=== PATIENT | male | born 1935 | race Caucasian/White ===

== ENCOUNTER 2019-03-13 19:13 | Inpatient (IN) | payer MEDICARE ==
--- NOTE | 2019-03-13 19:38 | ED ---
SOB HPI - General Chief Complaint: Shortness of Breath Stated Complaint: URI, rash Time Seen by Provider: 03/13/19 19:15 Source: patient Mode of arrival: wheelchair Limitations: no limitations - History of Present Illness Initial Comments: The patient is an 83 year old male past history of COPD who presents to the emergency department with reported shortness of breath and rash. He states that he sees Dr. Garcia in office. He is chronically on 4 L of oxygen at all times. He was having shortness of breath approximately one month ago. Dr. aGrcia put him on prednisone and Levaquin. States he took the medications as directed and did have improvement. Over the past week the patient has had worsening shortness of breath. Has a mild cough with yellow sputum production. He has been using his inhalers at home as directed however has no improvement in his symptoms. He also admits to chills. Denies any recorded fevers. The patient then developed a rash in his groin 4 days ago which is prompting his ER visit. States that he is unsure how long it has been there as he is unable to see the area. He describes it as a painful rash without pruritus. No history of similar in the past. Denies any new exposures. Admits to urinary retention. Denies dysuria or hematuria. Denies diarrhea, constipation, nontoxic stools or hematochezia. There are no alleviating, precipitating or modifying factors - Related Data Home Medications Medication Instructions Recorded Confirmed Albuterol Nebulized [Ventolin 2.5 mg INHALATION RT-QID PRN 03/27/15 03/13/19 Nebulized] Ascorbic Acid [Vitamin C] 500 mg PO DAILY 03/27/15 03/13/19 Cholecalciferol [Vitamin D3 (25 1,000 unit PO DAILY 03/27/15 03/13/19 Mcg = 1000 Iu)] Ibuprofen [Motrin] 800 mg PO TID PRN 03/27/15 03/13/19 Tiotropium 18 Mcg/Puff [Spiriva] 1 cap INHALATION RT-DAILY 03/27/15 03/13/19 Vitamin E 1,000 unit PO DAILY 03/27/15 03/13/19 metFORMIN HCL [Glucophage] 1,000 mg PO QAM 03/27/15 03/13/19 metFORMIN HCL [Glucophage] 500 mg PO HS 03/27/15 03/13/19 Fluticasone Propion/Salmeterol 1 puff INHALATION RT-BID 03/13/19 03/13/19 [Fluticasone-Salmeterol 500-50] HYDROcodone/APAP 5-325MG [Trade 1 tab PO Q6H PRN 03/13/19 03/13/19 5-325] Ipratropium Nebulized [Atrovent 0.5 mg INHALATION RT-QID 03/13/19 03/13/19 Nebulized 0.2 MG/ML] diphenhydrAMINE HCL [Benadryl] 25 mg PO HS PRN 03/13/19 03/13/19 Allergies Allergy/AdvReac Type Severity Reaction Status Date / Time No Known Allergies Allergy Verified 03/13/19 19:23 Review of Systems ROS Statement: Those systems with pertinent positive or pertinent negative responses have been documented in the HPI. ROS Other: All systems not noted in ROS Statement are negative. Past Medical History Past Medical History: Coronary Artery Disease (CAD), Cancer, COPD, Diabetes Mellitus, Myocardial Infarction ([place]), Pneumonia Additional Past Medical History / Comment(s): Prostate CA in 1999, treated with seed implants and radiation Last Myocardial Infarction Date:: 1968 History of Any Multi-Drug Resistant Organisms: None Reported Past Surgical History: Orthopedic Surgery Additional Past Surgical History / Comment(s): Knee Surg X3 including a left knee arthroplasty, left Shoulder surgery for rotator cuff, broken ribs on Left side, left ankle Past Anesthesia/Blood Transfusion Reactions: No Reported Reaction Past Psychological History: No Psychological Hx Reported Smoking Status: Former smoker Past Alcohol Use History: None Reported Past Drug Use History: None Reported - Past Family History Father Family Medical History: COPD Additional Family Medical History / Comment(s): from Emphysema Brother(s) Family Medical History: Cancer Additional Family Medical History / Comment(s): from upper resp and heart issues General Exam Limitations: no limitations General appearance: alert, in no apparent distress Head exam: Present: atraumatic, normocephalic, normal inspection Eye exam: Present: normal appearance, PERRL, EOMI. Absent: scleral icterus, conjunctival injection, periorbital swelling ENT exam: Present: normal exam, mucous membranes moist Neck exam: Present: normal inspection. Absent: tenderness, meningismus, lymphadenopathy Respiratory exam: Present: normal lung sounds bilaterally, wheezes, accessory muscle use, decreased breath sounds (vesicular rash right side of suprapubic region, penile shaft and scrotum. rash extends to coccyx and down right leg. Coccyx and right leg rash appears as purpura. ). Absent: respiratory distress, rales, rhonchi, stridor Cardiovascular Exam: Present: regular rate, normal rhythm, normal heart sounds. Absent: systolic murmur, diastolic murmur, rubs, gallop, clicks GI/Abdominal exam: Present: soft, normal bowel sounds. Absent: distended, tenderness, guarding, rebound, rigid Extremities exam: Present: normal inspection, full ROM, normal capillary refill. Absent: tenderness, pedal edema, joint swelling, calf tenderness Back exam: Present: normal inspection Neurological exam: Present: alert, oriented X3, CN II-XII intact Psychiatric exam: Present: normal affect, normal mood Skin exam: Present: warm, dry, intact, normal color. Absent: rash Course Vital Signs 03/13/19 03/13/19 03/13/19 19:16 21:43 22:57 Temperature 98.1 F Pulse Rate 100 89 93 Respiratory 22 18 18 Rate Blood Pressure 160/88 142/94 140/92 O2 Sat by Pulse 92 L 96 96 Oximetry 03/13/19 03/13/19 03/13/19 23:05 23:07 23:14 Temperature Pulse Rate 94 96 Respiratory 16 Rate Blood Pressure O2 Sat by Pulse 90 L Oximetry Medical Decision Making - Medical Decision Making Upon arrival the patient was placed into room 3. A thorough history and physical exam was performed. Peripheral IV is established. 12-lead EKG was performed. The patient is given a DuoNeb breathing treatment, 125 mg of Solu- Medrol and laboratory studies were performed. Lab studies demonstrate a normal CBC and coags. Sodium is low at 128. Troponin is 0.032. C reactive protein is 26.7. BNP 3020. Chest x-ray demonstrates pulmonary interstitial fibrosis without heart failure. Pelvic x-ray demonstrates no acute abnormality in the pelvis. CT of the abdomen and pelvis demonstrates atherosclerotic vascular disease. Mild infiltrate and atelectasis right lower lobe. Cutaneous thicken ing in the posterior scrotum and perineum. Sigmoid diverticulosis without diverticulitis. Because of the patient's low sodium I did start him on 50 mL per hour. I did obtain blood cultures and initiated the patient on Zosyn and Vanco because of the right lower lobe opacity. The patient will receive breathing treatments while hospitalized. Because of his rash I did recommend evaluation by infectious disease. I will admit the patient to [facility] and consult Dr. Garcia and Dr. Cordova. The patient agreed to the treatment plan and was transferred to the floor - Lab Data Result diagrams: 03/16/19 06:56 03/16/19 06:56 Lab Results 03/13/19 03/13/19 03/13/19 Range/Units 19:32 19:32 19:32 WBC 6.1 (3.8-10.6) k/uL RBC 4.47 (4.30-5.90) m/uL Hgb 13.0 (13.0-17.5) gm/dL Hct 38.9 L (39.0-53.0) % MCV 87.0 (80.0-100.0) fL MCH 29.1 (25.0-35.0) pg MCHC 33.4 (31.0-37.0) g/dL RDW 14.0 (11.5-15.5) % Plt Count 239 (150-450) k/uL Neutrophils % 73 % Lymphocytes % 12 % Monocytes % 8 % Eosinophils % 2 % Basophils % 0 % Neutrophils # 4.5 (1.3-7.7) k/uL Lymphocytes # 0.7 L (1.0-4.8) k/uL Monocytes # 0.5 (0-1.0) k/uL Eosinophils # 0.1 (0-0.7) k/uL Basophils # 0.0 (0-0.2) k/uL PT (9.0-12.0) sec INR (<1.2) APTT (22.0-30.0) sec Sodium 128 L (137-145) mmol/L Potassium 4.6 (3.5-5.1) mmol/L Chloride 94 L (98-107) mmol/L Carbon Dioxide 23 (22-30) mmol/L Anion Gap 11 mmol/L BUN 14 (9-20) mg/dL Creatinine 0.84 (0.66-1.25) mg/dL Est GFR (CKD-EPI)AfAm >90 (>60 ml/min/1.73 sqM) Est GFR (CKD-EPI)NonAf 81 (>60 ml/min/1.73 sqM) Glucose 138 H (74-99) mg/dL Plasma Lactic Acid Toney (0.7-2.0) mmol/L Calcium 9.1 (8.4-10.2) mg/dL Total Bilirubin 0.7 (0.2-1.3) mg/dL AST 20 (17-59) U/L ALT 18 (4-49) U/L Alkaline Phosphatase 55 (38-126) U/L Creatine Kinase 49 L (55-170) U/L Troponin I (0.000-0.034) ng/mL C-Reactive Protein 26.7 H (<10.0) mg/L NT-Pro-B Natriuret Pep 3020 pg/mL Total Protein 6.6 (6.3-8.2) g/dL Albumin 3.9 (3.5-5.0) g/dL Urine Color Urine Appearance (Clear) Urine pH (5.0-8.0) Ur Specific [place] (1.001-1.035) Urine Protein (Negative) Urine Glucose (UA) (Negative) Urine Ketones (Negative) Urine Blood (Negative) Urine Nitrite (Negative) Urine Bilirubin (Negative) Urine Urobilinogen (<2.0) mg/dL Ur Leukocyte Esterase (Negative) 03/13/19 03/13/19 03/13/19 Range/Units 19:32 19:32 20:51 WBC (3.8-10.6) k/uL RBC (4.30-5.90) m/uL Hgb (13.0-17.5) gm/dL Hct (39.0-53.0) % MCV (80.0-100.0) fL MCH (25.0-35.0) pg MCHC (31.0-37.0) g/dL RDW (11.5-15.5) % Plt Count (150-450) k/uL Neutrophils % % Lymphocytes % % Monocytes % % Eosinophils % % Basophils % % Neutrophils # (1.3-7.7) k/uL Lymphocytes # (1.0-4.8) k/uL Monocytes # (0-1.0) k/uL Eosinophils # (0-0.7) k/uL Basophils # (0-0.2) k/uL PT 10.3 (9.0-12.0) sec INR 1.0 (<1.2) APTT 24.5 (22.0-30.0) sec Sodium (137-145) mmol/L Potassium (3.5-5.1) mmol/L Chloride (98-107) mmol/L Carbon Dioxide (22-30) mmol/L Anion Gap mmol/L BUN (9-20) mg/dL Creatinine (0.66-1.25) mg/dL Est GFR (CKD-EPI)AfAm (>60 ml/min/1.73 sqM) Est GFR (CKD-EPI)NonAf (>60 ml/min/1.73 sqM) Glucose (74-99) mg/dL Plasma Lactic Acid Toney (0.7-2.0) mmol/L Calcium (8.4-10.2) mg/dL Total Bilirubin (0.2-1.3) mg/dL AST (17-59) U/L ALT (4-49) U/L Alkaline Phosphatase (38-126) U/L Creatine Kinase (55-170) U/L Troponin I 0.032 (0.000-0.034) ng/mL C-Reactive Protein (<10.0) mg/L NT-Pro-B Natriuret Pep pg/mL Total Protein (6.3-8.2) g/dL Albumin (3.5-5.0) g/dL Urine Color Yellow Urine Appearance Clear (Clear) Urine pH 5.5 (5.0-8.0) Ur Specific [place] 1.014 (1.001-1.035) Urine Protein Negative (Negative) Urine Glucose (UA) Negative (Negative) Urine Ketones Negative (Negative) Urine Blood Negative (Negative) Urine Nitrite Negative (Negative) Urine Bilirubin Negative (Negative) Urine Urobilinogen <2.0 (<2.0) mg/dL Ur Leukocyte Esterase Negative (Negative) 03/13/19 Range/Units 21:50 WBC (3.8-10.6) k/uL RBC (4.30-5.90) m/uL Hgb (13.0-17.5) gm/dL Hct (39.0-53.0) % MCV (80.0-100.0) fL MCH (25.0-35.0) pg MCHC (31.0-37.0) g/dL RDW (11.5-15.5) % Plt Count (150-450) k/uL Neutrophils % % Lymphocytes % % Monocytes % % Eosinophils % % Basophils % % Neutrophils # (1.3-7.7) k/uL Lymphocytes # (1.0-4.8) k/uL Monocytes # (0-1.0) k/uL Eosinophils # (0-0.7) k/uL Basophils # (0-0.2) k/uL PT (9.0-12.0) sec INR (<1.2) APTT (22.0-30.0) sec Sodium (137-145) mmol/L Potassium (3.5-5.1) mmol/L Chloride (98-107) mmol/L Carbon Dioxide (22-30) mmol/L Anion Gap mmol/L BUN (9-20) mg/dL Creatinine (0.66-1.25) mg/dL Est GFR (CKD-EPI)AfAm (>60 ml/min/1.73 sqM) Est GFR (CKD-EPI)NonAf (>60 ml/min/1.73 sqM) Glucose (74-99) mg/dL Plasma Lactic Acid Toney 1.2 (0.7-2.0) mmol/L Calcium (8.4-10.2) mg/dL Total Bilirubin (0.2-1.3) mg/dL AST (17-59) U/L ALT (4-49) U/L Alkaline Phosphatase (38-126) U/L Creatine Kinase (55-170) U/L Troponin I (0.000-0.034) ng/mL C-Reactive Protein (<10.0) mg/L NT-Pro-B Natriuret Pep pg/mL Total Protein (6.3-8.2) g/dL Albumin (3.5-5.0) g/dL Urine Color Urine Appearance (Clear) Urine pH (5.0-8.0) Ur Specific [place] (1.001-1.035) Urine Protein (Negative) Urine Glucose (UA) (Negative) Urine Ketones (Negative) Urine Blood (Negative) Urine Nitrite (Negative) Urine Bilirubin (Negative) Urine Urobilinogen (<2.0) mg/dL Ur Leukocyte Esterase (Negative) - EKG Data EKG Comments: EKG demonstrates a sinus tachycardia with a ventricular rate of 103. MS interval 1 QRS 12. QTC of 44. There are frequent PVCs. It is 22-1 had her in. No acute ST segment elevations. There is also a right bundle branch block Disposition Clinical Impression: Acute exacerbation of COPD with asthma, Pneumonia, Purpura, Hyponatremia Disposition: ADMITTED IP TO THIS HOSP Condition: Serious Is patient prescribed a controlled substance at d/c from ED?: No Decision to Admit Reason: Admit from EC Decision Date: 03/13/19 Decision Time: 22:25
[2019-03-13 20:36] LABS: ALT 18 U/L (4-49); AST 20 U/L (17-59); African American GFR (CKD) >90 (>60 ml/min/1.73 sqM); Albumin 3.9 g/dL (3.5-5.0); Alkaline Phosphatase 55 U/L (38-126); Anion Gap 11 mmol/L; Blood Urea Nitrogen 14 mg/dL (9-20); C Reactive Protein 26.7 mg/L (<10.0); Calcium 9.1 mg/dL (8.4-10.2); Carbon Dioxide 23 mmol/L (22-30); Chloride 94 mmol/L (98-107); Creatine Kinase 49 U/L (55-170); Glucose 138 mg/dL (74-99); Non-African American GFR(CKD) 81 (>60 ml/min/1.73 sqM); Potassium 4.6 mmol/L (3.5-5.1); Sodium 128 mmol/L (137-145); Total Bilirubin 0.7 mg/dL (0.2-1.3); Total Protein 6.6 g/dL (6.3-8.2)
[2019-03-13 20:37] LABS: Partial Thromboplastin Time 24.5 sec (22.0-30.0); Prothrombin Time 10.3 sec (9.0-12.0)
[2019-03-13 20:42] LABS: Basophils % (A) 0 %; Eosinophils # (A) 0.1 k/uL (0-0.7); Eosinophils % (A) 2 %; HCT 38.9 % (39.0-53.0); Lymphocytes # (A) 0.7 k/uL (1.0-4.8); Lymphocytes % (A) 12 %; MCH 29.1 pg (25.0-35.0); MCHC 33.4 g/dL (31.0-37.0); Mean Platelet Volume 8.3; Monocytes # (A) 0.5 k/uL (0-1.0); Monocytes % (A) 8 %; Neutrophils # (A) 4.5 k/uL (1.3-7.7); Neutrophils % (A) 73 %; Platelet Count 239 k/uL (150-450); RBC 4.47 m/uL (4.30-5.90); WBC 6.1 k/uL (3.8-10.6)
[2019-03-13 21:05] LABS: Appearance,Urine Clear (Clear); Bilirubin,Urine Negative (Negative); Blood,Urine Negative (Negative); Color,Urine Yellow; Glucose,Urine (UA) Negative (Negative); Ketones,Urine Negative (Negative); Leukocyte Esterase,Urine Negative (Negative); Nitrite,Urine Negative (Negative); PH, Urine 5.5 (5.0-8.0); Protein,Urine Negative (Negative); Specific Gravity,Urine 1.014 (1.001-1.035); Urobilinogen,Urine <2.0 mg/dL (<2.0)
--- NOTE | 2019-03-13 21:13 | XR ---
EXAMINATION TYPE: XR chest 2V DATE OF EXAM: 03/13/2019 COMPARISON: 02/08/2019 HISTORY: Short of breath TECHNIQUE: 2 views FINDINGS: There is no heart failure nor confluent pneumonic infiltrate. Costophrenic angles are clear . There is coarse interstitial density in the lungs. There is no pleural effusion. There are chest le ads. IMPRESSION: Pulmonary interstitial fibrosis. No change. No heart failure.
--- NOTE | 2019-03-13 21:14 | XR ---
EXAMINATION TYPE: XR pelvis AP view DATE OF EXAM: 03/13/2019 COMPARISON: NONE HISTORY: Rash. Infection. TECHNIQUE: Single view FINDINGS: Pelvic ring is intact. Proximal femurs and hip joints are intact. Sacroiliac joints appear intact. There are prostate implant. IMPRESSION: No acute abnormality of the pelvis. No fracture.
--- NOTE | 2019-03-13 21:53 | CT ---
EXAMINATION TYPE: CT abdomen pelvis w con DATE OF EXAM: 03/13/2019 COMPARISON: None HISTORY: Groin infection, urinary retention. Hx prostate ca CT DLP: 1759.9 mGycm Automated exposure control for dose reduction was used. CONTRAST: Performed with IV Contrast, patient injected with 100 mL of Isovue 300. There is some mild atelectasis at the right lung base. There is no pleural effusion. There is mild hi atal hernia. Stomach has normal size. There are numerous small rounded fluid densities in the liver t hat measure up to 1 cm. Gallbladder appears normal. Bile ducts are not dilated. There is no evidence of pancreatic mass. Spleen appears normal. There is no adrenal mass. Kidneys show satisfactory contrast opacification. There is no hydronephrosi s. There is no retroperitoneal adenopathy. There is small umbilical hernia that contains fat. There is Brown catheter in the urinary bladder. There are numerous prostate implants. There is some sigmoid diverticula. There is no sign of diverticulitis. There is no mesenteric edema. There is no ascites or free air. There is no sign of a bowel obstruction. Appendix is not definitely seen. There is no sign of thickened appendix. Abdominal aorta is atheromatous. There is hypertrophic spurring in the hip joints. Lumbar spine is intact. There is no evidence of focal bone destruction. There is no compression fract ure. IMPRESSION: Atherosclerotic vascular disease. Mild infiltrate and atelectasis right lower lobe. Multiple small he patic cysts. There is cutaneous thickening in the posterior scrotum and perineum that should be correlated with th e physical exam. No discrete fluid collection. Sigmoid diverticulosis without diverticulitis.
[2019-03-13] MEDS ORDERED: methylPREDNISolone SOD SUCCI 125 MG/2 ML VIAL IV STA (22:15)
[2019-03-13] MEDS ORDERED: IPRATROPIUM-ALBUTEROL 3 ML NEB INHALATION STA (22:15)
[2019-03-13] MEDS ORDERED: VANCOMYCIN IV PER PHARMACY 1 EACH MISC MISCELLANE PRN (22:21)
[2019-03-13] MEDS ORDERED: NALOXONE 0.4 MG/ML 1 ML VIAL IV PRN (22:25)
[2019-03-13] MEDS: SODIUM CHLORIDE 0.9% 1,000 ML IV SCH (22:52)
[2019-03-13] MEDS: PIPERACILLIN-TAZOBACTAM 3.375 GM in SODIUM CHLORIDE 0.9% 100 ML IVPB SCH (22:55)
[2019-03-14] MEDS ORDERED: VANCOMYCIN 1,750 MG in SODIUM CHLORIDE 0.9% 250 ML IVPB ONE ×2
[2019-03-14] MEDS: PIPERACILLIN-TAZOBACTAM 3.375 GM in SODIUM CHLORIDE 0.9% 100 ML IVPB SCH ×2 (05:50→17:31)
[2019-03-14 07:06] LABS: Basophils % (A) 0 %; Eosinophils % (A) 0 %; HCT 35.3 % (39.0-53.0); HGB 11.9 gm/dL (13.0-17.5); Lymphocytes # (A) 0.4 k/uL (1.0-4.8); Lymphocytes % (A) 6 %; MCH 29.3 pg (25.0-35.0); MCHC 33.7 g/dL (31.0-37.0); MCV 87.1 fL (80.0-100.0); Mean Platelet Volume 8.1; Monocytes # (A) 0.1 k/uL (0-1.0); Monocytes % (A) 2 %; Neutrophils # (A) 5.5 k/uL (1.3-7.7); Neutrophils % (A) 90 %; Platelet Count 242 k/uL (150-450); RBC 4.06 m/uL (4.30-5.90); RDW 13.8 % (11.5-15.5); WBC 6.1 k/uL (3.8-10.6)
[2019-03-14 07:22] LABS: African American GFR (CKD) >90 (>60 ml/min/1.73 sqM); Anion Gap 10 mmol/L; Blood Urea Nitrogen 12 mg/dL (9-20); Calcium 8.8 mg/dL (8.4-10.2); Carbon Dioxide 23 mmol/L (22-30); Chloride 93 mmol/L (98-107); Glucose 181 mg/dL (74-99); Non-African American GFR(CKD) 84 (>60 ml/min/1.73 sqM); Potassium 4.9 mmol/L (3.5-5.1); Sodium 126 mmol/L (137-145)
[2019-03-14] MEDS: IPRATROPIUM-ALBUTEROL 3 ML NEB INHALATION SCH ×6 (09:19→23:16)
--- NOTE | 2019-03-14 10:37 | CONS ---
CONSULTATION PULMONARY/CRITICAL CARE CONSULTATION: DATE OF SERVICE: 03/14/2019 HISTORY OF PRESENT ILLNESS: This is an 83-year-old gentleman who sees my partner Dr. 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 He apparently has severe COPD with an FEV1 that is 38% of predicted. He comes into the emergency room on March 13 complaining of shortness of breath. In addition, he has chest tightness, wheezing and cough. The patient was also apparently complaining of some yellow phlegm production. No fever or chills. No chest pain or chest discomfort. In addition to all this, he apparently developed some sort of rash in his groin area. For that reason, he was admitted to the hospital, but primarily for his COPD. The patient apparently was thought to possibly also have a urinary tract infection. Currently, he is resting comfortably in bed. He is on a couple L of O2. He is on oxygen at home. He does have chronic hypoxemic respiratory failure. He is feeling a bit better in regards to his breathing. He denies any nausea or vomiting or diarrhea. Denies any headache. As I mentioned above, he denies any chest pain or chest discomfort. MEDICATIONS: Reviewed. They include albuterol and updrafts, ascorbic acid, vitamin D3, Motrin, Spiriva, vitamin E, metformin Advair, [place], and diphenhydramine hydrochloride which is Benadryl. ALLERGIES: Denied. PAST MEDICAL HISTORY: Positive for severe COPD with an FEV1 that is 38% of predicted. He also has a history of CAD, diabetes, myocardial infarction, pneumonia, and prostate cancer. His prostate cancer apparently was treated with a seed implant. SURGICAL HISTORY: Includes a knee surgery x3, left knee arthroplasty, left shoulder surgery for rotator cuff, and left ankle surgery. He has also had some fractured ribs on the left side as well. SOCIAL HISTORY: Positive for previous heavy tobacco use. Does not smoke currently. He has smoked for over 50 years. Denies any alcohol use or illicit drug use. FAMILY HISTORY: Positive for father with COPD who from emphysema and a brother who had a history of heart issues, cancer and respiratory issues. REVIEW OF SYSTEMS: CONSTITUTIONAL negative. NEUROLOGIC negative. HEENT negative. CARDIOVASCULAR negative. PULMONARY: Shortness of breath, chest congestion, chest tightness, coughing, wheezing, phlegm production. The phlegm is yellow. GI negative. negative. RHEUMATOLOGIC negative. IMMUNOLOGIC negative ENDOCRINOLOGIC, Negative DERMATOLOGIC rash. PHYSICAL EXAMINATION: VITAL SIGNS: Current vital signs are reviewed. Temperature is 98.2. Heart rate 96, respiratory rate 18, blood pressure 162/81, mean 108. 4 L saturation 96%. Appears no acute distress. HEENT examination is unremarkable. Mucous membranes are moist. No oral lesions. NECK: Supple. Full range of motion. No adenopathy or thyromegaly. Neck veins are flat. CARDIOVASCULAR examination reveals regular rhythm and rate. Heart rate about 80 beats per minute. S1, S2 normal. No heart murmur. Heart sounds are distant. LUNGS: Reveal some expiratory rhonchi and wheezes. Breath sounds are diminished. There is prolongation on forced maneuver. Adventitious lung sounds are more prominent on forced maneuver. No crackles. ABDOMEN: Soft. Bowel sounds are heard. EXTREMITIES are intact. No cyanosis, clubbing, or edema. SKIN reveals no rash other than the rash in the groin. This area was not examined. NEUROLOGIC examination is unremarkable. LABS: Reviewed. White count 6.1, hemoglobin 11.9, hematocrit 35.3, platelet count 242,000, sodium 126, potassium 4.9, chloride 93, CO2 is 23, anion gap is 10, BUN and creatinine were 12 and 0.78. N-terminal proBNP was 3020. C-reactive protein 26.7. Troponin was 0.032. Urine was negative. PT/INR and PTT were all normal. X-RAY: Most recent chest x-ray was done. It showed some chronic changes particularly in the lower lobes with some interstitial fibrotic areas noted. In addition, there is some bibasilar atelectasis. Cardiac silhouette is borderline enlarged. There is no cephalization. No evidence of any heart failure. Medications are reviewed. Currently, he is on updrafts with albuterol and Atrovent, Narcan, Zosyn, vancomycin. ASSESSMENT: 1. Chronic obstructive pulmonary disease exacerbation complicated by purulent tracheobronchitis, without alexys pneumonia. 2. History of previous heavy tobacco use. 3. Chronic hypoxemic respiratory failure. 4. History of coronary artery disease with previous myocardial infarction, 1969. 5. History of prostate cancer, status post seed implant. 6. Diabetes mellitus. 7. Myocardial infarction. 8. Pneumonia. 9. Severe chronic obstructive pulmonary disease, with an FEV1 that is 38% of predicted. 10.Previous multiple surgical procedures. 11.No evidence of urinary tract infection. PLAN: Please see my orders. We will add some Symbicort to his regimen and small dose of corticosteroids. Additional recommendations and suggestions are forthcoming. Prognosis is guarded. We will continue to follow. Dr. Garcia will see the patient tomorrow. [id number] / TOMN: [id number] /
[2019-03-14 11:56] LABS: Glucose,Whole Blood 306 mg/dL (75-99)
[2019-03-14] MEDS ORDERED: VANCOMYCIN 1,500 MG in SODIUM CHLORIDE 0.9% 250 ML IVPB SCH (12:00)
[2019-03-14] MEDS ORDERED: VANCOMYCIN 1,750 MG in SODIUM CHLORIDE 0.9% 500 ML 500 ML IVPB SCH (12:00)
[2019-03-14] MEDS: INSULIN ASPART (NovoLOG) 100 UNIT/ML VIAL SQ SCH ×3 (12:28→21:40)
[2019-03-14] MEDS: methylPREDNISolone SOD SUCCI 40 MG/ML 1 ML VIAL IV SCH ×2 (12:29→17:25)
--- NOTE | 2019-03-14 14:25 | P.HPIM ---
History of Present Illness this is a pleasant 83 years old male with past medical history of coronary artery disease, COPD, diabetes mellitus, prostate cancer in 2000 status post radiotherapy.he follows up with Dr. Garcia as an outpatient. presents because of shortness of breath with cough and yellow phlegm , no chest pain.no change in urine or bowel habits. however patient complains from3 also patient was complaining of from perineal rash for about 2 weeks that's painless and not itchy, associated with some vesicle as the patient's told him patient vitals are stable.labs showing unremarkable CBC INR, BMP except for hyponatremia of 128. Liver enzymes not elevated, troponin is negative at 0.03. C-reactive protein is elevated at 26.7. Urinalysis is not suspicious of infection. EKG showing sinus tachycardia at 103 with PVC, bifascicular block, QTC is 484.CT of the abdomen and pelvis with contrastshowing atherosclerotic vascular disease with mild infiltrates/atelectasis in the right lower lobe with multiple small hepatic cysts. Pelvic x-ray no fracture.chest x-ray: No acute process, pulmonary interstitial fibrosis in the emergency room patient was started on Zosyn and vancomycin and Solu- Medrol and again patient is with no fever or leukocytosis.Sugar on the high side Review of Systems CONSTITUTIONAL: No fever, no malaise, no fatigue. HEENT: No recent visual problems or hearing problems. Denied any sore throat. CARDIOVASCULAR: No orthopnea, PND, no palpitations, no syncope. PULMONARY: no hemoptysis. GASTROINTESTINAL: No diarrhea, no nausea, no vomiting, no abdominal pain. Normoactive bowel sounds. NEUROLOGICAL: No headaches, no weakness, no numbness. HEMATOLOGICAL: Denies any bleeding or petechiae. GENITOURINARY: Denies any burning micturition, frequency, or urgency. MUSCULOSKELETAL/RHEUMATOLOGICAL: Denies any joint pain, swelling, or any muscle pain. ENDOCRINE: Denies any polyuria or polydipsia. Past Medical History Past Medical History: Coronary Artery Disease (CAD), Cancer, COPD, Diabetes Mellitus, Myocardial Infarction ([place]), Pneumonia Additional Past Medical History / Comment(s): Prostate CA in 1999, treated with seed implants and radiation Last Myocardial Infarction Date:: 1968 History of Any Multi-Drug Resistant Organisms: None Reported Past Surgical History: Orthopedic Surgery Additional Past Surgical History / Comment(s): Knee Surg X3 including a left knee arthroplasty, left Shoulder surgery for rotator cuff, broken ribs on Left side, left ankle Past Anesthesia/Blood Transfusion Reactions: No Reported Reaction Past Psychological History: No Psychological Hx Reported Smoking Status: Former smoker Past Alcohol Use History: None Reported Past Drug Use History: None Reported - Past Family History Father Family Medical History: COPD Additional Family Medical History / Comment(s): from Emphysema Brother(s) Family Medical History: Cancer Additional Family Medical History / Comment(s): from upper resp and heart issues Medications and Allergies Home Medications Medication Instructions Recorded Confirmed Type Albuterol Nebulized [Ventolin 2.5 mg INHALATION RT-QID PRN 03/27/15 03/13/19 History Nebulized] Ascorbic Acid [Vitamin C] 500 mg PO DAILY 03/27/15 03/13/19 History Cholecalciferol [Vitamin D3 (25 1,000 unit PO DAILY 03/27/15 03/13/19 History Mcg = 1000 Iu)] Ibuprofen [Motrin] 800 mg PO TID PRN 03/27/15 03/13/19 History Tiotropium 18 Mcg/Puff [Spiriva] 1 cap INHALATION RT-DAILY 03/27/15 03/13/19 History Vitamin E 1,000 unit PO DAILY 03/27/15 03/13/19 History metFORMIN HCL [Glucophage] 1,000 mg PO QAM 03/27/15 03/13/19 History metFORMIN HCL [Glucophage] 500 mg PO HS 03/27/15 03/13/19 History Fluticasone Propion/Salmeterol 1 puff INHALATION RT-BID 03/13/19 03/13/19 History [Fluticasone-Salmeterol 500-50] HYDROcodone/APAP 5-325MG [[place] 1 tab PO Q6H PRN 03/13/19 03/13/19 History 5-325] Ipratropium Nebulized [Atrovent 0.5 mg INHALATION RT-QID 03/13/19 03/13/19 History Nebulized 0.2 MG/ML] diphenhydrAMINE HCL [Benadryl] 25 mg PO HS PRN 03/13/19 03/13/19 History Allergies Allergy/AdvReac Type Severity Reaction Status Date / Time No Known Allergies Allergy Verified 03/13/19 19:23 Physical Exam Vitals: Vital Signs Temp Pulse Pulse Resp BP BP Pulse Ox 03/14/19 01:09 98.6 F 80 12 146/80 90 L 03/14/19 00:00 16 03/13/19 23:38 98.6 F 98 12 156/81 90 L 03/13/19 23:14 96 03/13/19 23:07 94 03/13/19 23:05 16 90 L 03/13/19 22:57 93 18 140/92 96 03/13/19 21:43 89 18 142/94 96 03/13/19 19:16 98.1 F 100 22 160/88 92 L Intake and Output 03/13/19 03/13/19 03/14/19 14:59 22:59 06:59 Output Total 1250 1000 Balance -1250 -1000 Output: Urine 550 1000 Uretheral (Brown) 550 Post Void Residual 700 Other: Voiding Method Indwelling Catheter Weight 107.501 kg 107.501 kg GENERAL: The patient is alert and oriented x3, not in any acute distress. Well developed, well nourished. -HEENT: Pupils are round and equally reacting to light. EOMI. No scleral icterus. No conjunctival pallor. Normocephalic, atraumatic. No pharyngeal erythema. No thyromegaly. dry mucous membranes CARDIOVASCULAR: S1 and S2 present. No murmurs, rubs, or gallops. -PULMONARY: Chest is clear to auscultation, patient is with expiratory scattered wheezing. ABDOMEN: Soft, nontender, nondistended, normoactive bowel sounds. No palpable organomegaly. MUSCULOSKELETAL: No joint swelling or deformity. EXTREMITIES: No cyanosis, clubbing, or pedal edema. NEUROLOGICAL: Gross neurological examination did not reveal any focal deficits. -SKIN: No petechiae. Satellite-like rash in the perineum, around the anus and the gluteal cleft and few on the penis, it looks like ruptured vesicles Results CBC & Chem 7: 03/14/19 06:37 03/14/19 06:37 Labs: Abnormal Lab Results - Last 24 Hours (Table) 03/13/19 03/13/19 Range/Units 19:32 19:32 Hct 38.9 L (39.0-53.0) % Lymphocytes # 0.7 L (1.0-4.8) k/uL Sodium 128 L (137-145) mmol/L Chloride 94 L (98-107) mmol/L Glucose 138 H (74-99) mg/dL Creatine Kinase 49 L (55-170) U/L C-Reactive Protein 26.7 H (<10.0) mg/L Thrombosis Risk Factor Assmnt - Choose All That Apply Any of the Below Risk Factors Present?: No Each Risk Factor Represents 3 Points: Age 75 years or older Other congenital or acquired thrombophilia - If yes, enter type in comment: No Thrombosis Risk Factor Assessment Total Risk Factor Score: 3 Thrombosis Risk Factor Assessment Level: Moderate Risk Assessment and Plan Assessment: acute COPD exacerbation Acute tracheobronchitis perineal rash, and on the gluteal cleft suspicious for herpes infection Hyponatremia, mostly hypovolemic hyponatremia chronic hypoxic failure diabetes mellitus with hyperglycemia history of coronary artery disease Chronic obstructive pulmonary disease history of prostate cancer in 1999 status post radiotherapy. Plan: this is a pleasant 83 years old male who presents with COPD exacerbation. His course is complicated by tracheobronchitis. Patient was started on vancomycin and Zosyn emergency room, which I think it can be switched to ceftriaxone as they might have more risk than benefits given he has no alexys pneumonia, and patient with no one cell count of fever .continue with gentle hydration and follow-up sodium level.follow-up recommendation by human resources department supervisor. Continue with steroids and bronchodilators. Continue with IV fluids. Also we'll start the patient on Valcyte liver Labs and medication were reviewed.. Continue same treatment. Continue with symptomatic treatment. Resume home medication. Monitor lytes and vitals. DVT and GI prophylaxis. Further recommendations of the clinical course of the patient DVT prophylaxis: Subcutaneous heparin GI Prophylaxis: Pepcid PT/OT: Pending Prognosis is guarded
[2019-03-14 17:10] LABS: Glucose,Whole Blood 238 mg/dL (75-99)
[2019-03-14] MEDS: SODIUM CHLORIDE 0.9% 1,000 ML IV SCH (17:31)
[2019-03-14] MEDS: SYMBICORT 160-4.5 MCG INHALER INHALATION SCH (19:37)
[2019-03-14 20:34] LABS: Glucose,Whole Blood 291 mg/dL (75-99)
[2019-03-14] MEDS: metFORMIN 500 MG TAB PO SCH (21:39)
[2019-03-14] MEDS: MELATONIN 3 MG TABLET PO SCH (21:39)
[2019-03-14] MEDS: HEPARIN SODIUM,PORCINE 5,000 UNIT/ML 1 ML VIAL SQ SCH ×2 (21:39→21:48)
[2019-03-14] MEDS: FAMOTIDINE 20 MG/2 ML VIAL IV SCH ×2 (21:40→21:49)
[2019-03-14] MEDS: valACYclovir HCL 1,000 MG TABLET PO SCH (21:43)
[2019-03-15] MEDS: methylPREDNISolone SOD SUCCI 40 MG/ML 1 ML VIAL IV SCH ×5 (00:38→23:01)
[2019-03-15] MEDS: SODIUM CHLORIDE 0.9% 1,000 ML IV SCH (01:10)
[2019-03-15] MEDS: IPRATROPIUM-ALBUTEROL 3 ML NEB INHALATION SCH ×5 (02:59→19:32)
[2019-03-15 07:00] LABS: Glucose,Whole Blood 219 mg/dL (75-99)
[2019-03-15 07:32] LABS: African American GFR (CKD) >90 (>60 ml/min/1.73 sqM); Non-African American GFR(CKD) 84 (>60 ml/min/1.73 sqM)
[2019-03-15 07:55] LABS: Anion Gap 9 mmol/L; Blood Urea Nitrogen 16 mg/dL (9-20); Carbon Dioxide 22 mmol/L (22-30); Chloride 98 mmol/L (98-107); Glucose 195 mg/dL (74-99); Sodium 129 mmol/L (137-145)
[2019-03-15] MEDS: metFORMIN 500 MG TAB PO SCH ×2 (07:56→20:49)
[2019-03-15] MEDS: FAMOTIDINE 20 MG/2 ML VIAL IV SCH ×2 (07:56→07:58)
[2019-03-15] MEDS: CHOLECALCIFEROL 1,000 UNIT TAB PO SCH (07:56)
[2019-03-15] MEDS: HEPARIN SODIUM,PORCINE 5,000 UNIT/ML 1 ML VIAL SQ SCH ×3 (07:56→20:52)
[2019-03-15] MEDS: INSULIN ASPART (NovoLOG) 100 UNIT/ML VIAL SQ SCH ×4 (07:58→20:49)
[2019-03-15] MEDS: SYMBICORT 160-4.5 MCG INHALER INHALATION SCH ×2 (08:36→19:32)
[2019-03-15] MEDS: valACYclovir HCL 1,000 MG TABLET PO SCH ×2 (09:39→18:21)
--- NOTE | 2019-03-15 10:36 | P.NPCON ---
History of Present Illness - Reason for Consult hyponatremia - History of Present Illness Reason for consultation: Hyponatremia History of present illness: Patient is a 83-year-old male seen in renal consultation for hyponatremia. Patient presented to the hospital with dyspnea as well as a rash on his penis and groin area. Patient denies history of kidney disease. Patient's creatinine is 0.77 today. Patient's sodium level was 126 on admission. He is currently maintained on normal saline at 50 mL an hour. It is up to 129 today. Patient does drink quite a bit of water. Oral intake has been good. No vomiting or diarrhea. Patient currently has a Brown catheter for urinary retention. Patient is nonoliguric. Urine output over 3 L in the last 24 hours. No chest pain or shortness of breath at this time. He does admit to taking Motrin as needed for pain. He takes [place] regularly. Hemodynamically stable. Denies use of thiazide diuretics. Patient does have history of diabetes mellitus and is maintained on metformin. Vital signs are stable. General: The patient appeared well nourished and normally developed. HEENT: Head exam is unremarkable. Neck is without jugular venous distension. LUNGS: Lungs are clear to auscultation and percussion. Breath sounds decreased. HEART: Rate and Rhythm are regular. First and second heart sounds normal. No murmurs, rubs or gallops. ABDOMEN: Abdominal exam reveals normal bowel sounds. Non-tender and non- distended. No evidence of peritonitis. EXTREMITITES: No clubbing, cyanosis, or edema. Past Medical History Past Medical History: Coronary Artery Disease (CAD), Cancer, COPD, Diabetes Mellitus, Myocardial Infarction ([place]), Pneumonia Additional Past Medical History / Comment(s): Prostate CA in 1999, treated with seed implants and radiation Last Myocardial Infarction Date:: 1968 History of Any Multi-Drug Resistant Organisms: None Reported Past Surgical History: Orthopedic Surgery Additional Past Surgical History / Comment(s): Knee Surg X3 including a left knee arthroplasty, left Shoulder surgery for rotator cuff, broken ribs on Left side, left ankle Past Anesthesia/Blood Transfusion Reactions: No Reported Reaction Past Psychological History: No Psychological Hx Reported Smoking Status: Former smoker Past Alcohol Use History: None Reported Past Drug Use History: None Reported - Past Family History Father Family Medical History: COPD Additional Family Medical History / Comment(s): from Emphysema Brother(s) Family Medical History: Cancer Additional Family Medical History / Comment(s): from upper resp and heart issues Medications and Allergies Home Medications Medication Instructions Recorded Confirmed Type Albuterol Nebulized [Ventolin 2.5 mg INHALATION RT-QID PRN 03/27/15 03/13/19 History Nebulized] Ascorbic Acid [Vitamin C] 500 mg PO DAILY 03/27/15 03/13/19 History Cholecalciferol [Vitamin D3 (25 1,000 unit PO DAILY 03/27/15 03/13/19 History Mcg = 1000 Iu)] Ibuprofen [Motrin] 800 mg PO TID PRN 03/27/15 03/13/19 History Tiotropium 18 Mcg/Puff [Spiriva] 1 cap INHALATION RT-DAILY 03/27/15 03/13/19 History Vitamin E 1,000 unit PO DAILY 03/27/15 03/13/19 History metFORMIN HCL [Glucophage] 1,000 mg PO QAM 03/27/15 03/13/19 History metFORMIN HCL [Glucophage] 500 mg PO HS 03/27/15 03/13/19 History Fluticasone Propion/Salmeterol 1 puff INHALATION RT-BID 03/13/19 03/13/19 History [Fluticasone-Salmeterol 500-50] HYDROcodone/APAP 5-325MG [[place] 1 tab PO Q6H PRN 03/13/19 03/13/19 History 5-325] Ipratropium Nebulized [Atrovent 0.5 mg INHALATION RT-QID 03/13/19 03/13/19 History Nebulized 0.2 MG/ML] diphenhydrAMINE HCL [Benadryl] 25 mg PO HS PRN 03/13/19 03/13/19 History Allergies Allergy/AdvReac Type Severity Reaction Status Date / Time No Known Allergies Allergy Verified 03/13/19 19:23 Physical Exam Vitals: Vital Signs Temp Pulse Pulse Resp BP Pulse Ox 03/15/19 08:47 92 03/15/19 08:37 89 97 03/15/19 07:00 97.8 F 45 L 20 125/69 95 03/15/19 03:46 16 03/15/19 00:09 98.4 F 91 18 128/71 97 12/15/19 20:08 96 03/14/19 19:40 90 03/14/19 16:23 88 03/14/19 16:13 88 03/14/19 13:59 98.5 F 95 18 112/62 96 03/14/19 13:38 90 03/14/19 13:27 88 Intake and Output 03/14/19 03/15/19 03/15/19 22:59 06:59 14:59 Intake Total 1540 400 Output Total 1750 1500 Balance -210 -1100 Intake: Intake, IV Titration 1000 400 Amount Sodium Chloride 0.9% 1, 1000 400 000 ml @ 50 mls/hr IV . Q20H [place] Rx#:[id number] Oral 540 Output: Urine 1750 1500 Other: Voiding Method Indwelling Catheter Indwelling Catheter # Voids 1 # Bowel Movements 1 Results - Lab Results Most recent lab results Calcium 9.0 mg/dL (8.4-10.2) 03/15/19 06:20 03/14/19 06:37 03/15/19 06:20 Assessment and Plan Plan: Assessment: 1. Hyponatremia secondary to urinary retention. Improving. 2. Urinary retention status post Brown catheter placement. 3. Groin rash. Maintained on antibiotics. Infectious disease consulted. 4. Diabetes mellitus. Plan: Maintain normal saline at 50 mL an hour. 1500 mL fluid restriction. Maintain Brown catheter. Repeat electrolytes in the morning. Thank you for the consultation. I will continue to follow the patient with you during his hospital stay.
--- NOTE | 2019-03-15 11:39 | P.PN ---
Subjective Progress Note Date: 03/15/19 83-year-old patient COPD with an FEV1 of less than 40%. Patient was admitted for an acute COPD Exacerbation. He is an ex-smoker. He has been maintained on a combination of Advair and Spiriva on outpatient basis. On today's evaluation is being seen in follow-up. Feeling slightly better compared to yesterday. No fever. No chills. No chest pain. He is on bronchodilators [id number]. He is also on IV Solu-Medrol. Also known to have history of coronary artery disease, diabetes mellitus, prostate cancer. His sodium level was quite low at a time of admission and it wasn't was 126 and currently is up to 129. patient was seen by nephrology. Sodium level is improved after insertion of Brown catheter and this was believed to be related to obstructive uropathy. Chest x- ray shows COPD. No evidence of any pneumonia. CAT scan of the abdomen and pelvis was also done that showed evidence of some atelectatic changes in the right lung base. There was some small hepatic cysts. Diverticulosis without diverticulitis. Objective - Vital Signs Vital signs: Vital Signs Temp 97.8 F 03/15/19 07:00 Pulse 92 03/15/19 08:47 Resp 20 03/15/19 07:00 BP 125/69 03/15/19 07:00 Pulse Ox 97 03/15/19 08:37 Intake & Output 03/14/19 03/15/19 03/15/19 18:59 06:59 18:59 Intake Total 1490 1400 Output Total 1250 2000 Balance 240 -600 Intake: Intake, IV Titration 950 1400 Amount Piperacillin-Tazobactam 3 100 .375 gm In Sodium Chloride 0.9% 100 ml @ 25 mls/hr IVPB Q8H [place] Rx#: [id number] Sodium Chloride 0.9% 1, 350 1400 000 ml @ 50 mls/hr IV . Q20H [place] Rx#:[id number] Vancomycin 1,750 mg In 500 Sodium Chloride 0.9% 500 ml 500 ml @ 167 mls/hr IVPB Q12H [place] Rx#: [id number] Oral 540 Output: Urine 1250 2000 Other: Voiding Method Indwelling Catheter Indwelling Catheter Indwelling Catheter # Voids 1 # Bowel Movements 1 - Exam The patient appeared well nourished and normally developed. Vital signs as documented. Head exam is unremarkable. No scleral icterus or corneal arcus noted. Neck is without jugular venous distension, thyromegaly, or carotid bruits. Carotid upstrokes are brisk bilaterally. Lungs are diminished breath sounds bilaterally along with prolongation of expirationphase of breathing and scattered expiratory wheezes throughout the lung june.Cardiac exam reveals the PMI to be normally sized and situated. Rhythm is regular. First and second heart sounds normal. No murmurs, rubs or gallops. Abdominal exam reveals normal bowel sounds, no masses, no organomegaly and no aortic enlargement. Extremities are nonedematous and both femoral and pedal pulses are normal. - Labs CBC & Chem 7: 03/14/19 06:37 03/15/19 06:20 Labs: Abnormal Lab Results - Last 24 Hours (Table) 03/14/19 03/14/19 03/14/19 Range/Units 11:29 16:46 20:23 Sodium (137-145) mmol/L Glucose (74-99) mg/dL POC Glucose (mg/dL) 306 H 238 H 291 H (75-99) mg/dL 03/15/19 03/15/19 Range/Units 06:20 06:49 Sodium 129 L (137-145) mmol/L Glucose 195 H (74-99) mg/dL POC Glucose (mg/dL) 219 H (75-99) mg/dL Microbiology - Last 24 Hours (Table) 03/13/19 22:51 Blood Culture - Preliminary Blood No Growth after 24 hours Assessment and Plan Plan: 1 acute COPD exacerbation with secondary shortness of breath 2 severe COPD with an FEV1 of 38% of predicted 3 acute hyponatremia secondary to obstructive uropathy post Brown catheter insertion and alleviating urinary obstruction and his sodium level is up to 129 4 CAD with previous MS 5 history of prostate cancer post-seed implantation 6 diabetes mellitus 7 osteoarthritis and vitamin D deficiency Plan Monitor the sodium level. Sodium level is gradually improving. Continue bronchodilators. Continue IV Solu-Medrol.we'll continue to follow.
[2019-03-15 12:01] LABS: Glucose,Whole Blood 155 mg/dL (75-99)
[2019-03-15] MEDS: TAMSULOSIN 0.4 MG CAP.ER.24H PO SCH (15:08)
[2019-03-15] MEDS ORDERED: HYDROcodone/APAP 5-325MG 1 EACH TAB PO PRN (15:34)
[2019-03-15 17:03] LABS: Glucose,Whole Blood 200 mg/dL (75-99)
[2019-03-15] MEDS ORDERED: CALAMINE/ZINC OXIDE LOTION 177 ML BTL TOPICAL PRN (17:24)
--- NOTE | 2019-03-15 17:32 | PN ---
PROGRESS NOTE DATE OF SERVICE: 03/15/2019 This 83-year-old gentleman admitted with COPD acute exacerbation as well as acute purulent tracheobronchitis being closely monitored. The patient had multiple PVCs in the EKG. The EKG is found to be monomorphic. Otherwise, the patient also had multiple other medical issues including hyponatremia as well. The C-reactive protein is elevated 26.9. A chest x-ray done at the time of admission, which was personally reviewed by me, showed some increased bronchovascular markings, history of possible pulmonary interstitial fibrosis. Abdomen and pelvis CAT scan was also done which showed arthrosclerotic vascular disease and some skin thickening on the perineum and scrotum. PAST MEDICAL HISTORY: Reviewed. REVIEW OF SYSTEMS: Cardiovascular system is as mentioned earlier. Respiratory: As mentioned earlier. GI no nausea or vomiting. : No dysuria or retention. Central nervous system: No numbness or weakness. CURRENT MEDICATIONS: Reviewed and include: 1. DuoNeb q.i.d. and p.r.n. 2. Symbicort 160/4.5 b.i.d. 3. Rocephin 1 g daily. 4. Vitamin D. 5. Pepcid 20 mg b.i.d. 6. Heparin 5000 b.i.d. 7. NovoLog. 8. Melatonin 3 mg q.h.s. 9. Glucophage. 10.Solu-Medrol 40 IV q.8h. 11.Narcan p.r.n. 12.Flomax. 13.Valtrex. PHYSICAL EXAM: Patient is alert and oriented times three. Pulse 91, blood pressure 124/69, respiration 20, temperature 97.8, pulse ox 94% on 4 L. HEENT is conjunctivae normal. NECK: No JVD. CARDIOVASCULAR: S1, S2 muffled. RESPIRATIONS: Breath sounds diminished in the bases. A few bilateral scattered rhonchi and crackles. ABDOMEN: Soft, nontender. No mass palpable. LEGS: No edema. No swelling. NERVOUS SYSTEM: Higher functions as mentioned earlier. Moves all four limbs. No focal deficits. LYMPHATICS: No lymph nodes palpable in the neck, axillae or groin. SKIN: No ulcer, rashes or bleeding. JOINTS: No active deforming arthropathy. LABS: WBC 6.2, hemoglobin 11.2, sodium 129. ASSESSMENT: 1. Chronic obstructive pulmonary disease acute exacerbation with acute purulent tracheobronchitis. 2. Multiple PVCs of undetermined etiology. 3. Perineal rash, possibly herpetic infection. 4. Hyponatremia possibly hypovolemic hyponatremia. 5. Chronic hypoxic respiratory failure. 6. Diabetes mellitus type 2. 7. History of coronary artery disease. 8. Chronic obstructive pulmonary disease. 9. History of prostate cancer status post radiation therapy. 10.Chronic obstructive pulmonary disease. 11.Coronary artery disease. 12.History of myocardial infarction. 13.History of degenerative joint disease. 14.Remote history of nicotine dependence. 15.Obesity with body mass of 35.6. 16.FULL CODE. RECOMMENDATIONS AND DISCUSSION: In this 83-year-old gentleman who presented with multiple complex medical issues, we will monitor the patient closely, continue the current medications, management and symptomatic treatment. Otherwise, I recommend continue with broad-spectrum IV antibiotics, IV steroids, continue with antivirals. DVT prophylaxis. Proton pump inhibitors. Resume the home medications. Closely follow with Dr. Garcia. Guarded prognosis. Cardiology evaluation. Two-D echo with Doppler. Check magnesium. Discussed with the patient who understands and agrees. Further recommendations to follow. MMODL / IJN: [id number] /
[2019-03-15] MEDS: valACYclovir 500 MG TAB PO SCH ×2 (18:22→20:50)
--- NOTE | 2019-03-15 19:10 | ECHOF ---
Referral Reason:PVCS MEASUREMENTS -------- HEIGHT: 177.8 cm WEIGHT: 107.5 kg BP: 125/69 RVIDd: 3.7 cm (< 3.3) IVSd: 1.3 cm (0.6 - 1.1) LVIDd: 6.5 cm (3.9 - 5.3) LVPWd: 1.5 cm (0.6 - 1.1) IVSs: 1.6 cm LVIDs: 5.4 cm LVPWs: 1.9 cm LA Diam: 3.7 cm (2.7 - 3.8) Ao Diam: 4.0 cm (2.0 - 3.7) AV Cusp: 1.7 cm (1.5 - 2.6) MV EXCURSION: 14.577 mm (> 18.000) MV EF SLOPE: 37 mm/s (70 - 150) EPSS: 2.5 cm MV E Rusty: 0.86 m/s MV DecT: 129 ms MV A Rusty: 0.94 m/s MV E/A Ratio: 0.91 RAP: 5.00 mmHg RVSP: 48.51 mmHg FINDINGS -------- Sinus rhythm. This was a technically difficult study with suboptimal views. The left ventricle is moderately dilated. There is moderate concentric left ventricular hypertrophy . Overall left ventricular systolic function is moderate-severely impaired with, an EF between 30 - 35 %. The right ventricle is mild to moderately enlarged. The left atrial size is normal. The right atrium is normal in size. 5 ml of Lumason was utilized for enhancement of images. Interatrial and interventricular septum intact. There is mild aortic valve sclerosis. Mild mitral regurgitation is present. Mild tricuspid regurgitation present. There is moderate pulmonary hypertension. The right ventric ular systolic pressure, as measured by Doppler, is 48.51mmHg. The pulmonic valve was not well visualized. The aortic root is dilated measuring 4.0cm. IVC Not well visulized. CONCLUSIONS -------- 1. Sinus rhythm. 2. This was a technically difficult study with suboptimal views. 3. The left ventricle is moderately dilated. 4. There is moderate concentric left ventricular hypertrophy. 5. Overall left ventricular systolic function is moderate-severely impaired with, an EF between 30 - 35 %. 6. The right ventricle is mild to moderately enlarged. 7. The left atrial size is normal. 8. The right atrium is normal in size. 9. 5 ml of Lumason was utilized for enhancement of images. 10. Interatrial and interventricular septum intact. 11. There is mild aortic valve sclerosis. 12. Mild mitral regurgitation is present. 13. Mild tricuspid regurgitation present. 14. There is moderate pulmonary hypertension. 15. The right ventricular systolic pressure, as measured by Doppler, is 48.51mmHg. 16. The pulmonic valve was not well visualized. 17. The aortic root is dilated measuring 4.0cm. 18. IVC Not well visulized. [employer] SUPERVISOR: Shelbie Yoder RDCS
[2019-03-15] MEDS ORDERED: [UNRECOGNIZED DRUG - OTHER] INHALATION SCH (20:00)
[2019-03-15] MEDS ORDERED: SALMETEROL INHALATION SCH (20:00)
[2019-03-15] MEDS ORDERED: FLUTICASONE PROPION INHALATION SCH (20:00)
[2019-03-15] MEDS: MELATONIN 3 MG TABLET PO SCH (20:50)
[2019-03-15] MEDS: METOPROLOL TARTRATE 25 MG TAB PO SCH (20:50)
[2019-03-15] MEDS: FAMOTIDINE 20 MG TAB PO SCH (20:52)
[2019-03-15 20:55] LABS: Glucose,Whole Blood 246 mg/dL (75-99)
--- NOTE | 2019-03-15 22:55 | P.CONS ---
History of Present Illness - Reason for Consult Consult date: 03/15/19 - Chief Complaint shortness of breath - History of Present Illness 83 year old male with severe COPD with a FEV1 of38%, presents for shortness of breath, increasing cough and feeling much worse than usual and was admitted for exacerbation of COPD. Pateitn relates to a new rash that has started on the rigth side of the penis and to the riight side of the scrotum, does not cross the medline, and is painful. Patient does have a history of prostate cancer and is status post localized radiation therapy. System well without significant recurrence. He is not angry difficulties and urinary tract infections. However he did have difficulties with urinary retention and did have a short-term Brown catheter has been removed. Relates since removal he is urinating quite well. Shortness of breath is starting to improve and he is not having fevers, chills or rigors.. Review of Systems HEENT:Denies headache or acute visual change. Denies sinus or mouth discomforts. Denies neck stiffness or pain. Denies significant oral cavity pain. Denies difficulty on swallowing. Lungs: severe shortness of breath has improved bhemoptysis Cardiovascular: shortness of breath and dyspnea with exertion but is without chest pain He does not have syncope Gastrointestinal:Denies nausea, vomiting, diarrhea, constipation, hematemesis, melena, hematochezia. No no significant change of bowel habit noticed. Musculoskeletal: denies significant myalgias or arthralgias. No new joint swelling. Denies new back pain. Skin: has noted new lesions to the genitalia Neuro: Denies headache or visual change. Denies any new onset weakness or difficulty with ambulation. Denies falls or seizures. Psychiatric:Denies anxiety or depression. Endocrine: Denies significant fatigue, denies significant weight loss or weight gain. Past Medical History Past Medical History: Coronary Artery Disease (CAD), Cancer, COPD, Diabetes Mellitus, Myocardial Infarction ([place]), Pneumonia Additional Past Medical History / Comment(s): Prostate CA in 1999, treated with seed implants and radiation Last Myocardial Infarction Date:: 1968 History of Any Multi-Drug Resistant Organisms: None Reported Past Surgical History: Orthopedic Surgery Additional Past Surgical History / Comment(s): Knee Surg X3 including a left knee arthroplasty, left Shoulder surgery for rotator cuff, broken ribs on Left side, left ankle Past Anesthesia/Blood Transfusion Reactions: No Reported Reaction Past Psychological History: No Psychological Hx Reported Additional Psychological History / Comment(s): , lives with his . 5 adult children. 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 [employer]. was in [employer] . No international travel since . No animals in the home Smoking Status: Former smoker Past Alcohol Use History: None Reported Past Drug Use History: None Reported - Past Family History Father Family Medical History: COPD Additional Family Medical History / Comment(s): from Emphysema Brother(s) Family Medical History: Cancer Additional Family Medical History / Comment(s): from upper resp and heart issues Medications and Allergies Home Medications and Allergies Comment(s): Current Medications Hydrocodone Bitart/Acetaminophen ([place] 5-325) 1 each PO Q6H PRN PRN Reason: Pain Albuterol/Ipratropium (Duoneb 0.5 Mg-3 Mg/3 Ml Soln) 3 ml INHALATION RT-Q4H [facility] Last Admin: 03/15/19 19:32 Dose: 3 ml Documented by: Ascorbic Acid (Vitamin C) 500 mg PO DAILY [facility] Budesonide/Formoterol Fumarate (Symbicort 160-4.5 Mcg Inhaler) 2 puff INHALATION RT-BID [facility] Last Admin: 03/15/19 19:32 Dose: 2 puff Documented by: Calamine (Calamine Lotion) 1 applic TOPICAL QID PRN PRN Reason: Skin Irritation Cholecalciferol (Vitamin D3 (25 Mcg = 1000 Iu)) 1,000 unit PO DAILY [facility] Last Admin: 03/15/19 07:56 Dose: 1,000 unit Documented by: Famotidine (Pepcid) 20 mg PO Q12HR [facility] Last Admin: 03/15/19 20:52 Dose: Not Given Documented by: Heparin Sodium (Porcine) (Heparin) 5,000 unit SQ Q12HR [facility] Last Admin: 03/15/19 20:52 Dose: Not Given Documented by: Sodium Chloride (Saline 0.9%) 1,000 mls @ 50 mls/hr IV .Q20H [facility] Last Admin: 03/15/19 01:10 Dose: 50 mls/hr Documented by: Ceftriaxone Sodium 1 gm/ (Sodium Chloride) 50 mls @ 100 mls/hr IVPB Q24HR [facility] Last Admin: 03/15/19 07:56 Dose: 100 mls/hr Documented by: Insulin Aspart (Novolog) 0 unit SQ ACHS [facility]; Protocol Last Admin: 03/15/19 20:49 Dose: 5 unit Documented by: Melatonin (Melatonin) 3 mg PO [facility] Last Admin: 03/15/19 20:50 Dose: 3 mg Documented by: Metformin HCl (Glucophage) 500 mg PO HS [facility] Last Admin: 03/15/19 20:49 Dose: 500 mg Documented by: Metformin HCl (Glucophage) 1,000 mg PO QAM [facility] Last Admin: 03/15/19 07:56 Dose: 1,000 mg Documented by: Methylprednisolone Sodium Succinate (Solu-Medrol) 40 mg IV Q6HR [facility] Last Admin: 03/15/19 17:13 Dose: 40 mg Documented by: Metoprolol Tartrate (Lopressor) 25 mg PO BID [facility] Last Admin: 03/15/19 20:50 Dose: 25 mg Documented by: Naloxone HCl (Narcan) 0.2 mg IV Q2M PRN PRN Reason: Opioid Reversal Pantoprazole Sodium (Protonix) 40 mg PO AC-BRKFST [facility] Tamsulosin HCl (Flomax) 0.4 mg PO PC-BRKT [facility] Last Admin: 03/15/19 15:08 Dose: 0.4 mg Documented by: Valacyclovir HCl (Valtrex) 1,000 mg PO TID [facility] Last Admin: 03/15/19 20:50 Dose: 1,000 mg Documented by: Vitamin E (Vitamin E) 800 unit PO DAILY [facility] Home Medications Medication Instructions Recorded Confirmed Type Albuterol Nebulized [Ventolin 2.5 mg INHALATION RT-QID PRN 03/27/15 03/13/19 History Nebulized] Ascorbic Acid [Vitamin C] 500 mg PO DAILY 03/27/15 03/13/19 History Cholecalciferol [Vitamin D3 (25 1,000 unit PO DAILY 03/27/15 03/13/19 History Mcg = 1000 Iu)] Ibuprofen [Motrin] 800 mg PO TID PRN 03/27/15 03/13/19 History Tiotropium 18 Mcg/Puff [Spiriva] 1 cap INHALATION RT-DAILY 03/27/15 03/13/19 History Vitamin E 1,000 unit PO DAILY 03/27/15 03/13/19 History metFORMIN HCL [Glucophage] 1,000 mg PO QAM 03/27/15 03/13/19 History metFORMIN HCL [Glucophage] 500 mg PO HS 03/27/15 03/13/19 History Fluticasone Propion/Salmeterol 1 puff INHALATION RT-BID 03/13/19 03/13/19 History [Fluticasone-Salmeterol 500-50] HYDROcodone/APAP 5-325MG [[place] 1 tab PO Q6H PRN 03/13/19 03/13/19 History 5-325] Ipratropium Nebulized [Atrovent 0.5 mg INHALATION RT-QID 03/13/19 03/13/19 History Nebulized 0.2 MG/ML] diphenhydrAMINE HCL [Benadryl] 25 mg PO HS PRN 03/13/19 03/13/19 History Allergies Allergy/AdvReac Type Severity Reaction Status Date / Time No Known Allergies Allergy Verified 03/13/19 19:23 Physical Exam Vitals: Vital Signs Temp Pulse Pulse Resp BP Pulse Ox 03/15/19 19:42 95 18 03/15/19 19:32 100 18 03/15/19 19:26 98.3 F 99 18 151/83 93 L 03/15/19 15:32 90 18 03/15/19 15:22 91 16 97 03/15/19 15:00 97.8 F 101 H 16 137/73 95 03/15/19 12:18 79 03/15/19 12:09 76 03/15/19 08:47 92 03/15/19 08:37 89 97 03/15/19 07:00 97.8 F 45 L 20 125/69 95 03/15/19 03:46 16 03/15/19 00:09 98.4 F 91 18 128/71 97 Intake and Output 03/15/19 03/15/19 03/15/19 06:59 14:59 22:59 Intake Total 400 200 330 Output Total 1500 725 600 Balance -1100 -525 -270 Intake: Intake, IV Titration 400 150 Amount Sodium Chloride 0.9% 1, 400 000 ml @ 50 mls/hr IV . Q20H [facility] Rx#:[id number] cefTRIAXone 1 gm In 150 Sodium Chloride 0.9% 50 ml @ 100 mls/hr IVPB Q24HR [facility] Rx#:[id number] Oral 200 180 Output: Urine 1500 725 600 Uretheral (Brown) 125 Other: Voiding Method Indwelling Catheter # Bowel Movements 1 HEENT: Anicteric conjunctiva are pink and moist nasal mucosa grossly intact without significant lesions, there is no thrush. Neck: The neck is supple without significant lymphadenopathy or thyromegaly. Lungs: symmetrical bilateral air entry, expiratory wheezes without significant bronchial sound, no dullness or egophony Heart: Regular rate and rhythm with an audible S1-S2, no S3 no S4. There is no significant murmur click or rub, PMI was nondisplaced. Abdomen: Positive bowel sounds soft and nontender without palpable masses or organomegaly. There was no guarding or rebound. Extremities: The upper extremities have excellent pulses they are symmetric, no significant petechiae or telangiectasia. No splinter hemorrhages were noted. The lower extremities are free from significant edema. The peripheral pulses were 2+ and symmetric. Neuro: Awake alert oriented to person place and time. There are no acute new gross focal sensory motor deficits skin reveals evidence of asymmetric that is on the right side of the glans and right side of the penile shaft on line. It is pain and appears to be somewhat vesicular in its nature. It does not spread into the abdom There is some mild erythema related to thevesicles but there is no significant cellulitis there is no inguinallymphadenopathy and no other abnormal lymph nodes are noted Results CBC & Chem 7: 03/14/19 06:37 03/15/19 06:20 Labs: Abnormal Lab Results - Last 24 Hours (Table) 03/15/19 03/15/19 03/15/19 Range/Units 06:20 06:49 11:50 Sodium 129 L (137-145) mmol/L Glucose 195 H (74-99) mg/dL POC Glucose (mg/dL) 219 H 155 H (75-99) mg/dL 03/15/19 03/15/19 Range/Units 16:52 20:43 Sodium (137-145) mmol/L Glucose (74-99) mg/dL POC Glucose (mg/dL) 200 H 246 H (75-99) mg/dL Microbiology - Last 24 Hours (Table) 03/13/19 22:51 Blood Culture - Preliminary Blood No Growth after 24 hours Laboratory Results WBC 6.1 k/uL (3.8-10.6) 03/14/19 06:37 RBC 4.06 m/uL (4.30-5.90) L 03/14/19 06:37 Hgb 11.9 gm/dL (13.0-17.5) L 03/14/19 06:37 Hct 35.3 % (39.0-53.0) L 03/14/19 06:37 MCV 87.1 fL (80.0-100.0) 03/14/19 06:37 MCH 29.3 pg (25.0-35.0) 03/14/19 06:37 MCHC 33.7 g/dL (31.0-37.0) 03/14/19 06:37 RDW 13.8 % (11.5-15.5) 03/14/19 06:37 Plt Count 242 k/uL (150-450) 03/14/19 06:37 Neutrophils % 90 % 03/14/19 06:37 Lymphocytes % 6 % 03/14/19 06:37 Monocytes % 2 % 03/14/19 06:37 Eosinophils % 0 % 03/14/19 06:37 Basophils % 0 % 03/14/19 06:37 Neutrophils # 5.5 k/uL (1.3-7.7) 03/14/19 06:37 Lymphocytes # 0.4 k/uL (1.0-4.8) L 03/14/19 06:37 Monocytes # 0.1 k/uL (0-1.0) 03/14/19 06:37 Eosinophils # 0.0 k/uL (0-0.7) 03/14/19 06:37 Basophils # 0.0 k/uL (0-0.2) 03/14/19 06:37 PT 10.3 sec (9.0-12.0) 03/13/19 19:32 INR 1.0 (<1.2) 03/13/19 19:32 APTT 24.5 sec (22.0-30.0) 03/13/19 19:32 Sodium 129 mmol/L (137-145) L 03/15/19 06:20 Potassium 5.0 mmol/L (3.5-5.1) 03/15/19 06:20 Chloride 98 mmol/L (98-107) 03/15/19 06:20 Carbon Dioxide 22 mmol/L (22-30) 03/15/19 06:20 Anion Gap 9 mmol/L 03/15/19 06:20 BUN 16 mg/dL (9-20) 03/15/19 06:20 Creatinine 0.77 mg/dL (0.66-1.25) 03/15/19 06:20 Est GFR (CKD-EPI)AfAm >90 (>60 ml/min/1.73 sqM) 03/15/19 06:20 Est GFR (CKD-EPI)NonAf 84 (>60 ml/min/1.73 sqM) 03/15/19 06:20 Glucose 195 mg/dL (74-99) H 03/15/19 06:20 POC Glucose (mg/dL) 246 mg/dL (75-99) H 03/15/19 20:43 POC Glu Route Service Representative MAE Jacqueline Vu 03/15/19 20:43 Plasma Lactic Acid [place] 1.2 mmol/L (0.7-2.0) 03/13/19 21:50 Calcium 9.0 mg/dL (8.4-10.2) 03/15/19 06:20 Magnesium 1.9 mg/dL (1.6-2.3) 03/15/19 06:52 Total Bilirubin 0.7 mg/dL (0.2-1.3) 03/13/19 19:32 AST 20 U/L (17-59) 03/13/19 19:32 ALT 18 U/L (4-49) 03/13/19 19:32 Alkaline Phosphatase 55 U/L (38-126) 03/13/19 19:32 Creatine Kinase 49 U/L (55-170) L 03/13/19 19:32 Troponin I 0.032 ng/mL (0.000-0.034) 03/13/19 19:32 C-Reactive Protein 26.7 mg/L (<10.0) H 03/13/19 19:32 NT-Pro-B Natriuret Pep 3020 pg/mL 03/13/19 19:32 Total Protein 6.6 g/dL (6.3-8.2) 03/13/19 19:32 Albumin 3.9 g/dL (3.5-5.0) 03/13/19 19:32 TSH 0.509 mIU/L (0.465-4.680) 03/14/19 06:37 Urine Color Yellow 03/13/19 20:51 Urine Appearance Clear (Clear) 03/13/19 20:51 Urine pH 5.5 (5.0-8.0) 03/13/19 20:51 Ur Specific [place] 1.014 (1.001-1.035) 03/13/19 20:51 Urine Protein Negative (Negative) 03/13/19 20:51 Urine Glucose (UA) Negative (Negative) 03/13/19 20:51 Urine Ketones Negative (Negative) 03/13/19 20:51 Urine Blood Negative (Negative) 03/13/19 20:51 Urine Nitrite Negative (Negative) 03/13/19 20:51 Urine Bilirubin Negative (Negative) 03/13/19 20:51 Urine Urobilinogen <2.0 mg/dL (<2.0) 03/13/19 20:51 Ur Leukocyte Esterase Negative (Negative) 03/13/19 20:51 Microbiology 03/13/19 22:51 Blood Blood Culture - Preliminary No Growth after 24 hours Assessment and Plan (1) Varicella zoster Narrative/Plan: 83-year-old male who has a history of COPD with an FEV1 of 38%. Presents to hospital with increasing shortness of breath with exacerbation of COPD. With current care his respiratory status is improving however he has noted a significant rash on his genitalia that is painful. Examination reveals evidence of a somewhat vesicular rash that is to the right side of the penis given the rash is somewhat vesicular, is painful in that it has asymmetry is most likely varicella-zoster and constantly Valtrex 1 g every 8 hours as requested. Topical therapy to improve discomfort is also requested. The patient COPD apparently has improved quite a bit to current interventions and there is no evidence of pneumonia. Current Visit: Yes Status: Acute Code(s): B02.9 - ZOSTER WITHOUT COMPLICATIONS; B01.9 - VARICELLA WITHOUT COMPLICATION SNOMED Code(s): 823882882 (2) Acute exacerbation of COPD with asthma Current Visit: Yes Status: Acute Code(s): J44.1 - CHRONIC OBSTRUCTIVE PULMONARY DISEASE W (ACUTE) EXACERBATION SNOMED Code(s): 0716785900015 (3) Hyponatremia Current Visit: Yes Status: Acute Code(s): E87.1 - HYPO-OSMOLALITY AND HYPONATREMIA SNOMED Code(s): 53443648
[2019-03-16] MEDS: IPRATROPIUM-ALBUTEROL 3 ML NEB INHALATION SCH ×7 (00:31→23:43)
[2019-03-16] MEDS: methylPREDNISolone SOD SUCCI 40 MG/ML 1 ML VIAL IV SCH (05:11)
[2019-03-16 07:12] LABS: Glucose,Whole Blood 210 mg/dL (75-99)
[2019-03-16 07:32] LABS: African American GFR (CKD) >90 (>60 ml/min/1.73 sqM); Anion Gap 8 mmol/L; Blood Urea Nitrogen 17 mg/dL (9-20); Calcium 9.5 mg/dL (8.4-10.2); Carbon Dioxide 25 mmol/L (22-30); Chloride 98 mmol/L (98-107); Glucose 190 mg/dL (74-99); Magnesium 1.9 mg/dL (1.6-2.3); Non-African American GFR(CKD) 86 (>60 ml/min/1.73 sqM); Potassium 5.2 mmol/L (3.5-5.1); Sodium 131 mmol/L (137-145)
[2019-03-16 07:39] LABS: Basophils % (A) 0 %; Eosinophils % (A) 0 %; HCT 34.3 % (39.0-53.0); HGB 11.5 gm/dL (13.0-17.5); Lymphocytes # (A) 0.4 k/uL (1.0-4.8); Lymphocytes % (A) 2 %; MCH 29.7 pg (25.0-35.0); MCHC 33.5 g/dL (31.0-37.0); MCV 88.8 fL (80.0-100.0); Monocytes # (A) 0.5 k/uL (0-1.0); Monocytes % (A) 2 %; Neutrophils # (A) 18.2 k/uL (1.3-7.7); Neutrophils % (A) 95 %; Platelet Count 247 k/uL (150-450); RBC 3.86 m/uL (4.30-5.90); RDW 14.1 % (11.5-15.5); WBC 19.2 k/uL (3.8-10.6)
[2019-03-16] MEDS: PANTOPRAZOLE 40 MG TABLET PO SCH (08:17)
[2019-03-16] MEDS: CHOLECALCIFEROL 1,000 UNIT TAB PO SCH (08:17)
[2019-03-16] MEDS: TAMSULOSIN 0.4 MG CAP.ER.24H PO SCH (08:17)
[2019-03-16] MEDS: METOPROLOL TARTRATE 25 MG TAB PO SCH ×2 (08:17→20:29)
[2019-03-16] MEDS: ASCORBIC ACID 500 MG TAB PO SCH (08:17)
[2019-03-16] MEDS: FAMOTIDINE 20 MG TAB PO SCH ×2 (08:18→20:28)
[2019-03-16] MEDS: metFORMIN 500 MG TAB PO SCH ×2 (08:18→20:27)
[2019-03-16] MEDS: VITAMIN E (DL,TOCOPHERYL ACET) 400 UNIT CAP PO SCH (08:19)
[2019-03-16] MEDS: HEPARIN SODIUM,PORCINE 5,000 UNIT/ML 1 ML VIAL SQ SCH ×2 (08:20→20:27)
[2019-03-16] MEDS: valACYclovir 500 MG TAB PO SCH ×3 (08:20→20:29)
[2019-03-16] MEDS: INSULIN ASPART (NovoLOG) 100 UNIT/ML VIAL SQ SCH ×4 (08:21→20:27)
[2019-03-16] MEDS: SODIUM CHLORIDE 0.9% 1,000 ML IV SCH (08:23)
[2019-03-16 09:14] LABS: Cholesterol 119 mg/dL (<200); HDL Cholesterol 41 mg/dL (40-60); LDL Cholesterol,Calculated 67 mg/dL (0-99); Triglycerides 56 mg/dL (<150)
[2019-03-16] MEDS: SYMBICORT 160-4.5 MCG INHALER INHALATION SCH ×2 (09:58→19:48)
[2019-03-16] MEDS: ASPIRIN 81 MG PO SCH (10:04)
[2019-03-16] MEDS: LISINOPRIL 5 MG TAB PO SCH (10:04)
--- NOTE | 2019-03-16 10:23 | P.CRDCN ---
History of Present Illness History of present illness: HISTORY OF PRESENTING ILLNESS This is a pleasant 83-year-old male past medical history significant for myocardial infarction 50 yrs ago per the patient, ischemic cardiomyopathy, diabetes mellitus, COPD, prostate cancer s/p seed implantation and radiation therapy. He follows in the office with Dr. Lara in [place] but states he hasn't been there in over 2 years. We have been asked to see in consultation for ventricular tachycardia. He initially presented to the hospital with symptoms of shortness of breath, cough with yellow sputum production, a rash in the groin area and urinary retention. Telemetry tracings reviewed. He has been having several PVC's episodes of bigeminy and two episodes of non-sustained monomophic ventricular tachycardia. Yesterday AM was a 17 beat run and again this morning was a 7 beat run. He denies feeling palpitations, dizziness, increased shortness of breath or chest pain. He states on both occasion his nurse came into the room and he was having a significant coughing spell at the time. Echocardiogram obtained revealed impaired LV systolic function with EF 30-35%, mild aortic sclerosis, mild MR, mild TR and moderate pulmonary hypertension with RVSP of 48 mmHg. Also has a dilated aortic root of 4 cm which was also noted on an echo fro m the office in 2014. He is currently being treated for acute exacerbation of COPD, tracheobronchitis and varicella zoster. DIAGNOSTICS EKG reveals sinus mechanism with frequent PVC's, right bundle branch block, left anterior fasicular block and poor R-wave progression. Chest xray pulmonary interstitial fibrosis. Laboratory reviewed, WBC 19.2, hemoglobin 11.5, platelets 247, sodium 131, potassium 5.2, creatinine 0.73, magnesium 1.9, LDL 67,TSH 0.509, and she proBNP on admission 3020, cardiac enzymes negative 1. He takes no daily cardiac medications. REVIEW OF SYSTEMS At the time of my exam: CONSTITUTIONAL: Denies fever or chills. CARDIOVASCULAR: Denies chest pain, shortness of breath, orthopnea, PND or palpitations. RESPIRATORY: Complains of cough. GASTROINTESTINAL: Denies abdominal pain, diarrhea, constipation, nausea or vomiting. MUSCULOSKELETAL: Denies myalgias. NEUROLOGIC: Denies numbness, tingling or weakness. ENDOCRINE: Denies fatigue, weight change, polydipsia or polyurina. GENITOURINARY: Denies burning, hematuria or urgency with micturation. HEMATOLOGIC: Denies history of anemia or bleeding. PHYSICAL EXAMINATION Blood pressure 149/81 heart rate 90 afebrile and maintaining oxygen saturation on nasal cannula. CONSTITUTIONAL: No apparent distress. HEENT: Head is normocephalic. Pupils are equal, round. Sclerae anicteric. Mucous membranes of the mouth are moist. No JVD. No carotid bruit. CHEST EXAMINATION: Faint expiratory wheeze, no rales or rhonchi. Diminished bilaterally. No chest wall tenderness is noted on palpation or with deep breathing. HEART EXAMINATION: Regular rate and rhythm. S1, S2 heard. Systolic ejection murmur at the base, no gallops or rub. ABDOMEN: Soft, nontender. Positive bowel sounds. EXTREMITIES: 2+ peripheral pulses, no lower extremity edema and no calf tenderness. NEUROLOGIC EXAMINATION: Patient is awake, alert and oriented x3. ASSESSMENT Monomorphic non-sustained ventricular tachycardia Ischemic cardiomyopathy Chronic systolic heart failure, currently euvolemic History of coronary artery disease secondary to myocardial infarction Leukocytosis Hyponatremia Hyperkalemia Acute exacerbation of COPD Varicella zoster Diabetes mellitus PLAN Echocardiogram reviewed. Recommend optimizing his medical therapy by adding aspirin 81 mg daily, atorvastatin 40 mg daily, lopressor 25 mg BID, lasix 40 mg daily and lisinopril 5 mg daily. May increase lopressor if blood pressure tolerates. He will require heart catheterization to assess for progression of underlying coronary artery disease. Request most recent heart cath from Dr. Lara for review. Once heart cath has been complete with possible revascularization AICD will be considered if ongoing cardiomyopathy. In absence of symptoms of chest pain we will pursue this as an outpatient once his infection has improved. 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 Appointment will be made with Dr. Campos in the office. Ongoing telemetry monitoring. Plan has been discussed in detail with the patient. Thank you kindly for this consultation. Nurse Practitioner note has been reviewed, I agree with a documented findings and plan of care. Patient was seen and examined. Past Medical History Past Medical History: Coronary Artery Disease (CAD), Cancer, COPD, Diabetes Mellitus, Myocardial Infarction (ND), Pneumonia Additional Past Medical History / Comment(s): Prostate CA in 1999, treated with seed implants and radiation Last Myocardial Infarction Date:: 1968 History of Any Multi-Drug Resistant Organisms: None Reported Past Surgical History: Orthopedic Surgery Additional Past Surgical History / Comment(s): Knee Surg X3 including a left knee arthroplasty, left Shoulder surgery for rotator cuff, broken ribs on Left side, left ankle Past Anesthesia/Blood Transfusion Reactions: No Reported Reaction Past Psychological History: No Psychological Hx Reported Additional Psychological History / Comment(s): , lives with his . 5 adult children. 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 Jehovah's witness. [facility] . No international travel since . No animals in the home Smoking Status: Former smoker Past Alcohol Use History: None Reported Past Drug Use History: None Reported - Past Family History Father Family Medical History: COPD Additional Family Medical History / Comment(s): from Emphysema Brother(s) Family Medical History: Cancer Additional Family Medical History / Comment(s): from upper resp and heart issues Medications and Allergies Home Medications Medication Instructions Recorded Confirmed Type Albuterol Nebulized [Ventolin 2.5 mg INHALATION RT-QID PRN 03/27/15 03/13/19 History Nebulized] Ascorbic Acid [Vitamin C] 500 mg PO DAILY 03/27/15 03/13/19 History Cholecalciferol [Vitamin D3 (25 1,000 unit PO DAILY 03/27/15 03/13/19 History Mcg = 1000 Iu)] Ibuprofen [Motrin] 800 mg PO TID PRN 03/27/15 03/13/19 History Tiotropium 18 Mcg/Puff [Spiriva] 1 cap INHALATION RT-DAILY 03/27/15 03/13/19 History Vitamin E 1,000 unit PO DAILY 03/27/15 03/13/19 History metFORMIN HCL [Glucophage] 1,000 mg PO QAM 03/27/15 03/13/19 History metFORMIN HCL [Glucophage] 500 mg PO HS 03/27/15 03/13/19 History Fluticasone Propion/Salmeterol 1 puff INHALATION RT-BID 03/13/19 03/13/19 History [Fluticasone-Salmeterol 500-50] HYDROcodone/APAP 5-325MG [Arnett 1 tab PO Q6H PRN 03/13/19 03/13/19 History 5-325] Ipratropium Nebulized [Atrovent 0.5 mg INHALATION RT-QID 03/13/19 03/13/19 History Nebulized 0.2 MG/ML] diphenhydrAMINE HCL [Benadryl] 25 mg PO HS PRN 03/13/19 03/13/19 History Allergies Allergy/AdvReac Type Severity Reaction Status Date / Time No Known Allergies Allergy Verified 03/13/19 19:23 Physical Exam Vitals: Vital Signs Temp Pulse Pulse Resp BP Pulse Ox 03/16/19 07:00 97.8 F 97 12 149/81 96 03/16/19 00:44 95 03/16/19 00:31 93 95 03/16/19 00:29 98.2 F 95 18 144/71 95 03/15/19 19:42 95 18 03/15/19 19:32 100 18 03/15/19 19:26 98.3 F 99 18 151/83 93 L 03/15/19 15:32 90 18 03/15/19 15:22 91 16 97 03/15/19 15:00 97.8 F 101 H 16 137/73 95 03/15/19 12:18 79 03/15/19 12:09 76 Intake and Output 03/15/19 03/16/19 03/16/19 22:59 06:59 14:59 Intake Total 330 400 Output Total 600 300 Balance -270 100 Intake: Intake, IV Titration 150 400 Amount Sodium Chloride 0.9% 1, 400 000 ml @ 50 mls/hr IV . Q20H [facility] Rx#:[id number] cefTRIAXone 1 gm In 150 Sodium Chloride 0.9% 50 ml @ 100 mls/hr IVPB Q24HR [facility] Rx#:[id number] Oral 180 Output: Urine 600 300 Uretheral (Brown) 125 Results 03/16/19 06:56 03/16/19 06:56 CBC 03/16/19 Range/Units 06:56 WBC 19.2 H (3.8-10.6) k/uL RBC 3.86 L (4.30-5.90) m/uL Hgb 11.5 L (13.0-17.5) gm/dL Hct 34.3 L (39.0-53.0) % Plt Count 247 (150-450) k/uL Comprehensive Metabolic Panel 03/16/19 Range/Units 06:56 Sodium 131 L (137-145) mmol/L Potassium 5.2 H (3.5-5.1) mmol/L Chloride 98 (98-107) mmol/L Carbon Dioxide 25 (22-30) mmol/L BUN 17 (9-20) mg/dL Creatinine 0.73 (0.66-1.25) mg/dL Glucose 190 H (74-99) mg/dL Calcium 9.5 (8.4-10.2) mg/dL Current Medications Generic Name Dose Route Start Last Admin Trade Name Freq PRN Reason Stop Dose Admin Hydrocodone Bitart/Acetaminophen 1 each 03/15/19 15:34 Arnett 5-325 PO Q6H PRN Pain Albuterol/Ipratropium 3 ml 03/14/19 04:00 03/16/19 03:42 Duoneb 0.5 Mg-3 Mg/3 Ml Soln INHALATION Not Given RT-Q4H [facility] Ascorbic Acid 500 mg 03/16/19 09:00 03/16/19 08:17 Vitamin C PO 500 mg DAILY [facility] Administration Budesonide/Formoterol Fumarate 2 puff 03/14/19 20:00 03/15/19 19:32 Symbicort 160-4.5 Mcg Inhaler INHALATION 2 puff RT-BID [facility] Administration Calamine 1 applic 03/15/19 17:24 Calamine Lotion TOPICAL QID PRN Skin Irritation Cholecalciferol 1,000 unit 03/15/19 09:00 03/16/19 08:17 Vitamin D3 (25 Mcg = 1000 Iu) PO 1,000 unit DAILY [facility] Administration Famotidine 20 mg 03/15/19 21:00 03/16/19 08:18 Pepcid PO 20 mg Q12HR [facility] Administration Heparin Sodium (Porcine) 5,000 unit 03/14/19 21:00 03/16/19 08:20 Heparin SQ Not Given Q12HR [facility] Sodium Chloride 1,000 mls @ 50 mls/hr 03/13/19 21:30 03/16/19 08:23 Saline 0.9% IV 50 mls/hr .Q20H [facility] Administration Ceftriaxone Sodium 1 gm/ 50 mls @ 100 mls/hr 03/15/19 09:00 03/16/19 08:18 Sodium Chloride IVPB 100 mls/hr Q24HR [facility] Administration Insulin Aspart 0 unit 03/14/19 12:30 12/17/19 08:21 Novolog SQ 4 unit ACHS [facility] Administration Protocol Melatonin 3 mg 03/14/19 21:00 03/15/19 20:50 Melatonin PO 3 mg HS [facility] Administration Metformin HCl 500 mg 03/14/19 21:00 03/15/19 20:49 Glucophage PO 500 mg HS [facility] Administration Metformin HCl 1,000 mg 03/15/19 09:00 03/16/19 08:18 Glucophage PO 1,000 mg QAM [facility] Administration Methylprednisolone Sodium Succinate 40 mg 03/14/19 12:00 03/16/19 05:11 Solu-Medrol IV 40 mg Q6HR [facility] Administration Metoprolol Tartrate 25 mg 03/15/19 21:00 03/16/19 08:17 Lopressor PO 25 mg BID [facility] Administration Naloxone HCl 0.2 mg 03/13/19 22:25 Narcan IV Q2M PRN Opioid Reversal Pantoprazole Sodium 40 mg 03/16/19 07:30 03/16/19 08:17 Protonix PO 40 mg AC-BRKFST [facility] Administration Tamsulosin HCl 0.4 mg 03/15/19 13:15 03/16/19 08:17 Flomax PO 0.4 mg PC-BRKFST [facility] Administration Valacyclovir HCl 1,000 mg 03/15/19 17:30 03/16/19 08:20 Valtrex PO 1,000 mg TID [facility] Administration Vitamin E 800 unit 03/16/19 09:00 03/16/19 08:19 Vitamin E PO 800 unit DAILY [facility] Administration Intake and Output 03/15/19 03/16/19 03/16/19 22:59 06:59 14:59 Intake Total 330 400 Output Total 600 300 Balance -270 100 Intake: Intake, IV Titration 150 400 Amount Sodium Chloride 0.9% 1, 400 000 ml @ 50 mls/hr IV . Q20H [facility] Rx#:[id number] cefTRIAXone 1 gm In 150 Sodium Chloride 0.9% 50 ml @ 100 mls/hr IVPB Q24HR [facility] Rx#:[id number] Oral 180 Output: Urine 600 300 Uretheral (Brown) 125 03/16/19 06:56 03/16/19 06:56
[2019-03-16] MEDS: FUROSEMIDE 40 MG TAB PO SCH (10:40)
--- NOTE | 2019-03-16 11:39 | P.PN ---
Subjective Progress Note Date: 03/16/19 Principal diagnosis: Acute exacerbation of chronic obstructive pulmonary disease. The patient is seen today 03/16/2019 in follow-up on the regular medical floor. He is currently sitting up in a chair at the bedside. Awake and alert in no acute distress. His breathing has improved and he is less bronchospastic and wheezy. Nearly back to his baseline. he is currently maintaining good O2 saturations in the mid 90s on 4 L/m per nasal cannula. Loose nonproductive cough. He is continued on IV Solu-Medrol, DuoNeb inhalations, Symbicort. Antibiotics in the form of ceftriaxone. He had been seen by infectious disease for suspected shingles on the right side of his penis. He is now on valacyclovir. Objective - Vital Signs Vital signs: Vital Signs Temp 97.8 F 03/16/19 07:00 Pulse 90 03/16/19 10:11 Resp 12 03/16/19 07:40 BP 149/81 03/16/19 07:00 Pulse Ox 96 03/16/19 07:00 Intake & Output 03/15/19 03/16/19 03/16/19 18:59 06:59 18:59 Intake Total 380 550 Output Total 975 650 Balance -595 -100 Intake: Intake, IV Titration 550 Amount Sodium Chloride 0.9% 1, 400 000 ml @ 50 mls/hr IV . Q20H [facility] Rx#:[id number] cefTRIAXone 1 gm In 150 Sodium Chloride 0.9% 50 ml @ 100 mls/hr IVPB Q24HR [facility] Rx#:[id number] Oral 380 Output: Urine 975 650 Uretheral (Brown) 125 Other: Voiding Method Indwelling Catheter # Bowel Movements 1 - Exam The patient appeared well nourished and normally developed. Vital signs as documented. Head exam is unremarkable. No scleral icterus or corneal arcus noted. Neck is without jugular venous distension, thyromegaly, or carotid bruits. Carotid upstrokes are brisk bilaterally. Lungs are diminished breath sounds bilaterally along with prolongation of expirationphase of breathing and scattered expiratory wheezes throughout the lung june.Cardiac exam reveals the PMI to be normally sized and situated. Rhythm is regular. First and second heart sounds normal. No murmurs, rubs or gallops. Abdominal exam reveals normal bowel sounds, no masses, no organomegaly and no aortic enlargement. Extremities are nonedematous and both femoral and pedal pulses are normal. - Labs CBC & Chem 7: 03/16/19 06:56 03/16/19 06:56 Labs: Abnormal Lab Results - Last 24 Hours (Table) 03/15/19 03/15/19 03/15/19 Range/Units 11:50 16:52 20:43 WBC (3.8-10.6) k/uL RBC (4.30-5.90) m/uL Hgb (13.0-17.5) gm/dL Hct (39.0-53.0) % Neutrophils # (1.3-7.7) k/uL Lymphocytes # (1.0-4.8) k/uL Sodium (137-145) mmol/L Potassium (3.5-5.1) mmol/L Glucose (74-99) mg/dL POC Glucose (mg/dL) 155 H 200 H 246 H (75-99) mg/dL 03/16/19 03/16/19 03/16/19 Range/Units 06:56 06:56 07:00 WBC 19.2 H (3.8-10.6) k/uL RBC 3.86 L (4.30-5.90) m/uL Hgb 11.5 L (13.0-17.5) gm/dL Hct 34.3 L (39.0-53.0) % Neutrophils # 18.2 H (1.3-7.7) k/uL Lymphocytes # 0.4 L (1.0-4.8) k/uL Sodium 131 L (137-145) mmol/L Potassium 5.2 H (3.5-5.1) mmol/L Glucose 190 H (74-99) mg/dL POC Glucose (mg/dL) 210 H (75-99) mg/dL Microbiology - Last 24 Hours (Table) 03/13/19 22:51 Blood Culture - Preliminary Blood No Growth after 48 hours Assessment and Plan Assessment: 1 acute COPD exacerbation with secondary shortness of breath 2 severe COPD with an FEV1 of 38% of predicted 3 acute hyponatremia secondary to obstructive uropathy post Brown catheter ins ertion and alleviating urinary obstruction and his sodium level is up to 129 4 CAD with previous ME 5 history of prostate cancer post-seed implantation 6 diabetes mellitus 7 osteoarthritis and vitamin D deficiency plan: The patient was seen and evaluated by Dr. Garcia. we will continue with his current treatment plan. Increase his activity as tolerated. He is planning on being discharged in next 24 hours. We will continue to follow and make further recommendations based on his clinical status. I, the cosigning physician, performed a history & physical examination of the patient. Lungs sounds faint end expiratory wheeze, few scattered rhonchi, diminishedr. Maintaining good O2 saturations in the 90s on 4 L/m per nasal cannula I discussed the assessment and plan of care with my nurse practitioner, Mouna Martini. I attest to the above note as dictated by her.
--- NOTE | 2019-03-16 11:43 | P.PN ---
Subjective Patient is seen in follow-up for hyponatremia. Sodium level of 131 today. Currently maintained on normal saline at 50 mL an hour. Oral intake is good. No vomiting or diarrhea. Vital signs are stable. General: The patient appeared well nourished and normally developed. HEENT: Head exam is unremarkable. Neck is without jugular venous distension. LUNGS: Lungs are clear to auscultation and percussion. Breath sounds decreased. HEART: Rate and Rhythm are regular. First and second heart sounds normal. No murmurs, rubs or gallops. ABDOMEN: Abdominal exam reveals normal bowel sounds. Non-tender and non- distended. No evidence of peritonitis. EXTREMITITES: No clubbing, cyanosis, or edema. Objective - Vital Signs Vital signs: Vital Signs Temp 97.8 F 03/16/19 07:00 Pulse 90 03/16/19 10:11 Resp 12 03/16/19 07:40 BP 149/81 03/16/19 07:00 Pulse Ox 96 03/16/19 07:00 Intake & Output 03/15/19 03/16/19 03/16/19 18:59 06:59 18:59 Intake Total 380 550 Output Total 975 650 Balance -595 -100 Intake: Intake, IV Titration 550 Amount Sodium Chloride 0.9% 1, 400 000 ml @ 50 mls/hr IV . Q20H [facility] Rx#:[id number] cefTRIAXone 1 gm In 150 Sodium Chloride 0.9% 50 ml @ 100 mls/hr IVPB Q24HR [facility] Rx#:[id number] Oral 380 Output: Urine 975 650 Uretheral (Brown) 125 Other: Voiding Method Indwelling Catheter # Bowel Movements 1 - Labs CBC & Chem 7: 03/16/19 06:56 03/16/19 06:56 Labs: Abnormal Lab Results - Last 24 Hours (Table) 03/15/19 03/15/19 03/15/19 Range/Units 11:50 16:52 20:43 WBC (3.8-10.6) k/uL RBC (4.30-5.90) m/uL Hgb (13.0-17.5) gm/dL Hct (39.0-53.0) % Neutrophils # (1.3-7.7) k/uL Lymphocytes # (1.0-4.8) k/uL Sodium (137-145) mmol/L Potassium (3.5-5.1) mmol/L Glucose (74-99) mg/dL POC Glucose (mg/dL) 155 H 200 H 246 H (75-99) mg/dL 03/16/19 03/16/19 03/16/19 Range/Units 06:56 06:56 07:00 WBC 19.2 H (3.8-10.6) k/uL RBC 3.86 L (4.30-5.90) m/uL Hgb 11.5 L (13.0-17.5) gm/dL Hct 34.3 L (39.0-53.0) % Neutrophils # 18.2 H (1.3-7.7) k/uL Lymphocytes # 0.4 L (1.0-4.8) k/uL Sodium 131 L (137-145) mmol/L Potassium 5.2 H (3.5-5.1) mmol/L Glucose 190 H (74-99) mg/dL POC Glucose (mg/dL) 210 H (75-99) mg/dL Microbiology - Last 24 Hours (Table) 03/13/19 22:51 Blood Culture - Preliminary Blood No Growth after 48 hours Assessment and Plan Plan: Assessment: 1. Hyponatremia secondary to urinary retention. Improving. 2. Urinary retention status post Brown catheter placement. 3. Groin rash. Maintained on antibiotics. Infectious disease following. 4. Diabetes mellitus. 5. Mild hyperkalemia. Patient is on lisinopril. Monitor closely. 6. Benign hypertension. Controlled. 7. Chronic systolic CHF with ejection fraction of 30-35% with moderate pulmonary hypertension. Plan: Hep-Lock IV fluids. Maintain Lasix 40 mg once daily. 1500 mL fluid restriction. Maintain Brown catheter. Repeat electrolytes in the morning.
[2019-03-16 11:57] LABS: Glucose,Whole Blood 153 mg/dL (75-99)
[2019-03-16 16:42] LABS: Glucose,Whole Blood 160 mg/dL (75-99)
--- NOTE | 2019-03-16 17:22 | PN ---
PROGRESS NOTE DATE OF SERVICE: 03/16/2019 This 83-year-old gentleman who was admitted with COPD, acute exacerbation, and acute purulent tracheobronchitis is still extremely short of breath. The patient also had multiple PVCs. The patient also had a perineal rash involving probably the right S3-4 segment with herpes zoster. The patient will be started on Valtrex. Infectious Disease as well as Pulmonary and Cardiology are following the patient closely also. A 2D echo with Doppler was done which showed ejection fraction about 30% to 35%, indicating chronic systolic dysfunction. Past medical history reviewed. REVIEW OF SYSTEMS: CARDIOVASCULAR SYSTEM: No angina, palpitations. RESPIRATORY SYSTEM: As mentioned earlier. GI: No nausea, vomiting. : As mentioned earlier. NERVOUS SYSTEM: No numbness, weakness. CURRENT MEDICATIONS: Reviewed. They include: 1. [place] 5 mg q.6 p.r.n. 2. Vitamin C 500 mg p.o. daily. 3. Aspirin 81 mg. 4. Lipitor 40 mg. 5. Symbicort 160/4.5 two puffs b.i.d. 6. Calamine lotion. 7. Rocephin 1 gram daily. 8. Pepcid 20 mg b.i.d. 9. Lasix 40 mg daily. 10.Heparin 5000 units subcutaneously b.i.d. 11.NovoLog scale. 12.Zestril 5 mg p.o. daily. 13.Melatonin 3 mg at bedtime. 14.Glucophage 500 mg at bedtime. 15.Lopressor 25 mg p.o. b.i.d. 16.Narcan 0.2 q.2 p.r.n. 17.Protonix. 18.Prednisone. 19.Flomax. 20.Valtrex. 21.Vitamin E. PHYSICAL EXAMINATION: Patient is alert, oriented x3. Pulse is 52, blood pressure 130/71, respiration 12, temperature 98 degrees, pulse ox 93% on room air. HEENT: Conjunctivae normal. NECK: No jugular venous distention. CARDIOVASCULAR SYSTEM: S1, S2 muffled. RESPIRATORY SYSTEM: Breath sounds diminished at the bases. Bilateral scattered rhonchi and crackles. Expiratory wheezing also present. Breathing efforts are markedly increased. ABDOMEN: Soft, obese, non-tender. LEGS: No edema. No swelling. EXAMINATION OF THE PERINEAL REGION: Significant herpetic lesions of the right sacral 2- 4 segments present. NERVOUS SYSTEM: No focal deficits. Mild diffuse weakness. LABS: WBC 19.2, hemoglobin 11.5, sodium 131, potassium 5.2. ASSESSMENT: 1. Chronic obstructive pulmonary disease, acute exacerbation, with acute purulent tracheobronchitis. 2. Multiple premature ventricular contractions. 3. Perineal rash, herpes zoster, of the right S2 to 4 segments. 4. Hyponatremia, possibly hypovolemic hyponatremia. 5. Chronic hypoxic respiratory failure, on home oxygen nasal cannula at home. 6. Diabetes mellitus, type 2. 7. Congestive heart failure with chronic systolic dysfunction, ejection fraction 30% to 35%. 8. History of coronary artery disease. 9. History of chronic obstructive pulmonary disease. 10.History of prostate cancer and radiation therapy. 11.Urinary obstruction and difficulties. 12.Chronic obstructive pulmonary disease. 13.Coronary artery disease. 14.History of myocardial infarction. 15.History of degenerative joint disease. 16.Remote history of nicotine dependence. 17.Obesity with a body mass index of 34.6. 18.FULL CODE. RECOMMENDATIONS AND DISCUSSION: In this 83-year-old gentleman who presented with multiple complex medical issues, we will recommend he continue with intravenous steroids. Patient is significantly short of breath at this time. Would also recommend empiric antibiotics. The patient also has some urinary difficulties. I would recommend a bladder scan after each voiding, q.8 hours at least, for 24 hours to exclude the possibility of postvoid residual. The patient has significant perineal region lesions and also possibly penile lesions and mucosal lesions of Varicella zoster, also. We will continue to monitor. Monitor blood sugars closely. Guarded prognosis because of the multiple complex medical issues. Further recommendations to follow. Will closely follow Dr. Garcia. Prognosis guarded. MMODL / IJN: [id number] /
[2019-03-16 20:23] LABS: Glucose,Whole Blood 198 mg/dL (75-99)
[2019-03-16] MEDS: MELATONIN 3 MG TABLET PO SCH (20:27)
[2019-03-16] MEDS: ATORVASTATIN 40 MG TAB PO SCH (20:37)
--- NOTE | 2019-03-16 22:54 | P.PN ---
Subjective Progress Note Date: 03/16/19 83 year old male with severe COPD with a FEV1 of38%, presents for shortness of breath, increasing cough and feeling much worse than usual and was admitted for exacerbation of COPD. Cteitn relates to a new rash that has started on the rigth side of the penis and to the riight side of the scrotum, does not cross the medline, and is painful. Patient does have a history of prostate cancer and is status post localized radiation therapy. System well without significant recurrence. He is not angry difficulties and urinary tract infections. However he did have difficulties with urinary retention and did have a short-term Brown catheter has been removed. Relates since removal he is urinating quite well. Shortness of breath is starting to improve and he is not having fevers, chills or rigors. 03/16/2019 the patient is feeling somewhat better. His significant shortness of breath is improved. He overspent having some difficulties with urinary retention today. Required a straight catheterization and 750 mL of urine was obtained. He then had spontaneous urination about 1200 mL.. He is feeling somewhat better at this time. He is not having fevers or chills. The plan at this time will be to continue his course of antibiotic therapy The rash on the penis and scrotum and started to improve but is still somewhat pruritic. They ordered calamine has yet to be applied, the nurse is ordered [facility] and hopefully this will give him some increased relief. When he is ready for is discharged home to complete a 7 day course of cefuroxime 500 mg every 12 hours. If the patient continues to have difficulty may require replacement of Brown catheter but does seem to be doing better this afternoon. Objective - Vital Signs Vital signs: Vital Signs Temp 98.1 F 03/16/19 19:18 Pulse 90 03/16/19 20:03 Resp 18 03/16/19 19:18 BP 135/75 03/16/19 19:18 Pulse Ox 94 L 03/16/19 19:18 Intake & Output 03/16/19 03/16/19 03/17/19 06:59 18:59 06:59 Intake Total 550 150 Output Total 650 2212 Balance -100 -2212 150 Intake: Intake, IV Titration 550 150 Amount Sodium Chloride 0.9% 1, 400 150 000 ml @ 50 mls/hr IV . Q20H [facility] Rx#:[id number] cefTRIAXone 1 gm In 150 Sodium Chloride 0.9% 50 ml @ 100 mls/hr IVPB Q24HR [facility] Rx#:[id number] Output: Urine 650 2212 Uretheral (Brown) 700 Other: Voiding Method Urinal - Labs CBC & Chem 7: 03/16/19 06:56 03/16/19 06:56 Labs: Abnormal Lab Results - Last 24 Hours (Table) 03/16/19 03/16/19 03/16/19 Range/Units 06:56 06:56 07:00 WBC 19.2 H (3.8-10.6) k/uL RBC 3.86 L (4.30-5.90) m/uL Hgb 11.5 L (13.0-17.5) gm/dL Hct 34.3 L (39.0-53.0) % Neutrophils # 18.2 H (1.3-7.7) k/uL Lymphocytes # 0.4 L (1.0-4.8) k/uL Sodium 131 L (137-145) mmol/L Potassium 5.2 H (3.5-5.1) mmol/L Glucose 190 H (74-99) mg/dL POC Glucose (mg/dL) 210 H (75-99) mg/dL 03/16/19 03/16/19 03/16/19 Range/Units 11:46 16:31 20:12 WBC (3.8-10.6) k/uL RBC (4.30-5.90) m/uL Hgb (13.0-17.5) gm/dL Hct (39.0-53.0) % Neutrophils # (1.3-7.7) k/uL Lymphocytes # (1.0-4.8) k/uL Sodium (137-145) mmol/L Potassium (3.5-5.1) mmol/L Glucose (74-99) mg/dL POC Glucose (mg/dL) 153 H 160 H 198 H (75-99) mg/dL Microbiology - Last 24 Hours (Table) 03/13/19 22:51 Blood Culture - Preliminary Blood No Growth after 48 hours Assessment and Plan (1) Varicella zoster Current Visit: Yes Status: Acute Code(s): B02.9 - ZOSTER WITHOUT COMPLICATIONS; B01.9 - VARICELLA WITHOUT COMPLICATION SNOMED Code(s): 30 8222330 (2) Acute exacerbation of COPD with asthma Current Visit: Yes Status: Acute Code(s): J44.1 - CHRONIC OBSTRUCTIVE PULMONARY DISEASE W (ACUTE) EXACERBATION SNOMED Code(s): 1100622651246 (3) Hyponatremia Current Visit: Yes Status: Acute Code(s): E87.1 - HYPO-OSMOLALITY AND HYPONATREMIA SNOMED Code(s): 79133841
[2019-03-17] MEDS: IPRATROPIUM-ALBUTEROL 3 ML NEB INHALATION SCH ×5 (02:51→19:39)
[2019-03-17 07:03] LABS: Glucose,Whole Blood 131 mg/dL (75-99)
[2019-03-17] MEDS: INSULIN ASPART (NovoLOG) 100 UNIT/ML VIAL SQ SCH ×4 (07:59→21:48)
[2019-03-17 08:00] LABS: Basophils % (A) 0 %; Eosinophils % (A) 0 %; HCT 34.2 % (39.0-53.0); HGB 11.5 gm/dL (13.0-17.5); Lymphocytes # (A) 0.8 k/uL (1.0-4.8); Lymphocytes % (A) 6 %; MCHC 33.6 g/dL (31.0-37.0); MCV 89.2 fL (80.0-100.0); Mean Platelet Volume 7.9; Monocytes # (A) 0.6 k/uL (0-1.0); Monocytes % (A) 4 %; Neutrophils # (A) 12.7 k/uL (1.3-7.7); Neutrophils % (A) 88 %; Platelet Count 245 k/uL (150-450); RBC 3.83 m/uL (4.30-5.90); RDW 14.3 % (11.5-15.5); WBC 14.4 k/uL (3.8-10.6)
[2019-03-17] MEDS: TAMSULOSIN 0.4 MG CAP.ER.24H PO SCH (08:04)
[2019-03-17] MEDS: CHOLECALCIFEROL 1,000 UNIT TAB PO SCH (08:05)
[2019-03-17] MEDS: metFORMIN 500 MG TAB PO SCH ×2 (08:05→21:48)
[2019-03-17] MEDS: FUROSEMIDE 40 MG TAB PO SCH (08:05)
[2019-03-17] MEDS: LISINOPRIL 5 MG TAB PO SCH (08:05)
[2019-03-17] MEDS: PANTOPRAZOLE 40 MG TABLET PO SCH (08:05)
[2019-03-17 08:06] LABS: Calcium 9.2 mg/dL (8.4-10.2); Potassium 4.5 mmol/L (3.5-5.1)
[2019-03-17] MEDS: predniSONE 20 MG TAB PO SCH (08:06)
[2019-03-17] MEDS: ASPIRIN 81 MG PO SCH (08:06)
[2019-03-17] MEDS: METOPROLOL TARTRATE 25 MG TAB PO SCH (08:06)
[2019-03-17] MEDS: ASCORBIC ACID 500 MG TAB PO SCH (08:06)
[2019-03-17] MEDS: valACYclovir 500 MG TAB PO SCH ×3 (08:07→21:49)
[2019-03-17] MEDS: VITAMIN E (DL,TOCOPHERYL ACET) 400 UNIT CAP PO SCH (08:07)
[2019-03-17] MEDS: HEPARIN SODIUM,PORCINE 5,000 UNIT/ML 1 ML VIAL SQ SCH ×2 (08:08→21:34)
[2019-03-17] MEDS: FAMOTIDINE 20 MG TAB PO SCH (08:08)
[2019-03-17] MEDS: SYMBICORT 160-4.5 MCG INHALER INHALATION SCH ×2 (08:27→19:40)
--- NOTE | 2019-03-17 11:07 | P.PN ---
Subjective Progress Note Date: 03/17/19 On 03/17/2019 Parker is doing well. No significant respiratory distress on today's evaluation.. The patient has this Brown catheter still in place. This was taken out yesterday morning and we're still awaiting for his ability to urinate and the patient is having on and off straight cath procedure and if the residual remains high the patient's is going to have a Brown catheter reinserted and discharged home with a Brown catheter in place. Distal being treated for varicella-zoster and he is on oral Valtrex. He is on oral prednisone burst taper. His COPD is stable. Is improved. He is less short of breath. He takes Advair and Spiriva at home and he is currently on a prednisone burst taper. His sodium level is improved and it's up to 132. His creatinine is down to 0.92.Chest x-ray shows COPD. No evidence of any pneumonia. CAT scan of the abdomen and pelvis was also done that showed evidence of some atelectatic changes in the right lung base. There was some small hepatic cysts. Di verticulosis without diverticulitis. Objective - Vital Signs Vital signs: Vital Signs Temp 97.8 F 03/17/19 07:00 Pulse 92 03/17/19 08:40 Resp 14 03/17/19 07:00 BP 142/66 03/17/19 07:00 Pulse Ox 94 L 03/17/19 07:00 Intake & Output 03/16/19 03/17/19 03/17/19 18:59 06:59 18:59 Intake Total 550 Output Total 2212 1400 Balance -2212 -850 Intake: Intake, IV Titration 550 Amount Sodium Chloride 0.9% 1, 550 000 ml @ 50 mls/hr IV . Q20H [facility] Rx#:[id number] Output: Urine 2212 1400 Uretheral (Brown) 700 Other: Voiding Method Urinal Urinal - Exam The patient appeared well nourished and normally developed. Vital signs as documented. Head exam is unremarkable. No scleral icterus or corneal arcus n oted. Neck is without jugular venous distension, thyromegaly, or carotid bruits. Carotid upstrokes are brisk bilaterally. Lungs are diminished breath sounds bilaterally along with prolongation of expirationphase of breathing and scattered expiratory wheezes throughout the lung june.Cardiac exam reveals the PMI to be normally sized and situated. Rhythm is regular. First and second heart sounds normal. No murmurs, rubs or gallops. Abdominal exam reveals normal bowel sounds, no masses, no organomegaly and no aortic enlargement. Extremities are nonedematous and both femoral and pedal pulses are normal. - Labs CBC & Chem 7: 03/17/19 07:35 03/17/19 07:35 Labs: Abnormal Lab Results - Last 24 Hours (Table) 03/16/19 03/16/19 03/16/19 Range/Units 11:46 16:31 20:12 WBC (3.8-10.6) k/uL RBC (4.30-5.90) m/uL Hgb (13.0-17.5) gm/dL Hct (39.0-53.0) % Neutrophils # (1.3-7.7) k/uL Lymphocytes # (1.0-4.8) k/uL Sodium (137-145) mmol/L Chloride (98-107) mmol/L BUN (9-20) mg/dL Glucose (74-99) mg/dL POC Glucose (mg/dL) 153 H 160 H 198 H (75-99) mg/dL 03/17/19 03/17/19 03/17/19 Range/Units 06:50 07:35 07:35 WBC 14.4 H (3.8-10.6) k/uL RBC 3.83 L (4.30-5.90) m/uL Hgb 11.5 L (13.0-17.5) gm/dL Hct 34.2 L (39.0-53.0) % Neutrophils # 12.7 H (1.3-7.7) k/uL Lymphocytes # 0.8 L (1.0-4.8) k/uL Sodium 132 L (137-145) mmol/L Chloride 97 L (98-107) mmol/L BUN 21 H (9-20) mg/dL Glucose 126 H (74-99) mg/dL POC Glucose (mg/dL) 131 H (75-99) mg/dL Microbiology - Last 24 Hours (Table) 03/13/19 22:51 Blood Culture - Preliminary Blood No Growth after 72 hours Assessment and Plan Plan: 1 acute COPD exacerbation with secondary shortness of breath, improving 2 severe COPD with an FEV1 of 38% of predicted 3 acute hyponatremia secondary to obstructive uropathy post Brown catheter insertion and alleviating urinary obstruction and his sodium level is up to 132 4 CAD with previous NH 5 history of prostate cancer post-seed implantation 6 diabetes mellitus 7 osteoarthritis and vitamin D deficiency 8 Obstructive uropathy post Brown catheter insertion and removal and currently is being monitored with straight cathed and residual volumes. He was able to urinate adequately overnight. 9 varicella-zoster involving the perineal area and the groin currently on Valtrex Plan Continue monitoring the Urine output. Renal function is normalized. Sodium is normalized. Continue Valtrex. Prednisone burst taper. We'll continue to follow.
--- NOTE | 2019-03-17 11:27 | P.PN ---
Subjective Patient is seen in follow-up for hyponatremia. Sodium level 132 today. Oral intake is good. No vomiting or diarrhea. Brown catheter discontinued. He did require straight catheterization yesterday. Vital signs are stable. General: The patient appeared well nourished and normally developed. HEENT: Head exam is unremarkable. Neck is without jugular venous distension. LUNGS: Lungs are clear to auscultation and percussion. Breath sounds decreased. HEART: Rate and Rhythm are regular. First and second heart sounds normal. No murmurs, rubs or gallops. ABDOMEN: Abdominal exam reveals normal bowel sounds. Non-tender and non- distended. No evidence of peritonitis. EXTREMITITES: No clubbing, cyanosis, or edema. Objective - Vital Signs Vital signs: Vital Signs Temp 97.8 F 03/17/19 07:00 Pulse 92 03/17/19 08:40 Resp 14 03/17/19 07:00 BP 142/66 03/17/19 07:00 Pulse Ox 94 L 03/17/19 07:00 Intake & Output 03/16/19 03/17/19 03/17/19 18:59 06:59 18:59 Intake Total 550 Output Total 2212 1400 Balance -2212 -850 Intake: Intake, IV Titration 550 Amount Sodium Chloride 0.9% 1, 550 000 ml @ 50 mls/hr IV . Q20H [facility] Rx#:[id number] Output: Urine 2212 1400 Uretheral (Brown) 700 Other: Voiding Method Urinal Urinal - Labs CBC & Chem 7: 03/17/19 07:35 03/17/19 07:35 Labs: Abnormal Lab Results - Last 24 Hours (Table) 03/16/19 03/16/19 03/16/19 Range/Units 11:46 16:31 20:12 WBC (3.8-10.6) k/uL RBC (4.30-5.90) m/uL Hgb (13.0-17.5) gm/dL Hct (39.0-53.0) % Neutrophils # (1.3-7.7) k/uL Lymphocytes # (1.0-4.8) k/uL Sodium (137-145) mmol/L Chloride (98-107) mmol/L BUN (9-20) mg/dL Glucose (74-99) mg/dL POC Glucose (mg/dL) 153 H 160 H 198 H (75-99) mg/dL 03/17/19 03/17/19 03/17/19 Range/Units 06:50 07:35 07:35 WBC 14.4 H (3.8-10.6) k/uL RBC 3.83 L (4.30-5.90) m/uL Hgb 11.5 L (13.0-17.5) gm/dL Hct 34.2 L (39.0-53.0) % Neutrophils # 12.7 H (1.3-7.7) k/uL Lymphocytes # 0.8 L (1.0-4.8) k/uL Sodium 132 L (137-145) mmol/L Chloride 97 L (98-107) mmol/L BUN 21 H (9-20) mg/dL Glucose 126 H (74-99) mg/dL POC Glucose (mg/dL) 131 H (75-99) mg/dL Microbiology - Last 24 Hours (Table) 03/13/19 22:51 Blood Culture - Preliminary Blood No Growth after 72 hours Assessment and Plan Plan: Assessment: 1. Hyponatremia secondary to urinary retention. Improving. 2. Urinary retention status post Brown catheter placement and removal. He did require straight catheterization yesterday. Maintained on Flomax. 3. Groin rash. Maintained on antibiotics. Infectious disease following. 4. Diabetes mellitus. 5. Mild hyperkalemia. Patient is on lisinopril. Better. 6. Benign hypertension. Controlled. 7. Chronic systolic CHF with ejection fraction of 30-35% with moderate pulmonary hypertension. Plan: Hep-Lock IV fluids. Maintain Lasix 40 mg once daily. 1500 mL fluid restriction. Monitor bladder scans closely to make sure no underlying urinary retention. Repeat electrolytes in the morning.
[2019-03-17 11:56] LABS: Glucose,Whole Blood 169 mg/dL (75-99)
[2019-03-17] MEDS ORDERED: METOPROLOL TARTRATE 25 MG TAB PO STA (12:35)
--- NOTE | 2019-03-17 13:23 | P.PN ---
Subjective HISTORY OF PRESENTING ILLNESS This is a pleasant 83-year-old male past medical history significant for myocardial infarction 50 yrs ago per the patient, ischemic cardiomyopathy, diabetes mellitus, COPD, prostate cancer s/p seed implantation and radiation therapy. He follows in the office with Dr. Lara in [place] but states he hasn't been there in over 2 years. He is seen and examined sitting up in bed undergoing an updraft treatment. Telemetry tracings reviewed, there was a short run of monomorphic VT this morning of 5 beats. Laboratory data reviewed, WBC 14.4, hgb 11.5, plt 245, sodium 132, potassium 4.5, creatinine 0.92. Blood pressure 142/66 heart rate 76 afebrile and maintaining oxygen saturation on nasal cannula. He denies chest pain, palpitations, dizziness or increasing shortness of breath. He states he has urinated however there is some concern with possibly having to go home with indwelling mihcele catheter. currently maintained on aspirin 81 mg daily, atorvastatin 40 mg daily, Lasix 40 mg by mouth daily, lisinopril 5 mg daily and metoprolol 25 mg twice a day. PHYSICAL EXAMINATION CONSTITUTIONAL: No apparent distress. HEENT: Head is normocephalic. Pupils are equal, round. Sclerae anicteric. Mucous membranes of the mouth are moist. No JVD. No carotid bruit. CHEST EXAMINATION: Faint expiratory wheeze, no rales or rhonchi. Diminished bilaterally. No chest wall tenderness is noted on palpation or with deep breathing. HEART EXAMINATION: Regular rate and rhythm. S1, S2 heard. Systolic ejection murmur at the base, no gallops or rub. EXTREMITIES: 2+ peripheral pulses, no lower extremity edema and no calf tenderness. ASSESSMENT Monomorphic non-sustained ventricular tachycardia Ischemic cardiomyopathy Chronic systolic heart failure, currently euvolemic History of coronary artery disease secondary to myocardial infarction Leukocytosis Hyponatremia, improving Hyperkalemia, resolved Acute exacerbation of COPD Varicella zoster Diabetes mellitus PLAN No symptoms of angina and clinically euvolemic. Increase lopressor to 50 mg BID to optimize his regimen. Outpatient heart catheterization recommended. Nurse Practitioner note has been reviewed, I agree with a documented findings and plan of care. Patient was seen and examined. Objective - Vital Signs Vital signs: Vital Signs Temp 97.8 F 03/17/19 07:00 Pulse 76 03/17/19 12:09 Resp 14 03/17/19 07:00 BP 142/66 03/17/19 07:00 Pulse Ox 94 L 03/17/19 07:00 Intake & Output 03/16/19 03/17/19 03/17/19 18:59 06:59 18:59 Intake Total 550 Output Total 2212 1400 600 Balance -3229 -739 -266 Intake: Intake, IV Titration 550 Amount Sodium Chloride 0.9% 1, 550 000 ml @ 50 mls/hr IV . Q20H [facility] Rx#:[id number] Output: Urine 2214 1400 600 Uretheral (Michele) 700 Other: Voiding Method Urinal Urinal - Labs CBC & Chem 7: 03/17/19 07:35 03/17/19 07:35 Labs: Abnormal Lab Results - Last 24 Hours (Table) 03/16/19 03/16/19 03/17/19 Range/Units 16:31 20:12 06:50 WBC (3.8-10.6) k/uL RBC (4.30-5.90) m/uL Hgb (13.0-17.5) gm/dL Hct (39.0-53.0) % Neutrophils # (1.3-7.7) k/uL Lymphocytes # (1.0-4.8) k/uL Sodium (137-145) mmol/L Chloride (98-107) mmol/L BUN (9-20) mg/dL Glucose (74-99) mg/dL POC Glucose (mg/dL) 160 H 198 H 131 H (75-99) mg/dL 03/17/19 03/17/19 03/17/19 Range/Units 07:35 07:35 11:44 WBC 14.4 H (3.8-10.6) k/uL RBC 3.83 L (4.30-5.90) m/uL Hgb 11.5 L (13.0-17.5) gm/dL Hct 34.2 L (39.0-53.0) % Neutrophils # 12.7 H (1.3-7.7) k/uL Lymphocytes # 0.8 L (1.0-4.8) k/uL Sodium 132 L (137-145) mmol/L Chloride 97 L (98-107) mmol/L BUN 21 H (9-20) mg/dL Glucose 126 H (74-99) mg/dL POC Glucose (mg/dL) 169 H (75-99) mg/dL Microbiology - Last 24 Hours (Table) 03/13/19 22:51 Blood Culture - Preliminary Blood No Growth after 72 hours
--- NOTE | 2019-03-17 16:29 | PN ---
PROGRESS NOTE DATE OF SERVICE: 03/17/2019 This 83-year-old gentleman who was admitted with COPD, acute exacerbation, with acute purulent tracheobronchitis, also had significant shortness of breath. The patient also had multiple previous cardiology studies and dose of beta blockers. The patient also had a perianal rash, including the penis as well as the back of the leg on the right side, indicating probably right sacral 3 to 4 segmental herpes zoster, varicella zoster. Patient was started on Valtrex. Infectious Disease and multiple consultants are following the patient closely. Two-D echo with Doppler showed ejection fraction 30% to 35%, indicating chronic systolic dysfunction. Past medical history reviewed. REVIEW OF SYSTEMS: CARDIOVASCULAR SYSTEM: As mentioned earlier. RESPIRATORY SYSTEM: As mentioned earlier. GI: No nausea, vomiting. : No dysuria or retention. NERVOUS SYSTEM: No numbness, weakness. CURRENT MEDICATIONS: Reviewed. They include: 1. Evarts 5 mg q.6 p.r.n. 2. DuoNeb q.i.d. and p.r.n. 3. Vitamin C 500 mg p.o. daily. 4. Aspirin 81 mg p.o. daily. 5. Lipitor 40 mg at bedtime. 6. Symbicort 160/4.5 two puffs b.i.d. 7. Calamine lotion. 8. Rocephin 1 gram daily. 9. Vitamin D3 1000 daily. 10.Lasix 40 mg p.o. daily. 11.Heparin 5000 units subcutaneously b.i.d. 12.NovoLog. 13.Zestril 5 mg p.o. daily. 14.Melatonin 3 mg at bedtime. 15.Glucophage 500 mg at bedtime. 16.Lopressor 50 mg p.o. b.i.d. 17.Narcan 0.2 p.r.n. 18.Protonix 40 mg p.o. b.i.d. 19.Prednisone taper 40 mg. 20.Flomax 0.4. 21.Valtrex 1000 mg p.o. b.i.d. 22.Vitamin E 800 units daily. PHYSICAL EXAMINATION: Patient is alert, oriented x3. Patient is extremely short of breath. Pulse is 50, blood pressure 129/67, respiration 12, temperature 97.9, pulse ox 94% on 4 L. HEENT: Conjunctivae normal. NECK: No jugular venous distention. CARDIOVASCULAR SYSTEM: S1, S2 muffled. RESPIRATORY SYSTEM: Breath sounds diminished at the bases. Scattered rhonchi and crackles. Expiratory wheezing also present. ABDOMEN: Soft, obese, non-tender. No mass palpable. LEGS: No edema. No swelling. NERVOUS SYSTEM: No focal deficit. LABS: WBC 14.4, hemoglobin 11.5. Sodium 132, potassium 4.5. ASSESSMENT: 1. Chronic obstructive pulmonary disease, acute exacerbation, with acute purulent tracheobronchitis. 2. Multiple premature ventricular contractions. 3. Sinus bradycardia possibly. 4. Perineal rash, right-sided acute herpes zoster, right S2 to S4 segments. 5. Hyponatremia, possibly hypovolemic hyponatremia. 6. Chronic hypoxic respiratory failure, on home oxygen and nasal cannula at home. 7. Diabetes mellitus, type 2. 8. History of coronary artery disease. 9. Chronic obstructive pulmonary disease. 10.History of prostate cancer, status post radiation therapy. 11.Urinary difficulties and obstructive uropathy, possibly. 12.Coronary artery disease. 13.History of myocardial infarction. 14.History of degenerative joint disease. 15.Remote history of nicotine dependence. 16.Obesity with body mass index of 34.6. 17.FULL CODE. RECOMMENDATIONS AND DISCUSSION: In this 83-year-old gentleman who presented with multiple complex medical issues, we will monitor the patient closely, continue the current medications, continue with symptomatic treatment. Cardiology studies, adjusting beta blockers. Continue to monitor. Will recommend EKG because of the bradycardia. Otherwise, we will continue with antivirals for the herpes zoster. Nephrology is following the patient closely. Will check for postvoid and if it is more than 250, will insert the Brown catheter and discharge home with outpatient urology consultation. Otherwise, continue the rest of the medications. Guarded prognosis because of multiple complex medical issues. Further recommendations to follow. MMODL / IJN: [id number] /
[2019-03-17 17:16] LABS: Glucose,Whole Blood 171 mg/dL (75-99)
[2019-03-17] MEDS: ATORVASTATIN 40 MG TAB PO SCH (21:34)
[2019-03-17] MEDS: METOPROLOL TARTRATE 50 MG TAB PO SCH (21:34)
[2019-03-17 21:43] LABS: Glucose,Whole Blood 214 mg/dL (75-99)
[2019-03-17] MEDS: MELATONIN 3 MG TABLET PO SCH (21:48)
[2019-03-18] MEDS: IPRATROPIUM-ALBUTEROL 3 ML NEB INHALATION SCH ×4 (02:06→12:48)
[2019-03-18 07:33] LABS: Glucose,Whole Blood 96 mg/dL (75-99)
[2019-03-18 07:38] LABS: African American GFR (CKD) >90 (>60 ml/min/1.73 sqM); Anion Gap 7 mmol/L; Blood Urea Nitrogen 22 mg/dL (9-20); Calcium 9.3 mg/dL (8.4-10.2); Carbon Dioxide 32 mmol/L (22-30); Chloride 94 mmol/L (98-107); Glucose 90 mg/dL (74-99); Magnesium 1.8 mg/dL (1.6-2.3); Non-African American GFR(CKD) 80 (>60 ml/min/1.73 sqM); Potassium 4.2 mmol/L (3.5-5.1); Sodium 133 mmol/L (137-145)
[2019-03-18 07:58] LABS: Basophils # (A) 0.1 k/uL (0-0.2); Basophils % (A) 0 %; Eosinophils % (A) 0 %; HCT 36.1 % (39.0-53.0); HGB 11.9 gm/dL (13.0-17.5); Lymphocytes % (A) 7 %; MCH 29.2 pg (25.0-35.0); MCHC 32.9 g/dL (31.0-37.0); Mean Platelet Volume 7.8; Monocytes # (A) 0.7 k/uL (0-1.0); Monocytes % (A) 5 %; Neutrophils # (A) 10.8 k/uL (1.3-7.7); Neutrophils % (A) 84 %; Platelet Count 264 k/uL (150-450); RBC 4.06 m/uL (4.30-5.90); RDW 14.2 % (11.5-15.5); WBC 12.9 k/uL (3.8-10.6)
[2019-03-18 07:59] VITALS: BP 148/74; RESP 17; TEMP 97.8
[2019-03-18] MEDS: SYMBICORT 160-4.5 MCG INHALER INHALATION SCH (09:20)
--- NOTE | 2019-03-18 09:27 | P.PN ---
Subjective HISTORY OF PRESENTING ILLNESS This is a pleasant 83-year-old male past medical history significant for myocardial infarction 50 yrs ago per the patient, ischemic cardiomyopathy, diabetes mellitus, COPD, prostate cancer s/p seed implantation and radiation therapy. He follows in the office with Dr. Lara in [place] but states he hasn't been there in over 2 years. He is seen and examined sitting up in bed. Breathing is stable. Telemetry tracings reviewed, no further VT noted. Blood pressure 148/74 heart rate documented at 41 however this was obtained by a pulse ox machine and is believed to be inaccurate due to his frequent PVC's. Telemetry tracings consistently show heart rate in 70-80 range. Laboratory data reviewed, WBC 12.9, hgb 11.9, plt 264, sodium 133, potassium 4.2, creatinine 0.87, magnesium 1.8. Currently maintained on aspirin 81 mg daily, atorvastatin 40 mg daily, lasix 40 mg daily, lisinopril 5 mg daily and lopressor 50 mg BID. He denies chest pain, shortness of breath, dizziness or palpitations. PHYSICAL EXAMINATION CONSTITUTIONAL: No apparent distress. HEENT: Head is normocephalic. Pupils are equal, round. Sclerae anicteric. Mucous membranes of the mouth are moist. No JVD. No carotid bruit. CHEST EXAMINATION: Clear to auscultation, no rales, wheezes or rhonchi. Diminished bilaterally. No chest wall tenderness is noted on palpation or with deep breathing. HEART EXAMINATION: Regular rate and rhythm. S1, S2 heard. Systolic ejection murmur at the base, no gallops or rub. EXTREMITIES: 2+ peripheral pulses, no lower extremity edema and no calf tenderness. ASSESSMENT Monomorphic non-sustained ventricular tachycardia Ischemic cardiomyopathy Chronic systolic heart failure, currently euvolemic History of coronary artery disease secondary to myocardial infarction Leukocytosis Hyponatremia, improving Hyperkalemia, resolved Acute exacerbation of COPD Varicella zoster Diabetes mellitus PLAN No symptoms of angina and clinically euvolemic. Suggest obtaining manual heart rate for vital sign evaluation, this has been communicated to the nurse as well. Outpatient heart catheterization recommended. Follow up with Dr. Campos upon discharge, we will follow as needed. Nurse Practitioner note has been reviewed, I agree with a documented findings and plan of care. Patient was seen and examined. Objective - Vital Signs Vital signs: Vital Signs Temp 97.8 F 03/18/19 07:20 Pulse 41 L 03/18/19 07:20 Resp 17 03/18/19 07:20 BP 148/74 03/18/19 07:20 Pulse Ox 95 03/18/19 07:20 Intake & Output 03/17/19 03/18/19 03/18/19 18:59 06:59 18:59 Output Total 2600 1550 Balance -2600 -1550 Weight 110 kg Output: Urine 2600 1550 Other: Voiding Method Urinal Urinal # Bowel Movements 1 - Labs CBC & Chem 7: 03/18/19 06:48 03/18/19 06:48 Labs: Abnormal Lab Results - Last 24 Hours (Table) 03/17/19 03/17/19 03/17/19 Range/Units 11:44 17:01 21:32 WBC (3.8-10.6) k/uL RBC (4.30-5.90) m/uL Hgb (13.0-17.5) gm/dL Hct (39.0-53.0) % Neutrophils # (1.3-7.7) k/uL Sodium (137-145) mmol/L Chloride (98-107) mmol/L Carbon Dioxide (22-30) mmol/L BUN (9-20) mg/dL POC Glucose (mg/dL) 169 H 171 H 214 H (75-99) mg/dL 03/18/19 03/18/19 Range/Units 06:48 06:48 WBC 12.9 H (3.8-10.6) k/uL RBC 4.06 L (4.30-5.90) m/uL Hgb 11.9 L (13.0-17.5) gm/dL Hct 36.1 L (39.0-53.0) % Neutrophils # 10.8 H (1.3-7.7) k/uL Sodium 133 L (137-145) mmol/L Chloride 94 L (98-107) mmol/L Carbon Dioxide 32 H (22-30) mmol/L BUN 22 H (9-20) mg/dL POC Glucose (mg/dL) (75-99) mg/dL Microbiology - Last 24 Hours (Table) 03/13/19 22:51 Blood Culture - Preliminary Blood No Growth after 96 hours
[2019-03-18] MEDS: TAMSULOSIN 0.4 MG CAP.ER.24H PO SCH (09:41)
[2019-03-18] MEDS: VITAMIN E (DL,TOCOPHERYL ACET) 400 UNIT CAP PO SCH (09:42)
[2019-03-18] MEDS: valACYclovir 500 MG TAB PO SCH (09:42)
[2019-03-18] MEDS: ASPIRIN 81 MG PO SCH (09:43)
[2019-03-18] MEDS: metFORMIN 500 MG TAB PO SCH (09:43)
[2019-03-18] MEDS: FUROSEMIDE 40 MG TAB PO SCH (09:43)
[2019-03-18] MEDS: ASCORBIC ACID 500 MG TAB PO SCH (09:44)
[2019-03-18] MEDS: CHOLECALCIFEROL 1,000 UNIT TAB PO SCH (09:44)
[2019-03-18] MEDS: predniSONE 20 MG TAB PO SCH (09:44)
[2019-03-18] MEDS: LISINOPRIL 5 MG TAB PO SCH (09:44)
[2019-03-18] MEDS: PANTOPRAZOLE 40 MG TABLET PO SCH (09:44)
[2019-03-18] MEDS: HEPARIN SODIUM,PORCINE 5,000 UNIT/ML 1 ML VIAL SQ SCH (09:45)
[2019-03-18] MEDS: METOPROLOL TARTRATE 50 MG TAB PO SCH (09:55)
[2019-03-18 09:58] VITALS: PULSE 86
--- NOTE | 2019-03-18 11:08 | P.PN ---
Subjective Patient is seen in follow-up for hyponatremia. Sodium level 133 today. Oral intake is good. No vomiting or diarrhea. Brown catheter discontinued. No straight catheterization required overnight. Vital signs are stable. General: The patient appeared well nourished and normally developed. HEENT: Head exam is unremarkable. Neck is without jugular venous distension. LUNGS: Lungs are clear to auscultation and percussion. Breath sounds decreased. HEART: Rate and Rhythm are regular. First and second heart sounds normal. No murmurs, rubs or gallops. ABDOMEN: Abdominal exam reveals normal bowel sounds. Non-tender and non- distended. No evidence of peritonitis. EXTREMITITES: No clubbing, cyanosis, or edema. Objective - Vital Signs Vital signs: Vital Signs Temp 97.8 F 03/18/19 07:20 Pulse 86 03/18/19 09:57 Resp 17 03/18/19 07:20 BP 148/74 03/18/19 07:20 Pulse Ox 95 03/18/19 07:20 Intake & Output 03/17/19 03/18/19 03/18/19 18:59 06:59 18:59 Intake Total 500 Output Total 2600 1550 Balance -2600 -1550 500 Weight 110 kg Intake: Oral 500 Output: Urine 2600 1550 Other: Voiding Method Urinal Urinal # Bowel Movements 1 - Labs CBC & Chem 7: 03/18/19 06:48 03/18/19 06:48 Labs: Abnormal Lab Results - Last 24 Hours (Table) 03/17/19 03/17/19 03/17/19 Range/Units 11:44 17:01 21:32 WBC (3.8-10.6) k/uL RBC (4.30-5.90) m/uL Hgb (13.0-17.5) gm/dL Hct (39.0-53.0) % Neutrophils # (1.3-7.7) k/uL Sodium (137-145) mmol/L Chloride (98-107) mmol/L Carbon Dioxide (22-30) mmol/L BUN (9-20) mg/dL POC Glucose (mg/dL) 169 H 171 H 214 H (75-99) mg/dL 03/18/19 03/18/19 Range/Units 06:48 06:48 WBC 12.9 H (3.8-10.6) k/uL RBC 4.06 L (4.30-5.90) m/uL Hgb 11.9 L (13.0-17.5) gm/dL Hct 36.1 L (39.0-53.0) % Neutrophils # 10.8 H (1.3-7.7) k/uL Sodium 133 L (137-145) mmol/L Chloride 94 L (98-107) mmol/L Carbon Dioxide 32 H (22-30) mmol/L BUN 22 H (9-20) mg/dL POC Glucose (mg/dL) (75-99) mg/dL Microbiology - Last 24 Hours (Table) 03/13/19 22:51 Blood Culture - Preliminary Blood No Growth after 96 hours Assessment and Plan Plan: Assessment: 1. Hyponatremia secondary to urinary retention. Improving. 2. Urinary retention status post Brown catheter placement and removal. Maintained on Flomax. 3. Groin rash. Maintained on antibiotics. Infectious disease following. 4. Diabetes mellitus. 5. Mild hyperkalemia. Patient is on lisinopril. Better. 6. Benign hypertension. Controlled. 7. Chronic systolic CHF with ejection fraction of 30-35% with moderate pulmonary hypertension. Plan: Maintain Lasix 40 mg once daily. 1500 mL fluid restriction.
[2019-03-18] MEDS: INSULIN ASPART (NovoLOG) 100 UNIT/ML VIAL SQ SCH (12:10)
[2019-03-18 12:26] LABS: Glucose,Whole Blood 133 mg/dL (75-99)
--- NOTE | 2019-03-18 14:35 | P.DS ---
Providers Date of admission: 03/13/19 22:33 Attending physician: Kristyn Cote Consults: 03/13/19 22:26 Consult Physician Urgent Consulting Provider: Fabien Garcia Consult Reason/Comments: AECOPD, CAP Do you want consulting provider notified?: Yes Consult Physician Urgent Consulting Provider: Ron Cordova Consult Reason/Comments: new onset groin/back rash Do you want consulting provider notified?: Yes 03/14/19 10:21 Consult Physician Urgent Consulting Provider: Lety Riggs Consult Reason/Comments: hyponatremia Do you want consulting provider notified?: Yes 03/15/19 13:11 Consult Physician Urgent Consulting Provider: Bernarda Cifuentes Consult Reason/Comments: runs of v-tach Do you want consulting provider notified?: Yes Primary care physician: Fabien Garcia [facility] Hospital Course: 83-year-old pleasant gentleman was admitted for COPD exacerbation was also being treated for multiple issues including tracheobronchitis infectious disease evaluated the patient in the recommending Ceftin to complete 7 day of therapy and patient was also diagnosed with the varicella-zoster involving more than one dermatome for which patient was started on Valtrex. Patient is found to have lower ejection fraction of 30-30% patient is presently euvolemic patient is being treated for heart failure with acute exacerbation. Systolic dysfunction. Patient is euvolemic doing clinically well and is being discharged today. Patient has chronic hypercapnic respiratory failure wears oxygen at home which is being continued and patient respiratory status is at his baseline and patient believes he is at his baseline PHYSICAL EXAMINATION: GENERAL: The patient is alert and oriented x3, not in any acute distress. Well developed, well nourished. HEENT: Pupils are round and equally reacting to light. EOMI. No scleral icterus. No conjunctival pallor. Normocephalic, atraumatic. No pharyngeal erythema. No thyromegaly. CARDIOVASCULAR: S1 and S2 present. No murmurs, rubs, or gallops. PULMONARY: Chest is clear to auscultation, no wheezing or crackles. ABDOMEN: Soft, nontender, nondistended, normoactive bowel sounds. No palpable organomegaly. MUSCULOSKELETAL: No joint swelling or deformity. EXTREMITIES: No cyanosis, clubbing, or pedal edema. Patient has herpetic lesion involving posterior aspect of the thigh scrotal area. NEUROLOGICAL: Gross neurological examination did not reveal any focal deficits. SKIN: No rashes. For other chronic medical problems hospitalization course please refer to progress note from Dr. Cote from yesterday. Patient Condition at Discharge: Serious Plan - Discharge Summary Discharge Rx Participant: No New Discharge Prescriptions: New Aspirin 81 mg PO DAILY #30 chew Cefuroxime Axetil [Ceftin] 500 mg PO BID 6 Days #12 tab Tamsulosin [Flomax] 0.4 mg PO PC-BRKFST #30 cap.er.24h Furosemide [Lasix] 40 mg PO DAILY #30 tab Atorvastatin [Lipitor] 40 mg PO HS #30 tab Metoprolol Tartrate [Lopressor] 50 mg PO BID #60 tab Budesonide-Formot 160-4.5 Mcg [Symbicort 160-4.5 Mcg Inhaler] 2 puff INHALATION RT-BID #1 inhaler valACYclovir [Valtrex] 1,000 mg PO TID #42 tab Lisinopril [Zestril] 5 mg PO DAILY #30 tab Famotidine [Pepcid] 20 mg PO BID #30 tablet Calamine/Zinc Oxide Lotion [Calamine Lotion] 1 applic TOPICAL TID #60 ml Continue metFORMIN HCL [Glucophage] 1,000 mg PO QAM Tiotropium 18 Mcg/Puff [Spiriva] 1 cap INHALATION RT-DAILY Ascorbic Acid [Vitamin C] 500 mg PO DAILY Cholecalciferol [Vitamin D3 (25 Mcg = 1000 Iu)] 1,000 unit PO DAILY Vitamin E 1,000 unit PO DAILY Albuterol Nebulized [Ventolin Nebulized] 2.5 mg INHALATION RT-QID PRN PRN Reason: Shortness Of Breath metFORMIN HCL [Glucophage] 500 mg PO HS Fluticasone Propion/Salmeterol [Fluticasone-Salmeterol 500-50] 1 puff INHALATION RT-BID diphenhydrAMINE HCL [Benadryl] 25 mg PO HS PRN PRN Reason: SLEEP HYDROcodone/APAP 5-325MG [[place] 5-325] 1 tab PO Q6H PRN PRN Reason: Pain Discontinued Ibuprofen [Motrin] 800 mg PO TID PRN PRN Reason: Pain Ipratropium Nebulized [Atrovent Nebulized 0.2 MG/ML] 0.5 mg INHALATION RT-QID Discharge Medication List Albuterol Nebulized [Ventolin Nebulized] 2.5 mg INHALATION RT-QID PRN 03/27/15 [History] Ascorbic Acid [Vitamin C] 500 mg PO DAILY 03/27/15 [History] Cholecalciferol [Vitamin D3 (25 Mcg = 1000 Iu)] 1,000 unit PO DAILY 03/27/15 [History] Tiotropium 18 Mcg/Puff [Spiriva] 1 cap INHALATION RT-DAILY 03/27/15 [History] Vitamin E 1,000 unit PO DAILY 03/27/15 [History] metFORMIN HCL [Glucophage] 1,000 mg PO QAM 03/27/15 [History] metFORMIN HCL [Glucophage] 500 mg PO HS 03/27/15 [History] Fluticasone Propion/Salmeterol [Fluticasone-Salmeterol 500-50] 1 puff INHALATION RT-BID 03/13/19 [History] HYDROcodone/APAP 5-325MG [[place] 5-325] 1 tab PO Q6H PRN 03/13/19 [History] diphenhydrAMINE HCL [Benadryl] 25 mg PO HS PRN 03/13/19 [History] Aspirin 81 mg PO DAILY #30 chew 03/18/19 [Rx] Atorvastatin [Lipitor] 40 mg PO HS #30 tab 03/18/19 [Rx] Budesonide-Formot 160-4.5 Mcg [Symbicort 160-4.5 Mcg Inhaler] 2 puff INHALATION RT-BID #1 inhaler 03/18/19 [Rx] Calamine/Zinc Oxide Lotion [Calamine Lotion] 1 applic TOPICAL TID #60 ml 03/18/19 [Rx] Cefuroxime Axetil [Ceftin] 500 mg PO BID 6 Days #12 tab 03/18/19 [Rx] Famotidine [Pepcid] 20 mg PO BID #30 tablet 03/18/19 [Rx] Furosemide [Lasix] 40 mg PO DAILY #30 tab 03/18/19 [Rx] Lisinopril [Zestril] 5 mg PO DAILY #30 tab 03/18/19 [Rx] Metoprolol Tartrate [Lopressor] 50 mg PO BID #60 tab 03/18/19 [Rx] Tamsulosin [Flomax] 0.4 mg PO PC-BRKFST #30 cap.er.24h 03/18/19 [Rx] valACYclovir [Valtrex] 1,000 mg PO TID #42 tab 03/18/19 [Rx] Follow up Appointment(s)/Referral(s): Lincoln Campos MD [STAFF PHYSICIAN] - 03/30/19 11:00 am Ron Cordova MD [STAFF PHYSICIAN] - 1 Week Fabien Garcia MD [Primary Care Provider] - 03/22/19 1:15 pm Patient Instructions/Handouts: Shingles (DC), COPD (Chronic Obstructive Pulmonary Disease) (DC) Discharge Disposition: HOME SELF-CARE
== END 2019-03-18 14:16 | disposition home or self-care (01) | DRG 191 ==
LOC: EC 19:13 → 4SSUR 22:33
PROVIDERS: ADMIT Hospitalist; ATTEND Hospitalist
DX: J44.1 Chronic obstructive pulmonary disease with (acute) exacerbation (principal); B01.9 Varicella without complication; E87.1 Hypo-osmolality and hyponatremia; I45.2 Bifascicular block; I47.2 Ventricular tachycardia; I50.22 Chronic systolic (congestive) heart failure; J45.901 Unspecified asthma with (acute) exacerbation; J96.11 Chronic respiratory failure with hypoxia; J96.12 Chronic respiratory failure with hypercapnia; J98.11 Atelectasis; J44.0 Chronic obstructive pulmonary disease with (acute) lower respiratory infection; I27.20 Pulmonary hypertension, unspecified; I11.0 Hypertensive heart disease with heart failure; J84.10 Pulmonary fibrosis, unspecified; K76.89 Other specified diseases of liver; E11.65 Type 2 diabetes mellitus with hyperglycemia; E55.9 Vitamin D deficiency, unspecified; E66.9 Obesity, unspecified; E87.5 Hyperkalemia; I25.10 Atherosclerotic heart disease of native coronary artery without angina pectoris; I25.2 Old myocardial infarction; I25.5 Ischemic cardiomyopathy; I08.3 Combined rheumatic disorders of mitral, aortic and tricuspid valves; I77.810 Thoracic aortic ectasia; J20.9 Acute bronchitis, unspecified; K57.30 Diverticulosis of large intestine without perforation or abscess without bleeding; M19.90 Unspecified osteoarthritis, unspecified site; N13.9 Obstructive and reflux uropathy, unspecified; D72.829 Elevated white blood cell count, unspecified; R00.1 Bradycardia, unspecified; Z68.34 Body mass index [BMI] 34.0-34.9, adult; Z99.81 Dependence on supplemental oxygen; Z96.652 Presence of left artificial knee joint; Z92.3 Personal history of irradiation; Z87.891 Personal history of nicotine dependence; Z85.46 Personal history of malignant neoplasm of prostate; Z79.84 Long term (current) use of oral hypoglycemic drugs; Z79.899 Other long term (current) drug therapy; Z87.01 Personal history of pneumonia (recurrent); Z82.5 Family history of asthma and other chronic lower respiratory diseases; Z82.49 Family history of ischemic heart disease and other diseases of the circulatory system; Z80.9 Family history of malignant neoplasm, unspecified
CPT/HCPCS: 36415; 51702; 71046; 72170; 74177; 80048; 80053; 80061; 81003; 82550; 83605; 83735; 83880; 84443; 84484; 85025; 85610; 85730; 86140; 87040; 93005; 93306; 94640; 94760; 96365; 96375; 99285

== ENCOUNTER 2019-04-12 12:05 | Inpatient (IN) | payer MEDICARE ==
[2019-04-12] MEDS ORDERED: ALBUTEROL NEBULIZED 2.5 MG/3 ML INHALATION STA (12:23)
[2019-04-12] MEDS ORDERED: methylPREDNISolone SOD SUCCI 125 MG/2 ML VIAL IV STA (12:23)
[2019-04-12] MEDS ORDERED: IPRATROPIUM 0.5 MG/2.5 ML NEBU INHALATION STA (12:23)
--- NOTE | 2019-04-12 12:30 | ED ---
General Adult HPI - General Chief complaint: Shortness of Breath Stated complaint: GUILHERME Time Seen by Provider: 04/12/19 12:10 Source: patient, EMS, RN notes reviewed, old records reviewed Mode of arrival: EMS Limitations: no limitations - History of Present Illness Initial comments: This is an 83-year-old male with past medical history significant for COPD. Patient comes into the emergency department stating he has been getting worse for about a week now. Patient states she has an occasional cough over that period time but no significant sputum production. Patient didn't realize he had a fever but he does have a fever I took his temperature was 101.5. Patient denies any chest pain or palpitations. Patient states he was has swelling to the legs and is not been any more recently. Patient denies any calf tenderness. Patient denies abdominal pain. Patient states she's always on oxygen at home. Patient states if he walks 10 feet his oxygenation dropped states very short of breath. Patient states he has been taking breathing treatments but they have not seemed to help him lately. - Related Data Home Medications Medication Instructions Recorded Confirmed Albuterol Nebulized [Ventolin 2.5 mg INHALATION RT-QID PRN 03/27/15 03/13/19 Nebulized] Ascorbic Acid [Vitamin C] 500 mg PO DAILY 03/27/15 03/13/19 Cholecalciferol [Vitamin D3 (25 1,000 unit PO DAILY 03/27/15 03/13/19 Mcg = 1000 Iu)] Tiotropium 18 Mcg/Puff [Spiriva] 1 cap INHALATION RT-DAILY 03/27/15 03/13/19 Vitamin E 1,000 unit PO DAILY 03/27/15 03/13/19 metFORMIN HCL [Glucophage] 1,000 mg PO QAM 03/27/15 03/13/19 metFORMIN HCL [Glucophage] 500 mg PO HS 03/27/15 03/13/19 Fluticasone Propion/Salmeterol 1 puff INHALATION RT-BID 03/13/19 03/13/19 [Fluticasone-Salmeterol 500-50] HYDROcodone/APAP 5-325MG [[place] 1 tab PO Q6H PRN 03/13/19 03/13/19 5-325] diphenhydrAMINE HCL [Benadryl] 25 mg PO HS PRN 03/13/19 03/13/19 Previous Rx's Medication Instructions Recorded Aspirin 81 mg PO DAILY #30 chew 03/18/19 Atorvastatin [Lipitor] 40 mg PO HS #30 tab 03/18/19 Budesonide-Formot 160-4.5 Mcg 2 puff INHALATION RT-BID #1 inhaler 03/18/19 [Symbicort 160-4.5 Mcg Inhaler] Calamine/Zinc Oxide Lotion 1 applic TOPICAL TID #60 ml 03/18/19 [Calamine Lotion] Cefuroxime Axetil [Ceftin] 500 mg PO BID 6 Days #12 tab 03/18/19 Famotidine [Pepcid] 20 mg PO BID #30 tablet 03/18/19 Furosemide [Lasix] 40 mg PO DAILY #30 tab 03/18/19 Lisinopril [Zestril] 5 mg PO DAILY #30 tab 03/18/19 Metoprolol Tartrate [Lopressor] 50 mg PO BID #60 tab 03/18/19 Tamsulosin [Flomax] 0.4 mg PO PC-BRKFST #30 cap.er.24h 03/18/19 valACYclovir [Valtrex] 1,000 mg PO TID #42 tab 03/18/19 Allergies Allergy/AdvReac Type Severity Reaction Status Date / Time No Known Allergies Allergy Verified 03/13/19 19:23 Review of Systems ROS Statement: Those systems with pertinent positive or pertinent negative responses have been documented in the HPI. ROS Other: All systems not noted in ROS Statement are negative. Past Medical History Past Medical History: Coronary Artery Disease (CAD), Cancer, COPD, Diabetes Mellitus, Myocardial Infarction (NH), Pneumonia Additional Past Medical History / Comment(s): Prostate CA in 1999, treated with seed implants and radiation Last Myocardial Infarction Date:: 1968 History of Any Multi-Drug Resistant Organisms: None Reported Past Surgical History: Orthopedic Surgery Additional Past Surgical History / Comment(s): Knee Surg X3 including a left knee arthroplasty, left Shoulder surgery for rotator cuff, broken ribs on Left side, left ankle Past Anesthesia/Blood Transfusion Reactions: No Reported Reaction Past Psychological History: No Psychological Hx Reported Smoking Status: Former smoker Past Alcohol Use History: None Reported Past Drug Use History: None Reported - Past Family History Father Family Medical History: COPD Additional Family Medical History / Comment(s): from Emphysema Brother(s) Family Medical History: Cancer Additional Family Medical History / Comment(s): from upper resp and heart issues General Exam - General Exam Comments Initial Comments: GENERAL: Patient is well-developed and well-nourished. Patient is nontoxic and well- hydrated and is in mild distress. ENT: Neck is soft and supple. No significant lymphadenopathy is noted. Oropharynx is clear. Moist mucous membranes. Neck has full range of motion without eliciting any pain. EYES: The sclera were anicteric and conjunctiva were pink and moist. Extraocular movements were intact and pupils were equal round and reactive to light. Ey elids were unremarkable. PULMONARY: Patient has diminished breath sounds CARDIOVASCULAR: There is a regular rate and rhythm without any murmurs gallops or rubs. ABDOMEN: Soft and nontender with normal bowel sounds. SKIN: Skin is clear with no lesions or rashes and otherwise unremarkable. NEUROLOGIC: Patient is alert and oriented x3. Cranial nerves II through XII are grossly intact. Motor and sensory are also intact. Normal speech, volume and content. Symmetrical smile. MUSCULOSKELETAL: Normal extremities with adequate strength and full range of motion. LYMPHATICS: No significant lymphadenopathy is noted PSYCHIATRIC: Normal psychiatric evaluation. Limitations: no limitations Course Vital Signs 04/12/19 04/12/19 04/12/19 12:07 12:23 13:05 Temperature 100.6 F H 101.5 F H Pulse Rate 88 84 Respiratory 20 20 Rate Blood Pressure 153/83 131/72 O2 Sat by Pulse 92 L 89 L Oximetry 04/12/19 04/12/19 13:08 13:24 Temperature Pulse Rate 82 85 Respiratory Rate Blood Pressure O2 Sat by Pulse Oximetry Medical Decision Making - Medical Decision Making EKG shows sinus rhythm with occasional PVC at [address] interval is 134 QRSs 126 QT interval 412 QTC is 495 per patient's EKG shows no ST segment elevation or depression. Chest x-ray shows pulmonary edema. I gave the patient Manoj. I spoke with because he agreed to admit the patient admitted the patient I wrote admitting orders. - Lab Data Result diagrams: 04/12/19 12:46 04/12/19 12:46 Lab Results 04/12/19 04/12/19 04/12/19 Range/Units 12:46 12:46 12:46 WBC 8.6 (3.8-10.6) k/uL RBC 3.92 L (4.30-5.90) m/uL Hgb 11.3 L (13.0-17.5) gm/dL Hct 33.8 L (39.0-53.0) % MCV 86.0 (80.0-100.0) fL MCH 28.7 (25.0-35.0) pg MCHC 33.3 (31.0-37.0) g/dL RDW 14.6 (11.5-15.5) % Plt Count 329 (150-450) k/uL Neutrophils % 82 % Lymphocytes % 4 % Monocytes % 6 % Eosinophils % 1 % Basophils % 3 % Neutrophils # 7.1 (1.3-7.7) k/uL Lymphocytes # 0.4 L (1.0-4.8) k/uL Monocytes # 0.5 (0-1.0) k/uL Eosinophils # 0.1 (0-0.7) k/uL Basophils # 0.3 H (0-0.2) k/uL PT (9.0-12.0) sec INR (<1.2) APTT (22.0-30.0) sec Sodium 130 L (137-145) mmol/L Potassium 3.9 (3.5-5.1) mmol/L Chloride 87 L (98-107) mmol/L Carbon Dioxide 33 H (22-30) mmol/L Anion Gap 10 mmol/L BUN 15 (9-20) mg/dL Creatinine 0.70 (0.66-1.25) mg/dL Est GFR (CKD-EPI)AfAm >90 (>60 ml/min/1.73 sqM) Est GFR (CKD-EPI)NonAf 88 (>60 ml/min/1.73 sqM) Glucose 160 H (74-99) mg/dL Plasma Lactic Acid Toney (0.7-2.0) mmol/L Calcium 9.2 (8.4-10.2) mg/dL Magnesium 1.3 L (1.6-2.3) mg/dL Total Bilirubin 0.8 (0.2-1.3) mg/dL AST 23 (17-59) U/L ALT 16 (4-49) U/L Alkaline Phosphatase 64 (38-126) U/L Troponin I (0.000-0.034) ng/mL NT-Pro-B Natriuret Pep pg/mL Total Protein 6.6 (6.3-8.2) g/dL Albumin 3.7 (3.5-5.0) g/dL Influenza Type A RNA Not Detected (Not Detectd) Influenza Type B (PCR) Not Detected (Not Detectd) 04/12/19 04/12/19 04/12/19 Range/Units 12:46 12:46 12:46 WBC (3.8-10.6) k/uL RBC (4.30-5.90) m/uL Hgb (13.0-17.5) gm/dL Hct (39.0-53.0) % MCV (80.0-100.0) fL MCH (25.0-35.0) pg MCHC (31.0-37.0) g/dL RDW (11.5-15.5) % Plt Count (150-450) k/uL Neutrophils % % Lymphocytes % % Monocytes % % Eosinophils % % Basophils % % Neutrophils # (1.3-7.7) k/uL Lymphocytes # (1.0-4.8) k/uL Monocytes # (0-1.0) k/uL Eosinophils # (0-0.7) k/uL Basophils # (0-0.2) k/uL PT 10.8 (9.0-12.0) sec INR 1.0 (<1.2) APTT 27.0 (22.0-30.0) sec Sodium (137-145) mmol/L Potassium (3.5-5.1) mmol/L Chloride (98-107) mmol/L Carbon Dioxide (22-30) mmol/L Anion Gap mmol/L BUN (9-20) mg/dL Creatinine (0.66-1.25) mg/dL Est GFR (CKD-EPI)AfAm (>60 ml/min/1.73 sqM) Est GFR (CKD-EPI)NonAf (>60 ml/min/1.73 sqM) Glucose (74-99) mg/dL Plasma Lactic Acid Toney 1.7 (0.7-2.0) mmol/L Calcium (8.4-10.2) mg/dL Magnesium (1.6-2.3) mg/dL Total Bilirubin (0.2-1.3) mg/dL AST (17-59) U/L ALT (4-49) U/L Alkaline Phosphatase (38-126) U/L Troponin I 0.036 H* (0.000-0.034) ng/mL NT-Pro-B Natriuret Pep pg/mL Total Protein (6.3-8.2) g/dL Albumin (3.5-5.0) g/dL Influenza Type A RNA (Not Detectd) Influenza Type B (PCR) (Not Detectd) 04/12/19 Range/Units 12:46 WBC (3.8-10.6) k/uL RBC (4.30-5.90) m/uL Hgb (13.0-17.5) gm/dL Hct (39.0-53.0) % MCV (80.0-100.0) fL MCH (25.0-35.0) pg MCHC (31.0-37.0) g/dL RDW (11.5-15.5) % Plt Count (150-450) k/uL Neutrophils % % Lymphocytes % % Monocytes % % Eosinophils % % Basophils % % Neutrophils # (1.3-7.7) k/uL Lymphocytes # (1.0-4.8) k/uL Monocytes # (0-1.0) k/uL Eosinophils # (0-0.7) k/uL Basophils # (0-0.2) k/uL PT (9.0-12.0) sec INR (<1.2) APTT (22.0-30.0) sec Sodium (137-145) mmol/L Potassium (3.5-5.1) mmol/L Chloride (98-107) mmol/L Carbon Dioxide (22-30) mmol/L Anion Gap mmol/L BUN (9-20) mg/dL Creatinine (0.66-1.25) mg/dL Est GFR (CKD-EPI)AfAm (>60 ml/min/1.73 sqM) Est GFR (CKD-EPI)NonAf (>60 ml/min/1.73 sqM) Glucose (74-99) mg/dL Plasma Lactic Acid Toney (0.7-2.0) mmol/L Calcium (8.4-10.2) mg/dL Magnesium (1.6-2.3) mg/dL Total Bilirubin (0.2-1.3) mg/dL AST (17-59) U/L ALT (4-49) U/L Alkaline Phosphatase (38-126) U/L Troponin I (0.000-0.034) ng/mL NT-Pro-B Natriuret Pep 5280 pg/mL Total Protein (6.3-8.2) g/dL Albumin (3.5-5.0) g/dL Influenza Type A RNA (Not Detectd) Influenza Type B (PCR) (Not Detectd) Disposition Clinical Impression: Acute pulmonary edema, Acute bronchitis Disposition: ADMITTED IP TO THIS HOSP Referrals: Fabien Garcia MD [Primary Care Provider] - 1-2 days Time of Disposition: 14:10
[2019-04-12 13:06] LABS: Basophils # (A) 0.3 k/uL (0-0.2); Basophils % (A) 3 %; Eosinophils # (A) 0.1 k/uL (0-0.7); Eosinophils % (A) 1 %; HCT 33.8 % (39.0-53.0); HGB 11.3 gm/dL (13.0-17.5); Lymphocytes # (A) 0.4 k/uL (1.0-4.8); Lymphocytes % (A) 4 %; MCH 28.7 pg (25.0-35.0); MCHC 33.3 g/dL (31.0-37.0); Mean Platelet Volume 7.3; Monocytes # (A) 0.5 k/uL (0-1.0); Monocytes % (A) 6 %; Neutrophils # (A) 7.1 k/uL (1.3-7.7); Neutrophils % (A) 82 %; Platelet Count 329 k/uL (150-450); RBC 3.92 m/uL (4.30-5.90); RDW 14.6 % (11.5-15.5); WBC 8.6 k/uL (3.8-10.6)
[2019-04-12 13:15] LABS: Prothrombin Time 10.8 sec (9.0-12.0)
--- NOTE | 2019-04-12 13:16 | XR ---
EXAMINATION TYPE: XR chest 2V DATE OF EXAM: 04/12/2019 COMPARISON: 03/13/2019 HISTORY: Difficulty breathing TECHNIQUE: Frontal and lateral views of the chest are obtained. FINDINGS: Diffuse interstitial prominence is again seen although this does appear chronic. Minimal p ulmonary vascular congestion is suspected. Enlargement of main pulmonary arteries is seen. Cardia med iastinal silhouette is within normal limits. Generalized osseous demineralization. IMPRESSION: Although interstitial prominence is chronic there is suspected mild pulmonary vascular congestion add itionally.
[2019-04-12 13:17] LABS: ALT 16 U/L (4-49); AST 23 U/L (17-59); African American GFR (CKD) >90 (>60 ml/min/1.73 sqM); Albumin 3.7 g/dL (3.5-5.0); Alkaline Phosphatase 64 U/L (38-126); Anion Gap 10 mmol/L; Blood Urea Nitrogen 15 mg/dL (9-20); Calcium 9.2 mg/dL (8.4-10.2); Carbon Dioxide 33 mmol/L (22-30); Chloride 87 mmol/L (98-107); Glucose 160 mg/dL (74-99); Magnesium 1.3 mg/dL (1.6-2.3); Non-African American GFR(CKD) 88 (>60 ml/min/1.73 sqM); Potassium 3.9 mmol/L (3.5-5.1); Sodium 130 mmol/L (137-145); Total Bilirubin 0.8 mg/dL (0.2-1.3); Total Protein 6.6 g/dL (6.3-8.2)
--- NOTE | 2019-04-12 14:00 | P.HPIM ---
History of Present Illness This is a pleasant 83 years old male with past medical history of coronary artery disease, diabetes mellitus, COPD, that he follows with Dr. Garcia. He presents because of worsening dyspnea and cough for 1 week duration, associated with green yellow phlegm but no chest pain. At home he uses for F oxygen via nasal cannula ho wever this time his oxygen was troponin to a tease each time he moves On admission patient was febrile of 101.5, risks Vitas looks stable, he was saturating 89-92 % on 4 L oxygen. Magnesium was low of 1.3, sodium was 1:30, carbon dioxide was elevated at 33. Chest of CBC, INR, BMP and liver enzymes were unremarkable. Influenza test is negative. Chest x-ray: No acute process, with only suspicion of mild vascular congestion. EKG showing normal sinus rhythm at [address]-T changes, with PVC Patient returned the emergency room he was given Solu-Medrol and breathing treatment Review of Systems CONSTITUTIONAL: No fever, no malaise, no fatigue. HEENT: No recent visual problems or hearing problems. Denied any sore throat. CARDIOVASCULAR: No orthopnea, PND, no palpitations, no syncope. PULMONARY: no hemoptysis. GASTROINTESTINAL: No diarrhea, no nausea, no vomiting, no abdominal pain. Normoactive bowel sounds. NEUROLOGICAL: No headaches, no weakness, no numbness. HEMATOLOGICAL: Denies any bleeding or petechiae. GENITOURINARY: Denies any burning micturition, frequency, or urgency. MUSCULOSKELETAL/RHEUMATOLOGICAL: Denies any joint pain, swelling, or any muscle pain. ENDOCRINE: Denies any polyuria or polydipsia. Past Medical History Past Medical History: Coronary Artery Disease (CAD), Cancer, COPD, Diabetes Mellitus, Myocardial Infarction ([place]), Pneumonia Additional Past Medical History / Comment(s): Prostate CA in 1999, treated with seed implants and radiation Last Myocardial Infarction Date:: 1968 History of Any Multi-Drug Resistant Organisms: None Reported Past Surgical History: Orthopedic Surgery Additional Past Surgical History / Comment(s): Knee Surg X3 including a left knee arthroplasty, left Shoulder surgery for rotator cuff, broken ribs on Left side, left ankle Past Anesthesia/Blood Transfusion Reactions: No Reported Reaction Past Psychological History: No Psychological Hx Reported Smoking Status: Former smoker Past Alcohol Use History: None Reported Past Drug Use History: None Reported - Past Family History Father Family Medical History: COPD Additional Family Medical History / Comment(s): from Emphysema Brother(s) Family Medical History: Cancer Additional Family Medical History / Comment(s): from upper resp and heart issues Medications and Allergies Home Medications Medication Instructions Recorded Confirmed Type Albuterol Nebulized [Ventolin 2.5 mg INHALATION RT-QID PRN 03/27/15 03/13/19 History Nebulized] Ascorbic Acid [Vitamin C] 500 mg PO DAILY 03/27/15 03/13/19 History Cholecalciferol [Vitamin D3 (25 1,000 unit PO DAILY 03/27/15 03/13/19 History Mcg = 1000 Iu)] Tiotropium 18 Mcg/Puff [Spiriva] 1 cap INHALATION RT-DAILY 03/27/15 03/13/19 History Vitamin E 1,000 unit PO DAILY 03/27/15 03/13/19 History metFORMIN HCL [Glucophage] 1,000 mg PO QAM 03/27/15 03/13/19 History metFORMIN HCL [Glucophage] 500 mg PO HS 03/27/15 03/13/19 History Fluticasone Propion/Salmeterol 1 puff INHALATION RT-BID 03/13/19 03/13/19 History [Fluticasone-Salmeterol 500-50] HYDROcodone/APAP 5-325MG [[place] 1 tab PO Q6H PRN 03/13/19 03/13/19 History 5-325] diphenhydrAMINE HCL [Benadryl] 25 mg PO HS PRN 03/13/19 03/13/19 History Aspirin 81 mg PO DAILY #30 chew 03/18/19 Rx Atorvastatin [Lipitor] 40 mg PO HS #30 tab 03/18/19 Rx Budesonide-Formot 160-4.5 Mcg 2 puff INHALATION RT-BID #1 inhaler 03/18/19 Rx [Symbicort 160-4.5 Mcg Inhaler] Calamine/Zinc Oxide Lotion 1 applic TOPICAL TID #60 ml 03/18/19 Rx [Calamine Lotion] Cefuroxime Axetil [Ceftin] 500 mg PO BID 6 Days #12 tab 03/18/19 Rx Famotidine [Pepcid] 20 mg PO BID #30 tablet 03/18/19 Rx Furosemide [Lasix] 40 mg PO DAILY #30 tab 03/18/19 Rx Lisinopril [Zestril] 5 mg PO DAILY #30 tab 03/18/19 Rx Metoprolol Tartrate [Lopressor] 50 mg PO BID #60 tab 03/18/19 Rx Tamsulosin [Flomax] 0.4 mg PO PC-BRKFST #30 cap.er.24h 03/18/19 Rx valACYclovir [Valtrex] 1,000 mg PO TID #42 tab 03/18/19 Rx Allergies Allergy/AdvReac Type Severity Reaction Status Date / Time No Known Allergies Allergy Verified 03/13/19 19:23 Physical Exam Vitals: Vital Signs Temp Pulse Resp BP Pulse Ox 04/12/19 13:24 85 04/12/19 13:08 82 04/12/19 13:05 84 20 131/72 89 L 04/12/19 12:23 101.5 F H 04/12/19 12:07 100.6 F H 88 20 153/83 92 L Intake and Output 04/11/19 04/12/19 04/12/19 22:59 06:59 14:59 Other: Weight 104.326 kg GENERAL: The patient is alert and oriented x3, not in any acute distress. Well developed, well nourished. HEENT: Pupils are round and equally reacting to light. EOMI. No scleral icterus. No conjunctival pallor. Normocephalic, atraumatic. No pharyngeal erythema. No thyromegaly. CARDIOVASCULAR: S1 and S2 present. No murmurs, rubs, or gallops. PULMONARY: Chest is clear to auscultation, no wheezing or crackles. ABDOMEN: Soft, nontender, nondistended, normoactive bowel sounds. No palpable organomegaly. MUSCULOSKELETAL: No joint swelling or deformity. EXTREMITIES: No cyanosis, clubbing, or pedal edema. NEUROLOGICAL: Gross neurological examination did not reveal any focal deficits. SKIN: No rashes. No petechiae Results CBC & Chem 7: 04/12/19 12:46 04/12/19 12:46 Labs: Abnormal Lab Results - Last 24 Hours (Table) 04/12/19 04/12/19 Range/Units 12:46 12:46 RBC 3.92 L (4.30-5.90) m/uL Hgb 11.3 L (13.0-17.5) gm/dL Hct 33.8 L (39.0-53.0) % Lymphocytes # 0.4 L (1.0-4.8) k/uL Basophils # 0.3 H (0-0.2) k/uL Sodium 130 L (137-145) mmol/L Chloride 87 L (98-107) mmol/L Carbon Dioxide 33 H (22-30) mmol/L Glucose 160 H (74-99) mg/dL Magnesium 1.3 L (1.6-2.3) mg/dL Assessment and Plan Assessment: Acute hypoxemic respiratory failure Acute COPD exacerbation Acute tracheobronchitis Diabetes mellitus History of coronary artery disease prostate cancer in 1999 treated with seed implants and radiotherapy Plan: This is a pleasant 83 years old male who presents with acute COPD exacerbation and possible acute tracheobronchitis. Continue with steroids, bronchodilators, oxygen as needed. Start him on antibiotics and follow-up culture results. Pulmonary consult Labs and medication were reviewed.. Continue same treatment. Continue with symptomatic treatment. Resume home medication. Monitor lytes and vitals. DVT and GI prophylaxis. Further recommendations of the clinical course of the patient DVT prophylaxis: Subcutaneous heparin GI Prophylaxis: Pepcid PT/OT: Pending Prognosis is guarded
[2019-04-12] MEDS ORDERED: FUROSEMIDE 10 MG/ML 4 ML VIAL IV STA (14:04)
[2019-04-12] MEDS: DOXYCYCLINE 100 MG CAP PO SCH (14:44)
[2019-04-12 18:08] LABS: Glucose,Whole Blood 174 mg/dL (75-99)
[2019-04-12] MEDS: INSULIN ASPART (NovoLOG) 100 UNIT/ML VIAL SQ SCH (18:17)
[2019-04-12] MEDS: methylPREDNISolone SOD SUCCI 125 MG/2 ML VIAL IV SCH (18:17)
[2019-04-13 00:25] LABS: Glucose,Whole Blood 282 mg/dL (75-99)
[2019-04-13] MEDS: HEPARIN SODIUM,PORCINE 5,000 UNIT/ML 1 ML VIAL SQ SCH ×5 (00:34→21:48)
[2019-04-13] MEDS: DOXYCYCLINE 100 MG CAP PO SCH ×3 (00:36→21:46)
[2019-04-13] MEDS: HYDROcodone/APAP 5-325MG 1 EACH TAB PO SCH ×4 (00:36→21:45)
[2019-04-13] MEDS: INSULIN ASPART (NovoLOG) 100 UNIT/ML VIAL SQ SCH ×5 (00:37→21:32)
[2019-04-13] MEDS: ASPIRIN 81 MG PO SCH ×2 (00:37→07:59)
[2019-04-13] MEDS: methylPREDNISolone SOD SUCCI 125 MG/2 ML VIAL IV SCH ×5 (00:37→21:48)
[2019-04-13] MEDS: FAMOTIDINE 20 MG/2 ML VIAL IV SCH ×2 (00:37→07:59)
[2019-04-13] MEDS: metFORMIN 500 MG TAB PO SCH ×3 (00:52→21:45)
[2019-04-13] MEDS: METOPROLOL TARTRATE 50 MG TAB PO SCH ×3 (00:52→21:45)
[2019-04-13] MEDS: FUROSEMIDE 40 MG TAB PO SCH ×2 (00:52→07:59)
[2019-04-13 06:14] LABS: Glucose,Whole Blood 133 mg/dL (75-99)
[2019-04-13 06:47] LABS: Basophils % (A) 0 %; Eosinophils % (A) 0 %; HCT 31.1 % (39.0-53.0); HGB 10.7 gm/dL (13.0-17.5); Lymphocytes # (A) 0.5 k/uL (1.0-4.8); Lymphocytes % (A) 7 %; MCH 29.8 pg (25.0-35.0); MCHC 34.4 g/dL (31.0-37.0); MCV 86.8 fL (80.0-100.0); Mean Platelet Volume 7.2; Monocytes # (A) 0.4 k/uL (0-1.0); Monocytes % (A) 6 %; Neutrophils # (A) 6.7 k/uL (1.3-7.7); Neutrophils % (A) 86 %; Platelet Count 334 k/uL (150-450); RBC 3.58 m/uL (4.30-5.90); RDW 14.6 % (11.5-15.5); WBC 7.8 k/uL (3.8-10.6)
[2019-04-13 07:05] LABS: African American GFR (CKD) >90 (>60 ml/min/1.73 sqM); Anion Gap 7 mmol/L; Blood Urea Nitrogen 18 mg/dL (9-20); Calcium 9.2 mg/dL (8.4-10.2); Carbon Dioxide 34 mmol/L (22-30); Chloride 89 mmol/L (98-107); Glucose 121 mg/dL (74-99); Non-African American GFR(CKD) 86 (>60 ml/min/1.73 sqM); Potassium 4.5 mmol/L (3.5-5.1); Sodium 130 mmol/L (137-145)
[2019-04-13] MEDS: SYMBICORT 160-4.5 MCG INHALER INHALATION SCH ×2 (07:28→20:44)
[2019-04-13] MEDS: TAMSULOSIN 0.4 MG CAP.ER.24H PO SCH (07:57)
[2019-04-13] MEDS: LISINOPRIL 5 MG TAB PO SCH (07:57)
[2019-04-13 07:58] LABS: Glucose,Whole Blood 206 mg/dL (75-99)
[2019-04-13] MEDS ORDERED: IPRATROPIUM 0.5 MG/2.5 ML NEBU INHALATION SCH (08:00)
--- NOTE | 2019-04-13 09:53 | P.PN ---
Subjective This is a pleasant 83 years old male with past medical history of coronary artery disease, diabetes mellitus, COPD, that he follows with Dr. Garcia. He presents because of worsening dyspnea and cough for 1 week duration, associated with green yellow phlegm but no chest pain. At home he uses for F oxygen via nasal cannula however this time his oxygen was troponin to a tease each time he moves On admission patient was febrile of 101.5, risks Vitas looks stable, he was saturating 89-92 % on 4 L oxygen. Magnesium was low of 1.3, sodium was 1:30, carbon dioxide was elevated at 33. Chest of CBC, INR, BMP and liver enzymes were unremarkable. Influenza test is negative. Chest x-ray: No acute process, with only suspicion of mild vascular congestion. EKG showing normal sinus rhythm at [address]-T changes, with PVC Patient returned the emergency room he was given Solu-Medrol and breathing treatment 04/13/2019 Patient still dyspneic like yesterday, he is mildly tachypneic. His total coughing and making some phlegm. However he denies chest pain. He is hemodynamically stable. No more fever so far since yesterday. No leukocytosis and hemoglobin is stable. Sodium stable at 130. Sugar is controlled and troponin is stable at 0.036. Cardiology and pulmonary team were consulted. Patient remains on Rocephin and salmeterol 60 mg and bronchodilator Hyponatremia Review of systems CONSTITUTIONAL: No fever, no malaise, no fatigue. HEENT: No recent visual problems or hearing problems. Denied any sore throat. CARDIOVASCULAR: No orthopnea, PND, no palpitations, no syncope. PULMONARY: no hemoptysis. GASTROINTESTINAL: No diarrhea, no nausea, no vomiting, no abdominal pain. Normo active bowel sounds. NEUROLOGICAL: No headaches, no weakness, no numbness. HEMATOLOGICAL: Denies any bleeding or petechiae. GENITOURINARY: Denies any burning micturition, frequency, or urgency. MUSCULOSKELETAL/RHEUMATOLOGICAL: Denies any joint pain, swelling, or any muscle pain. ENDOCRINE: Denies any polyuria or polydipsia. Active Medications Generic Name Dose Route Start Last Admin Trade Name Freq PRN Reason Stop Dose Admin Hydrocodone Bitart/Acetaminophen 1 each 04/12/19 21:00 04/13/19 08:03 [place] 5-325 PO Not Given BID [place] Aspirin 81 mg 04/12/19 21:00 04/13/19 07:59 Aspirin PO 81 mg DAILY [place] Administration Budesonide/Formoterol Fumarate 2 puff 04/13/19 08:00 04/13/19 07:28 Symbicort 160-4.5 Mcg Inhaler INHALATION 2 puff RT-BID [place] Administration Doxycycline Monohydrate 100 mg 04/12/19 14:00 04/13/19 08:20 Vibramycin PO 100 mg BID [place] Administration Famotidine 20 mg 04/12/19 21:00 04/13/19 07:59 Pepcid IV 20 mg Q12HR [place] Administration Furosemide 40 mg 04/12/19 21:00 04/13/19 07:59 Lasix PO 40 mg DAILY [facility] Administration Heparin Sodium (Porcine) 5,000 unit 04/12/19 20:59 04/13/19 07:56 Heparin SQ Not Given Q8HR [facility] Ceftriaxone Sodium 1 gm/ 50 mls @ 100 mls/hr 04/12/19 16:00 04/12/19 16:20 Sodium Chloride IVPB 100 mls/hr Q24H [place] Administration Insulin Aspart 0 unit 04/12/19 17:30 04/13/19 06:23 Novolog SQ 1 unit ACHS [facility] Administration Protocol Ipratropium [place] 0.5 mg 04/13/19 08:00 04/13/19 07:28 Atrovent Nebulized INHALATION 0.5 mg RT-QID [place] Administration Lisinopril 5 mg 04/13/19 09:00 04/13/19 07:57 Zestril PO 5 mg DAILY [place] Administration Metformin HCl 500 mg 04/12/19 21:00 04/13/19 07:59 Glucophage PO 500 mg BID [facility] Administration Methylprednisolone Sodium Succinate 60 mg 04/12/19 18:00 04/13/19 06:24 Solu-Medrol IV 60 mg Q6HR [facility] Administration Metoprolol Tartrate 50 mg 04/12/19 21:00 04/13/19 07:56 Lopressor PO 50 mg BID [facility] Administration Tamsulosin HCl 0.4 mg 04/13/19 09:00 04/13/19 07:57 Flomax PO 0.4 mg DAILY [place] Administration Objective - Vital Signs Vital signs: Vital Signs Temp 97.6 F 04/13/19 04:00 Pulse 88 04/13/19 07:44 Resp 18 04/13/19 04:00 BP 112/67 04/13/19 04:00 Pulse Ox 94 L 04/13/19 04:00 Intake & Output 04/12/19 04/13/19 04/13/19 18:59 06:59 18:59 Output Total 625 625 Balance -625 -625 Weight 104.326 kg 104.326 kg Output: Urine 625 625 Other: Voiding Method Bedside Commode # Bowel Movements 2 - Exam GENERAL: The patient is alert and oriented x3, not in any acute distress. Well developed, well nourished. HEENT: Pupils are round and equally reacting to light. EOMI. No scleral icterus. No conjunctival pallor. Normocephalic, atraumatic. No pharyngeal erythema. No thyromegaly. CARDIOVASCULAR: S1 and S2 present. No murmurs, rubs, or gallops. -PULMONARY: Chest is clear to auscultation, prolonged expiration and scattered wheezing ABDOMEN: Soft, nontender, nondistended, normoactive bowel sounds. No palpable organomegaly. MUSCULOSKELETAL: No joint swelling or deformity. -EXTREMITIES: No cyanosis, clubbing, or pedal edema. Possible fungal rash in the perineal area NEUROLOGICAL: Gross neurological examination did not reveal any focal deficits. SKIN: No rashes. No petechiae - Labs CBC & Chem 7: 04/13/19 06:06 04/13/19 06:06 Labs: Abnormal Lab Results - Last 24 Hours (Table) 04/12/19 04/12/19 04/12/19 Range/Units 12:46 12:46 12:46 RBC 3.92 L (4.30-5.90) m/uL Hgb 11.3 L (13.0-17.5) gm/dL Hct 33.8 L (39.0-53.0) % Lymphocytes # 0.4 L (1.0-4.8) k/uL Basophils # 0.3 H (0-0.2) k/uL Sodium 130 L (137-145) mmol/L Chloride 87 L (98-107) mmol/L Carbon Dioxide 33 H (22-30) mmol/L Glucose 160 H (74-99) mg/dL POC Glucose (mg/dL) (75-99) mg/dL Magnesium 1.3 L (1.6-2.3) mg/dL Troponin I 0.036 H* (0.000-0.034) ng/mL 04/12/19 04/12/19 04/13/19 Range/Units 18:05 21:10 00:24 RBC (4.30-5.90) m/uL Hgb (13.0-17.5) gm/dL Hct (39.0-53.0) % Lymphocytes # (1.0-4.8) k/uL Basophils # (0-0.2) k/uL Sodium (137-145) mmol/L Chloride (98-107) mmol/L Carbon Dioxide (22-30) mmol/L Glucose (74-99) mg/dL POC Glucose (mg/dL) 174 H 282 H (75-99) mg/dL Magnesium (1.6-2.3) mg/dL Troponin I 0.036 H* (0.000-0.034) ng/mL 04/13/19 04/13/19 04/13/19 Range/Units 00:28 06:06 06:06 RBC 3.58 L (4.30-5.90) m/uL Hgb 10.7 L (13.0-17.5) gm/dL Hct 31.1 L (39.0-53.0) % Lymphocytes # 0.5 L (1.0-4.8) k/uL Basophils # (0-0.2) k/uL Sodium 130 L (137-145) mmol/L Chloride 89 L (98-107) mmol/L Carbon Dioxide 34 H (22-30) mmol/L Glucose 121 H (74-99) mg/dL POC Glucose (mg/dL) (75-99) mg/dL Magnesium (1.6-2.3) mg/dL Troponin I 0.036 H* (0.000-0.034) ng/mL 04/13/19 04/13/19 04/13/19 Range/Units 06:06 06:12 07:54 RBC (4.30-5.90) m/uL Hgb (13.0-17.5) gm/dL Hct (39.0-53.0) % Lymphocytes # (1.0-4.8) k/uL Basophils # (0-0.2) k/uL Sodium (137-145) mmol/L Chloride (98-107) mmol/L Carbon Dioxide (22-30) mmol/L Glucose (74-99) mg/dL POC Glucose (mg/dL) 133 H 206 H (75-99) mg/dL Magnesium (1.6-2.3) mg/dL Troponin I 0.035 H* (0.000-0.034) ng/mL Assessment and Plan Assessment: Acute hypoxemic respiratory failure Acute COPD exacerbation Acute tracheobronchitis Elevated troponin hyponatremia Diabetes mellitus History of coronary artery disease prostate cancer in 1999 treated with seed implants and radiotherapy Plan: This is a pleasant 83 years old male who presents with acute COPD exacerbation and possible acute tracheobronchitis. Continue with steroids, bronchodilators, oxygen as needed. Start him on antibiotics and follow-up culture results. Pulmonary consult. Cardiology consult Labs and medication were reviewed.. Continue same treatment. Continue with symptomatic treatment. Resume home medication. Monitor lytes and vitals. DVT and GI prophylaxis. Further recommendations of the clinical course of the patient DVT prophylaxis: Subcutaneous heparin GI Prophylaxis: Pepcid PT/OT: Pending Prognosis is guarded
[2019-04-13] MEDS: IPRATROPIUM-ALBUTEROL 3 ML NEB INHALATION PRN ×2 (11:10→20:44)
[2019-04-13] MEDS: NYSTATIN 100,000 UNIT/GM OINT 30 GM TUBE TOPICAL SCH ×3 (11:57→21:49)
[2019-04-13 13:00] LABS: Glucose,Whole Blood 236 mg/dL (75-99)
[2019-04-13] MEDS: FUROSEMIDE 10 MG/ML 4 ML VIAL IV SCH ×2 (13:03→21:49)
--- NOTE | 2019-04-13 13:25 | P.CNPUL ---
History of Present Illness Consult date: 04/13/19 Requesting physician: Tennille Ndiaye Reason for consult: dyspnea, cough Chief complaint: Dyspnea, fever, cough History of present illness: 83-year-old male patient of Dr. 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 Patient was also diagnosed with varicella-zoster involving sacral area for which the patient was started on Valtrex. Patient was discharged home on 03/18/2019 on a combination of oral Ceftin for 6 more days, Valtrex, calamine lotion for his perineal and groin dermatitis. Patient states that he never completely improved after discharge, he did see Dr. Bentley in follow-up, but most recently last Friday he is breathing was getting worse and worse, patient could hardly walk a few feet without desaturating into the 70s on his usual 4 L of oxygen. He states he had been having fevers, is coughing with production of greenish phlegm. He states he is compliant with his medications, and he completed his course of oral antibiotics, he was febrile on presentation with a temp of 101.5F. Pulse ox was 89% on 4 L of oxygen, patient does desaturate with exertion. Labs showed white blood cell count of 8.6, hemoglobin of 11.3, granulation profile was within normal limits, sodium was 1:30, potassium is 3.9, chloride is 87, CO2 is 33, BUN is 15 creatinine 0.70 magnesium is 1.3, troponin is 0.0364, proBNP was 5280, influenza screen was negative. Patient has been started on Rocephin and doxycycline for antibiotic coverage, IV diuretics, IV steroids. Review of Systems All systems: negative Constitutional: Denies chills, Denies fever Eyes: denies blurred vision, denies pain Ears, nose, mouth and throat: Denies headache, Denies sore throat Cardiovascular: Reports decreased exercise tolerance, Reports dyspnea on exertion, Denies chest pain, Denies shortness of breath Respiratory: Reports congestion, Reports cough with sputum, Reports dyspnea, Reports home oxygen, Reports respiratory infections, Denies cough Gastrointestinal: Denies abdominal pain, Denies diarrhea, Denies nausea, Denies vomiting Musculoskeletal: Denies myalgias Integumentary: Denies pruritus, Denies rash Neurological: Denies numbness, Denies weakness Psychiatric: Denies anxiety, Denies depression Endocrine: Denies fatigue, Denies weight change Past Medical History Past Medical History: Coronary Artery Disease (CAD), Cancer, COPD, Diabetes Mellitus, Myocardial Infarction ([place]), Pneumonia Additional Past Medical History / Comment(s): Prostate CA in 1999, treated with seed implants and radiation Last Myocardial Infarction Date:: 1968 History of Any Multi-Drug Resistant Organisms: None Reported Past Surgical History: Orthopedic Surgery Additional Past Surgical History / Comment(s): Knee Surg X3 including a left knee arthroplasty, left Shoulder surgery for rotator cuff, broken ribs on Left side, left ankle Past Anesthesia/Blood Transfusion Reactions: No Reported Reaction Past Psychological History: No Psychological Hx Reported Additional Psychological History / Comment(s): , lives with his . 5 adult children. 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 was in [employer]. No international travel since . No animals in the home Smoking Status: Former smoker Past Alcohol Use History: None Reported Past Drug Use History: None Reported Additional Drug Use History / Comment(s): Quit smoking 30 years ago. Over 40 years for drinking - Past Family History Father Family Medical History: COPD Additional Family Medical History / Comment(s): from Emphysema Brother(s) Family Medical History: Cancer Additional Family Medical History / Comment(s): from upper resp and heart issues Medications and Allergies Home Medications Medication Instructions Recorded Confirmed Type metFORMIN HCL [Glucophage] 500 mg PO BID 03/27/15 04/12/19 History HYDROcodone/APAP 5-325MG [[place] 1 tab PO BID 03/13/19 04/12/19 History 5-325] Budesonide-Formot 160-4.5 Mcg 2 puff INHALATION RT-BID #1 inhaler 03/18/19 04/12/19 Rx [Symbicort 160-4.5 Mcg Inhaler] Furosemide [Lasix] 40 mg PO DAILY #30 tab 03/18/19 04/12/19 Rx Lisinopril [Zestril] 5 mg PO DAILY #30 tab 03/18/19 04/12/19 Rx Metoprolol Tartrate [Lopressor] 50 mg PO BID #60 tab 03/18/19 04/12/19 Rx Aspirin EC [Ecotrin Low Dose] 81 mg PO DAILY 04/12/19 04/12/19 History Ipratropium Nebulized [Atrovent 0.5 mg INHALATION RT-QID 04/12/19 04/12/19 History Nebulized 0.2 MG/ML] Tamsulosin [Flomax] 0.4 mg PO DAILY 04/12/19 04/12/19 History Allergies Allergy/AdvReac Type Severity Reaction Status Date / Time No Known Allergies Allergy Verified 04/12/19 14:18 Physical Exam Vitals: Vital Signs Temp Pulse Pulse Resp BP BP Pulse Ox 04/13/19 12:42 97.9 F 87 20 112/67 91 L 04/13/19 11:23 83 04/13/19 11:13 86 04/13/19 07:44 88 04/13/19 07:35 97.6 F 79 20 124/66 91 L 04/13/19 07:31 80 04/13/19 04:00 97.6 F 78 18 112/67 94 L 04/13/19 03:47 68 20 04/13/19 00:00 81 20 125/75 92 L 04/12/19 20:00 88 20 116/77 92 L 04/12/19 17:08 98.7 F 04/12/19 16:29 24 04/12/19 16:22 99 20 122/81 93 L 04/12/19 15:00 89 20 135/72 91 L 04/12/19 14:30 99.2 F 04/12/19 14:00 96 20 141/94 92 L 04/12/19 13:24 85 Intake and Output 04/12/19 04/13/19 04/13/19 22:59 06:59 14:59 Intake Total 260 Output Total 1250 300 Balance -1250 -40 Intake: Oral 260 Output: Urine 1250 300 Other: Voiding Method Bedside Commode Bedside Commode Toilet Urinal Diaper # Voids 1 # Bowel Movements 2 1 Weight 104.326 kg GENERAL EXAM: Alert, pleasant, 83-year-old white male, on 4 L of oxygen with a pulse ox of 89-91% on the dyspneic with conversation comfortable in no apparent distress. HEAD: Normocephalic/atraumatic. EYES: Normal reaction of pupils, equal size. Conjunctiva pink, sclera white. NOSE: Clear with pink turbinates. THROAT: No erythema or exudates. NECK: No masses, no JVD, no thyroid enlargement, no adenopathy. CHEST: No chest wall deformity. Symmetrical expansion. LUNGS: Equal air entry with diffuse wheezes throughout CVS: Regular rate and rhythm, normal S1 and S2, no gallops, no murmurs, no rubs ABDOMEN: Soft, nontender. No hepatosplenomegaly, normal bowel sounds, no guarding or rigidity. EXTREMITIES: No clubbing, no edema, no cyanosis, 2+ pulses and upper and lower extremities. MUSCULOSKELETAL: Muscle strength and tone normal. SPINE: No scoliosis or deformity SKIN: No rashes CENTRAL NERVOUS SYSTEM: Alert and oriented -3. No focal deficits, tone is normal in all 4 extremities. PSYCHIATRIC: Alert and oriented -3. Appropriate affect. Intact judgment and insight. Results - Laboratory Findings CBC and BMP: 04/13/19 06:06 04/13/19 06:06 PT/INR, D-dimer PT 10.8 sec (9.0-12.0) 04/12/19 12:46 INR 1.0 (<1.2) 04/12/19 12:46 Abnormal lab findings: Abnormal Labs 04/12/19 04/12/19 04/12/19 12:46 12:46 12:46 RBC 3.92 L Hgb 11.3 L Hct 33.8 L Lymphocytes # 0.4 L Basophils # 0.3 H Sodium 130 L Chloride 87 L Carbon Dioxide 33 H Glucose 160 H POC Glucose (mg/dL) Magnesium 1.3 L Troponin I 0.036 H* 04/12/19 04/12/19 04/13/19 18:05 21:10 00:24 RBC Hgb Hct Lymphocytes # Basophils # Sodium Chloride Carbon Dioxide Glucose POC Glucose (mg/dL) 174 H 282 H Magnesium Troponin I 0.036 H* 04/13/19 04/13/19 04/13/19 00:28 06:06 06:06 RBC 3.58 L Hgb 10.7 L Hct 31.1 L Lymphocytes # 0.5 L Basophils # Sodium 130 L Chloride 89 L Carbon Dioxide 34 H Glucose 121 H POC Glucose (mg/dL) Magnesium Troponin I 0.036 H* 04/13/19 04/13/19 04/13/19 06:06 06:12 07:54 RBC Hgb Hct Lymphocytes # Basophils # Sodium Chloride Carbon Dioxide Glucose POC Glucose (mg/dL) 133 H 206 H Magnesium Troponin I 0.035 H* 04/13/19 12:58 RBC Hgb Hct Lymphocytes # Basophils # Sodium Chloride Carbon Dioxide Glucose POC Glucose (mg/dL) 236 H Magnesium Troponin I - Diagnostic Findings Chest x-ray: report reviewed, image reviewed Assessment and Plan Plan: Assessment: #1. Acute on chronic hypoxemic respiratory failure related to acute COPD exacerbation with acute tracheobronchitis and chronic CHF exacerbation systolic dysfunction, an EF of 30-35% #2. Recent hospitalization for acute tracheobronchitis, COPD a gas, acute varicella zoster infection involving sacral dermatome and perineal dermatome #3. Mild troponin leak, cardiology is following #4. Groin excoriation, possibly related to fungal dermatitis #5. Severe COPD with baseline FEV1 of 38% of predicted #6. Chronic hypoxemic respiratory failure related to the above #7. History of CAD with previous myocardial infarction #8. History of previous heavy tobacco use #9. Previous episode of pneumonia #10. Diabetes mellitus #11. Hypertension #12. Hyperlipidemia Plan: Continue diuretics steroids, antibiotics and IV Lasix, daily labs, renal profile and electrolytes, daily weights, and the sputum for culture, influenza screen was negative. Patient is quite bronchospastic, congested, easily desaturates with any exertion. We will continue to follow. Patient is awaiting a bed on selective care unit. I performed a history & physical examination of the patient and discussed their management with my nurse practitioner, Mona Hong. I reviewed the nurse practitioner's note and agree with the documented findings and plan of care. Lung sounds are positive for diffuse wheezes and rhonchi. The findings and the impression was discussed with the patient. I attest to the documentation by the nurse practitioner. Time with Patient: Greater than 30
--- NOTE | 2019-04-13 14:43 | CONS ---
CONSULTATION Parker Nunez is an 83-year-old gentleman with a known history of ischemic cardiomyopathy with ejection fraction that is in the range of 30%-35%, He was last seen here by Cardiology in February of 2019 when he was evaluated by Dr. Campos. Echo at that time revealed ejection fraction of 30%-35% with moderate pulmonary hypertension. There was no significant valvular disease other than aortic sclerosis. There was moderate pulmonary hypertension. At that time patient presented with a COPD exacerbation and bronchitis-type picture. This time, patient came into the emergency room mainly with what seems to be worsening shortness of breath, cough and wheezing. He seems to have acute tracheal bronchitis-type picture and has been started on antibiotics. I was asked to see him mainly because of his underlying history of CAD and there were some isolated PVCs on the monitor. He is resting comfortably without symptoms. Denies any chest pain. He does have shortness of breath but at rest, he is comfortable. He is on steroids and antibiotics. PAST MEDICAL HISTORY: 1. CAD under the care of a owner e commerce company in the [facility], ejection fraction in the 35% range. 2. History of prior ME. 3. Pneumonia and recent episode of tracheobronchitis. History of prostate cancer status post knee surgery with left total knee arthroplasty, shoulder surgery. ALLERGIES: None. MEDICATIONS: Include inhalers for his COPD, atorvastatin 40 mg daily, lisinopril 5 mg daily, Flomax 0.4 mg daily, Lasix 40 mg daily. He also takes metformin 1000 mg b.i.d. and vitamin supplements. PAST MEDICAL HISTORY: Remarkable for CAD with ejection fraction in the 35% range, hypertension, type 2 diabetes, hyperlipidemia. History of past smoker with history of COPD, recurrent hospitalization with COPD with exacerbation. Patient is also status post prostate CA with implants in the past. PHYSICAL EXAMINATION: Blood pressure is 112/70, pulse rate is 80 per minute. HEENT: Unremarkable, fundus was not examined by me. NECK: Supple, there is JVD of 1 cm. No carotid bruit. HEART: Exam reveals S1, S2 heard normally. There is a short systolic murmur at left sternal border. LUNGS: Reveal scattered rhonchi. ABDOMEN: Soft, nontender. Lower extremity reveal normal diminished pulses. Central nervous system grossly no focal deficits. EKG revealed sinus mechanism with leftward axis, IVCD. No acute changes. LABORATORY DATA: Reveal that the troponins are 0.03 and 3 of the values are in the same range. Chest x-ray reveals interstitial prominence, but no clear-cut evidence of any pneumonia. IMPRESSION: 1. Exacerbation of chronic obstructive pulmonary disease with bronchitis. 2. History of coronary artery disease, but no evidence of overt ongoing myocardial ischemia. 3. Hypertension. 4. Type 2 diabetes mellitus. RECOMMENDATIONS: I am recommending that from a cardiac standpoint no aggressive intervention is necessary. I would recommend that we continue the current combination of in bronchodilators, antibiotics and resume all his medications. The troponin profile does not suggest myocardial injury. We will see the patient as needed from a cardiac standpoint. Thank you very much for the consult. MMODL / IJN: [id number] /
[2019-04-13 16:45] LABS: Glucose,Whole Blood 190 mg/dL (75-99)
[2019-04-13 20:22] LABS: Glucose,Whole Blood 182 mg/dL (75-99)
[2019-04-13] MEDS: FAMOTIDINE 20 MG TAB PO SCH (21:45)
[2019-04-14] MEDS: methylPREDNISolone SOD SUCCI 125 MG/2 ML VIAL IV SCH ×4 (05:28→21:30)
[2019-04-14 05:54] LABS: Glucose,Whole Blood 161 mg/dL (75-99)
[2019-04-14 06:16] LABS: Basophils # (A) 0.1 k/uL (0-0.2); Basophils % (A) 0 %; Eosinophils % (A) 0 %; HCT 31.1 % (39.0-53.0); HGB 10.6 gm/dL (13.0-17.5); Lymphocytes # (A) 0.5 k/uL (1.0-4.8); Lymphocytes % (A) 2 %; MCH 29.8 pg (25.0-35.0); MCHC 34.2 g/dL (31.0-37.0); MCV 87.2 fL (80.0-100.0); Mean Platelet Volume 7.5; Monocytes # (A) 0.7 k/uL (0-1.0); Monocytes % (A) 3 %; Neutrophils # (A) 21.8 k/uL (1.3-7.7); Neutrophils % (A) 94 %; Platelet Count 363 k/uL (150-450); RBC 3.57 m/uL (4.30-5.90); RDW 14.9 % (11.5-15.5); WBC 23.4 k/uL (3.8-10.6)
[2019-04-14 06:31] LABS: African American GFR (CKD) >90 (>60 ml/min/1.73 sqM); Anion Gap 9 mmol/L; Blood Urea Nitrogen 27 mg/dL (9-20); Calcium 9.5 mg/dL (8.4-10.2); Carbon Dioxide 32 mmol/L (22-30); Chloride 92 mmol/L (98-107); Glucose 149 mg/dL (74-99); Non-African American GFR(CKD) 79 (>60 ml/min/1.73 sqM); Potassium 4.2 mmol/L (3.5-5.1); Sodium 133 mmol/L (137-145)
[2019-04-14] MEDS: INSULIN ASPART (NovoLOG) 100 UNIT/ML VIAL SQ SCH ×4 (06:40→21:29)
[2019-04-14] MEDS: SYMBICORT 160-4.5 MCG INHALER INHALATION SCH ×2 (07:12→19:19)
[2019-04-14] MEDS: IPRATROPIUM-ALBUTEROL 3 ML NEB INHALATION PRN ×2 (07:12→11:03)
[2019-04-14] MEDS: HEPARIN SODIUM,PORCINE 5,000 UNIT/ML 1 ML VIAL SQ SCH ×3 (08:56→16:56)
[2019-04-14] MEDS: FUROSEMIDE 10 MG/ML 4 ML VIAL IV SCH ×2 (08:56→21:30)
[2019-04-14] MEDS: DOXYCYCLINE 100 MG CAP PO SCH ×2 (08:56→21:30)
[2019-04-14] MEDS: FAMOTIDINE 20 MG TAB PO SCH ×2 (08:57→21:29)
[2019-04-14] MEDS: ASPIRIN 81 MG PO SCH (08:57)
[2019-04-14] MEDS: LISINOPRIL 5 MG TAB PO SCH (08:57)
[2019-04-14] MEDS: METOPROLOL TARTRATE 50 MG TAB PO SCH ×2 (08:57→21:29)
[2019-04-14] MEDS: TAMSULOSIN 0.4 MG CAP.ER.24H PO SCH (08:57)
[2019-04-14] MEDS: metFORMIN 500 MG TAB PO SCH ×2 (08:57→21:31)
[2019-04-14] MEDS: HYDROcodone/APAP 5-325MG 1 EACH TAB PO SCH ×2 (08:58→21:30)
[2019-04-14] MEDS: NYSTATIN 100,000 UNIT/GM OINT 30 GM TUBE TOPICAL SCH ×3 (09:03→21:36)
--- NOTE | 2019-04-14 10:36 | P.PN ---
Subjective This is a pleasant 83 years old male with past medical history of coronary artery disease, diabetes mellitus, COPD, that he follows with Dr. Garcia. He presents because of worsening dyspnea and cough for 1 week duration, associated with green yellow phlegm but no chest pain. At home he uses for F oxygen via nasal cannula however this time his oxygen was troponin to a tease each time he moves On admission patient was febrile of 101.5, risks Vitas looks stable, he was saturating 89-92 % on 4 L oxygen. Magnesium was low of 1.3, sodium was 1:30, carbon dioxide was elevated at 33. Chest of CBC, INR, BMP and liver enzymes were unremarkable. Influenza test is negative. Chest x-ray: No acute process, with only suspicion of mild vascular congestion. EKG showing normal sinus rhythm at [address]-T changes, with PVC Patient returned the emergency room he was given Solu-Medrol and breathing treatment 04/13/2019 Patient still dyspneic like yesterday, he is mildly tachypneic. His total coughing and making some phlegm. However he denies chest pain. He is hemodynamically stable. No more fever so far since yesterday. No leukocytosis and hemoglobin is stable. Sodium stable at 130. Sugar is controlled and troponin is stable at 0.036. Cardiology and pulmonary team were consulted. Patient remains on Rocephin and salmeterol 60 mg and bronchodilator Hyponatremia 04/14/2019 Patient still has some chest tightness although he feels his improvement. He still have some cough. He denies chest pain. No dizziness. He still have a rash in the perineal but is improving, also patient has a small wound in his lower back with surrounding blanching erythema, suspicious for a pressure ulcer, hemodynamically stable. He has leukocytosis of 20 3.4K, however he is on steroids. BMP is unremarkable, sodium 133, which is improved from admission. Patient also on Lasix IV 40 g twice daily and Rocephin and nystatin. Review of systems CONSTITUTIONAL: No fever, no malaise, no fatigue. HEENT: No recent visual problems or hearing problems. Denied any sore throat. CARDIOVASCULAR: No orthopnea, PND, no palpitations, no syncope. PULMONARY: no hemoptysis. GASTROINTESTINAL: No diarrhea, no nausea, no vomiting, no abdominal pain. Normoactive bowel sounds. NEUROLOGICAL: No headaches, no weakness, no numbness. HEMATOLOGICAL: Denies any bleeding or petechiae. GENITOURINARY: Denies any burning micturition, frequency, or urgency. MUSCULOSKELETAL/RHEUMATOLOGICAL: Denies any joint pain, swelling, or any muscle pain. ENDOCRINE: Denies any polyuria or polydipsia. Active Medications Generic Name Dose Route Start Last Admin Trade Name Freq PRN Reason Stop Dose Admin Hydrocodone Bitart/Acetaminophen 1 each 04/12/19 21:00 04/13/19 08:03 [place] 5-325 PO Not Given BID [place] Aspirin 81 mg 04/12/19 21:00 04/13/19 07:59 Aspirin PO 81 mg DAILY [place] Administration Budesonide/Formoterol Fumarate 2 puff 04/13/19 08:00 04/13/19 07:28 Symbicort 160-4.5 Mcg Inhaler INHALATION 2 puff RT-BID [place] Administration Doxycycline Monohydrate 100 mg 04/12/19 14:00 04/13/19 08:20 Vibramycin PO 100 mg BID [place] Administration Famotidine 20 mg 04/12/19 21:00 04/13/19 07:59 Pepcid IV 20 mg Q12HR [place] Administration Furosemide 40 mg 04/12/19 21:00 04/13/19 07:59 Lasix PO 40 mg DAILY [place] Administration Heparin Sodium (Porcine) 5,000 unit 04/12/19 20:59 04/13/19 07:56 Heparin SQ Not Given Q8HR [facility] Ceftriaxone Sodium 1 gm/ 50 mls @ 100 mls/hr 04/12/19 16:00 04/12/19 16:20 Sodium Chloride IVPB 100 mls/hr Q24H [place] Administration Insulin Aspart 0 unit 04/12/19 17:30 04/13/19 06:23 Novolog SQ 1 unit ACHS [place] Administration Protocol Ipratropium [place] 0.5 mg 04/13/19 08:00 04/13/19 07:28 Atrovent Nebulized INHALATION 0.5 mg RT-QID [place] Administration Lisinopril 5 mg 04/13/19 09:00 04/13/19 07:57 Zestril PO 5 mg DAILY [place] Administration Metformin HCl 500 mg 04/12/19 21:00 04/13/19 07:59 Glucophage PO 500 mg BID [place] Administration Methylprednisolone Sodium Succinate 60 mg 04/12/19 18:00 04/13/19 06:24 Solu-Medrol IV 60 mg Q6HR [place] Administration Metoprolol Tartrate 50 mg 04/12/19 21:00 04/13/19 07:56 Lopressor PO 50 mg BID [place] Administration Tamsulosin HCl 0.4 mg 04/13/19 09:00 04/13/19 07:57 Flomax PO 0.4 mg DAILY [place] Administration Objective - Vital Signs Vital signs: Vital Signs Temp 98.1 F 04/14/19 08:00 Pulse 104 H 04/14/19 08:00 Resp 16 04/14/19 08:00 BP 122/74 04/14/19 08:00 Pulse Ox 92 L 04/14/19 08:00 Intake & Output 04/13/19 04/14/19 04/14/19 18:59 06:59 18:59 Intake Total 760 360 Output Total 300 250 Balance 460 -250 360 Weight 100.4 kg Intake: Oral 760 360 Output: Urine 300 250 Other: Voiding Method Toilet Toilet Urinal Urinal Diaper Diaper # Voids 0 # Bowel Movements 1 - Exam GENERAL: The patient is alert and oriented x3, not in any acute distress. Well developed, well nourished. HEENT: Pupils are round and equally reacting to light. EOMI. No scleral icterus. No conjunctival pallor. Normocephalic, atraumatic. No pharyngeal erythema. No thyromegaly. CARDIOVASCULAR: S1 and S2 present. No murmurs, rubs, or gallops. -PULMONARY: Chest is clear to auscultation, prolonged expiration and scattered wheezing ABDOMEN: Soft, nontender, nondistended, normoactive bowel sounds. No palpable organomegaly. -MUSCULOSKELETAL: No joint swelling or deformity. Low back ulcer with surrounding blanching erythema -EXTREMITIES: No cyanosis, clubbing, or pedal edema. Possible fungal rash in the perineal area NEUROLOGICAL: Gross neurological examination did not reveal any focal deficits. SKIN: No rashes. No petechiae - Labs CBC & Chem 7: 04/14/19 05:48 04/14/19 05:48 Labs: Abnormal Lab Results - Last 24 Hours (Table) 04/13/19 04/13/19 04/13/19 Range/Units 12:58 16:41 20:19 WBC (3.8-10.6) k/uL RBC (4.30-5.90) m/uL Hgb (13.0-17.5) gm/dL Hct (39.0-53.0) % Neutrophils # (1.3-7.7) k/uL Lymphocytes # (1.0-4.8) k/uL Sodium (137-145) mmol/L Chloride (98-107) mmol/L Carbon Dioxide (22-30) mmol/L BUN (9-20) mg/dL Glucose (74-99) mg/dL POC Glucose (mg/dL) 236 H 190 H 182 H (75-99) mg/dL 04/14/19 04/14/19 04/14/19 Range/Units 05:48 05:48 05:48 WBC 23.4 H (3.8-10.6) k/uL RBC 3.57 L (4.30-5.90) m/uL Hgb 10.6 L (13.0-17.5) gm/dL Hct 31.1 L (39.0-53.0) % Neutrophils # 21.8 H (1.3-7.7) k/uL Lymphocytes # 0.5 L (1.0-4.8) k/uL Sodium 133 L (137-145) mmol/L Chloride 92 L (98-107) mmol/L Carbon Dioxide 32 H (22-30) mmol/L BUN 27 H (9-20) mg/dL Glucose 149 H (74-99) mg/dL POC Glucose (mg/dL) 161 H (75-99) mg/dL Microbiology - Last 24 Hours (Table) 04/12/19 12:46 Blood Culture - Preliminary Blood No Growth after 24 hours 04/13/19 07:46 Gram Stain - Preliminary Sputum Sputum Culture - Preliminary Assessment and Plan Assessment: Acute hypoxemic respiratory failure Acute COPD exacerbation Acute tracheobronchitis possible pressure ulcer of the lower back Elevated troponin hyponatremia Diabetes mellitus History of coronary artery disease prostate cancer in 1999 treated with seed implants and radiotherapy Plan: This is a pleasant 83 years old male who presents with acute COPD exacerbation and possible acute tracheobronchitis. Continue with steroids, bronchodilators, oxygen as needed. Start him on antibiotics and follow-up culture results. Pulmonary consult. Cardiology consult Labs and medication were reviewed.. Continue same treatment. Continue with symptomatic treatment. Resume home medication. Monitor lytes and vitals. DVT and GI prophylaxis. Further recommendations of the clinical course of the patient DVT prophylaxis: Subcutaneous heparin GI Prophylaxis: Pepcid PT/OT: Pending Prognosis is guarded
[2019-04-14 11:46] LABS: Glucose,Whole Blood 212 mg/dL (75-99)
--- NOTE | 2019-04-14 12:04 | P.CONS ---
History of Present Illness - Reason for Consult Consult date: 04/14/19 wound care - History of Present Illness This is an 83-year-old pleasant gentleman who has been seen by the wound care center for a nonhealing ulceration to the sacrum. Patient is currently an inpatient on 3 S. patient states that the ulceration has been there since January. He does have history of shingles with open lesions related to that. The shingles started approximately 2 weeks ago. He is on antiviral medications for that. Patient states that the ulceration to his sacrum comes and goes lately it's been open and sore. He has not been utilizing any type of cream. Patient also has a fungal infection to bilateral groins being treated while in the hospital. Bilateral groins do not have any open ulcerations. Ulceration to sacrum measures approximately 1.3 x 0.4 x 0.1 cm with fat layer exposure, minimal slough and granulation noted throughout. No undermining or tunneling noted. Wound edges attached. Review of Systems Review Of Systems: Constitutional: No fever, no chills, no night sweats. No weight change. No weakness, fatigue or lethargy. No daytime sleepiness. Integumentary:reports wounds, reports lesions. Report rash no pruritus. No unusual bruising. No change in hair or nails. Past Medical History Past Medical History: Coronary Artery Disease (CAD), Cancer, COPD, Diabetes Mellitus, Myocardial Infarction (CT), Pneumonia Additional Past Medical History / Comment(s): Prostate CA in 1999, treated with seed implants and radiation Last Myocardial Infarction Date:: 1968 History of Any Multi-Drug Resistant Organisms: None Reported Past Surgical History: Orthopedic Surgery Additional Past Surgical History / Comment(s): Knee Surg X3 including a left knee arthroplasty, left Shoulder surgery for rotator cuff, broken ribs on Left side, left ankle Past Anesthesia/Blood Transfusion Reactions: No Reported Reaction Past Psychological History: No Psychological Hx Reported Additional Psychological History / Comment(s): , lives with his . 5 adult children. 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 was in [place] . No international travel since . No animals in the home Smoking Status: Former smoker Past Alcohol Use History: None Reported Past Drug Use History: None Reported Additional Drug Use History / Comment(s): Quit smoking 30 years ago. Over 40 ye ars for drinking - Past Family History Father Family Medical History: COPD Additional Family Medical History / Comment(s): from Emphysema Brother(s) Family Medical History: Cancer Additional Family Medical History / Comment(s): from upper resp and heart issues Medications and Allergies Home Medications Medication Instructions Recorded Confirmed Type metFORMIN HCL [Glucophage] 500 mg PO BID 03/27/15 04/12/19 History HYDROcodone/APAP 5-325MG [Vincent 1 tab PO BID 03/13/19 04/12/19 History 5-325] Budesonide-Formot 160-4.5 Mcg 2 puff INHALATION RT-BID #1 inhaler 03/18/19 04/12/19 Rx [Symbicort 160-4.5 Mcg Inhaler] Furosemide [Lasix] 40 mg PO DAILY #30 tab 03/18/19 04/12/19 Rx Lisinopril [Zestril] 5 mg PO DAILY #30 tab 03/18/19 04/12/19 Rx Metoprolol Tartrate [Lopressor] 50 mg PO BID #60 tab 03/18/19 04/12/19 Rx Aspirin EC [Ecotrin Low Dose] 81 mg PO DAILY 04/12/19 04/12/19 History Ipratropium Nebulized [Atrovent 0.5 mg INHALATION RT-QID 04/12/19 04/12/19 History Nebulized 0.2 MG/ML] Tamsulosin [Flomax] 0.4 mg PO DAILY 04/12/19 04/12/19 History Allergies Allergy/AdvReac Type Severity Reaction Status Date / Time No Known Allergies Allergy Verified 04/12/19 14:18 Physical Exam Vitals: Vital Signs Temp Pulse Pulse Resp BP Pulse Ox 04/14/19 11:36 16 04/14/19 11:16 90 04/14/19 11:03 90 04/14/19 08:00 98.1 F 104 H 16 122/74 92 L 04/14/19 07:24 86 04/14/19 07:12 86 04/14/19 03:07 98.5 F 85 20 127/70 93 L 04/14/19 03:05 94 20 04/14/19 00:00 98 F 94 20 133/79 92 L 04/13/19 21:02 84 04/13/19 20:44 88 18 97 04/13/19 20:00 98.2 F 95 20 138/72 91 L 04/13/19 16:00 16 04/13/19 15:14 89 16 101/69 91 L 04/13/19 12:42 97.9 F 87 20 112/67 91 L Intake and Output 04/13/19 04/14/19 04/14/19 22:59 06:59 14:59 Intake Total 240 360 Output Total 250 Balance 240 -250 360 Intake: Oral 240 360 Output: Urine 250 Other: Voiding Method Toilet Toilet Toilet Urinal Urinal Urinal Diaper Diaper Diaper # Voids 0 0 Weight 100.4 kg Physical exam: General Appearance: Alert, cooperative, no distress, appears stated age. Skin: See HPI all other Skin color, texture, tugor normal, no rashes or lesions. Neurologic: Alert oriented x3 Results CBC & Chem 7: 04/14/19 05:48 04/14/19 05:48 Labs: Abnormal Lab Results - Last 24 Hours (Table) 04/13/19 04/13/19 04/13/19 Range/Units 12:58 16:41 20:19 WBC (3.8-10.6) k/uL RBC (4.30-5.90) m/uL Hgb (13.0-17.5) gm/dL Hct (39.0-53.0) % Neutrophils # (1.3-7.7) k/uL Lymphocytes # (1.0-4.8) k/uL Sodium (137-145) mmol/L Chloride (98-107) mmol/L Carbon Dioxide (22-30) mmol/L BUN (9-20) mg/dL Glucose (74-99) mg/dL POC Glucose (mg/dL) 236 H 190 H 182 H (75-99) mg/dL 04/14/19 04/14/19 04/14/19 Range/Units 05:48 05:48 05:48 WBC 23.4 H (3.8-10.6) k/uL RBC 3.57 L (4.30-5.90) m/uL Hgb 10.6 L (13.0-17.5) gm/dL Hct 31.1 L (39.0-53.0) % Neutrophils # 21.8 H (1.3-7.7) k/uL Lymphocytes # 0.5 L (1.0-4.8) k/uL Sodium 133 L (137-145) mmol/L Chloride 92 L (98-107) mmol/L Carbon Dioxide 32 H (22-30) mmol/L BUN 27 H (9-20) mg/dL Glucose 149 H (74-99) mg/dL POC Glucose (mg/dL) 161 H (75-99) mg/dL 04/14/19 Range/Units 11:33 WBC (3.8-10.6) k/uL RBC (4.30-5.90) m/uL Hgb (13.0-17.5) gm/dL Hct (39.0-53.0) % Neutrophils # (1.3-7.7) k/uL Lymphocytes # (1.0-4.8) k/uL Sodium (137-145) mmol/L Chloride (98-107) mmol/L Carbon Dioxide (22-30) mmol/L BUN (9-20) mg/dL Glucose (74-99) mg/dL POC Glucose (mg/dL) 212 H (75-99) mg/dL Microbiology - Last 24 Hours (Table) 04/12/19 12:46 Blood Culture - Preliminary Blood No Growth after 24 hours 04/13/19 07:46 Gram Stain - Preliminary Sputum Sputum Culture - Preliminary Assessment and Plan (1) Pressure ulcer of sacral region, stage 2 Current Visit: Yes Status: Acute Code(s): L89.152 - PRESSURE ULCER OF SACRAL REGION, STAGE 2 SNOMED Code(s): 463956106 (2) Diabetes with skin ulcer Current Visit: Yes Status: Acute Code(s): E11.622 - TYPE 2 DIABETES MELLITUS WITH OTHER SKIN ULCER; L98.499 - NON-PRESSURE CHRONIC ULCER OF SKIN OF SITES W UNSP SEVERITY SNOMED Code(s): 21535707 (3) Varicella zoster Current Visit: No Status: Acute Code(s): B02.9 - ZOSTER WITHOUT COMPLICAT IONS; B01.9 - VARICELLA WITHOUT COMPLICATION SNOMED Code(s): 910620000 Plan: Discussed with patient the importance of offloading. Discussed with patient the reason that the ulceration has started. Patient verbalized understanding. Utilize a waffle cushion when sitting. Change positions every 2 hours as needed. Discussed with patient the importance of keeping the area clean and dry. Patient verbalized understanding. Apply triad cream to the site daily. May use a foam border dressing as needed to cover if required. If the ulcerati on continues to worsen discussed with patient to seek treatment in the wound care center. Patient was agreeable. Otherwise patient may continue with the care through home health care. Thank you for the consultation. Any questions please contact the wound care center. DNP note has been reviewed and discussed with Dr. Mehta and the impression and plan of care has been directed as dictated.
[2019-04-14] MEDS: SPIRONOLACTONE 25 MG TAB PO SCH (13:01)
--- NOTE | 2019-04-14 13:13 | XR ---
EXAMINATION TYPE: XR chest 2V DATE OF EXAM: 04/14/2019 COMPARISON: 04/12/2019 INDICATION: CHF TECHNIQUE: Frontal and lateral views of the chest are obtained. FINDINGS: The heart size is normal. The pulmonary vasculature is normal. Mild increased lung markings may be at the right base. Some subtle subsegmental atelectasis may be pr esent.. IMPRESSION: 1. Suggestion of a right middle lobe infiltrate at the right lung base. Correlate for subsegmental at electasis.
[2019-04-14 14:22] VITALS: BMI 31.3
--- NOTE | 2019-04-14 14:39 | P.PN ---
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 Patient was also diagnosed with varicella-zoster involving sacral area for which the patient was started on Valtrex. Patient was discharged home on 03/18/2019 on a combination of oral Ceftin for 6 more days, Valtrex, calamine lotion for his perineal and groin dermatitis. Patient states that he never completely improved after discharge, he did see Dr. Bentley in follow-up, but most recently last Friday he is breathing was getting worse and worse, patient could hardly walk a few feet without desaturating into the 70s on his usual 4 L of oxygen. He states he had been having fevers, is coughing with production of greenish phlegm. He states he is compliant with his medications, and he com pleted his course of oral antibiotics, he was febrile on presentation with a temp of 101.5F. Pulse ox was 89% on 4 L of oxygen, patient does desaturate with exertion. Labs showed white blood cell count of 8.6, hemoglobin of 11.3, granulation profile was within normal limits, sodium was 1:30, potassium is 3.9, chloride is 87, CO2 is 33, BUN is 15 creatinine 0.70 magnesium is 1.3, troponin is 0.0364, proBNP was 5280, influenza screen was negative. Patient has been started on Rocephin and doxycycline for antibiotic coverage, IV diuretics, IV steroids. On 04/14/2019 patient seen in follow-up with care unit, he is improving, less congested and dyspneic, less bronchospastic, remains on IV Lasix, he is in negative fluid balance, he is on empiric antibiotics, sputum culture is pending, blood culture has shown no growth, no fever or chills in the last 24 hours. FiO2 is at 4 L and his pulse ox is 92%, no acute events overnight, patient's improving, will continue same medical treatment. Objective - Vital Signs Vital signs: Vital Signs Temp 98.1 F 04/14/19 08:00 Pulse 90 04/14/19 11:16 Resp 16 04/14/19 11:36 BP 122/74 04/14/19 08:00 Pulse Ox 92 L 04/14/19 08:00 Intake & Output 04/13/19 04/14/19 04/14/19 18:59 06:59 18:59 Intake Total 760 360 Output Total 300 250 Balance 460 -250 360 Weight 100.4 kg 100.4 kg Intake: Oral 760 360 Output: Urine 300 250 Other: Voiding Method Toilet Toilet Toilet Urinal Urinal Urinal Diaper Diaper Diaper # Voids 0 0 # Bowel Movements 1 - Exam GENERAL EXAM: Alert, pleasant, 83-year-old white male, on 4 L of oxygen with a pulse ox of 92% on the dyspneic with conversation comfortable in no apparent distress. HEAD: Normocephalic/atraumatic. EYES: Normal reaction of pupils, equal size. Conjunctiva pink, sclera white. NOSE: Clear with pink turbinates. THROAT: No erythema or exudates. NECK: No masses, no JVD, no thyroid enlargement, no adenopathy. CHEST: No chest wall deformity. Symmetrical expansion. LUNGS: Equal air entry with scattered wheezes CVS: Regular rate and rhythm, normal S1 and S2, no gallops, no murmurs, no rubs ABDOMEN: Soft, nontender. No hepatosplenomegaly, normal bowel sounds, no guarding or rigidity. EXTREMITIES: No clubbing, no edema, no cyanosis, 2+ pulses and upper and lower extremities. MUSCULOSKELETAL: Muscle strength and tone normal. SPINE: No scoliosis or deformity SKIN: No rashes CENTRAL NERVOUS SYSTEM: Alert and oriented -3. No focal deficits, tone is normal in all 4 extremities. PSYCHIATRIC: Alert and oriented -3. Appropriate affect. Intact judgment and insight. - Labs CBC & Chem 7: 04/14/19 05:48 04/14/19 05:48 Labs: Abnormal Lab Results - Last 24 Hours (Table) 04/13/19 04/13/19 04/14/19 Range/Units 16:41 20:19 05:48 WBC 23.4 H (3.8-10.6) k/uL RBC 3.57 L (4.30-5.90) m/uL Hgb 10.6 L (13.0-17.5) gm/dL Hct 31.1 L (39.0-53.0) % Neutrophils # 21.8 H (1.3-7.7) k/uL Lymphocytes # 0.5 L (1.0-4.8) k/uL Sodium (137-145) mmol/L Chloride (98-107) mmol/L Carbon Dioxide (22-30) mmol/L BUN (9-20) mg/dL Glucose (74-99) mg/dL POC Glucose (mg/dL) 190 H 182 H (75-99) mg/dL 04/14/19 04/14/19 04/14/19 Range/Units 05:48 05:48 11:33 WBC (3.8-10.6) k/uL RBC (4.30-5.90) m/uL Hgb (13.0-17.5) gm/dL Hct (39.0-53.0) % Neutrophils # (1.3-7.7) k/uL Lymphocytes # (1.0-4.8) k/uL Sodium 133 L (137-145) mmol/L Chloride 92 L (98-107) mmol/L Carbon Dioxide 32 H (22-30) mmol/L BUN 27 H (9-20) mg/dL Glucose 149 H (74-99) mg/dL POC Glucose (mg/dL) 161 H 212 H (75-99) mg/dL Microbiology - Last 24 Hours (Table) 04/12/19 12:46 Blood Culture - Preliminary Blood No Growth after 24 hours 04/13/19 07:46 Gram Stain - Preliminary Sputum Sputum Culture - Preliminary Assessment and Plan Plan: Assessment: #1. Acute on chronic hypoxemic respiratory failure related to acute COPD exacerbation with acute tracheobronchitis and chronic CHF exacerbation systolic dysfunction, an EF of 30-35% #2. Recent hospitalization for acute tracheobronchitis, COPD a gas, acute varicella zoster infection involving sacral dermatome and perineal dermatome #3. Mild troponin leak, cardiology is following #4. Groin excoriation, possibly related to fungal dermatitis #5. Severe COPD with baseline FEV1 of 38% of predicted #6. Chronic hypoxemic respiratory failure related to the above #7. History of CAD with previous myocardial infarction #8. History of previous heavy tobacco use #9. Previous episode of pneumonia #10. Diabetes mellitus #11. Hypertension #12. Hyperlipidemia Plan: Continue current medical treatment, IV steroids, nebulized bronchodilators, empiric antibiotics, will await the results of the sputum culture, blood culture has shown no growth, patient has had no fever or chills, continues on IV diuretics, he is improving, breathing easier, less dyspneic and bronchospastic on today's exam. Today's chest x-ray has been reviewed showing possible right lower lobe infiltrate. Clinically improving. We will continue to follow. I performed a history & physical examination of the patient and discussed their management with my nurse practitioner, Mona Hong. I reviewed the nurse practitioner's note and agree with the documented findings and plan of care. Lung sounds are positive for diffuse wheezes and rhonchi. The findings and the impression was discussed with the patient. I attest to the documentation by the nurse practitioner. Time with Patient: Less than 30
--- NOTE | 2019-04-14 15:16 | PN ---
PROGRESS NOTE Mr. Nunez is here with pneumonia and exacerbation of systolic heart failure and ischemic cardiomyopathy. However, he is doing much better today. Breathing is easier, denies chest pain, stable functional capacity. Vitals are stable. JVD 1 cm, no carotid bruit. S1, S2 with a short systolic murmur, is audible. Lungs reveal improved air entry. Abdomen and lower extremity exam is unchanged. Plan is to continue current medications and switch him from IV to oral Lasix tomorrow. Patient is on antibiotics which are being continued. Cardiac-zapata he is stable. I will see him as needed. Advised to follow with his primary care physician. I will be happy to see him in the office upon discharge. MMODL / IJN: [id number] /
[2019-04-14] MEDS: IPRATROPIUM-ALBUTEROL 3 ML NEB INHALATION SCH ×2 (15:23→19:19)
[2019-04-14] MEDS: HYDROPHILIC CREAM 180 GM TUBE TOPICAL SCH (16:56)
[2019-04-14 17:01] LABS: Glucose,Whole Blood 175 mg/dL (75-99)
[2019-04-14 21:01] LABS: Glucose,Whole Blood 258 mg/dL (75-99)
[2019-04-15] MEDS: methylPREDNISolone SOD SUCCI 125 MG/2 ML VIAL IV SCH ×4 (05:25→23:51)
[2019-04-15 07:29] LABS: Basophils # (A) 0.1 k/uL (0-0.2); Basophils % (A) 1 %; Eosinophils % (A) 0 %; HCT 32.3 % (39.0-53.0); HGB 10.5 gm/dL (13.0-17.5); Lymphocytes # (A) 0.5 k/uL (1.0-4.8); Lymphocytes % (A) 2 %; MCH 28.7 pg (25.0-35.0); MCHC 32.6 g/dL (31.0-37.0); MCV 88.1 fL (80.0-100.0); Mean Platelet Volume 7.5; Monocytes # (A) 0.6 k/uL (0-1.0); Monocytes % (A) 3 %; Neutrophils # (A) 19.8 k/uL (1.3-7.7); Neutrophils % (A) 93 %; Platelet Count 393 k/uL (150-450); RBC 3.67 m/uL (4.30-5.90); WBC 21.3 k/uL (3.8-10.6)
[2019-04-15 07:33] LABS: Glucose,Whole Blood 185 mg/dL (75-99)
[2019-04-15 07:49] LABS: African American GFR (CKD) >90 (>60 ml/min/1.73 sqM); Anion Gap 9 mmol/L; Blood Urea Nitrogen 31 mg/dL (9-20); Calcium 9.5 mg/dL (8.4-10.2); Carbon Dioxide 33 mmol/L (22-30); Chloride 91 mmol/L (98-107); Glucose 165 mg/dL (74-99); Non-African American GFR(CKD) 84 (>60 ml/min/1.73 sqM); Potassium 4.2 mmol/L (3.5-5.1); Sodium 133 mmol/L (137-145)
[2019-04-15] MEDS: FAMOTIDINE 20 MG TAB PO SCH ×2 (08:03→20:54)
[2019-04-15] MEDS: metFORMIN 500 MG TAB PO SCH ×2 (08:03→20:54)
[2019-04-15] MEDS: HYDROcodone/APAP 5-325MG 1 EACH TAB PO SCH ×2 (08:03→20:53)
[2019-04-15] MEDS: TAMSULOSIN 0.4 MG CAP.ER.24H PO SCH (08:03)
[2019-04-15] MEDS: METOPROLOL TARTRATE 50 MG TAB PO SCH ×2 (08:03→20:52)
[2019-04-15] MEDS: SPIRONOLACTONE 25 MG TAB PO SCH (08:03)
[2019-04-15] MEDS: INSULIN ASPART (NovoLOG) 100 UNIT/ML VIAL SQ SCH ×4 (08:03→20:54)
[2019-04-15] MEDS: ASPIRIN 81 MG PO SCH (08:03)
[2019-04-15] MEDS: LISINOPRIL 5 MG TAB PO SCH (08:03)
[2019-04-15] MEDS: FUROSEMIDE 40 MG TAB PO SCH ×2 (08:04→17:22)
[2019-04-15] MEDS: FUROSEMIDE 10 MG/ML 4 ML VIAL IV SCH ×2 (08:04→20:52)
[2019-04-15] MEDS: HEPARIN SODIUM,PORCINE 5,000 UNIT/ML 1 ML VIAL SQ SCH ×4 (08:06→23:50)
[2019-04-15] MEDS: DOXYCYCLINE 100 MG CAP PO SCH ×2 (08:14→20:54)
--- NOTE | 2019-04-15 08:45 | P.PN ---
Subjective This is a pleasant 83 years old male with past medical history of coronary artery disease, diabetes mellitus, COPD, that he follows with Dr. Garcia. He presents because of worsening dyspnea and cough for 1 week duration, associated with green yellow phlegm but no chest pain. At home he uses for F oxygen via nasal cannula however this time his oxygen was troponin to a tease each time he moves On admission patient was febrile of 101.5, risks Vitas looks stable, he was saturating 89-92 % on 4 L oxygen. Magnesium was low of 1.3, sodium was 1:30, carbon dioxide was elevated at 33. Chest of CBC, INR, BMP and liver enzymes were unremarkable. Influenza test is negative. Chest x-ray: No acute process, with only suspicion of mild vascular congestion. EKG showing normal sinus rhythm at [address]-T changes, with PVC Patient returned the emergency room he was given Solu-Medrol and breathing treatment 04/13/2019 Patient still dyspneic like yesterday, he is mildly tachypneic. His total coughing and making some phlegm. However he denies chest pain. He is hemodynamically stable. No more fever so far since yesterday. No leukocytosis and hemoglobin is stable. Sodium stable at 130. Sugar is controlled and troponin is stable at 0.036. Cardiology and pulmonary team were consulted. Patient remains on Rocephin and salmeterol 60 mg and bronchodilator Hyponatremia 04/14/2019 Patient still has some chest tightness although he feels his improvement. He still have some cough. He denies chest pain. No dizziness. He still have a rash in the perineal but is improving, also patient has a small wound in his lower back with surrounding blanching erythema, suspicious for a pressure ulcer, hemodynamically stable. He has leukocytosis of 20 3.4K, however he is on steroids. BMP is unremarkable, sodium 133, which is improved from admission. Patient also on Lasix IV 40 g twice daily and Rocephin and nystatin. 04/15/2019 Patient still have respiratory symptoms and decreased air entry in both sides and on examination his to have wheezing. I don't think patient is admitted for discharge today. Creatinine normal at 0.7. He saturating 93-94% on 4 L oxygen and a Vitas looks stable. His rash between his legs is improving, patient is counseled about his low back wound/ulcer. Topical therapy is applying. His WBC is 20 1.3K while he is on steroids. Sodium stable at 133. Sputum cultures, gram-negative bacilli and final result is pending. Chest x-ray showing right lower lung pneumonia, and patient is made aware of this. He is on Lasix 40 mg orally. Also on some Medrol 60 mg, he is on Rocephin and nystatin. His sugars controlled while on metformin and sliding scale with insulin. Objective - Vital Signs Vital signs: Vital Signs Temp 98.0 F 04/15/19 08:00 Pulse 95 04/15/19 08:00 Resp 18 04/15/19 08:00 BP 142/78 04/15/19 08:00 Pulse Ox 94 L 04/15/19 08:00 Intake & Output 04/14/19 04/15/19 04/15/19 18:59 06:59 18:59 Intake Total 600 400 Output Total 700 Balance 600 -300 Weight 100.4 kg 102 kg Intake: Oral 600 400 Output: Urine 700 Other: Voiding Method Toilet Toilet Urinal Urinal Diaper Diaper # Voids 0 - Exam GENERAL: The patient is alert and oriented x3, not in any acute distress. Well developed, well nourished. HEENT: Pupils are round and equally reacting to light. EOMI. No scleral icterus. No conjunctival pallor. Normocephalic, atraumatic. No pharyngeal erythema. No thyromegaly. CARDIOVASCULAR: S1 and S2 present. No murmurs, rubs, or gallops. -PULMONARY: Chest is clear to auscultation, prolonged expiration and scattered wheezing ABDOMEN: Soft, nontender, nondistended, normoactive bowel sounds. No palpable organomegaly. -MUSCULOSKELETAL: No joint swelling or deformity. Low back ulcer with surrounding blanching erythema -EXTREMITIES: No cyanosis, clubbing, or pedal edema. Possible fungal rash in the perineal area NEUROLOGICAL: Gross neurological examination did not reveal any focal deficits. SKIN: No rashes. No petechiae - Labs CBC & Chem 7: 04/15/19 06:59 04/15/19 06:59 Labs: Abnormal Lab Results - Last 24 Hours (Table) 04/14/19 04/14/19 04/14/19 Range/Units 11:33 16:41 20:59 WBC (3.8-10.6) k/uL RBC (4.30-5.90) m/uL Hgb (13.0-17.5) gm/dL Hct (39.0-53.0) % Neutrophils # (1.3-7.7) k/uL Lymphocytes # (1.0-4.8) k/uL Sodium (137-145) mmol/L Chloride (98-107) mmol/L Carbon Dioxide (22-30) mmol/L BUN (9-20) mg/dL Glucose (74-99) mg/dL POC Glucose (mg/dL) 212 H 175 H 258 H (75-99) mg/dL 04/15/19 04/15/19 04/15/19 Range/Units 06:59 06:59 07:22 WBC 21.3 H (3.8-10.6) k/uL RBC 3.67 L (4.30-5.90) m/uL Hgb 10.5 L (13.0-17.5) gm/dL Hct 32.3 L (39.0-53.0) % Neutrophils # 19.8 H (1.3-7.7) k/uL Lymphocytes # 0.5 L (1.0-4.8) k/uL Sodium 133 L (137-145) mmol/L Chloride 91 L (98-107) mmol/L Carbon Dioxide 33 H (22-30) mmol/L BUN 31 H (9-20) mg/dL Glucose 165 H (74-99) mg/dL POC Glucose (mg/dL) 185 H (75-99) mg/dL Microbiology - Last 24 Hours (Table) 04/12/19 12:46 Blood Culture - Preliminary Blood No Growth after 48 hours 04/13/19 07:46 Gram Stain - Preliminary Sputum Sputum Culture - Preliminary Gram Neg Bacilli Assessment and Plan Assessment: Right lower lung pneumonia. Acute hypoxemic respiratory failure Acute COPD exacerbation Acute tracheobronchitis possible pressure ulcer of the lower back Elevated troponin hyponatremia Diabetes mellitus History of coronary artery disease prostate cancer in 1999 treated with seed implants and radiotherapy Plan: This is a pleasant 83 years old male who presents with acute COPD exacerbation and possible acute tracheobronchitis. Continue with steroids, bronchodilators, oxygen as needed. Start him on antibiotics and follow-up culture results. Pu lmonary consult. Cardiology consult Labs and medication were reviewed.. Continue same treatment. Continue with symptomatic treatment. Resume home medication. Monitor lytes and vitals. DVT and GI prophylaxis. Further recommendations of the clinical course of the patient DVT prophylaxis: Subcutaneous heparin GI Prophylaxis: Pepcid PT/OT: Pending Prognosis is guarded
[2019-04-15] MEDS: IPRATROPIUM-ALBUTEROL 3 ML NEB INHALATION SCH ×3 (09:16→19:56)
[2019-04-15] MEDS: SYMBICORT 160-4.5 MCG INHALER INHALATION SCH ×2 (09:16→19:55)
[2019-04-15 11:50] LABS: Glucose,Whole Blood 139 mg/dL (75-99)
--- NOTE | 2019-04-15 12:47 | P.PN ---
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 Patient was also diagnosed with varicella-zoster involving sacral area for which the patient was started on Valtrex. Patient was discharged home on 03/18/2019 on a combination of oral Ceftin for 6 more days, Valtrex, calamine lotion for his perineal and groin dermatitis. Patient states that he never completely improved after discharge, he did see Dr. Bentley in follow-up, but most recently last Friday he is breathing was getting worse and worse, patient could hardly walk a few feet without desaturating into the 70s on his usual 4 L of oxygen. He states he had been having fevers, is coughing with production of greenish phlegm. He states he is compliant with his medications, and he com pleted his course of oral antibiotics, he was febrile on presentation with a temp of 101.5F. Pulse ox was 89% on 4 L of oxygen, patient does desaturate with exertion. Labs showed white blood cell count of 8.6, hemoglobin of 11.3, granulation profile was within normal limits, sodium was 1:30, potassium is 3.9, chloride is 87, CO2 is 33, BUN is 15 creatinine 0.70 magnesium is 1.3, troponin is 0.0364, proBNP was 5280, influenza screen was negative. Patient has been started on Rocephin and doxycycline for antibiotic coverage, IV diuretics, IV steroids. On 04/14/2019 patient seen in follow-up with care unit, he is improving, less congested and dyspneic, less bronchospastic, remains on IV Lasix, he is in negative fluid balance, he is on empiric antibiotics, sputum culture is pending, blood culture has shown no growth, no fever or chills in the last 24 hours. FiO2 is at 4 L and his pulse ox is 92%, no acute events overnight, patient's improving, will continue same medical treatment. On 04/15/2019 patient seen in follow-up on medical surgical floor. Doing a bit better, still congested and dyspneic, still bringing up thick yellow colored sputum, procalcitonin level came back low at 0.07, sputum culture is pending, and temperature patient remains on empiric antibiotics. IV steroids and nebulized bronchodilators, yesterday chest x-ray has been reviewed, showing suggestion of a right middle lobe infiltrate at the right lung base. Sputum culture showed gram-negative bacilli, final culture is pending. Ration has been afebrile, he is on a combination doxycycline and Rocephin Objective - Vital Signs Vital signs: Vital Signs Temp 98.0 F 04/15/19 08:00 Pulse 56 L 04/15/19 09:41 Resp 18 04/15/19 08:00 BP 142/78 04/15/19 08:00 Pulse Ox 94 L 04/15/19 08:00 Intake & Output 04/14/19 04/15/19 04/15/19 18:59 06:59 18:59 Intake Total 600 400 Output Total 700 Balance 600 -300 Weight 100.4 kg 102 kg Intake: Oral 600 400 Output: Urine 700 Other: Voiding Method Toilet Toilet Urinal Urinal Diaper Diaper # Voids 0 - Exam GENERAL EXAM: Alert, pleasant, 83-year-old white male, on 4 L of oxygen with a pulse ox of 94% on the dyspneic with conversation comfortable in no apparent distress. HEAD: Normocephalic/atraumatic. EYES: Normal reaction of pupils, equal size. Conjunctiva pink, sclera white. NOSE: Clear with pink turbinates. THROAT: No erythema or exudates. NECK: No masses, no JVD, no thyroid enlargement, no adenopathy. CHEST: No chest wall deformity. Symmetrical expansion. LUNGS: Equal air entry with scattered wheezes CVS: Regular rate and rhythm, normal S1 and S2, no gallops, no murmurs, no rubs ABDOMEN: Soft, nontender. No hepatosplenomegaly, normal bowel sounds, no guarding or rigidity. EXTREMITIES: No clubbing, no edema, no cyanosis, 2+ pulses and upper and lower extremities. MUSCULOSKELETAL: Muscle strength and tone normal. SPINE: No scoliosis or deformity SKIN: No rashes CENTRAL NERVOUS SYSTEM: Alert and oriented -3. No focal deficits, tone is normal in all 4 extremities. PSYCHIATRIC: Alert and oriented -3. Appropriate affect. Intact judgment and insight. - Labs CBC & Chem 7: 04/15/19 06:59 04/15/19 06:59 Labs: Abnormal Lab Results - Last 24 Hours (Table) 04/14/19 04/14/19 04/15/19 Range/Units 16:41 20:59 06:59 WBC 21.3 H (3.8-10.6) k/uL RBC 3.67 L (4.30-5.90) m/uL Hgb 10.5 L (13.0-17.5) gm/dL Hct 32.3 L (39.0-53.0) % Neutrophils # 19.8 H (1.3-7.7) k/uL Lymphocytes # 0.5 L (1.0-4.8) k/uL Sodium (137-145) mmol/L Chloride (98-107) mmol/L Carbon Dioxide (22-30) mmol/L BUN (9-20) mg/dL Glucose (74-99) mg/dL POC Glucose (mg/dL) 175 H 258 H (75-99) mg/dL 04/15/19 04/15/19 04/15/19 Range/Units 06:59 07:22 11:39 WBC (3.8-10.6) k/uL RBC (4.30-5.90) m/uL Hgb (13.0-17.5) gm/dL Hct (39.0-53.0) % Neutrophils # (1.3-7.7) k/uL Lymphocytes # (1.0-4.8) k/uL Sodium 133 L (137-145) mmol/L Chloride 91 L (98-107) mmol/L Carbon Dioxide 33 H (22-30) mmol/L BUN 31 H (9-20) mg/dL Glucose 165 H (74-99) mg/dL POC Glucose (mg/dL) 185 H 139 H (75-99) mg/dL Microbiology - Last 24 Hours (Table) 04/12/19 12:46 Blood Culture - Preliminary Blood No Growth after 48 hours 04/13/19 07:46 Gram Stain - Preliminary Sputum Sputum Culture - Preliminary Gram Neg Bacilli Assessment and Plan Plan: Assessment: #1. Acute on chronic hypoxemic respiratory failure related to acute COPD exacerbation with acute tracheobronchitis and chronic CHF exacerbation systolic dysfunction, an EF of 30-35% #2. Possible right middle lobe infiltrate the right lung base, could be related to pneumonia #3. Recent hospitalization for acute tracheobronchitis, COPD a gas, acute varicella zoster infection involving sacral dermatome and perineal dermatome #4. Mild troponin leak, cardiology is following #5. Groin excoriation, possibly related to fungal dermatitis #6. Severe COPD with baseline FEV1 of 38% of predicted #7. Chronic hypoxemic respiratory failure related to the above #8. History of CAD with previous myocardial infarction #9. History of previous heavy tobacco use #10. Previous episode of pneumonia #11. Diabetes mellitus #12. Hypertension #13. Hyperlipidemia Plan: Continue current antibiotic coverage, below but the final results of the sputum culture, procalcitonin level came back low suggesting absence of bacterial infection, however this could be related to a viral infection, at any rate will await results of the sputum culture, continue Rocephin and doxycycline, IV steroids and nebulized bronchodilators. Patient is also being diuresed, oxygenation is stable on 4 L of oxygen. Some improvement, but not back to baseline. I performed a history & physical examination of the patient and discussed their management with my nurse practitioner, Mona Hong. I reviewed the nurse practitioner's note and agree with the documented findings and plan of care. Lung sounds are positive for diffuse wheezes and rhonchi. The findings and the impression was discussed with the patient. I attest to the documentation by the nurse practitioner. Time with Patient: Less than 30
[2019-04-15 17:16] LABS: Glucose,Whole Blood 227 mg/dL (75-99)
[2019-04-15] MEDS: HYDROPHILIC CREAM 180 GM TUBE TOPICAL SCH (17:23)
[2019-04-15] MEDS: NYSTATIN 100,000 UNIT/GM OINT 30 GM TUBE TOPICAL SCH ×3 (17:23→20:56)
[2019-04-15 20:35] LABS: Glucose,Whole Blood 280 mg/dL (75-99)
[2019-04-16] MEDS: methylPREDNISolone SOD SUCCI 125 MG/2 ML VIAL IV SCH ×3 (05:17→19:45)
[2019-04-16 07:26] LABS: Calcium 9.4 mg/dL (8.4-10.2); Potassium 4.3 mmol/L (3.5-5.1)
[2019-04-16 07:27] LABS: Glucose,Whole Blood 181 mg/dL (75-99)
[2019-04-16] MEDS: INSULIN ASPART (NovoLOG) 100 UNIT/ML VIAL SQ SCH ×4 (07:37→20:36)
[2019-04-16] MEDS: FUROSEMIDE 10 MG/ML 4 ML VIAL IV SCH (07:37)
[2019-04-16 07:38] LABS: Basophils # (A) 0.1 k/uL (0-0.2); Basophils % (A) 0 %; Eosinophils % (A) 0 %; HCT 33.3 % (39.0-53.0); Lymphocytes # (A) 0.5 k/uL (1.0-4.8); Lymphocytes % (A) 3 %; MCH 29.4 pg (25.0-35.0); MCV 89.2 fL (80.0-100.0); Mean Platelet Volume 7.4; Monocytes # (A) 0.6 k/uL (0-1.0); Monocytes % (A) 3 %; Neutrophils # (A) 16.9 k/uL (1.3-7.7); Neutrophils % (A) 93 %; Platelet Count 360 k/uL (150-450); RBC 3.73 m/uL (4.30-5.90); WBC 18.3 k/uL (3.8-10.6)
[2019-04-16] MEDS: TAMSULOSIN 0.4 MG CAP.ER.24H PO SCH (07:38)
[2019-04-16] MEDS: ASPIRIN 81 MG PO SCH (07:38)
[2019-04-16] MEDS: metFORMIN 500 MG TAB PO SCH ×2 (07:38→20:36)
[2019-04-16] MEDS: DOXYCYCLINE 100 MG CAP PO SCH (07:38)
[2019-04-16] MEDS: LISINOPRIL 5 MG TAB PO SCH (07:39)
[2019-04-16] MEDS: HYDROcodone/APAP 5-325MG 1 EACH TAB PO SCH ×2 (07:39→20:38)
[2019-04-16] MEDS: FUROSEMIDE 40 MG TAB PO SCH ×2 (07:39→17:41)
[2019-04-16] MEDS: FAMOTIDINE 20 MG TAB PO SCH ×2 (07:39→20:35)
[2019-04-16] MEDS: SPIRONOLACTONE 25 MG TAB PO SCH (07:40)
[2019-04-16] MEDS: METOPROLOL TARTRATE 50 MG TAB PO SCH (07:40)
[2019-04-16] MEDS: NYSTATIN 100,000 UNIT/GM OINT 30 GM TUBE TOPICAL SCH ×3 (07:41→20:42)
[2019-04-16] MEDS: HEPARIN SODIUM,PORCINE 5,000 UNIT/ML 1 ML VIAL SQ SCH ×2 (07:41→17:29)
[2019-04-16] MEDS: HYDROPHILIC CREAM 180 GM TUBE TOPICAL SCH (07:41)
--- NOTE | 2019-04-16 10:09 | P.PN ---
Subjective This is a pleasant 83 years old male with past medical history of coronary artery disease, diabetes mellitus, COPD, that he follows with Dr. Garcia. He presents because of worsening dyspnea and cough for 1 week duration, associated with green yellow phlegm but no chest pain. At home he uses for F oxygen via nasal cannula however this time his oxygen was troponin to a tease each time he moves On admission patient was febrile of 101.5, risks Vitas looks stable, he was saturating 89-92 % on 4 L oxygen. Magnesium was low of 1.3, sodium was 1:30, carbon dioxide was elevated at 33. Chest of CBC, INR, BMP and liver enzymes were unremarkable. Influenza test is negative. Chest x-ray: No acute process, with only suspicion of mild vascular congestion. EKG showing normal sinus rhythm at [address]-T changes, with PVC Patient returned the emergency room he was given Solu-Medrol and breathing treatment 04/13/2019 Patient still dyspneic like yesterday, he is mildly tachypneic. His total coughing and making some phlegm. However he denies chest pain. He is hemodynamically stable. No more fever so far since yesterday. No leukocytosis and hemoglobin is stable. Sodium stable at 130. Sugar is controlled and troponin is stable at 0.036. Cardiology and pulmonary team were consulted. Patient remains on Rocephin and salmeterol 60 mg and bronchodilator Hyponatremia 04/14/2019 Patient still has some chest tightness although he feels his improvement. He still have some cough. He denies chest pain. No dizziness. He still have a rash in the perineal but is improving, also patient has a small wound in his lower back with surrounding blanching erythema, suspicious for a pressure ulcer, hemodynamically stable. He has leukocytosis of 20 3.4K, however he is on steroids. BMP is unremarkable, sodium 133, which is improved from admission. Patient also on Lasix IV 40 g twice daily and Rocephin and nystatin. 04/15/2019 Patient still have respiratory symptoms and decreased air entry in both sides and on examination his to have wheezing. I don't think patient is admitted for discharge today. Creatinine normal at 0.7. He saturating 93-94% on 4 L oxygen and a Vitas looks stable. His rash between his legs is improving, patient is counseled about his low back wound/ulcer. Topical therapy is applying. His WBC is 20 1.3K while he is on steroids. Sodium stable at 133. Sputum cultures, gram-negative bacilli and final result is pending. Chest x-ray showing right lower lung pneumonia, and patient is made aware of this. He is on Lasix 40 mg orally. Also on some Medrol 60 mg, he is on Rocephin and nystatin. His sugars controlled while on metformin and sliding scale with insulin. 04/16/2019 Patient feels slightly gradually better, now patient is aware that he has right lower lobe pneumonia, on the top of his acute COPD exacerbation and acute tracheobronchitis. Patient is already on Rocephin and Solu-Medrol. He is hemodynamically stable and WBC is coming down to 15.3 K. Sodium 154. Sputum culture final results are still pending, currently growing gram-negative bacilli. Objective - Vital Signs Vital signs: Vital Signs Temp 97.6 F 04/16/19 08:13 Pulse 92 04/16/19 08:13 Resp 17 04/16/19 08:13 BP 139/78 04/16/19 08:13 Pulse Ox 92 L 04/16/19 08:13 Intake & Output 04/15/19 04/16/19 04/16/19 18:59 06:59 18:59 Intake Total 200 Output Total 500 500 Balance 200 -500 -500 Intake: Oral 200 Output: Urine 500 500 Other: Voiding Method Toilet # Voids 2 1 - Exam GENERAL: The patient is alert and oriented x3, not in any acute distress. Well developed, well nourished. HEENT: Pupils are round and equally reacting to light. EOMI. No scleral icterus. No conjunctival pallor. Normocephalic, atraumatic. No pharyngeal erythema. No thyromegaly. CARDIOVASCULAR: S1 and S2 present. No murmurs, rubs, or gallops. -PULMONARY: Chest is clear to auscultation, prolonged expiration and scattered wheezing ABDOMEN: Soft, nontender, nondistended, normoactive bowel sounds. No palpable organomegaly. -MUSCULOSKELETAL: No joint swelling or deformity. Low back ulcer with surrounding blanching erythema -EXTREMITIES: No cyanosis, clubbing, or pedal edema. Possible fungal rash in the perineal area NEUROLOGICAL: Gross neurological examination did not reveal any focal deficits. SKIN: No rashes. No petechiae - Labs CBC & Chem 7: 04/16/19 06:40 04/16/19 06:40 Labs: Abnormal Lab Results - Last 24 Hours (Table) 04/15/19 04/15/19 04/15/19 Range/Units 11:39 17:05 20:20 WBC (3.8-10.6) k/uL RBC (4.30-5.90) m/uL Hgb (13.0-17.5) gm/dL Hct (39.0-53.0) % Neutrophils # (1.3-7.7) k/uL Lymphocytes # (1.0-4.8) k/uL Sodium (137-145) mmol/L Chloride (98-107) mmol/L Carbon Dioxide (22-30) mmol/L BUN (9-20) mg/dL Glucose (74-99) mg/dL POC Glucose (mg/dL) 139 H 227 H 280 H (75-99) mg/dL 04/16/19 04/16/19 04/16/19 Range/Units 06:40 06:40 07:12 WBC 18.3 H (3.8-10.6) k/uL RBC 3.73 L (4.30-5.90) m/uL Hgb 11.0 L (13.0-17.5) gm/dL Hct 33.3 L (39.0-53.0) % Neutrophils # 16.9 H (1.3-7.7) k/uL Lymphocytes # 0.5 L (1.0-4.8) k/uL Sodium 134 L (137-145) mmol/L Chloride 90 L (98-107) mmol/L Carbon Dioxide 35 H (22-30) mmol/L BUN 39 H (9-20) mg/dL Glucose 164 H (74-99) mg/dL POC Glucose (mg/dL) 181 H (75-99) mg/dL Microbiology - Last 24 Hours (Table) 04/12/19 12:46 Blood Culture - Preliminary Blood No Growth after 72 hours Assessment and Plan Assessment: Right lower lung pneumonia. Acute hypoxemic respiratory failure Acute COPD exacerbation Acute tracheobronchitis possible pressure ulcer of the lower back Elevated troponin hyponatremia Diabetes mellitus History of coronary artery disease prostate cancer in 1999 treated with seed implants and radiotherapy Plan: This is a pleasant 83 years old male who presents with acute COPD exacerbation and possible acute tracheobronchitis. Continue with steroids, bronchodilators, oxygen as needed. Start him on antibiotics and follow-up culture results. Pulmonary consult. Cardiology consult Labs and medication were reviewed.. Continue same treatment. Continue with symptomatic treatment. Resume home medication. Monitor lytes and vitals. DVT and GI prophylaxis. Further recommendations of the clinical course of the patient DVT prophylaxis: Subcutaneous heparin GI Prophylaxis: Pepcid PT/OT: Pending Prognosis is guarded
[2019-04-16] MEDS: SYMBICORT 160-4.5 MCG INHALER INHALATION SCH ×2 (10:30→20:26)
[2019-04-16] MEDS: IPRATROPIUM-ALBUTEROL 3 ML NEB INHALATION SCH ×3 (10:30→20:26)
[2019-04-16 12:32] LABS: Glucose,Whole Blood 144 mg/dL (75-99)
--- NOTE | 2019-04-16 13:33 | P.PN ---
Subjective Progress Note Date: 04/16/19 Principal diagnosis: Acute on chronic hypoxemic restaurant failure is related to acute COPD exacerbation with acute tracheobronchitis and mild exacerbation of chronic CHF 83-year-old male patient of Dr. 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 Patient was also diagnosed with varicella-zoster involving sacral area for which the patient was started on Valtrex. Patient was discharged home on 03/18/2019 on a combination of oral Ceftin for 6 more days, Valtrex, calamine lotion for his perineal and groin dermatitis. Patient states that he never completely improved after discharge, he did see Dr. Bentley in follow-up, but most recently last Friday he is breathing was getting worse and worse, patient could hardly walk a few feet without desaturating into the 70s on his usual 4 L of oxygen. He states he had been having fevers, is coughing with production of greenish phlegm. He states he is compliant with his medications, and he com pleted his course of oral antibiotics, he was febrile on presentation with a temp of 101.5F. Pulse ox was 89% on 4 L of oxygen, patient does desaturate with exertion. Labs showed white blood cell count of 8.6, hemoglobin of 11.3, granulation profile was within normal limits, sodium was 1:30, potassium is 3.9, chloride is 87, CO2 is 33, BUN is 15 creatinine 0.70 magnesium is 1.3, troponin is 0.0364, proBNP was 5280, influenza screen was negative. Patient has been started on Rocephin and doxycycline for antibiotic coverage, IV diuretics, IV steroids. On 04/14/2019 patient seen in follow-up with care unit, he is improving, less congested and dyspneic, less bronchospastic, remains on IV Lasix, he is in negative fluid balance, he is on empiric antibiotics, sputum culture is pending, blood culture has shown no growth, no fever or chills in the last 24 hours. FiO2 is at 4 L and his pulse ox is 92%, no acute events overnight, patient's improving, will continue same medical treatment. On 04/15/2019 patient seen in follow-up on medical surgical floor. Doing a bit better, still congested and dyspneic, still bringing up thick yellow colored sputum, procalcitonin level came back low at 0.07, sputum culture is pending, and temperature patient remains on empiric antibiotics. IV steroids and nebulized bronchodilators, yesterday chest x-ray has been reviewed, showing suggestion of a right middle lobe infiltrate at the right lung base. Sputum culture showed gram-negative bacilli, final culture is pending. Ration has been afebrile, he is on a combination doxycycline and Rocephin On 04/16/2019 patient seen in follow-up on general medical floor. Improving, still bringing up a yellow colored phlegm, but less quantity. Sputum culture showed gram-negative bacilli, final cultures pending, patient is on a combination of Rocephin and doxycycline, patient has had no fevers or chills, and his pulse ox of 92% on 4 L, physical exam reveals has congestive bronchospastic breath sounds. Patient has been up ambulating with assistance and tolerated activity well Objective - Vital Signs Vital signs: Vital Signs Temp 97.6 F 04/16/19 08:13 Pulse 44 L 04/16/19 10:44 Resp 17 04/16/19 08:13 BP 139/78 04/16/19 08:13 Pulse Ox 92 L 04/16/19 08:13 Intake & Output 04/15/19 04/16/19 04/16/19 18:59 06:59 18:59 Intake Total 200 Output Total 500 500 Balance 200 -500 -500 Intake: Oral 200 Output: Urine 500 500 Other: Voiding Method Toilet # Voids 2 1 - Exam GENERAL EXAM: Alert, pleasant, 83-year-old white male, on 4 L of oxygen with a pulse ox of 94% on the dyspneic with conversation comfortable in no apparent d istress. HEAD: Normocephalic/atraumatic. EYES: Normal reaction of pupils, equal size. Conjunctiva pink, sclera white. NOSE: Clear with pink turbinates. THROAT: No erythema or exudates. NECK: No masses, no JVD, no thyroid enlargement, no adenopathy. CHEST: No chest wall deformity. Symmetrical expansion. LUNGS: Equal air entry with minimal wheezes overall diminished breath sounds and occasional rhonchi CVS: Regular rate and rhythm, normal S1 and S2, no gallops, no murmurs, no rubs ABDOMEN: Soft, nontender. No hepatosplenomegaly, normal bowel sounds, no guarding or rigidity. EXTREMITIES: No clubbing, no edema, no cyanosis, 2+ pulses and upper and lower extremities. MUSCULOSKELETAL: Muscle strength and tone normal. SPINE: No scoliosis or deformity SKIN: No rashes CENTRAL NERVOUS SYSTEM: Alert and oriented -3. No focal deficits, tone is normal in all 4 extremities. PSYCHIATRIC: Alert and oriented -3. Appropriate affect. Intact judgment and insight. - Labs CBC & Chem 7: 04/16/19 06:40 04/16/19 06:40 Labs: Abnormal Lab Results - Last 24 Hours (Table) 04/15/19 04/15/19 04/16/19 Range/Units 17:05 20:20 06:40 WBC 18.3 H (3.8-10.6) k/uL RBC 3.73 L (4.30-5.90) m/uL Hgb 11.0 L (13.0-17.5) gm/dL Hct 33.3 L (39.0-53.0) % Neutrophils # 16.9 H (1.3-7.7) k/uL Lymphocytes # 0.5 L (1.0-4.8) k/uL Sodium (137-145) mmol/L Chloride (98-107) mmol/L Carbon Dioxide (22-30) mmol/L BUN (9-20) mg/dL Glucose (74-99) mg/dL POC Glucose (mg/dL) 227 H 280 H (75-99) mg/dL 04/16/19 04/16/19 04/16/19 Range/Units 06:40 07:12 12:20 WBC (3.8-10.6) k/uL RBC (4.30-5.90) m/uL Hgb (13.0-17.5) gm/dL Hct (39.0-53.0) % Neutrophils # (1.3-7.7) k/uL Lymphocytes # (1.0-4.8) k/uL Sodium 134 L (137-145) mmol/L Chloride 90 L (98-107) mmol/L Carbon Dioxide 35 H (22-30) mmol/L BUN 39 H (9-20) mg/dL Glucose 164 H (74-99) mg/dL POC Glucose (mg/dL) 181 H 144 H (75-99) mg/dL Microbiology - Last 24 Hours (Table) 04/13/19 07:46 Gram Stain - Final Sputum Sputum Culture - Final Pseudomonas aeruginosa 04/12/19 12:46 Blood Culture - Preliminary Blood No Growth after 72 hours Assessment and Plan Plan: Assessment: #1. Acute on chronic hypoxemic respiratory failure related to acute COPD exacerbation with acute tracheobronchitis and chronic CHF exacerbation systolic dysfunction, an EF of 30-35% #2. Possible right middle lobe infiltrate the right lung base, could be related to pneumonia #3. Recent hospitalization for acute tracheobronchitis, COPD a gas, acute va ricella zoster infection involving sacral dermatome and perineal dermatome #4. Mild troponin leak, cardiology is following #5. Groin excoriation, possibly related to fungal dermatitis #6. Severe COPD with baseline FEV1 of 38% of predicted #7. Chronic hypoxemic respiratory failure related to the above #8. History of CAD with previous myocardial infarction #9. History of previous heavy tobacco use #10. Previous episode of pneumonia #11. Diabetes mellitus #12. Hypertension #13. Hyperlipidemia Plan: Continue current antibiotics, still awaiting final results of the sputum cult ure, no fever or chills, bleeding is improving, minimal wheezing and minimal congestion, patient has a strong effective cough, still bringing up some yellow colored sputum, patient has been up ambulating and tolerated activity fairly well. He is on IV diuretics, and cardiology is following, patient is in negative fluid balance I performed a history & physical examination of the patient and discussed their management with my nurse practitioner, Mona Hong. I reviewed the nurse practitioner's note and agree with the documented findings and plan of care. Lung sounds are positive for diffuse wheezes and rhonchi. The findings and the impression was discussed with the patient. I attest to the documentation by the nurse practitioner. Time with Patient: Less than 30
[2019-04-16 17:11] LABS: Glucose,Whole Blood 196 mg/dL (75-99)
[2019-04-16] MEDS: METOPROLOL TARTRATE 25 MG TAB PO SCH (17:29)
[2019-04-16] MEDS: PIPERACILLIN-TAZOBACTAM 3.375 GM in SODIUM CHLORIDE 0.9% 100 ML IVPB SCH (17:41)
[2019-04-16 19:33] LABS: Hemoglobin A1C 7.5 % (4.0-6.0)
[2019-04-16 20:06] LABS: Glucose,Whole Blood 254 mg/dL (75-99)
[2019-04-17] MEDS: methylPREDNISolone SOD SUCCI 125 MG/2 ML VIAL IV SCH ×5 (00:41→23:52)
[2019-04-17] MEDS: PIPERACILLIN-TAZOBACTAM 3.375 GM in SODIUM CHLORIDE 0.9% 100 ML IVPB SCH (00:41)
[2019-04-17] MEDS: HEPARIN SODIUM,PORCINE 5,000 UNIT/ML 1 ML VIAL SQ SCH ×4 (00:53→23:28)
[2019-04-17] MEDS: METOPROLOL TARTRATE 25 MG TAB PO SCH ×4 (00:53→22:07)
[2019-04-17 06:58] LABS: Basophils % (A) 0 %; Eosinophils % (A) 0 %; HCT 34.6 % (39.0-53.0); HGB 11.5 gm/dL (13.0-17.5); Lymphocytes # (A) 0.5 k/uL (1.0-4.8); Lymphocytes % (A) 3 %; MCH 29.5 pg (25.0-35.0); MCHC 33.3 g/dL (31.0-37.0); MCV 88.7 fL (80.0-100.0); Mean Platelet Volume 7.5; Monocytes # (A) 0.5 k/uL (0-1.0); Monocytes % (A) 3 %; Neutrophils # (A) 18.6 k/uL (1.3-7.7); Neutrophils % (A) 94 %; Platelet Count 396 k/uL (150-450); RDW 14.6 % (11.5-15.5); WBC 19.8 k/uL (3.8-10.6)
[2019-04-17 07:10] LABS: Calcium 9.4 mg/dL (8.4-10.2); Potassium 4.2 mmol/L (3.5-5.1)
[2019-04-17 07:22] LABS: Glucose,Whole Blood 312 mg/dL (75-99)
[2019-04-17] MEDS ORDERED: INSULN ASP PRT/INSULIN ASPART 100 UNIT/ML 10 ML VIAL SQ ONE ×2 (07:30→17:30)
[2019-04-17] MEDS: INSULIN ASPART (NovoLOG) 100 UNIT/ML VIAL SQ SCH ×4 (07:46→22:09)
[2019-04-17] MEDS: SYMBICORT 160-4.5 MCG INHALER INHALATION SCH ×2 (07:49→19:09)
[2019-04-17] MEDS: IPRATROPIUM-ALBUTEROL 3 ML NEB INHALATION SCH ×3 (07:49→19:10)
[2019-04-17] MEDS ORDERED: hydrALAZINE HCL 25 MG TAB PO PRN (08:37)
--- NOTE | 2019-04-17 08:40 | P.PN ---
Subjective This is a pleasant 83 years old male with past medical history of coronary artery disease, diabetes mellitus, COPD, that he follows with Dr. Garcia. He presents because of worsening dyspnea and cough for 1 week duration, associated with green yellow phlegm but no chest pain. At home he uses for F oxygen via nasal cannula however this time his oxygen was troponin to a tease each time he moves On admission patient was febrile of 101.5, risks Vitas looks stable, he was saturating 89-92 % on 4 L oxygen. Magnesium was low of 1.3, sodium was 1:30, carbon dioxide was elevated at 33. Chest of CBC, INR, BMP and liver enzymes were unremarkable. Influenza test is negative. Chest x-ray: No acute process, with only suspicion of mild vascular congestion. EKG showing normal sinus rhythm at [address]-T changes, with PVC Patient returned the emergency room he was given Solu-Medrol and breathing treatment 04/13/2019 Patient still dyspneic like yesterday, he is mildly tachypneic. His total coughing and making some phlegm. However he denies chest pain. He is hemodynamically stable. No more fever so far since yesterday. No leukocytosis and hemoglobin is stable. Sodium stable at 130. Sugar is controlled and troponin is stable at 0.036. Cardiology and pulmonary team were consulted. Patient remains on Rocephin and salmeterol 60 mg and bronchodilator Hyponatremia 04/14/2019 Patient still has some chest tightness although he feels his improvement. He still have some cough. He denies chest pain. No dizziness. He still have a rash in the perineal but is improving, also patient has a small wound in his lower back with surrounding blanching erythema, suspicious for a pressure ulcer, hemodynamically stable. He has leukocytosis of 20 3.4K, however he is on steroids. BMP is unremarkable, sodium 133, which is improved from admission. Patient also on Lasix IV 40 g twice daily and Rocephin and nystatin. 04/15/2019 Patient still have respiratory symptoms and decreased air entry in both sides and on examination his to have wheezing. I don't think patient is admitted for discharge today. Creatinine normal at 0.7. He saturating 93-94% on 4 L oxygen and a Vitas looks stable. His rash between his legs is improving, patient is counseled about his low back wound/ulcer. Topical therapy is applying. His WBC is 20 1.3K while he is on steroids. Sodium stable at 133. Sputum cultures, gram-negative bacilli and final result is pending. Chest x-ray showing right lower lung pneumonia, and patient is made aware of this. He is on Lasix 40 mg orally. Also on some Medrol 60 mg, he is on Rocephin and nystatin. His sugars controlled while on metformin and sliding scale with insulin. 04/16/2019 Patient feels slightly gradually better, now patient is aware that he has right lower lobe pneumonia, on the top of his acute COPD exacerbation and acute tracheobronchitis. Patient is already on Rocephin and Solu-Medrol. He is hemodynamically stable and WBC is coming down to 15.3 K. Sodium 154. Sputum culture final results are still pending, currently growing gram-negative bacilli. 04/17/2019 Patient is gradually and slowly improving, still complaining from some difficulty breathing. Sputum culture came back positive for pseudomonas which is sensitive to antibiotics and changed to levofloxacin according to sensitivity. His heart rate is better after decreasing dose of metoprolol, however his blood pressure is 192/78, probably due to the effect of steroids, we going to add hydralazine as needed. WE will add Norvasc. WBC elevated at 19.8 K. CO2 is coming down to 32. Sugar is 196-312. His inguinal rash is improving Objective - Vital Signs Vital signs: Vital Signs Temp 97.9 F 04/17/19 08:00 Pulse 56 L 04/17/19 08:05 Resp 16 04/17/19 08:00 BP 192/78 04/17/19 08:00 Pulse Ox 94 L 04/17/19 08:00 Intake & Output 04/16/19 04/17/19 04/17/19 18:59 06:59 18:59 Output Total 500 1250 Balance -500 -1250 Weight 102.2 kg Output: Urine 500 1250 Other: Voiding Method Toilet Urinal # Voids 1 2 - Exam GENERAL: The patient is alert and oriented x3, not in any acute distress. Well developed, well nourished. HEENT: Pupils are round and equally reacting to light. EOMI. No scleral icterus. No conjunctival pallor. Normocephalic, atraumatic. No pharyngeal erythema. No thyromegaly. CARDIOVASCULAR: S1 and S2 present. No murmurs, rubs, or gallops. -PULMONARY: Chest is clear to auscultation, prolonged expiration and scattered wheezing ABDOMEN: Soft, nontender, nondistended, normoactive bowel sounds. No palpable organomegaly. -MUSCULOSKELETAL: No joint swelling or deformity. Low back ulcer with surrounding blanching erythema -EXTREMITIES: No cyanosis, clubbing, or pedal edema. Possible fungal rash in the perineal area NEUROLOGICAL: Gross neurological examination did not reveal any focal deficits. SKIN: No rashes. No petechiae - Labs CBC & Chem 7: 04/17/19 06:17 04/17/19 06:17 Labs: Abnormal Lab Results - Last 24 Hours (Table) 04/16/19 04/16/19 04/16/19 Range/Units 06:40 12:20 16:59 WBC (3.8-10.6) k/uL RBC (4.30-5.90) m/uL Hgb (13.0-17.5) gm/dL Hct (39.0-53.0) % Neutrophils # (1.3-7.7) k/uL Lymphocytes # (1.0-4.8) k/uL Sodium (137-145) mmol/L Chloride (98-107) mmol/L Carbon Dioxide (22-30) mmol/L BUN (9-20) mg/dL Glucose (74-99) mg/dL POC Glucose (mg/dL) 144 H 196 H (75-99) mg/dL Hemoglobin A1c 7.5 H (4.0-6.0) % 04/16/19 04/17/19 04/17/19 Range/Units 19:55 06:17 06:17 WBC 19.8 H (3.8-10.6) k/uL RBC 3.90 L (4.30-5.90) m/uL Hgb 11.5 L (13.0-17.5) gm/dL Hct 34.6 L (39.0-53.0) % Neutrophils # 18.6 H (1.3-7.7) k/uL Lymphocytes # 0.5 L (1.0-4.8) k/uL Sodium 135 L (137-145) mmol/L Chloride 89 L (98-107) mmol/L Carbon Dioxide 32 H (22-30) mmol/L BUN 45 H (9-20) mg/dL Glucose 271 H (74-99) mg/dL POC Glucose (mg/dL) 254 H (75-99) mg/dL Hemoglobin A1c (4.0-6.0) % 04/17/19 Range/Units 07:01 WBC (3.8-10.6) k/uL RBC (4.30-5.90) m/uL Hgb (13.0-17.5) gm/dL Hct (39.0-53.0) % Neutrophils # (1.3-7.7) k/uL Lymphocytes # (1.0-4.8) k/uL Sodium (137-145) mmol/L Chloride (98-107) mmol/L Carbon Dioxide (22-30) mmol/L BUN (9-20) mg/dL Glucose (74-99) mg/dL POC Glucose (mg/dL) 312 H (75-99) mg/dL Hemoglobin A1c (4.0-6.0) % Microbiology - Last 24 Hours (Table) 04/12/19 12:46 Blood Culture - Preliminary Blood No Growth after 96 hours 04/13/19 07:46 Gram Stain - Final Sputum Sputum Culture - Final Pseudomonas aeruginosa Assessment and Plan Assessment: Right lower lung pneumonia. Secondary to pseudomonas Acute hypoxemic respiratory failure Acute COPD exacerbation Acute tracheobronchitis possible pressure ulcer of the lower back Elevated troponin hyponatremia Diabetes mellitus History of coronary artery disease prostate cancer in 1999 treated with seed implants and radiotherapy Plan: This is a pleasant 83 years old male who presents with acute COPD exacerbation and possible acute tracheobronchitis and pneumonia. Continue with steroids, bronchodilators, oxygen as needed. Change antibiotics to pseudomonas. Flow recommendation by Pulmonary consult and Cardiology consult Labs and medication were reviewed.. Continue same treatment. Continue with symptomatic treatment. Resume home medication. Monitor lytes and vitals. DVT and GI prophylaxis. Further recommendations of the clinical course of the patient DVT prophylaxis: Subcutaneous heparin GI Prophylaxis: Pepcid PT/OT: Pending Prognosis is guarded
[2019-04-17] MEDS: HYDROcodone/APAP 5-325MG 1 EACH TAB PO SCH ×2 (08:51→22:07)
[2019-04-17] MEDS: FAMOTIDINE 20 MG TAB PO SCH ×2 (08:52→22:07)
[2019-04-17] MEDS: LISINOPRIL 5 MG TAB PO SCH (08:52)
[2019-04-17] MEDS: TAMSULOSIN 0.4 MG CAP.ER.24H PO SCH (08:52)
[2019-04-17] MEDS: SPIRONOLACTONE 25 MG TAB PO SCH (08:52)
[2019-04-17] MEDS: amLODIPine 10 MG TAB PO SCH (08:52)
[2019-04-17] MEDS: ASPIRIN 81 MG PO SCH (08:52)
[2019-04-17] MEDS: metFORMIN 500 MG TAB PO SCH ×2 (08:52→22:07)
[2019-04-17] MEDS: FUROSEMIDE 40 MG TAB PO SCH ×2 (08:52→16:31)
[2019-04-17] MEDS: NYSTATIN 100,000 UNIT/GM OINT 30 GM TUBE TOPICAL SCH ×3 (08:59→22:10)
[2019-04-17] MEDS: HYDROPHILIC CREAM 180 GM TUBE TOPICAL SCH (08:59)
[2019-04-17 11:40] LABS: Glucose,Whole Blood 239 mg/dL (75-99)
[2019-04-17] MEDS: LEVOFLOXACIN 500MG-D5W PMX 500 MG in DEXTROSE/WATER 1 100ML.BAG IVPB SCH (12:01)
--- NOTE | 2019-04-17 13:25 | P.PN ---
Subjective Progress Note Date: 04/17/19 Principal diagnosis: Acute on chronic hypoxemic respiratory failure secondary to acute COPD exacerbation secondary to pseudomonas aeruginosa infection 83-year-old male patient of Dr. 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 Patient was also diagnosed with varicella-zoster involving sacral area for which the patient was started on Valtrex. Patient was discharged home on 03/18/2019 on a combination of oral Ceftin for 6 more days, Valtrex, calamine lotion for his perineal and groin dermatitis. Patient states that he never completely improved after discharge, he did see Dr. Bentley in follow-up, but most recently last Friday he is breathing was getting worse and worse, patient could hardly walk a few feet without desaturating into the 70s on his usual 4 L of oxygen. He states he had been having fevers, is coughing with production of greenish phlegm. He states he is compliant with his medications, and he completed his course of oral antibiotics, he was febrile on presentation with a temp of 101.5F. Pulse ox was 89% on 4 L of oxygen, patient does desaturate with exertion. Labs showed white blood cell count of 8.6, hemoglobin of 11.3, granulation profile was within normal limits, sodium was 1:30, potassium is 3.9, chloride is 87, CO2 is 33, BUN is 15 creatinine 0.70 magnesium is 1.3, troponin is 0.0364, proBNP was 5280, influenza screen was negative. Patient has been started on Rocephin and doxycycline for antibiotic coverage, IV diuretics, IV steroids. On 04/14/2019 patient seen in follow-up with care unit, he is improving, less congested and dyspneic, less bronchospastic, remains on IV Lasix, he is in negat martha fluid balance, he is on empiric antibiotics, sputum culture is pending, blood culture has shown no growth, no fever or chills in the last 24 hours. FiO2 is at 4 L and his pulse ox is 92%, no acute events overnight, patient's improving, will continue same medical treatment. On 04/15/2019 patient seen in follow-up on medical surgical floor. Doing a bit better, still congested and dyspneic, still bringing up thick yellow colored sputum, procalcitonin level came back low at 0.07, sputum culture is pending, and temperature patient remains on empiric antibiotics. IV steroids and nebulized bronchodilators, yesterday chest x-ray has been reviewed, showing suggestion of a right middle lobe infiltrate at the right lung base. Sputum culture showed gram-negative bacilli, final culture is pending. Ration has been afebrile, he is on a combination doxycycline and Rocephin On 04/16/2019 patient seen in follow-up on general medical floor. Improving, still bringing up a yellow colored phlegm, but less quantity. Sputum culture showed gram-negative bacilli, final cultures pending, patient is on a combination of Rocephin and doxycycline, patient has had no fevers or chills, and his pulse ox of 92% on 4 L, physical exam reveals has congestive bronchospastic breath sounds. Patient has been up ambulating with assistance and tolerated activity well The patient is seen today 04/17/2019 in follow-up on the regular medical floor. He is currently sitting up in a chair at the bedside. Breathing easier today compared to yesterday. He is diuresing well. His lower extremity edema has improved as well. Sputum culture positive for pseudomonas aeruginosa. White count 19.8. Hemoglobin 11.5. Sodium 135. Creatinine 1.11. He is continued on DuoNeb inhalations, Symbicort, IV Solu-Medrol. Antibiotics in the form of Levaquin. Objective - Vital Signs Vital signs: Vital Signs Temp 97.9 F 04/17/19 08:00 Pulse 90 04/17/19 08:56 Resp 16 04/17/19 08:40 BP 192/78 04/17/19 08:00 Pulse Ox 94 L 04/17/19 08:00 Intake & Output 04/16/19 04/17/19 04/17/19 18:59 06:59 18:59 Intake Total 225 Output Total 500 1250 Balance -500 -1250 225 Weight 102.2 kg Intake: Oral 225 Output: Urine 500 1250 Other: Voiding Method Toilet Urinal # Voids 1 2 - Exam GENERAL EXAM: Alert, pleasant, 83-year-old gentleman, on 4 L of oxygen with a pulse ox of 94% comfortable in no apparent distress. HEAD: Normocephalic/atraumatic. EYES: Normal reaction of pupils, equal size. Conjunctiva pink, sclera white. NOSE: Clear with pink turbinates. THROAT: No erythema or exudates. NECK: No masses, no JVD, no thyroid enlargement, no adenopathy. CHEST: No chest wall deformity. Symmetrical expansion. LUNGS: Equal air entry with bilateral scattered rhonchi, crackles in the right base CVS: Regular rate and rhythm, normal S1 and S2, no gallops, no murmurs, no rubs ABDOMEN: Soft, nontender. No hepatosplenomegaly, normal bowel sounds, no guarding or rigidity. EXTREMITIES: No clubbing, no edema, no cyanosis, 2+ pulses and upper and lower extremities. MUSCULOSKELETAL: Muscle strength and tone normal. SPINE: No scoliosis or deformity SKIN: No rashes CENTRAL NERVOUS SYSTEM: No focal deficits, tone is normal in all 4 extremities. PSYCHIATRIC: Alert and oriented -3. Appropriate affect. Intact judgment and insight. - Labs CBC & Chem 7: 04/17/19 06:17 04/17/19 06:17 Labs: Abnormal Lab Results - Last 24 Hours (Table) 04/16/19 04/16/19 04/16/19 Range/Units 06:40 16:59 19:55 WBC (3.8-10.6) k/uL RBC (4.30-5.90) m/uL Hgb (13.0-17.5) gm/dL Hct (39.0-53.0) % Neutrophils # (1.3-7.7) k/uL Lymphocytes # (1.0-4.8) k/uL Sodium (137-145) mmol/L Chloride (98-107) mmol/L Carbon Dioxide (22-30) mmol/L BUN (9-20) mg/dL Glucose (74-99) mg/dL POC Glucose (mg/dL) 196 H 254 H (75-99) mg/dL Hemoglobin A1c 7.5 H (4.0-6.0) % 04/17/19 04/17/19 04/17/19 Range/Units 06:17 06:17 07:01 WBC 19.8 H (3.8-10.6) k/uL RBC 3.90 L (4.30-5.90) m/uL Hgb 11.5 L (13.0-17.5) gm/dL Hct 34.6 L (39.0-53.0) % Neutrophils # 18.6 H (1.3-7.7) k/uL Lymphocytes # 0.5 L (1.0-4.8) k/uL Sodium 135 L (137-145) mmol/L Chloride 89 L (98-107) mmol/L Carbon Dioxide 32 H (22-30) mmol/L BUN 45 H (9-20) mg/dL Glucose 271 H (74-99) mg/dL POC Glucose (mg/dL) 312 H (75-99) mg/dL Hemoglobin A1c (4.0-6.0) % 04/17/19 Range/Units 11:39 WBC (3.8-10.6) k/uL RBC (4.30-5.90) m/uL Hgb (13.0-17.5) gm/dL Hct (39.0-53.0) % Neutrophils # (1.3-7.7) k/uL Lymphocytes # (1.0-4.8) k/uL Sodium (137-145) mmol/L Chloride (98-107) mmol/L Carbon Dioxide (22-30) mmol/L BUN (9-20) mg/dL Glucose (74-99) mg/dL POC Glucose (mg/dL) 239 H (75-99) mg/dL Hemoglobin A1c (4.0-6.0) % Microbiology - Last 24 Hours (Table) 04/12/19 12:46 Blood Culture - Preliminary Blood No Growth after 96 hours 04/13/19 07:46 Gram Stain - Final Sputum Sputum Culture - Final Pseudomonas aeruginosa Assessment and Plan Assessment: #1. Acute on chronic hypoxemic respiratory failure related to acute COPD exacerbation with acute tracheobronchitis and chronic CHF exacerbation systolic dysfunction, an EF of 30-35% #2. Right middle lobe infiltrate secondary to pseudomonas aeruginosa currently on Levaquin #3. Recent hospitalization for acute tracheobronchitis, COPD a gas, acute varicella zoster infection involving sacral dermatome and perineal dermatome #4. Mild troponin leak, cardiology is following #5. Groin excoriation, possibly related to fungal dermatitis #6. Severe COPD with baseline FEV1 of 38% of predicted #7. Chronic hypoxemic respiratory failure related to the above #8. History of CAD with previous myocardial infarction #9. History of previous heavy tobacco use #10. Previous episode of pneumonia #11. Diabetes mellitus #12. Hypertension #13. Hyperlipidemia Plan: The patient was seen and evaluated by Dr. Davalos. He is improved today compared to yesterday. We'll continue the current treatment plan. We'll repeat a chest x-ray in the a.m. Increase his activity as tolerated. We'll continue to follow. I, the cosigning physician, performed a history & physical examination of the patient. Lungs sounds with bilateral scattered rhonchi, crackles in the right base Maintaining good O2 saturations in the 90s on 4 L/m per nasal cannula. I discussed the assessment and plan of care with my nurse practitioner, Mouna cage. I attest to the above note as dictated by her.
[2019-04-17 16:37] LABS: Glucose,Whole Blood 145 mg/dL (75-99)
[2019-04-17 20:27] LABS: Glucose,Whole Blood 124 mg/dL (75-99)
[2019-04-18] MEDS: methylPREDNISolone SOD SUCCI 125 MG/2 ML VIAL IV SCH ×2 (05:29→14:12)
--- NOTE | 2019-04-18 07:03 | XR ---
EXAMINATION TYPE: XR chest 1V DATE OF EXAM: 04/18/2019 HISTORY: fu. REFERENCE: Previous study dated 04/04/2019. FINDINGS: There continues to be left basilar atelectasis. Right lung aeration has improved. Heart siz e upper limits of normal. No definite pleural fluid is seen. IMPRESSION: WAXING AND WANING AIRSPACE DISEASE WITH IMPROVED AERATION IN THE RIGHT LUNG BASE AND CONTINUING ATELE CTASIS AT THE LEFT LUNG BASE.
[2019-04-18] MEDS: IPRATROPIUM-ALBUTEROL 3 ML NEB INHALATION SCH ×3 (07:05→19:24)
[2019-04-18] MEDS: SYMBICORT 160-4.5 MCG INHALER INHALATION SCH ×2 (07:05→19:24)
[2019-04-18 07:08] LABS: Glucose,Whole Blood 181 mg/dL (75-99)
[2019-04-18] MEDS: INSULIN DETEMIR (LEVEMIR) 100 UNIT/ML SYR SQ SCH (07:17)
[2019-04-18] MEDS: INSULIN ASPART (NovoLOG) 100 UNIT/ML VIAL SQ SCH ×4 (07:17→21:31)
[2019-04-18] MEDS: LEVOFLOXACIN 500MG-D5W PMX 500 MG in DEXTROSE/WATER 1 100ML.BAG IVPB SCH (07:18)
[2019-04-18] MEDS: HEPARIN SODIUM,PORCINE 5,000 UNIT/ML 1 ML VIAL SQ SCH ×3 (07:26→22:57)
[2019-04-18 07:33] LABS: Calcium 9.1 mg/dL (8.4-10.2)
[2019-04-18 07:52] LABS: Basophils # (A) 0.1 k/uL (0-0.2); Basophils % (A) 0 %; Eosinophils % (A) 0 %; HCT 32.3 % (39.0-53.0); HGB 10.9 gm/dL (13.0-17.5); Lymphocytes # (A) 0.5 k/uL (1.0-4.8); Lymphocytes % (A) 2 %; MCH 29.8 pg (25.0-35.0); MCHC 33.6 g/dL (31.0-37.0); MCV 88.7 fL (80.0-100.0); Mean Platelet Volume 7.6; Monocytes # (A) 0.6 k/uL (0-1.0); Monocytes % (A) 3 %; Neutrophils # (A) 21.6 k/uL (1.3-7.7); Neutrophils % (A) 94 %; Platelet Count 374 k/uL (150-450); RBC 3.64 m/uL (4.30-5.90)
[2019-04-18] MEDS: ASPIRIN 81 MG PO SCH (09:47)
[2019-04-18] MEDS: TAMSULOSIN 0.4 MG CAP.ER.24H PO SCH (09:47)
[2019-04-18] MEDS: FUROSEMIDE 40 MG TAB PO SCH ×2 (09:47→15:15)
[2019-04-18] MEDS: amLODIPine 10 MG TAB PO SCH (09:47)
[2019-04-18] MEDS: SPIRONOLACTONE 25 MG TAB PO SCH (09:47)
[2019-04-18] MEDS: metFORMIN 500 MG TAB PO SCH ×2 (09:47→20:54)
[2019-04-18] MEDS: FAMOTIDINE 20 MG TAB PO SCH ×2 (09:47→20:54)
[2019-04-18] MEDS: LISINOPRIL 5 MG TAB PO SCH (09:47)
[2019-04-18] MEDS: NYSTATIN 100,000 UNIT/GM OINT 30 GM TUBE TOPICAL SCH ×3 (09:48→20:56)
[2019-04-18] MEDS: HYDROPHILIC CREAM 180 GM TUBE TOPICAL SCH (09:48)
[2019-04-18] MEDS: HYDROcodone/APAP 5-325MG 1 EACH TAB PO SCH ×2 (09:48→20:54)
[2019-04-18] MEDS: METOPROLOL TARTRATE 25 MG TAB PO SCH ×3 (09:52→20:56)
[2019-04-18 11:38] LABS: Glucose,Whole Blood 238 mg/dL (75-99)
[2019-04-18 11:38] LABS: Glucose,Whole Blood 226 mg/dL (75-99)
--- NOTE | 2019-04-18 12:16 | P.PN ---
Subjective This is a pleasant 83 years old male with past medical history of coronary artery disease, diabetes mellitus, COPD, that he follows with Dr. Garcia. He presents because of worsening dyspnea and cough for 1 week duration, associated with green yellow phlegm but no chest pain. At home he uses for F oxygen via nasal cannula however this time his oxygen was troponin to a tease each time he moves On admission patient was febrile of 101.5, risks Vitas looks stable, he was saturating 89-92 % on 4 L oxygen. Magnesium was low of 1.3, sodium was 1:30, carbon dioxide was elevated at 33. Chest of CBC, INR, BMP and liver enzymes were unremarkable. Influenza test is negative. Chest x-ray: No acute process, with only suspicion of mild vascular congestion. EKG showing normal sinus rhythm at [address]-T changes, with PVC Patient returned the emergency room he was given Solu-Medrol and breathing treatment 04/13/2019 Patient still dyspneic like yesterday, he is mildly tachypneic. His total coughing and making some phlegm. However he denies chest pain. He is hemodynamically stable. No more fever so far since yesterday. No leukocytosis and hemoglobin is stable. Sodium stable at 130. Sugar is controlled and troponin is stable at 0.036. Cardiology and pulmonary team were consulted. Patient remains on Rocephin and salmeterol 60 mg and bronchodilator Hyponatremia 04/14/2019 Patient still has some chest tightness although he feels his improvement. He still have some cough. He denies chest pain. No dizziness. He still have a rash in the perineal but is improving, also patient has a small wound in his lower back with surrounding blanching erythema, suspicious for a pressure ulcer, hemodynamically stable. He has leukocytosis of 20 3.4K, however he is on steroids. BMP is unremarkable, sodium 133, which is improved from admission. Patient also on Lasix IV 40 g twice daily and Rocephin and nystatin. 04/15/2019 Patient still have respiratory symptoms and decreased air entry in both sides and on examination his to have wheezing. I don't think patient is admitted for discharge today. Creatinine normal at 0.7. He saturating 93-94% on 4 L oxygen and a Vitas looks stable. His rash between his legs is improving, patient is counseled about his low back wound/ulcer. Topical therapy is applying. His WBC is 20 1.3K while he is on steroids. Sodium stable at 133. Sputum cultures, gram-negative bacilli and final result is pending. Chest x-ray showing right lower lung pneumonia, and patient is made aware of this. He is on Lasix 40 mg orally. Also on some Medrol 60 mg, he is on Rocephin and nystatin. His sugars controlled while on metformin and sliding scale with insulin. 04/16/2019 Patient feels slightly gradually better, now patient is aware that he has right lower lobe pneumonia, on the top of his acute COPD exacerbation and acute tracheobronchitis. Patient is already on Rocephin and Solu-Medrol. He is hemodynamically stable and WBC is coming down to 15.3 K. Sodium 154. Sputum culture final results are still pending, currently growing gram-negative bacilli. 04/17/2019 Patient is gradually and slowly improving, still complaining from some difficulty breathing. Sputum culture came back positive for pseudomonas which is sensitive to antibiotics and changed to levofloxacin according to sensitivity. His heart rate is better after decreasing dose of metoprolol, however his blood pressure is 192/78, probably due to the effect of steroids, we going to add hydralazine as needed. WE will add Norvasc. WBC elevated at 19.8 K. CO2 is coming down to 32. Sugar is 196-312. His inguinal rash is improving 04/18/2019 Patient is much better today, he is sitting in the chair, his breathing easier. The blue BC still 23K however his on some Medrol 60 mg, he going to the rectal 40 mg. Labs are unremarkable and his sugar is 118-238, Levemir is added to his regimen due to steroid effect, today he needed less oxygen about 3 L. His heart rate is 56. Repeat chest x-ray from today showing improved right lung pneumonia . Sodium is 135, patient has some questions about Levaquin which were answered. He agrees to continue with Levaquin for now for Objective - Vital Signs Vital signs: Vital Signs Temp 97.7 F 04/18/19 08:00 Pulse 56 L 04/18/19 12:11 Resp 18 04/18/19 08:15 BP 150/67 04/18/19 08:00 Pulse Ox 95 04/18/19 08:00 Intake & Output 04/17/19 04/18/19 04/18/19 18:59 06:59 18:59 Intake Total 425 200 Output Total 100 Balance 425 100 Weight 99.4 kg Intake: Oral 425 200 Output: Urine 100 Other: # Voids 1 1 - Exam GENERAL: The patient is alert and oriented x3, not in any acute distress. Well developed, well nourished. HEENT: Pupils are round and equally reacting to light. EOMI. No scleral icterus. No conjunctival pallor. Normocephalic, atraumatic. No pharyngeal erythema. No thyromegaly. CARDIOVASCULAR: S1 and S2 present. No murmurs, rubs, or gallops. -PULMONARY: Chest is clear to auscultation, prolonged expiration and scattered wheezing ABDOMEN: Soft, nontender, nondistended, normoactive bowel sounds. No palpable organomegaly. -MUSCULOSKELETAL: No joint swelling or deformity. Low back ulcer with surrounding blanching erythema -EXTREMITIES: No cyanosis, clubbing, or pedal edema. Possible fungal rash in the perineal area NEUROLOGICAL: Gross neurological examination did not reveal any focal deficits. SKIN: No rashes. No petechiae - Labs CBC & Chem 7: 04/18/19 06:18 04/18/19 06:18 Labs: Abnormal Lab Results - Last 24 Hours (Table) 04/17/19 04/17/19 04/18/19 Range/Units 16:35 20:15 06:18 WBC 23.0 H (3.8-10.6) k/uL RBC 3.64 L (4.30-5.90) m/uL Hgb 10.9 L (13.0-17.5) gm/dL Hct 32.3 L (39.0-53.0) % Neutrophils # 21.6 H (1.3-7.7) k/uL Lymphocytes # 0.5 L (1.0-4.8) k/uL Sodium (137-145) mmol/L Chloride (98-107) mmol/L Carbon Dioxide (22-30) mmol/L BUN (9-20) mg/dL Glucose (74-99) mg/dL POC Glucose (mg/dL) 145 H 124 H (75-99) mg/dL 04/18/19 04/18/19 04/18/19 Range/Units 06:18 06:57 11:35 WBC (3.8-10.6) k/uL RBC (4.30-5.90) m/uL Hgb (13.0-17.5) gm/dL Hct (39.0-53.0) % Neutrophils # (1.3-7.7) k/uL Lymphocytes # (1.0-4.8) k/uL Sodium 135 L (137-145) mmol/L Chloride 91 L (98-107) mmol/L Carbon Dioxide 36 H (22-30) mmol/L BUN 46 H (9-20) mg/dL Glucose 153 H (74-99) mg/dL POC Glucose (mg/dL) 181 H 226 H (75-99) mg/dL 04/18/19 Range/Units 11:36 WBC (3.8-10.6) k/uL RBC (4.30-5.90) m/uL Hgb (13.0-17.5) gm/dL Hct (39.0-53.0) % Neutrophils # (1.3-7.7) k/uL Lymphocytes # (1.0-4.8) k/uL Sodium (137-145) mmol/L Chloride (98-107) mmol/L Carbon Dioxide (22-30) mmol/L BUN (9-20) mg/dL Glucose (74-99) mg/dL POC Glucose (mg/dL) 238 H (75-99) mg/dL Microbiology - Last 24 Hours (Table) 04/12/19 12:46 Blood Culture - Preliminary Blood No Growth after 120 hours Assessment and Plan Assessment: Right lower lung pneumonia. Secondary to pseudomonas Acute hypoxemic respiratory failure Acute COPD exacerbation Acute tracheobronchitis possible pressure ulcer of the lower back Elevated troponin hyponatremia Diabetes mellitus History of coronary artery disease prostate cancer in 1999 treated with seed implants and radiotherapy Plan: This is a pleasant 83 years old male who presents with acute COPD exacerbation and possible acute tracheobronchitis and pneumonia. Continue with steroids, bronchodilators, oxygen as needed. Change antibiotics to pseudomonas. Flow recommendation by Pulmonary consult and Cardiology consult Labs and medication were reviewed.. Continue same treatment. Continue with symptomatic treatment. Resume home medication. Monitor lytes and vitals. DVT and GI prophylaxis. Further recommendations of the clinical course of the patient DVT prophylaxis: Subcutaneous heparin GI Prophylaxis: Pepcid PT/OT: Pending Prognosis is guarded
--- NOTE | 2019-04-18 14:37 | P.PN ---
Subjective Progress Note Date: 04/18/19 Principal diagnosis: Acute on chronic hypoxemic respiratory failure secondary to acute COPD exacerbation secondary to pseudomonas aeruginosa infection 83-year-old male patient of Dr. 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 Patient was also diagnosed with varicella-zoster involving sacral area for which the patient was started on Valtrex. Patient was discharged home on 03/18/2019 on a combination of oral Ceftin for 6 more days, Valtrex, calamine lotion for his perineal and groin dermatitis. Patient states that he never completely improved after discharge, he did see Dr. Bentley in follow-up, but most recently last Friday he is breathing was getting worse and worse, patient could hardly walk a few feet without desaturating into the 70s on his usual 4 L of oxygen. He states he had been having fevers, is coughing with production of greenish phlegm. He states he is compliant with his medications, and he completed his course of oral antibiotics, he was febrile on presentation with a temp of 101.5F. Pulse ox was 89% on 4 L of oxygen, patient does desaturate with exertion. Labs showed white blood cell count of 8.6, hemoglobin of 11.3, granulation profile was within normal limits, sodium was 1:30, potassium is 3.9, chloride is 87, CO2 is 33, BUN is 15 creatinine 0.70 magnesium is 1.3, troponin is 0.0364, proBNP was 5280, influenza screen was negative. Patient has been started on Rocephin and doxycycline for antibiotic coverage, IV diuretics, IV steroids. On 04/14/2019 patient seen in follow-up with care unit, he is improving, less congested and dyspneic, less bronchospastic, remains on IV Lasix, he is in negat martha fluid balance, he is on empiric antibiotics, sputum culture is pending, blood culture has shown no growth, no fever or chills in the last 24 hours. FiO2 is at 4 L and his pulse ox is 92%, no acute events overnight, patient's improving, will continue same medical treatment. On 04/15/2019 patient seen in follow-up on medical surgical floor. Doing a bit better, still congested and dyspneic, still bringing up thick yellow colored sputum, procalcitonin level came back low at 0.07, sputum culture is pending, and temperature patient remains on empiric antibiotics. IV steroids and nebulized bronchodilators, yesterday chest x-ray has been reviewed, showing suggestion of a right middle lobe infiltrate at the right lung base. Sputum culture showed gram-negative bacilli, final culture is pending. Ration has been afebrile, he is on a combination doxycycline and Rocephin On 04/16/2019 patient seen in follow-up on general medical floor. Improving, still bringing up a yellow colored phlegm, but less quantity. Sputum culture showed gram-negative bacilli, final cultures pending, patient is on a combination of Rocephin and doxycycline, patient has had no fevers or chills, and his pulse ox of 92% on 4 L, physical exam reveals has congestive bronchospastic breath sounds. Patient has been up ambulating with assistance and tolerated activity well The patient is seen today 04/17/2019 in follow-up on the regular medical floor. He is currently sitting up in a chair at the bedside. Breathing easier today compared to yesterday. He is diuresing well. His lower extremity edema has improved as well. Sputum culture positive for pseudomonas aeruginosa. White count 19.8. Hemoglobin 11.5. Sodium 135. Creatinine 1.11. He is continued on DuoNeb inhalations, Symbicort, IV Solu-Medrol. Antibiotics in the form of Levaquin. Patient is seen today 04/18/2019 in follow-up on the regular medical floor. He is awake and alert in no acute distress. Sitting up at the bedside. Breathing easier today as compared to yesterday. Lungs sounds with less rhonchi bilaterally. He remains on Levaquin for his pseudomonas aeruginosa infection. White count 23.0. Hemoglobin 10.9. Sodium 135. Creatinine 0.97. He is continued on DuoNeb inhalations, Symbicort, IV Solu-Medrol. Objective - Vital Signs Vital signs: Vital Signs Temp 97.7 F 04/18/19 08:00 Pulse 56 L 04/18/19 12:11 Resp 18 04/18/19 08:15 BP 150/67 04/18/19 08:00 Pulse Ox 95 04/18/19 08:00 Intake & Output 04/17/19 04/18/19 04/18/19 18:59 06:59 18:59 Intake Total 425 425 Output Total 100 Balance 425 325 Weight 99.4 kg Intake: Oral 425 425 Output: Urine 100 Other: # Voids 1 1 - Exam GENERAL EXAM: Alert, pleasant, 83-year-old gentleman, on 3 L of oxygen with a pulse ox of 95% comfortable in no apparent distress. HEAD: Normocephalic/atraumatic. EYES: Normal reaction of pupils, equal size. Conjunctiva pink, sclera white. NOSE: Clear with pink turbinates. THROAT: No erythema or exudates. NECK: No masses, no JVD, no thyroid enlargement, no adenopathy. CHEST: No chest wall deformity. Symmetrical expansion. LUNGS: Equal air entry with few scattered rhonchi, crackles in the right base CVS: Regular rate and rhythm, normal S1 and S2, no gallops, no murmurs, no rubs ABDOMEN: Soft, nontender. No hepatosplenomegaly, normal bowel sounds, no guar ding or rigidity. EXTREMITIES: No clubbing, no edema, no cyanosis, 2+ pulses and upper and lower extremities. MUSCULOSKELETAL: Muscle strength and tone normal. SPINE: No scoliosis or deformity SKIN: No rashes CENTRAL NERVOUS SYSTEM: No focal deficits, tone is normal in all 4 extremities. PSYCHIATRIC: Alert and oriented -3. Appropriate affect. Intact judgment and insight. - Labs CBC & Chem 7: 04/18/19 06:18 04/18/19 06:18 Labs: Abnormal Lab Results - Last 24 Hours (Table) 04/17/19 04/17/19 04/18/19 Range/Units 16:35 20:15 06:18 WBC 23.0 H (3.8-10.6) k/uL RBC 3.64 L (4.30-5.90) m/uL Hgb 10.9 L (13.0-17.5) gm/dL Hct 32.3 L (39.0-53.0) % Neutrophils # 21.6 H (1.3-7.7) k/uL Lymphocytes # 0.5 L (1.0-4.8) k/uL Sodium (137-145) mmol/L Chloride (98-107) mmol/L Carbon Dioxide (22-30) mmol/L BUN (9-20) mg/dL Glucose (74-99) mg/dL POC Glucose (mg/dL) 145 H 124 H (75-99) mg/dL 04/18/19 04/18/19 04/18/19 Range/Units 06:18 06:57 11:35 WBC (3.8-10.6) k/uL RBC (4.30-5.90) m/uL Hgb (13.0-17.5) gm/dL Hct (39.0-53.0) % Neutrophils # (1.3-7.7) k/uL Lymphocytes # (1.0-4.8) k/uL Sodium 135 L (137-145) mmol/L Chloride 91 L (98-107) mmol/L Carbon Dioxide 36 H (22-30) mmol/L BUN 46 H (9-20) mg/dL Glucose 153 H (74-99) mg/dL POC Glucose (mg/dL) 181 H 226 H (75-99) mg/dL 04/18/19 Range/Units 11:36 WBC (3.8-10.6) k/uL RBC (4.30-5.90) m/uL Hgb (13.0-17.5) gm/dL Hct (39.0-53.0) % Neutrophils # (1.3-7.7) k/uL Lymphocytes # (1.0-4.8) k/uL Sodium (137-145) mmol/L Chloride (98-107) mmol/L Carbon Dioxide (22-30) mmol/L BUN (9-20) mg/dL Glucose (74-99) mg/dL POC Glucose (mg/dL) 238 H (75-99) mg/dL Microbiology - Last 24 Hours (Table) 04/12/19 12:46 Blood Culture - Preliminary Blood No Growth after 120 hours Assessment and Plan Assessment: #1. Acute on chronic hypoxemic respiratory failure related to acute COPD exacerbation with right middle lobe pseudomonas infection, and chronic CHF exacerbation systolic dysfunction, an EF of 30-35% #2. Right middle lobe infiltrate secondary to pseudomonas aeruginosa currently on Levaquin #3. Recent hospitalization for acute tracheobronchitis, COPD a gas, acute varicella zoster infection involving sacral dermatome and perineal dermatome #4. Mild troponin leak, cardiology is following #5. Groin excoriation, possibly related to fungal dermatitis #6. Severe COPD with baseline FEV1 of 38% of predicted #7. Chronic hypoxemic respiratory failure related to the above #8. History of CAD with previous myocardial infarction #9. History of previous heavy tobacco use #10. Previous episode of pneumonia #11. Diabetes mellitus #12. Hypertension #13. Hyperlipidemia Plan: The patient was seen and evaluated by Dr. Davalos. Chest x-ray reveals improved aeration in the right lung base with atelectasis and left lung base. He is improved clinically. Continue the current treatment plan. Probable discharge in the a.m. I, the cosigning physician, performed a history & physical examination of the patient. Lungs sounds with few scattered rhonchi, crackles in the right base Maintaining good O2 saturations in the 90s on 4 L/m per nasal cannula. I discussed the assessment and plan of care with my nurse practitioner, Mouna Martini. I attest to the above note as dictated by her.
[2019-04-18] MEDS: methylPREDNISolone SOD SUCCI 40 MG/ML 1 ML VIAL IV SCH (15:15)
[2019-04-18 16:42] LABS: Glucose,Whole Blood 175 mg/dL (75-99)
[2019-04-18] MEDS ORDERED: INSULIN ASPART (NovoLOG) 100 UNIT/ML VIAL SQ ONE (21:23)
[2019-04-19] MEDS: methylPREDNISolone SOD SUCCI 40 MG/ML 1 ML VIAL IV SCH ×3 (01:00→16:00)
[2019-04-19 06:49] LABS: Glucose,Whole Blood 142 mg/dL (75-99)
[2019-04-19] MEDS: LEVOFLOXACIN 500MG-D5W PMX 500 MG in DEXTROSE/WATER 1 100ML.BAG IVPB SCH (07:42)
[2019-04-19] MEDS: INSULIN DETEMIR (LEVEMIR) 100 UNIT/ML SYR SQ SCH (07:42)
[2019-04-19] MEDS: HEPARIN SODIUM,PORCINE 5,000 UNIT/ML 1 ML VIAL SQ SCH ×2 (07:44→16:07)
[2019-04-19] MEDS: INSULIN ASPART (NovoLOG) 100 UNIT/ML VIAL SQ SCH ×4 (07:44→21:42)
[2019-04-19] MEDS: amLODIPine 10 MG TAB PO SCH (07:45)
[2019-04-19] MEDS: FAMOTIDINE 20 MG TAB PO SCH ×2 (07:45→21:36)
[2019-04-19] MEDS: ASPIRIN 81 MG PO SCH (07:45)
[2019-04-19] MEDS: FUROSEMIDE 40 MG TAB PO SCH ×2 (07:45→15:59)
[2019-04-19] MEDS: HYDROcodone/APAP 5-325MG 1 EACH TAB PO SCH ×2 (07:45→21:37)
[2019-04-19] MEDS: LISINOPRIL 5 MG TAB PO SCH (07:46)
[2019-04-19] MEDS: SPIRONOLACTONE 25 MG TAB PO SCH (07:47)
[2019-04-19] MEDS: HYDROPHILIC CREAM 180 GM TUBE TOPICAL SCH (07:47)
[2019-04-19] MEDS: metFORMIN 500 MG TAB PO SCH ×2 (07:47→21:37)
[2019-04-19] MEDS: NYSTATIN 100,000 UNIT/GM OINT 30 GM TUBE TOPICAL SCH ×3 (07:47→21:38)
[2019-04-19] MEDS: METOPROLOL TARTRATE 25 MG TAB PO SCH ×4 (07:47→21:42)
[2019-04-19] MEDS: TAMSULOSIN 0.4 MG CAP.ER.24H PO SCH (07:47)
[2019-04-19] MEDS: SYMBICORT 160-4.5 MCG INHALER INHALATION SCH ×2 (09:08→20:03)
[2019-04-19] MEDS: IPRATROPIUM-ALBUTEROL 3 ML NEB INHALATION SCH ×3 (09:08→20:03)
[2019-04-19 09:16] LABS: Glucose,Whole Blood 299 mg/dL (75-99)
[2019-04-19 09:16] LABS: Glucose,Whole Blood 291 mg/dL (75-99)
[2019-04-19 09:51] LABS: Basophils # (A) 0.1 k/uL (0-0.2); Basophils % (A) 0 %; Eosinophils % (A) 0 %; HCT 35.6 % (39.0-53.0); HGB 11.6 gm/dL (13.0-17.5); Lymphocytes # (A) 0.4 k/uL (1.0-4.8); Lymphocytes % (A) 2 %; MCH 29.2 pg (25.0-35.0); MCHC 32.7 g/dL (31.0-37.0); MCV 89.4 fL (80.0-100.0); Monocytes # (A) 0.7 k/uL (0-1.0); Monocytes % (A) 3 %; Neutrophils # (A) 20.5 k/uL (1.3-7.7); Neutrophils % (A) 94 %; Platelet Count 365 k/uL (150-450); RBC 3.98 m/uL (4.30-5.90); RDW 14.8 % (11.5-15.5); WBC 21.9 k/uL (3.8-10.6)
[2019-04-19 11:34] LABS: Glucose,Whole Blood 248 mg/dL (75-99)
[2019-04-19] MEDS: IPRATROPIUM-ALBUTEROL 3 ML NEB INHALATION PRN (15:43)
[2019-04-19 16:42] LABS: Glucose,Whole Blood 222 mg/dL (75-99)
--- NOTE | 2019-04-19 16:51 | PN ---
PROGRESS NOTE PULMONARY/CRITICAL CARE PROGRESS NOTE: DATE OF SERVICE: 04/19/2019 This is an 83-year-old gentleman who was admitted to the hospital on April 12. He was admitted with a diagnosis of acute hypoxemic respiratory failure, COPD exacerbation, and Pseudomonas aeruginosa pneumonia. Currently the patient is doing better. The patient has been dropped down to 3 L by nasal cannula. The patient mentions that he may be discharged home in the next 24 to 48 hours. He is hoping so, anyway. He is still short of breath. He is coughing up a small amount yellow phlegm. He does have some chest tightness. His cough is wet and congested. He was sitting up at the bedside, though. PHYSICAL EXAMINATION: VITAL SIGNS: Current vital signs are reviewed. His temperature is 97.9, heart rate 74, respiratory rate 16. Blood pressure is 121/60 with mean of 80. Three-liter saturation is 94%. GENERAL APPEARANCE: He appears in no acute distress. HEENT EXAMINATION: Grossly unremarkable. Mucous membranes are moist. No oral lesions. NECK: Supple. Full range of motion. No adenopathy. Neck veins are flat. CARDIOVASCULAR: Cardiovascular examination reveals regular rhythm and rate. S1, S2 normal. Heart rate about 60 beats per minute. No distinct murmurs noted. Heart sounds are very obscure and distant. LUNGS: Lungs reveal coarse rhonchi and wheezes. Breath sounds are diminished. A few scattered basilar crackles are noted. Breath sounds are equal bilaterally but diminished throughout. ABDOMEN: Soft but obese. EXTREMITIES: Intact. Minimal edema. SKIN: Without rash. There are areas of ecchymoses. NEUROLOGIC: Neurological examination is brief but nonfocal. Microbiologic samples from 04/13 show evidence of Pseudomonas aeruginosa. LABS: Reviewed. His most recent labs include a white count of 21.9, hemoglobin 11.6, hematocrit 35.6, and a normal platelet count. Most recent glucose was 248. IMAGING: Chest x-ray from 04/18 showed some diffuse bilateral airspace disease but some overall improvement compared to prior x-rays. There are some infiltrates and atelectasis at the bases. There may be small effusions as well. Medications are reviewed. ASSESSMENT: 1. Acute on chronic hypoxemic respiratory failure secondary to chronic obstructive pulmonary disease exacerbation, complicated by right middle lobe Pseudomonas aeruginosa pneumonia. 2. Chronic congestive heart failure exacerbation secondary to systolic dysfunction with an ejection fraction of 30% to 35%. 3. Recent hospitalization for acute tracheobronchitis and chronic obstructive pulmonary disease exacerbation complicated by acute shingles involving the sacral and perineal dermatome. 4. History of mild troponin leak. 5. Fungal dermatitis of the groin. 6. Severe chronic obstructive pulmonary disease with an FEV1 of 38% of predicted/GOLD stage III disease. 7. Chronic hypoxemic respiratory failure. 8. History of coronary artery disease with previous myocardial infarction. 9. History of previous heavy tobacco use. 10.Prior history of pneumonia. 11.Diabetes mellitus. 12.History of hypertension. 13.History of hyperlipidemia. PLAN: The patient seems to be moving along very well. He is currently on antibiotic. His cough is persistent. He is producing a small amount of phlegm. It is slightly yellow. His breathing has improved and his saturations have improved. His oxygen has been dropped down from 4 to 3 L. He is hoping to be discharged within the next 24 to 48 hours. No additional recommendations are made. The patient will follow up with Dr. Garcia in our office. MMODL / IJN: [id number] /
[2019-04-19 20:29] LABS: Glucose,Whole Blood 255 mg/dL (75-99)
--- NOTE | 2019-04-19 20:46 | P.PN ---
Subjective This is a pleasant 83 years old male with past medical history of coronary artery disease, diabetes mellitus, COPD, that he follows with Dr. Garcia. He presents because of worsening dyspnea and cough for 1 week duration, associated with green yellow phlegm but no chest pain. At home he uses for F oxygen via nasal cannula however this time his oxygen was troponin to a tease each time he moves On admission patient was febrile of 101.5, risks Vitas looks stable, he was saturating 89-92 % on 4 L oxygen. Magnesium was low of 1.3, sodium was 1:30, carbon dioxide was elevated at 33. Chest of CBC, INR, BMP and liver enzymes were unremarkable. Influenza test is negative. Chest x-ray: No acute process, with only suspicion of mild vascular congestion. EKG showing normal sinus rhythm at [address]-T changes, with PVC Patient returned the emergency room he was given Solu-Medrol and breathing treatment 04/13/2019 Patient still dyspneic like yesterday, he is mildly tachypneic. His total coughing and making some phlegm. However he denies chest pain. He is hemodynamically stable. No more fever so far since yesterday. No leukocytosis and hemoglobin is stable. Sodium stable at 130. Sugar is controlled and troponin is stable at 0.036. Cardiology and pulmonary team were consulted. Patient remains on Rocephin and salmeterol 60 mg and bronchodilator Hyponatremia 04/14/2019 Patient still has some chest tightness although he feels his improvement. He still have some cough. He denies chest pain. No dizziness. He still have a rash in the perineal but is improving, also patient has a small wound in his lower back with surrounding blanching erythema, suspicious for a pressure ulcer, hemodynamically stable. He has leukocytosis of 20 3.4K, however he is on steroids. BMP is unremarkable, sodium 133, which is improved from admission. Patient also on Lasix IV 40 g twice daily and Rocephin and nystatin. 04/15/2019 Patient still have respiratory symptoms and decreased air entry in both sides and on examination his to have wheezing. I don't think patient is admitted for discharge today. Creatinine normal at 0.7. He saturating 93-94% on 4 L oxygen and a Vitas looks stable. His rash between his legs is improving, patient is counseled about his low back wound/ulcer. Topical therapy is applying. His WBC is 20 1.3K while he is on steroids. Sodium stable at 133. Sputum cultures, gram-negative bacilli and final result is pending. Chest x-ray showing right lower lung pneumonia, and patient is made aware of this. He is on Lasix 40 mg orally. Also on some Medrol 60 mg, he is on Rocephin and nystatin. His sugars controlled while on metformin and sliding scale with insulin. 04/16/2019 Patient feels slightly gradually better, now patient is aware that he has right lower lobe pneumonia, on the top of his acute COPD exacerbation and acute tracheobronchitis. Patient is already on Rocephin and Solu-Medrol. He is hemodynamically stable and WBC is coming down to 15.3 K. Sodium 154. Sputum culture final results are still pending, currently growing gram-negative bacilli. 04/17/2019 Patient is gradually and slowly improving, still complaining from some difficulty breathing. Sputum culture came back positive for pseudomonas which is sensitive to antibiotics and changed to levofloxacin according to sensitivity. His heart rate is better after decreasing dose of metoprolol, however his blood pressure is 192/78, probably due to the effect of steroids, we going to add hydralazine as needed. WE will add Norvasc. WBC elevated at 19.8 K. CO2 is coming down to 32. Sugar is 196-312. His inguinal rash is improving 04/18/2019 Patient is much better today, he is sitting in the chair, his breathing easier. The blue BC still 23K however his on some Medrol 60 mg, he going to the rectal 40 mg. Labs are unremarkable and his sugar is 118-238, Levemir is added to his regimen due to steroid effect, today he needed less oxygen about 3 L. His heart rate is 56. Repeat chest x-ray from today showing improved right lung pneumonia . Sodium is 135, patient has some questions about Levaquin which were answered. He agrees to continue with Levaquin for now for 04/19/19 pt is still improving graudally , and he feel better , he still has some dyspnea , pulmonary evaluated pt and recommended keep monitoring for now , hemodynamically stable, and his rash is improving as well Objective - Vital Signs Vital signs: Vital Signs Temp 98.1 F 04/19/19 19:06 Pulse 72 04/19/19 20:18 Resp 18 04/19/19 19:06 BP 150/72 04/19/19 19:06 Pulse Ox 95 04/19/19 19:06 Intake & Output 04/19/19 04/19/19 04/20/19 06:59 18:59 06:59 Intake Total 240 Output Total 1400 Balance -1160 Weight 100.2 kg Intake: Oral 240 Output: Urine 1400 Other: Voiding Method Toilet Urinal # Voids 1 4 # Bowel Movements 2 - Exam GENERAL: The patient is alert and oriented x3, not in any acute distress. Well developed, well nourished. HEENT: Pupils are round and equally reacting to light. EOMI. No scleral icterus. No conjunctival pallor. Normocephalic, atraumatic. No pharyngeal erythema. No thyromegaly. CARDIOVASCULAR: S1 and S2 present. No murmurs, rubs, or gallops. -PULMONARY: Chest is clear to auscultation, prolonged expiration and scattered wheezing ABDOMEN: Soft, nontender, nondistended, normoactive bowel sounds. No palpable organomegaly. -MUSCULOSKELETAL: No joint swelling or deformity. Low back ulcer with surrounding blanching erythema -EXTREMITIES: No cyanosis, clubbing, or pedal edema. Possible fungal rash in the perineal area NEUROLOGICAL: Gross neurological examination did not reveal any focal deficits. SKIN: No rashes. No petechiae - Labs CBC & Chem 7: 04/19/19 06:30 04/18/19 06:18 Labs: Abnormal Lab Results - Last 24 Hours (Table) 04/18/19 04/18/19 04/19/19 Range/Units 21:02 21:07 06:30 WBC 21.9 H (3.8-10.6) k/uL RBC 3.98 L (4.30-5.90) m/uL Hgb 11.6 L (13.0-17.5) gm/dL Hct 35.6 L (39.0-53.0) % Neutrophils # 20.5 H (1.3-7.7) k/uL Lymphocytes # 0.4 L (1.0-4.8) k/uL POC Glucose (mg/dL) 299 H 291 H (75-99) mg/dL 04/19/19 04/19/1920 Range/Units 06:37 11:33 16:41 WBC (3.8-10.6) k/uL RBC (4.30-5.90) m/uL Hgb (13.0-17.5) gm/dL Hct (39.0-53.0) % Neutrophils # (1.3-7.7) k/uL Lymphocytes # (1.0-4.8) k/uL POC Glucose (mg/dL) 142 H 248 H 222 H (75-99) mg/dL 04/19/19 Range/Units 20:18 WBC (3.8-10.6) k/uL RBC (4.30-5.90) m/uL Hgb (13.0-17.5) gm/dL Hct (39.0-53.0) % Neutrophils # (1.3-7.7) k/uL Lymphocytes # (1.0-4.8) k/uL POC Glucose (mg/dL) 255 H (75-99) mg/dL Microbiology - Last 24 Hours (Table) 04/12/19 12:46 Blood Culture - Final Blood No Growth after 144 hours Assessment and Plan Assessment: Right lower lung pneumonia. Secondary to pseudomonas Acute hypoxemic respiratory failure Acute COPD exacerbation Acute tracheobronchitis possible pressure ulcer of the lower back Elevated troponin hyponatremia Diabetes mellitus History of coronary artery disease prostate cancer in 1999 treated with seed implants and radiotherapy Plan: This is a pleasant 83 years old male who presents with acute COPD exacerbation and possible acute tracheobronchitis and pneumonia. Continue with steroids, bronchodilators, oxygen as needed. Change antibiotics to pseudomonas. Flow recommendation by Pulmonary consult and Cardiology consult Labs and medication were reviewed.. Continue same treatment. Continue with symptomatic treatment. Resume home medication. Monitor lytes and vitals. DVT and GI prophylaxis. Further recommendations of the clinical course of the patient DVT prophylaxis: Subcutaneous heparin GI Prophylaxis: Pepcid PT/OT: Pending Prognosis is guarded
[2019-04-19 21:38] LABS: Glucose,Whole Blood 248 mg/dL (75-99)
[2019-04-20] MEDS: methylPREDNISolone SOD SUCCI 40 MG/ML 1 ML VIAL IV SCH ×2 (01:13→07:32)
[2019-04-20] MEDS: HEPARIN SODIUM,PORCINE 5,000 UNIT/ML 1 ML VIAL SQ SCH ×3 (01:14→07:33)
[2019-04-20 06:49] LABS: Glucose,Whole Blood 179 mg/dL (75-99)
[2019-04-20] MEDS ORDERED: LEVOFLOXACIN 500 MG TAB PO SCH (07:00)
[2019-04-20 07:12] LABS: Basophils # (A) 0.2 k/uL (0-0.2); Basophils % (A) 1 %; Eosinophils % (A) 0 %; HCT 32.2 % (39.0-53.0); HGB 10.9 gm/dL (13.0-17.5); Lymphocytes # (A) 0.2 k/uL (1.0-4.8); Lymphocytes % (A) 1 %; MCH 30.6 pg (25.0-35.0); Mean Platelet Volume 7.8; Monocytes # (A) 0.5 k/uL (0-1.0); Monocytes % (A) 3 %; Neutrophils # (A) 16.9 k/uL (1.3-7.7); Neutrophils % (A) 94 %; Platelet Count 304 k/uL (150-450); RBC 3.57 m/uL (4.30-5.90)
[2019-04-20] MEDS: amLODIPine 10 MG TAB PO SCH (07:30)
[2019-04-20] MEDS: TAMSULOSIN 0.4 MG CAP.ER.24H PO SCH (07:30)
[2019-04-20] MEDS: FUROSEMIDE 40 MG TAB PO SCH (07:30)
[2019-04-20] MEDS: ASPIRIN 81 MG PO SCH (07:30)
[2019-04-20] MEDS: FAMOTIDINE 20 MG TAB PO SCH (07:30)
[2019-04-20] MEDS: SPIRONOLACTONE 25 MG TAB PO SCH (07:31)
[2019-04-20] MEDS: METOPROLOL TARTRATE 25 MG TAB PO SCH (07:31)
[2019-04-20] MEDS: LISINOPRIL 5 MG TAB PO SCH (07:31)
[2019-04-20] MEDS: metFORMIN 500 MG TAB PO SCH (07:31)
[2019-04-20] MEDS: INSULIN DETEMIR (LEVEMIR) 100 UNIT/ML SYR SQ SCH (07:32)
[2019-04-20] MEDS: INSULIN ASPART (NovoLOG) 100 UNIT/ML VIAL SQ SCH ×2 (07:33→12:26)
[2019-04-20 07:58] VITALS: BP 151/67; RESP 18; TEMP 97.4
[2019-04-20] MEDS: SYMBICORT 160-4.5 MCG INHALER INHALATION SCH (09:13)
[2019-04-20] MEDS: IPRATROPIUM-ALBUTEROL 3 ML NEB INHALATION SCH ×2 (09:13→12:15)
[2019-04-20 09:27] VITALS: PULSE 76
[2019-04-20] MEDS: HYDROcodone/APAP 5-325MG 1 EACH TAB PO SCH (09:28)
[2019-04-20] MEDS: NYSTATIN 100,000 UNIT/GM OINT 30 GM TUBE TOPICAL SCH (09:29)
[2019-04-20] MEDS: HYDROPHILIC CREAM 180 GM TUBE TOPICAL SCH (09:29)
--- NOTE | 2019-04-20 11:39 | P.PN ---
Subjective Progress Note Date: 04/20/19 Principal diagnosis: Acute on chronic hypoxemic restaurant failure is related to acute COPD exacerbation with acute tracheobronchitis and mild exacerbation of chronic CHF 83-year-old male patient of Dr. 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 Patient was also diagnosed with varicella-zoster involving sacral area for which the patient was started on Valtrex. Patient was discharged home on 03/18/2019 on a combination of oral Ceftin for 6 more days, Valtrex, calamine lotion for his perineal and groin dermatitis. Patient states that he never completely improved after discharge, he did see Dr. Bentley in follow-up, but most recently last Friday he is breathing was getting worse and worse, patient could hardly walk a few feet without desaturating into the 70s on his usual 4 L of oxygen. He states he had been having fevers, is coughing with production of greenish phlegm. He states he is compliant with his medications, and he com pleted his course of oral antibiotics, he was febrile on presentation with a temp of 101.5F. Pulse ox was 89% on 4 L of oxygen, patient does desaturate with exertion. Labs showed white blood cell count of 8.6, hemoglobin of 11.3, granulation profile was within normal limits, sodium was 1:30, potassium is 3.9, chloride is 87, CO2 is 33, BUN is 15 creatinine 0.70 magnesium is 1.3, troponin is 0.0364, proBNP was 5280, influenza screen was negative. Patient has been started on Rocephin and doxycycline for antibiotic coverage, IV diuretics, IV steroids. On 04/14/2019 patient seen in follow-up with care unit, he is improving, less congested and dyspneic, less bronchospastic, remains on IV Lasix, he is in negative fluid balance, he is on empiric antibiotics, sputum culture is pending, blood culture has shown no growth, no fever or chills in the last 24 hours. FiO2 is at 4 L and his pulse ox is 92%, no acute events overnight, patient's improving, will continue same medical treatment. On 04/15/2019 patient seen in follow-up on medical surgical floor. Doing a bit better, still congested and dyspneic, still bringing up thick yellow colored sputum, procalcitonin level came back low at 0.07, sputum culture is pending, and temperature patient remains on empiric antibiotics. IV steroids and nebulized bronchodilators, yesterday chest x-ray has been reviewed, showing suggestion of a right middle lobe infiltrate at the right lung base. Sputum culture showed gram-negative bacilli, final culture is pending. Ration has been afebrile, he is on a combination doxycycline and Rocephin On 04/16/2019 patient seen in follow-up on general medical floor. Improving, still bringing up a yellow colored phlegm, but less quantity. Sputum culture showed gram-negative bacilli, final cultures pending, patient is on a combination of Rocephin and doxycycline, patient has had no fevers or chills, and his pulse ox of 92% on 4 L, physical exam reveals has congestive bronchospastic breath sounds. Patient has been up ambulating with assistance and tolerated activity well On 04/20/2019 patient seen in follow-up on general medical floor, he sitting up in the chair, doing well, breathing much easier, still has occasional productive cough but the sputum is much administrative tech in color. Currently on 3 L of oxygen with a pulse ox of 92%, he is afebrile, hemodynamically stable, lung sounds are posi tive for a few scattered rhonchi, no significant wheezing, blood culture showed no growth, a sputum culture was positive for pseudomonas aeruginosa, his current antibiotic coverage is in the form of Levaquin. Objective - Vital Signs Vital signs: Vital Signs Temp 97.4 F L 04/20/19 07:00 Pulse 76 04/20/19 09:26 Resp 18 04/20/19 07:00 BP 151/67 04/20/19 07:00 Pulse Ox 92 L 04/20/19 07:00 Intake & Output 04/19/19 04/20/19 04/20/19 18:59 06:59 18:59 Output Total 1625 Balance -1625 Weight 94.1 kg Output: Urine 1625 Other: Voiding Method Toilet Toilet Urinal Urinal # Voids 4 2 # Bowel Movements 2 2 - Exam GENERAL EXAM: Alert, pleasant, 83-year-old white male, on 3 L of oxygen with a pulse ox of 93% on the dyspneic with conversation comfortable in no apparent distress. HEAD: Normocephalic/atraumatic. EYES: Normal reaction of pupils, equal size. Conjunctiva pink, sclera white. NOSE: Clear with pink turbinates. THROAT: No erythema or exudates. NECK: No masses, no JVD, no thyroid enlargement, no adenopathy. CHEST: No chest wall deformity. Symmetrical expansion. LUNGS: Equal air entry with occasional rhonchi CVS: Regular rate and rhythm, normal S1 and S2, no gallops, no murmurs, no rubs ABDOMEN: Soft, nontender. No hepatosplenomegaly, normal bowel sounds, no guarding or rigidity. EXTREMITIES: No clubbing, no edema, no cyanosis, 2+ pulses and upper and lower extremities. MUSCULOSKELETAL: Muscle strength and tone normal. SPINE: No scoliosis or deformity SKIN: No rashes CENTRAL NERVOUS SYSTEM: Alert and oriented -3. No focal deficits, tone is normal in all 4 extremities. PSYCHIATRIC: Alert and oriented -3. Appropriate affect. Intact judgment and insight. - Labs CBC & Chem 7: 04/20/19 06:37 04/18/19 06:18 Labs: Abnormal Lab Results - Last 24 Hours (Table) 04/19/19 04/19/19 04/19/19 Range/Units 16:41 20:18 21:34 WBC (3.8-10.6) k/uL RBC (4.30-5.90) m/uL Hgb (13.0-17.5) gm/dL Hct (39.0-53.0) % Neutrophils # (1.3-7.7) k/uL Lymphocytes # (1.0-4.8) k/uL POC Glucose (mg/dL) 222 H 255 H 248 H (75-99) mg/dL 04/20/19 04/20/19 Range/Units 06:37 06:48 WBC 18.0 H (3.8-10.6) k/uL RBC 3.57 L (4.30-5.90) m/uL Hgb 10.9 L (13.0-17.5) gm/dL Hct 32.2 L (39.0-53.0) % Neutrophils # 16.9 H (1.3-7.7) k/uL Lymphocytes # 0.2 L (1.0-4.8) k/uL POC Glucose (mg/dL) 179 H (75-99) mg/dL Assessment and Plan Plan: Assessment: #1. Acute on chronic hypoxemic respiratory failure related to acute COPD exacerbation with acute tracheobronchitis and chronic CHF exacerbation systolic dysfunction, an EF of 30-35% #2. Possible right middle lobe infiltrate the right lung base, could be related to pneumonia #3. Recent hospitalization for acute tracheobronchitis, COPD a gas, acute varicella zoster infection involving sacral dermatome and perineal dermatome #4. Mild troponin leak, cardiology is following #5. Groin excoriation, possibly related to fungal dermatitis #6. Severe COPD with baseline FEV1 of 38% of predicted #7. Chronic hypoxemic respiratory failure related to the above #8. History of CAD with previous myocardial infarction #9. History of previous heavy tobacco use #10. Previous episode of pneumonia #11. Diabetes mellitus #12. Hypertension #13. Hyperlipidemia Plan: Patient is doing well, improving, no fever or chills, white blood cell count is trending down, minimal congestion, patient is tolerating ambulation, FiO2 is down to 3 L, from pulmonary perspective patient is stable for discharge home today and he can finish outpatient course of oral Levaquin, and prednisone taper he can resume his maintenance inhalers and nebulized treatments, follow up with Dr. Garcia in the office in one week I performed a history & physical examination of the patient and discussed their management with my nurse practitioner, Mona Hong. I reviewed the nurse practitioner's note and agree with the documented findings and plan of care. Lung sounds are positive for diffuse wheezes and rhonchi. The findings and the impression was discussed with the patient. I attest to the documentation by the nurse practitioner. Time with Patient: Less than 30
[2019-04-20 11:47] LABS: Glucose,Whole Blood 245 mg/dL (75-99)
--- NOTE | 2019-04-20 22:33 | P.DS ---
Providers Date of admission: 04/12/19 14:19 Attending physician: Tennille Ndiaye Consults: 04/12/19 14:00 Consult Physician Urgent Consulting Provider: Ace Davalos Consult Reason/Comments: copd and fever Do you want consulting provider notified?: Yes 04/12/19 20:46 Consult Physician Urgent Consulting Provider: Aurea Escalante Consult Reason/Comments: elevated troponin Do you want consulting provider notified?: Yes Primary care physician: Fabien Garcia Hospital Course: Diagnoses: Right lower lung pneumonia. Secondary to pseudomonas. Responding to therapy Acute on chronic hypoxemic respiratory failure, improved Acute COPD exacerbation , improved Acute tracheobronchitis Fungal infection at perineal area, improved with nystatin possible pressure ulcer of the lower back, improved Chronic systolic congestive heart failure Elevated troponin, evaluated by supervisor plate forming hyponatremia, improved Diabetes mellitus History of coronary artery disease prostate cancer in 1999 treated with seed implants and radiotherapy Hospital course: This is a pleasant 83 years old male with past medical history of coronary artery disease, diabetes mellitus, COPD, that he follows with Dr. Garcia. He presents because of worsening dyspnea and cough for 1 week duration, associated with green yellow phlegm but no chest pain. At home he uses 4L oxygen via nasal cannula , but not all the time as it is in the hospital. On the presentation he was saturating 89-92 % on 4 L oxygen. Patient sputum culture came back positive for pseudomonas which is sensitive to Levaquin. Patient was started on antibiotic with Levaquin and he showed interval improvement and he back close to his baseline, his breathing easily with no difficulty, and his symptoms significantly improved. Patient has been evaluated and followed closely by tire center manager Patient will be discharged on short course of oral antibiotic, and deeper steroids, he states that he has oxygen at home On the day of discharge patient denies chest pain or abdominal pain or nausea vomiting, no change in urine or bowel habits. No fever Cleared for discharge by pulmonary and cardiology service, and to continue with same medication Problems and management plan were discussed with the patient and he verbalized understanding and acceptance Patient was found stable and can be discharged home however he needs follow-up as an outpatient. Patient was instructed to follow up with PCP Dr. Garcia within one week and patient agrees, he told me he will call to make appointment. Also patient was instructed to follow up with supervisor plate forming and he agrees. Gen: patient is a AAOx3, no distress CVS: S1-S2, RRR, no murmur Lungs: B/L CTA, no wheezing Abdomen: soft, no distention, no tenderness, positive bowel sounds Extremity: no leg edema or induration Musculoskeletal: Lower back ulcer with surrounding erythema, improving significantly, with erythema is much less Time spent more than 35 minutes Plan - Discharge Summary Discharge Rx Participant: No New Discharge Prescriptions: New Spironolactone [Aldactone] 25 mg PO DAILY #30 tab Furosemide [Lasix] 40 mg PO BID@0900,1600 #60 tab Levofloxacin [Levaquin] 500 mg PO DAILY #7 tab Metoprolol Tartrate [Lopressor] 25 mg PO BID #60 tab Nystatin 100,000 Unit/gm Oint [Mycostatin Oint] 1 applic TOPICAL TID #1 applic amLODIPine [Norvasc] 10 mg PO DAILY #30 tab Famotidine [Pepcid] 20 mg PO Q12HR #50 tab predniSONE 0 mg PO DIRECTED #30 tab Continue metFORMIN HCL [Glucophage] 500 mg PO BID HYDROcodone/APAP 5-325MG [Stephens 5-325] 1 tab PO BID Furosemide [Lasix] 40 mg PO DAILY #30 tab Budesonide-Formot 160-4.5 Mcg [Symbicort 160-4.5 Mcg Inhaler] 2 puff INHALATION RT-BID #1 inhaler Lisinopril [Zestril] 5 mg PO DAILY #30 tab Ipratropium Nebulized [Atrovent Nebulized 0.2 MG/ML] 0.5 mg INHALATION RT-QID Tamsulosin [Flomax] 0.4 mg PO DAILY Aspirin EC [Ecotrin Low Dose] 81 mg PO DAILY Discontinued Metoprolol Tartrate [Lopressor] 50 mg PO BID #60 tab Discharge Medication List metFORMIN HCL [Glucophage] 500 mg PO BID 03/27/15 [History] HYDROcodone/APAP 5-325MG [Stephens 5-325] 1 tab PO BID 03/13/19 [History] Budesonide-Formot 160-4.5 Mcg [Symbicort 160-4.5 Mcg Inhaler] 2 puff INHALATION RT-BID #1 inhaler 03/18/19 [Rx] Furosemide [Lasix] 40 mg PO DAILY #30 tab 03/18/19 [Rx] Lisinopril [Zestril] 5 mg PO DAILY #30 tab 03/18/19 [Rx] Aspirin EC [Ecotrin Low Dose] 81 mg PO DAILY 04/12/19 [History] Ipratropium Nebulized [Atrovent Nebulized 0.2 MG/ML] 0.5 mg INHALATION RT-QID 04/12/19 [History] Tamsulosin [Flomax] 0.4 mg PO DAILY 04/12/19 [History] Famotidine [Pepcid] 20 mg PO Q12HR #50 tab 04/19/19 [Rx] Furosemide [Lasix] 40 mg PO BID@0900,1600 #60 tab 04/19/19 [Rx] Levofloxacin [Levaquin] 500 mg PO DAILY #7 tab 04/19/19 [Rx] Metoprolol Tartrate [Lopressor] 25 mg PO BID #60 tab 04/19/19 [Rx] Nystatin 100,000 Unit/gm Oint [Mycostatin Oint] 1 applic TOPICAL TID #1 applic 04/19/19 [Rx] Spironolactone [Aldactone] 25 mg PO DAILY #30 tab 04/19/19 [Rx] amLODIPine [Norvasc] 10 mg PO DAILY #30 tab 04/19/19 [Rx] predniSONE 0 mg PO DIRECTED #30 tab 04/19/19 [Rx] Follow up Appointment(s)/Referral(s): Aurea Escalante MD [STAFF PHYSICIAN] - 05/03/19 4:00 pm [facility], [NON-STAFF] - As Needed Fabien Garcia MD [Primary Care Provider] - 1 Week (office closed at time of discharge. Please call to make appointment) Activity/Diet/Wound Care/Special Instructions: Heart healthy diet, low-salt Activity is limited to till you see your doctor Discharge Disposition: HOME WITH HOME HEALTH SERVICES
--- NOTE | 2019-04-26 09:14 | CDI ---
Documentation Clarification Form Date: 04/26/19 From: Maryjane Arellano Phone: If you have a question about this query, please contact Anitra Anderson Rn Observation at [phone] between 8am and 5pm. Admit Date: 04/12/19 Discharge Date:04/20/19 Patient Name: Parker Nunez Visit Number: [id number] ATTENTION: The Clinical Documentation Specialists (CDI) and [facility] Coding Staff appreciate your assistance in clarifying documentation. Please respond to the clarification below the line at the bottom and electronically sign. The CDI & [facility] Coding staff will review the response and follow-up if needed. Please note: Queries are made part of the Legal Health Record. If you have any questions, please contact the author of this message via ITS. Dear Dr. Adam The following has been documented in your progress notes beginning on 04/[address] Escalante's progress note beginning on 04/14. No clear-cut evidence of any pneumonia is documented in Dr. Escalante's consult note on 04/13 History/Risk Factors: COPD, acute bronchitis, history of pneumonia Clinical Indicators: RLL pneumonia on chest x-ray, fever, dyspnea, Sputum culture: collected on 04/13 grew Pseudomonas aeruginosa WBC: 8.6 on admit, 23.4 on 04/14 Vital signs: T. 100.6, P. 88, R. 20, BP 153/83 Treatment: IV Rocephin, IV Levaquin, IV Zosyn Definition of Present on Admission (POA): A diagnosis present at the time the order for admission to inpatient status was written. For each diagnosis, documentation must be clear to determine if the condition was present at the time of the patients inpatient admission or developed during the hospital stay. Please clarify if Pneumonia was POA: ____Y = Yes, the condition was present at the time of the order for inpatient admission. ____N = No, the condition was not present at the time of the order for inpatient admission. ____W = Clinically undetermined if the condition was present at the time of the order for inpatient admission. not present on admission MTDD
== END 2019-04-20 13:21 | disposition home health service (06) | DRG 190 ==
LOC: EC 12:05 → 3SCARD 14:19 → 4SSUR 04-15 00:06
PROVIDERS: ADMIT Internal Medicine; ATTEND Internal Medicine
DX: J44.1 Chronic obstructive pulmonary disease with (acute) exacerbation (principal); J15.1 Pneumonia due to Pseudomonas; I50.23 Acute on chronic systolic (congestive) heart failure; J96.21 Acute and chronic respiratory failure with hypoxia; E87.1 Hypo-osmolality and hyponatremia; J44.0 Chronic obstructive pulmonary disease with (acute) lower respiratory infection; L89.152 Pressure ulcer of sacral region, stage 2; I27.20 Pulmonary hypertension, unspecified; E11.622 Type 2 diabetes mellitus with other skin ulcer; I11.0 Hypertensive heart disease with heart failure; B36.9 Superficial mycosis, unspecified; E78.5 Hyperlipidemia, unspecified; I25.10 Atherosclerotic heart disease of native coronary artery without angina pectoris; I25.2 Old myocardial infarction; I25.5 Ischemic cardiomyopathy; I49.3 Ventricular premature depolarization; I70.0 Atherosclerosis of aorta; J20.9 Acute bronchitis, unspecified; L98.499 Non-pressure chronic ulcer of skin of other sites with unspecified severity; T38.0X5A Adverse effect of glucocorticoids and synthetic analogues, initial encounter; R01.1 Cardiac murmur, unspecified; R79.89 Other specified abnormal findings of blood chemistry; Z79.51 Long term (current) use of inhaled steroids; Z79.82 Long term (current) use of aspirin; Z79.84 Long term (current) use of oral hypoglycemic drugs; Z79.899 Other long term (current) drug therapy; Z99.81 Dependence on supplemental oxygen; Z87.891 Personal history of nicotine dependence; Z96.652 Presence of left artificial knee joint; Z85.46 Personal history of malignant neoplasm of prostate; Z87.01 Personal history of pneumonia (recurrent); Z86.19 Personal history of other infectious and parasitic diseases; Z92.3 Personal history of irradiation; Z82.5 Family history of asthma and other chronic lower respiratory diseases; Z80.9 Family history of malignant neoplasm, unspecified
CPT/HCPCS: 36415; 71045; 71046; 80048; 80053; 83036; 83605; 83735; 83880; 84145; 84484; 85025; 85610; 85730; 87040; 87070; 87077; 87186; 87205; 87502; 93005; 94640; 94760; 96365; 96372; 96374; 96375; 96376; 99285

== ENCOUNTER → 2019-06-04 | Outpatient (CLI) | payer MEDICARE ==
[2019-06-05 01:31] LABS: African American GFR (CKD) 23.1 (60.0-200.0); Albumin 4.3 g/dL (3.80-4.90); Albumin/Globulin Ratio 2.26 (1.60-3.17); Anion Gap 13.4 mmol/L (4.00-12.00); BUN/Creat Ratio 17.86 Ratio (12.00-20.00); Calcium 9.6 mg/dL (8.7-10.3); Carbon Dioxide 22.6 mmol/L (21.6-31.8); Globulin 1.9 g/dL (1.6-3.3); Magnesium 1.3 mg/dL (1.5-2.4); Potassium 5.7 mmol/L (3.5-5.5); Total Bilirubin 0.7 mg/dL (0.3-1.2); Total Protein 6.2 g/dL (6.2-8.2)
== END | disposition home or self-care (01) ==
LOC: LABWHC1 15:29
PROVIDERS: ATTEND Nurse Practitioner Adult Health
DX: I10 Essential (primary) hypertension (principal); E03.9 Hypothyroidism, unspecified
CPT/HCPCS: 36415; 80053; 83735; 84443; 84481

== ENCOUNTER 2019-06-08 14:02 | Inpatient (IN) | payer MEDICARE ==
[2019-06-08] MEDS ORDERED: SODIUM CHLORIDE 0.9% 1,000 ML IV STA (14:53)
--- NOTE | 2019-06-08 15:24 | ED ---
General Adult HPI - General Chief complaint: Chest Pain Stated complaint: SOB, Kidney Issues-sent by Time Seen by Provider: 06/08/19 14:16 Source: patient Mode of arrival: wheelchair Limitations: no limitations - History of Present Illness Initial comments: Dictation was produced using [employer] dictation software. please excuse any grammatical, word or spelling errors. Chief Complaint: 83-year-old male presents with weakness and vomiting History of Present Illness: Patient is 83-year-old male presents today with chief complaint of weakness and vomiting. Patient states she's been having symptoms for the last couple days. Patient states that since February he was discharged from the hospital and states that he never really recovered to his usual baseline. 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 He was evaluated there and told to come to the emergency department. Patient states he feels generally weak. He has no pain complaints. Later today he had immediate vomiting after trial of oral intake. Denies any fever, chills or night sweats. No abdominal pain. No diarrhea. The ROS documented in this emergency department record has been reviewed and confirmed by me. Those systems with pertinent positive or negative responses have been documented in the HPI. All other systems are other negative and/or no ncontributory. PHYSICAL EXAM: General Impression: Alert and oriented x3, not in acute distress HEENT: Normocephalic atraumatic, extra-ocular movements intact, pupils equal and reactive to light bilaterally, dry mucous membranes Cardiovascular: Heart regular rate and rhythm, S1&S2 audible, no murmurs, rubs or gallops Chest: Lungs clear to auscultation bilaterally, no rhonchi, no wheeze, no rales Abdomen: Bowel sounds present, abdomen soft, non-tender, non-distended, no organomegaly Musculoskeletal: Pulses present and equal in all extremities, no peripheral edema Motor: no focal deficits noted Neurological: CN II-XII grossly intact, no focal motor or sensory deficits noted Skin: Intact with no visualized rashes Psych: Normal affect and mood ED course: 83-year-old male presents with generalized weakness, nausea and vomiting. Upon arrival are within acceptable limits. Considering patient has history of hypertension his blood pressure may be low for him. Laboratory evaluation obtained. Hemoglobin 10.9. Rest of CBC is grossly unremarkable. Cardiac panel unremarkable. Metabolic panel shows a lot of abnormalities. Sodium is 120, potassium 5.5. Positive anion gap acidosis, creatinine 2.27 with a BUN of 49. Lactic acid is 3.0. Magnesium 1.3. Troponin of 0.048 which is around patient's baseline. X-rays unremarkable. Patient given 1 L of normal saline. She'll be admitted for metabolic derangement. Patient's glucose presentation likely multifactorial including poor oral intake, Lasix administration. EKG interpretation: Ventricular rate 75, sinus rhythm,. Interval 142, QRS 180, QTc 462. No NC prolongation, no QTC prolongation, no ST or T-wave changes noted. EKG compared to 2019 showing no changes. Overall, this EKG is unremarkable - Related Data Home Medications Medication Instructions Recorded Confirmed metFORMIN HCL [Glucophage] 500 mg PO BID 03/27/15 04/12/19 HYDROcodone/APAP 5-325MG [[place] 1 tab PO BID 03/13/19 04/12/19 5-325] Aspirin EC [Ecotrin Low Dose] 81 mg PO DAILY 04/12/19 04/12/19 Ipratropium Nebulized [Atrovent 0.5 mg INHALATION RT-QID 04/12/19 04/12/19 Nebulized 0.2 MG/ML] Tamsulosin [Flomax] 0.4 mg PO DAILY 04/12/19 04/12/19 Previous Rx's Medication Instructions Recorded Budesonide-Formot 160-4.5 Mcg 2 puff INHALATION RT-BID #1 inhaler 03/18/19 [Symbicort 160-4.5 Mcg Inhaler] Furosemide [Lasix] 40 mg PO DAILY #30 tab 03/18/19 Lisinopril [Zestril] 5 mg PO DAILY #30 tab 03/18/19 Famotidine [Pepcid] 20 mg PO Q12HR #50 tab 04/19/19 Furosemide [Lasix] 40 mg PO BID@0900,1600 #60 tab 04/19/19 Levofloxacin [Levaquin] 500 mg PO DAILY #7 tab 04/19/19 Metoprolol Tartrate [Lopressor] 25 mg PO BID #60 tab 04/19/19 Nystatin 100,000 Unit/gm Oint 1 applic TOPICAL TID #1 applic 04/19/19 [Mycostatin Oint] Spironolactone [Aldactone] 25 mg PO DAILY #30 tab 04/19/19 amLODIPine [Norvasc] 10 mg PO DAILY #30 tab 04/19/19 predniSONE 0 mg PO DIRECTED #30 tab 04/19/19 Allergies Allergy/AdvReac Type Severity Reaction Status Date / Time No Known Allergies Allergy Verified 06/08/19 14:14 Review of Systems ROS Statement: Those systems with pertinent positive or pertinent negative responses have been documented in the HPI. ROS Other: All systems not noted in ROS Statement are negative. Past Medical History Past Medical History: Coronary Artery Disease (CAD), Cancer, COPD, Diabetes Mellitus, Myocardial Infarction ([place]), Pneumonia Additional Past Medical History / Comment(s): Prostate CA in 1999, treated with seed implants and radiation Last Myocardial Infarction Date:: 1968 History of Any Multi-Drug Resistant Organisms: None Reported Past Surgical History: Orthopedic Surgery Additional Past Surgical History / Comment(s): Knee Surg X3 including a left knee arthroplasty, left Shoulder surgery for rotator cuff, broken ribs on Left s britt, left ankle Past Anesthesia/Blood Transfusion Reactions: No Reported Reaction Past Psychological History: No Psychological Hx Reported Smoking Status: Former smoker Past Alcohol Use History: None Reported Past Drug Use History: None Reported - Past Family History Father Family Medical History: COPD Additional Family Medical History / Comment(s): from Emphysema Brother(s) Family Medical History: Cancer Additional Family Medical History / Comment(s): from upper resp and heart issues General Exam Limitations: no limitations Course Vital Signs 06/08/19 06/08/19 06/08/19 14:11 14:22 14:27 Temperature 98.4 F Pulse Rate 106 H 79 Respiratory 24 18 Rate Blood Pressure 70/47 101/68 O2 Sat by Pulse 98 94 L 99 Oximetry 06/08/19 06/08/19 14:30 15:00 Temperature Pulse Rate 78 75 Respiratory 15 14 Rate Blood Pressure 101/68 101/68 O2 Sat by Pulse 99 99 Oximetry Medical Decision Making - Lab Data Result diagrams: 06/08/19 14:26 06/08/19 14:26 Lab Results 06/08/19 06/08/19 06/08/19 Range/Units 14:26 14:26 14:26 WBC 10.6 (3.8-10.6) k/uL RBC 3.75 L (4.30-5.90) m/uL Hgb 10.9 L (13.0-17.5) gm/dL Hct 32.3 L (39.0-53.0) % MCV 86.1 (80.0-100.0) fL MCH 29.0 (25.0-35.0) pg MCHC 33.7 (31.0-37.0) g/dL RDW 14.8 (11.5-15.5) % Plt Count 411 (150-450) k/uL Neutrophils % 76 % Lymphocytes % 12 % Monocytes % 5 % Eosinophils % 3 % Basophils % 1 % Neutrophils # 8.0 H (1.3-7.7) k/uL Lymphocytes # 1.3 (1.0-4.8) k/uL Monocytes # 0.6 (0-1.0) k/uL Eosinophils # 0.3 (0-0.7) k/uL Basophils # 0.1 (0-0.2) k/uL PT 12.0 (9.0-12.0) sec INR 1.2 H (<1.2) APTT 26.7 (22.0-30.0) sec Sodium 120 L (137-145) mmol/L Potassium 5.5 H (3.5-5.1) mmol/L Chloride 84 L (98-107) mmol/L Carbon Dioxide 20 L (22-30) mmol/L Anion Gap 16 mmol/L BUN 49 H (9-20) mg/dL Creatinine 2.27 H (0.66-1.25) mg/dL Est GFR (CKD-EPI)AfAm 30 (>60 ml/min/1.73 sqM) Est GFR (CKD-EPI)NonAf 26 (>60 ml/min/1.73 sqM) Glucose 119 H (74-99) mg/dL Plasma Lactic Acid Toney (0.7-2.0) mmol/L Calcium 9.5 (8.4-10.2) mg/dL Magnesium 1.3 L (1.6-2.3) mg/dL Total Bilirubin 0.6 (0.2-1.3) mg/dL AST 21 (17-59) U/L ALT 12 (4-49) U/L Alkaline Phosphatase 58 (38-126) U/L Troponin I (0.000-0.034) ng/mL Total Protein 6.7 (6.3-8.2) g/dL Albumin 4.2 (3.5-5.0) g/dL Lipase 194 (23-300) U/L 06/08/19 06/08/19 Range/Units 14:26 14:26 WBC (3.8-10.6) k/uL RBC (4.30-5.90) m/uL Hgb (13.0-17.5) gm/dL Hct (39.0-53.0) % MCV (80.0-100.0) fL MCH (25.0-35.0) pg MCHC (31.0-37.0) g/dL RDW (11.5-15.5) % Plt Count (150-450) k/uL Neutrophils % % Lymphocytes % % Monocytes % % Eosinophils % % Basophils % % Neutrophils # (1.3-7.7) k/uL Lymphocytes # (1.0-4.8) k/uL Monocytes # (0-1.0) k/uL Eosinophils # (0-0.7) k/uL Basophils # (0-0.2) k/uL PT (9.0-12.0) sec INR (<1.2) APTT (22.0-30.0) sec Sodium (137-145) mmol/L Potassium (3.5-5.1) mmol/L Chloride (98-107) mmol/L Carbon Dioxide (22-30) mmol/L Anion Gap mmol/L BUN (9-20) mg/dL Creatinine (0.66-1.25) mg/dL Est GFR (CKD-EPI)AfAm (>60 ml/min/1.73 sqM) Est GFR (CKD-EPI)NonAf (>60 ml/min/1.73 sqM) Glucose (74-99) mg/dL Plasma Lactic Acid Toney 3.0 H* (0.7-2.0) mmol/L Calcium (8.4-10.2) mg/dL Magnesium (1.6-2.3) mg/dL Total Bilirubin (0.2-1.3) mg/dL AST (17-59) U/L ALT (4-49) U/L Alkaline Phosphatase (38-126) U/L Troponin I 0.048 H* (0.000-0.034) ng/mL Total Protein (6.3-8.2) g/dL Albumin (3.5-5.0) g/dL Lipase (23-300) U/L Disposition Clinical Impression: Lactic acidosis Disposition: ADMITTED IP TO THIS HOSP Condition: Fair Referrals: Fabien Garcia MD [Primary Care Provider] - 1-2 days Decision Time: 16:03
[2019-06-08 15:27] LABS: Basophils # (A) 0.1 k/uL (0-0.2); Basophils % (A) 1 %; Eosinophils # (A) 0.3 k/uL (0-0.7); Eosinophils % (A) 3 %; HCT 32.3 % (39.0-53.0); HGB 10.9 gm/dL (13.0-17.5); Lymphocytes # (A) 1.3 k/uL (1.0-4.8); Lymphocytes % (A) 12 %; MCHC 33.7 g/dL (31.0-37.0); MCV 86.1 fL (80.0-100.0); Mean Platelet Volume 7.8; Monocytes # (A) 0.6 k/uL (0-1.0); Monocytes % (A) 5 %; Neutrophils % (A) 76 %; Platelet Count 411 k/uL (150-450); RBC 3.75 m/uL (4.30-5.90); RDW 14.8 % (11.5-15.5); WBC 10.6 k/uL (3.8-10.6)
[2019-06-08 15:30] LABS: Albumin 4.2 g/dL (3.5-5.0); Calcium 9.5 mg/dL (8.4-10.2); Magnesium 1.3 mg/dL (1.6-2.3); Potassium 5.5 mmol/L (3.5-5.1); Total Bilirubin 0.6 mg/dL (0.2-1.3); Total Protein 6.7 g/dL (6.3-8.2)
--- NOTE | 2019-06-08 15:36 | XR ---
EXAMINATION TYPE: XR chest 2V DATE OF EXAM: 06/08/2019 COMPARISON: Prior chest x-ray April 18, 2019. HISTORY: Chest pain. TECHNIQUE: Frontal and lateral views of the chest are obtained. FINDINGS: There is chronic parenchymal change bilaterally without suspicious focal air space opacity , pleural effusion, or pneumothorax seen. The cardiac silhouette size is stable and within normal li mits. Bilateral hilar prominence suggests underlying pulmonary hypertension. The osseous structures remain demineralized. IMPRESSION: Chronic changes without acute pulmonary process on current study.
[2019-06-08 15:38] LABS: INR 1.2 (<1.2); Partial Thromboplastin Time 26.7 sec (22.0-30.0)
[2019-06-08] MEDS ORDERED: NALOXONE 0.4 MG/ML 1 ML VIAL IV PRN (15:57)
[2019-06-08] MEDS ORDERED: ONDANSETRON 4 MG/2 ML VIAL IVP PRN (15:57)
[2019-06-08] MEDS ORDERED: ACETAMINOPHEN TAB 325 MG TAB PO PRN (15:57)
[2019-06-08] MEDS ORDERED: NYSTAT-TRIAMCIN 100,000-0.1 UNIT/GM-% OINT 30 GM TUBE TOPICAL PRN (18:40)
[2019-06-08] MEDS ORDERED: HYDROcodone/APAP 5-325MG 1 EACH TAB PO PRN (18:40)
[2019-06-08] MEDS ORDERED: ALPRAZolam 0.25 MG TAB PO PRN (18:41)
[2019-06-08] MEDS ORDERED: NYSTATIN 100,000 UNIT/GM OINT 30 GM TUBE TOPICAL PRN (18:48)
[2019-06-08] MEDS ORDERED: TRIAMCINOLONE ACET 0.1% OINTMENT 15 GM TUBE TOPICAL PRN (18:48)
[2019-06-08 19:09] LABS: Appearance,Urine Clear (Clear); Bilirubin,Urine Negative (Negative); Blood,Urine Negative (Negative); Color,Urine Light Yellow; Glucose,Urine (UA) Negative (Negative); Ketones,Urine Negative (Negative); Leukocyte Esterase,Urine Negative (Negative); Nitrite,Urine Negative (Negative); Protein,Urine Negative (Negative); Specific Gravity,Urine 1.006 (1.001-1.035); Urobilinogen,Urine <2.0 mg/dL (<2.0)
[2019-06-08] MEDS: SODIUM CHLORIDE 0.9% 1,000 ML IV SCH (19:49)
[2019-06-08] MEDS: INSULIN ASPART (NovoLOG) 100 UNIT/ML VIAL SQ SCH (20:40)
[2019-06-08] MEDS: HEPARIN SODIUM,PORCINE 5,000 UNIT/ML 1 ML VIAL SQ SCH (20:40)
[2019-06-08] MEDS: METOPROLOL SUCCINATE (ER) 25 MG TAB.ER.24H PO SCH (20:42)
[2019-06-08] MEDS: PANTOPRAZOLE 40 MG/10 ML VIAL IVP SCH (20:42)
[2019-06-08] MEDS: IPRATROPIUM 0.5 MG/2.5 ML NEBU INHALATION SCH (20:58)
--- NOTE | 2019-06-08 21:05 | HP ---
HISTORY AND PHYSICAL DATE OF SERVICE: 06/08/2019 CHIEF COMPLAINTS: Weakness, vomiting, nausea, diminished p.o. intake. HISTORY OF PRESENT ILLNESS: This 83-year-old gentleman with a past medical history of multiple medical problems, including CAD, COPD, diabetes mellitus, history of myocardial infarction, pneumonia, history of DJD, being followed by Dr. Garcia in the outpatient setting, was recently admitted with COPD, acute exacerbation, and right lower lobe pneumonia which was Pseudomonas in nature. Patient was treated with antibiotics. Patient improved significantly. Patient went home. Apparently on a follow-up exam the patient was found to have some abnormalities. The patient is complaining of some nausea and vomiting, unable to keep anything down, and has significant weakness and tiredness. In the ER the patient was found to have acute renal failure. The baseline creatinine was normal. Currently it is 2.27. Sodium 120, potassium 5.5. Lactic acid was also elevated at 3, possibly secondary to dehydration. The patient is admitted for further evaluation and treatment. There is no history of any fever, rigor or chills. No history of headache, loss of consciousness, seizures. A chest x-ray was done in the ER which I reviewed personally. It showed chronic changes without an acute abnormality. UA is not available. There is no history of any fever, rigors or chills at this time. PAST MEDICAL HISTORY: 1. History of CAD. 2. History of recent pneumonia. 3. COPD. 4. Diabetes mellitus. 5. Myocardial infarction. 6. History of prostate cancer, seed implants. MEDICATIONS: 1. Glucophage 500 mg at bedtime. 2. 1000 mg p.o. daily. 3. Aldactone 25 mg daily. 4. Omeprazole 20 mg p.o. daily. 5. Nystatin t.i.d. p.r.n. 6. Toprol-XL 25 mg at bedtime. 7. Prinivil 10 mg at bedtime. 8. Atrovent 0.5 q.i.d. 9. [place] 5 mg q.6 p.r.n. 10.Lasix 40 mg p.o. daily. 11.Ecotrin 81 mg p.o. daily. ALLERGIES: NONE. FAMILY HISTORY: History of COPD, emphysema in the family. SOCIAL HISTORY: Previous history of smoking. No history of alcohol intake. REVIEW OF SYSTEMS: ENT: Diminished hearing. Diminished vision. CARDIOVASCULAR SYSTEM: As mentioned earlier. RESPIRATORY SYSTEM: As mentioned earlier. GI: As mentioned earlier. : As mentioned earlier. NERVOUS SYSTEM: No numbness, weakness. ALLERGY/IMMUNOLOGY: No asthma, hayfever. MUSCULOSKELETAL: As mentioned earlier. HEMATOLOGY/ONCOLOGY: No history of anemia. ENDOCRINE: Diabetes mellitus. CONSTITUTIONAL: As mentioned earlier. DERMATOLOGY: Negative. RHEUMATOLOGY: Negative. PSYCHIATRY: As mentioned earlier. PHYSICAL EXAMINATION: Patient is alert and oriented x3. Pulse is 73, blood pressure 127/72, respirations 16, temperature normal, pulse ox 99% on room air. HEENT: Oral mucosa is dry. NECK: No jugular venous distention. No carotid bruit. No lymph node enlargement. CARDIOVASCULAR SYSTEM: S1, S2 muffled. No S3. No S4. RESPIRATORY SYSTEM: Breath sounds diminished at the bases. A few scattered rhonchi. No crackles. ABDOMEN: Soft, obese, non-tender. No mass palpable. LEGS: No edema. No swelling. NERVOUS SYSTEM: Higher functions as mentioned earlier. Moves all 4 limbs. No focal motor or sensory deficit. LYMPHATICS: No lymph node palpable in neck, axillae or groin. SKIN: No ulcer, rash, bleeding. JOINTS: No active deforming arthropathy. LABS: WBC 10.6, hemoglobin 10.9, and INR 1.2. Sodium 122, potassium 5.5. Creatinine is 2.27. Plasma lactic acid 3. Glucose is 119. ASSESSMENT: 1. Acute renal failure, possibly acute tubular necrosis secondary to prerenal factors, multifactorial, medication-induced. 2. Hyponatremia. 3. History of congestive heart failure with chronic systolic dysfunction, ejection fraction 30% to 35%. 4. Hyperkalemia secondary to renal failure. 5. Elevated lactic acid, possibly secondary to dehydration. 6. Troponin 0.048. Rule out acute coronary syndrome with chest pain. 7. Anemia, normocytic; anemia of chronic disease. 8. History of recent chronic obstructive pulmonary disease exacerbation as well as Pseudomonas pneumonia, right. 9. History of coronary artery disease. 10.History of diabetes mellitus, type 2. 11.History of myocardial infarction. 12.History of prostate cancer in 1999 with seed implants and radiation. 13.History of degenerative joint disease. 14.Remote history of nicotine dependence. 15.Orthodox. RECOMMENDATIONS AND DISCUSSION: In this 83-year-old gentleman who presented with multiple complex medical issues, at this time I recommend to continue the current medications. I will stop the diuretics as well as Aldactone and metformin. Cautious IV hydration. Monitor closely. Bronchodilators. I would recommend consultation with Nephrology as well as Dr. Garcia. Cardiology also will be consulted because of the abnormal troponins. A 2D echo with Doppler was done in February 2019 which showed ejection fraction about 30% to 35%. Will continue to monitor. As mentioned earlier, I would recommend cardiology consultation as well as morning chest x-ray. Pulmonary also will be consulted with Dr. Garcia. Prognosis guarded because of multiple complex medical conditions. Further recommendations to follow. A copy of this dictation is being forwarded to Dr. Garcia, who is the primary physician. [id number] / IJN: [id number] /
[2019-06-08 21:13] LABS: Glucose,Whole Blood 93 mg/dL (75-99)
[2019-06-09] MEDS: SODIUM CHLORIDE 0.9% 1,000 ML IV SCH ×2 (02:53→17:12)
[2019-06-09 06:11] LABS: Glucose,Whole Blood 105 mg/dL (75-99)
[2019-06-09] MEDS: INSULIN ASPART (NovoLOG) 100 UNIT/ML VIAL SQ SCH ×4 (06:22→18:25)
[2019-06-09 06:36] LABS: Basophils % (A) 0 %; Eosinophils # (A) 0.2 k/uL (0-0.7); Eosinophils % (A) 3 %; HCT 28.4 % (39.0-53.0); HGB 9.6 gm/dL (13.0-17.5); Lymphocytes # (A) 0.6 k/uL (1.0-4.8); Lymphocytes % (A) 8 %; MCH 29.3 pg (25.0-35.0); MCHC 33.7 g/dL (31.0-37.0); MCV 86.8 fL (80.0-100.0); Mean Platelet Volume 7.9; Monocytes # (A) 0.5 k/uL (0-1.0); Monocytes % (A) 6 %; Neutrophils # (A) 6.3 k/uL (1.3-7.7); Neutrophils % (A) 79 %; Platelet Count 287 k/uL (150-450); RBC 3.27 m/uL (4.30-5.90); RDW 14.7 % (11.5-15.5); WBC 7.9 k/uL (3.8-10.6)
[2019-06-09 06:43] LABS: Calcium 9.1 mg/dL (8.4-10.2); Magnesium 1.4 mg/dL (1.6-2.3); Potassium 5.3 mmol/L (3.5-5.1)
--- NOTE | 2019-06-09 08:29 | XR ---
EXAMINATION TYPE: XR chest 1V portable DATE OF EXAM: 06/09/2019 COMPARISON: 06/08/2019 HISTORY: Congestive heart failure TECHNIQUE: Single frontal view of the chest is obtained. FINDINGS: New linear left basilar subsegmental atelectasis is present. There is pulmonary hyperinfla tion suggesting underlying COPD. High riding right humerus is indicative of chronic rotator cuff path ology. Mild diffuse osseous demineralization throughout. No sizable pleural effusion or pneumothorax. IMPRESSION: New left basilar subsegmental atelectasis and findings suggesting underlying COPD.
[2019-06-09] MEDS ORDERED: NON FORMULARY DRUG (Omeprazole [Omeprazole] 20 MG) PO SCH (09:00)
[2019-06-09] MEDS: HEPARIN SODIUM,PORCINE 5,000 UNIT/ML 1 ML VIAL SQ SCH ×3 (09:05→21:49)
[2019-06-09] MEDS: PANTOPRAZOLE 40 MG/10 ML VIAL IVP SCH ×2 (09:05→21:49)
[2019-06-09] MEDS: ASPIRIN 81 MG PO SCH (09:05)
[2019-06-09] MEDS: IPRATROPIUM 0.5 MG/2.5 ML NEBU INHALATION SCH ×4 (09:19→20:39)
--- NOTE | 2019-06-09 10:20 | P.CRDCN ---
History of Present Illness Consult date: 06/09/19 Requesting physician: Kristyn Cote Reason for Consult (text): Abnormal troponin Chief complaint: Weakness, weight loss History of present illness: This is a pleasant 83-year-old gentleman who follows with Dr. Saxena in the office, he actually saw Dr. Saxena in the office yesterday. He has a past medical history of end-stage COPD, diabetes, coronary artery disease with prior myocardial infarction, hyperlipidemia, obesity, ischemic cardio myopathy. The patient states that over the past 3-4 weeks he has just not felt well, he's extremely weak, he's had no appetite, and he has lost approximately 40 pounds in weight over the past 2 months. He did have an office visit prior to the one he had yesterday with Dr. Saxena, several medications were placed on hold because the patient hadn't been feeling well. The diuretics and metoprolol were resumed at that time. Since his prior office visit the patient has become more and more weak, short of breath. For this reason lab work was obtained and an echo was repeated, his lab work showed significantly worsening kidney disease as well as hyponatremia and hyperkalemia. Because of the progressively worsening symptoms in the worsening in his lab tests patient was advised to come to the emergency room for admission. Nephrology consultation was requested. Chest x-ray showed chronic changes without acute pulmonary process. EKG showed normal sinus rhythm with occasional PVC, incomplete right bundle branch block pattern. Blood p ressure 127/70, heart rate in the 90s, 95% on 4 L of oxygen. Laboratory data from yesterday, white blood cell count 10.6, hemoglobin 10.9, platelet count 411. Sodium 120, potassium 5.5, BUN 49, creatinine 2.2. Magnesium level I.3, troponin 0.048, BNP 1470. This morning's labs, white blood cell count 7.9, hemoglobin 9.6, platelet count 287. Sodium 125, potassium 5.3, BUN 43, creatinine 1.8. Troponin 0.058. Past Medical History Past Medical History: Coronary Artery Disease (CAD), Cancer, COPD, Diabetes Mellitus, Myocardial Infarction ([place]), Pneumonia Additional Past Medical History / Comment(s): Prostate CA in 1999, treated with seed implants and radiation Last Myocardial Infarction Date:: 1968 History of Any Multi-Drug Resistant Organisms: None Reported Past Surgical History: Orthopedic Surgery Additional Past Surgical History / Comment(s): Knee Surg X3 including a left knee arthroplasty, left Shoulder surgery for rotator cuff, broken ribs on Left side, left ankle Past Anesthesia/Blood Transfusion Reactions: No Reported Reaction Additional Past Anesthesia/Blood Transfusion Reaction / Comment(s): no blood products. Past Psychological History: No Psychological Hx Reported Additional Psychological History / Comment(s): , lives with his . 5 adult children. 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 Anabaptist. was in [place] . No international travel since . No animals in the home Smoking Status: Former smoker Past Alcohol Use History: None Reported Past Drug Use History: None Reported Additional Drug Use History / Comment(s): Quit smoking 30 years ago. Over 40 yea rs for drinking - Past Family History Father Family Medical History: COPD Additional Family Medical History / Comment(s): from Emphysema Brother(s) Family Medical History: Cancer Additional Family Medical History / Comment(s): from upper resp and heart issues Medications and Allergies Home Medications Medication Instructions Recorded Confirmed Type metFORMIN HCL [Glucophage] 1,000 mg PO DAILY 03/27/15 06/08/19 History HYDROcodone/APAP 5-325MG [[place] 1 tab PO Q6H PRN 03/13/19 06/08/19 History 5-325] Furosemide [Lasix] 40 mg PO DAILY #30 tab 03/18/19 06/08/19 Rx Aspirin EC [Ecotrin Low Dose] 81 mg PO DAILY 04/12/19 06/08/19 History Ipratropium Nebulized [Atrovent 0.5 mg INHALATION RT-QID 04/12/19 06/08/19 History Nebulized 0.2 MG/ML] Spironolactone [Aldactone] 25 mg PO DAILY #30 tab 04/19/19 06/08/19 Rx Lisinopril [Prinivil] 10 mg PO HS 06/08/19 06/08/19 History Metoprolol Succinate (ER) [Toprol 25 mg PO HS 06/08/19 06/08/19 History Xl] Nystatin-Triamcinolone Oint 1 applic TOPICAL TID PRN 06/08/19 06/08/19 History [Mycolog 100,000-0.1 Unit/gm-% Oint] Omeprazole 20 mg PO DAILY 06/08/19 06/08/19 History metFORMIN HCL [Glucophage] 500 mg PO HS 06/08/19 06/08/19 History Allergies Allergy/AdvReac Type Severity Reaction Status Date / Time No Known Allergies Allergy Verified 06/08/19 16:47 Physical Exam Vitals: Vital Signs Temp Pulse Pulse Resp BP BP Pulse Ox 06/09/19 03:00 91 19 06/09/19 02:59 98.0 F 91 19 127/73 95 06/08/19 23:25 77 18 06/08/19 23:11 97.9 F 77 18 112/76 96 06/08/19 21:07 91 16 06/08/19 20:59 89 16 96 06/08/19 20:50 88 19 06/08/19 20:38 97.8 F 88 19 134/84 97 06/08/19 20:22 97.8 F 88 19 134/84 97 06/08/19 20:00 24 06/08/19 19:00 98.1 F 75 20 108/70 99 06/08/19 18:41 73 16 127/72 99 06/08/19 17:30 72 16 115/37 100 06/08/19 17:00 70 15 109/66 98 06/08/19 16:30 70 16 105/66 100 06/08/19 16:00 75 15 96/56 99 06/08/19 15:00 75 14 101/68 99 06/08/19 14:30 78 15 101/68 99 06/08/19 14:27 79 18 101/68 99 06/08/19 14:22 94 L 06/08/19 14:11 98.4 F 106 H 24 70/47 98 Intake and Output 06/08/19 06/09/19 06/09/19 22:59 06:59 14:59 Intake Total 75 240 Output Total 600 Balance 75 -600 240 Intake: Intake, IV Titration 75 Amount Sodium Chloride 0.9% 1, 75 000 ml @ 75 mls/hr IV . [id number] [facility] Rx#:[id number] Oral 240 Output: Urine 600 Other: Voiding Method Urinal Urinal # Voids 1 Weight 93.6 kg 88.4 kg PHYSICAL EXAMINATION: GENERAL: 83-year-old gentleman in no acute distress at the time of my examination HEENT: Head is atraumatic, normocephalic. Pupils equal, round. Sclera anicteric. Conjunctiva are clear. Mucous membranes of the mouth are moist. Neck is supple. There is no elevated jugular venous pressure. No carotid bruit is heard. HEART EXAMINATION: Heart S1, S2 normal. No murmur or gallop heard. CHEST EXAMINATION: Lungs reveal some scattered coarse wheezing throughout ABDOMEN: Soft, nontender. Bowel sounds are heard. No organomegaly noted. EXTREMITIES: 2+ peripheral pulses with no evidence of peripheral edema and no calf tenderness noted. NEUROLOGIC patient is awake, alert and oriented 3 . . Results 06/09/19 05:53 06/09/19 05:53 Cardiac Enzymes 06/08/19 06/08/19 06/09/19 Range/Units 14:26 14:26 05:53 AST 21 (17-59) U/L Troponin I 0.048 H* 0.058 H* (0.000-0.034) ng/mL Coagulation 06/08/19 Range/Units 14:26 PT 12.0 (9.0-12.0) sec APTT 26.7 (22.0-30.0) sec CBC 06/08/19 06/09/19 Range/Units 14:26 05:53 WBC 10.6 7.9 (3.8-10.6) k/uL RBC 3.75 L 3.27 L (4.30-5.90) m/uL Hgb 10.9 L 9.6 L (13.0-17.5) gm/dL Hct 32.3 L 28.4 L (39.0-53.0) % Plt Count 411 287 (150-450) k/uL Comprehensive Metabolic Panel 06/08/19 06/09/19 Range/Units 14:26 05:53 Sodium 120 L 125 L (137-145) mmol/L Potassium 5.5 H 5.3 H (3.5-5.1) mmol/L Chloride 84 L 94 L (98-107) mmol/L Carbon Dioxide 20 L 21 L (22-30) mmol/L BUN 49 H 43 H (9-20) mg/dL Creatinine 2.27 H 1.82 H (0.66-1.25) mg/dL Glucose 119 H 101 H (74-99) mg/dL Calcium 9.5 9.1 (8.4-10.2) mg/dL AST 21 (17-59) U/L ALT 12 (4-49) U/L Alkaline Phosphatase 58 (38-126) U/L Total Protein 6.7 (6.3-8.2) g/dL Albumin 4.2 (3.5-5.0) g/dL Current Medications Generic Name Dose Route Start Last Admin Trade Name Freq PRN Reason Stop Dose Admin Acetaminophen 650 mg 06/08/19 15:57 Tylenol Tab PO Q6HR PRN Mild Pain or Fever > 100.5 Hydrocodone Bitart/Acetaminophen 1 each 06/08/19 18:40 [place] 5-325 PO Q6H PRN Pain Alprazolam 0.25 mg 06/08/19 18:41 Xanax PO TID PRN Anxiety Aspirin 81 mg 06/09/19 09:00 06/09/19 09:05 Aspirin PO 81 mg DAILY [facility] Administration Heparin Sodium (Porcine) 5,000 unit 06/08/19 21:00 06/09/19 09:09 Heparin SQ Not Given Q12HR [facility] Sodium Chloride 1,000 mls @ 75 mls/hr 06/08/19 16:00 06/09/19 02:53 Saline 0.9% IV Not Given .[id number] [facility] Insulin Aspart 0 unit 06/08/19 21:00 06/09/19 06:22 Novolog SQ Not Given ACHS [facility] Protocol Ipratropium [place] 0.5 mg 06/08/19 20:00 06/09/19 09:19 Atrovent Nebulized INHALATION Not Given RT-QID [facility] Metoprolol Succinate 25 mg 06/08/19 21:00 06/08/19 20:42 Toprol Xl PO 25 mg HS [facility] Administration Naloxone HCl 0.2 mg 06/08/19 15:57 Narcan IV Q2M PRN Opioid Reversal Nystatin 1 applic 06/08/19 18:48 Mycostatin Oint TOPICAL TID PRN rash Ondansetron HCl 4 mg 06/08/19 15:57 Zofran IVP Q8HR PRN Nausea And Vomiting Pantoprazole Sodium 40 mg 06/08/19 21:00 06/09/19 09:05 Protonix IVP 40 mg BID [facility] Administration Triamcinolone Acetonide 1 applic 06/08/19 18:48 Kenalog TOPICAL TID PRN Rash Intake and Output 06/08/19 06/09/19 06/09/19 22:59 06:59 14:59 Intake Total 75 240 Output Total 600 Balance 75 -600 240 Intake: Intake, IV Titration 75 Amount Sodium Chloride 0.9% 1, 75 000 ml @ 75 mls/hr IV . [id number] [facility] Rx#:[id number] Oral 240 Output: Urine 600 Other: Voiding Method Urinal Urinal # Voids 1 Weight 93.6 kg 88.4 kg 06/09/19 05:53 06/09/19 05:53 EKG Interpretations (text) EKG shows a normal sinus rhythm with occasional PVC, incomplete right bundle branch block pattern Assessment and Plan Plan: Assessment and plan #1 symptoms of progressive weakness with associated weight loss #2 acute renal failure #3 hyponatremia #4 hyperkalemia #5 abnormal troponin, could be secondary to abnormal renal function #6 anemia #7 COPD #8 history of prior myocardial infarction #9 ischemic cardiomyopathy with documented ejection fraction of 30-35% #10 diabetes #11 hyperlipidemia Plan We will obtain the echo that was recently done in the office. Continue to hold the patient's diuretics. Continue aspirin and beta bonnie and add a small dose of statin. Troponin abnormality not suggestive of acute coronary syndrome. Further recommendations to follow. DNP note has been reviewed, I agree with a documented findings and plan of care. Patient was seen and examined.
[2019-06-09 12:18] LABS: Glucose,Whole Blood 122 mg/dL (75-99)
[2019-06-09] MEDS ORDERED: Magnesium Replacement Protocol 1 EACH MISC MISCELLANE PRN (12:19)
--- NOTE | 2019-06-09 13:09 | P.CNPUL ---
History of Present Illness Consult date: 06/09/19 Chief complaint: nausea/vomiting History of present illness: 83-year-old male patient is with severe COPD oxygen dependent at 4 L per minute nasal cannula maintained on a combination of Advair and Spiriva on outpatient basis. The patient is also known to have diabetes mellitus, coronary artery disease, and hyperlipidemia and previous history of CHF. The patient came into the ED yesterday not feeling well, feeling dehydrated and weak with no appetite. He reports that he had lost weight. He reports that he was nauseated and he was having frequent emesis. He reports his groin increased 3-4 times and he was subsequently having dry heaves and he was unable to keep anything can. He was also taking diuretics at home. He came into the emergency department. He was afebrile. He was hemodynamically stable. His initial sodium level was 120 with the Pyote 49 and a creatinine of 2.2. He had a proBNP level of 1470. Troponin was at 0.048. That hemoglobin was at 9.6 with a white cell count of 7.9. His lactic acid elevated at 3. The patient received IV fluids. Subsequent lactic acid level normalized. Sodium level is up 125 as the patient is receiving normal saline at the rate of 75 mL an hour. He is already feeling better. No chest pain. No cough sputum production chest that is so wheezing. His chest x- ray showed no evidence of any acute pneumonia. He did have some limited chest discomfort for which cardiology was consulted. His EKG showed a normal sinus rhythm. He had an incomplete right bundle-branch block pattern. No major swelling in lower extremities. Urine Analysis was negative for any acute infection. Review of Systems Constitutional: Reports fatigue, Reports weakness, Reports weight loss Eyes: denies as per HPI, denies blurred vision, denies bulging eye, denies decreased vision, denies diplopia, denies discharge, denies dry eye, denies irritation, denies itching, denies pain, denies photophobia, denies loss of peripheral vision, denies loss of vision, denies tunnel vision/blind spots Ears: deny: decreased hearing, ear discharge, earache, tinnitus Ears, nose, mouth and throat: Denies headache, Denies sore throat Breasts: absent: as per HPI, gynecomastia Cardiovascular: Reports decreased exercise tolerance Respiratory: Reports dyspnea Gastrointestinal: Reports loss of appetite, Reports nausea, Reports vomiting Genitourinary: Reports as per HPI Musculoskeletal: Reports as per HPI Musculoskeletal: absent: ankle pain, ankle stiffness, ankle swelling Integumentary: Reports as per HPI Neurological: Reports as per HPI Psychiatric: Reports as per HPI Endocrine: Reports as per HPI, Reports fatigue Hematologic/Lymphatic: Reports as per HPI Allergic/Immunologic: Reports as per HPI Past Medical History Past Medical History: Coronary Artery Disease (CAD), Cancer, COPD, Diabetes Mellitus, Hyperlipidemia, Hypertension, Myocardial Infarction ([place]) Additional Past Medical History / Comment(s): Prostate CA in 1999, treated with seed implants and radiation Last Myocardial Infarction Date:: 1968 History of Any Multi-Drug Resistant Organisms: None Reported Past Surgical History: Orthopedic Surgery Additional Past Surgical History / Comment(s): Knee Surg X3 including a left knee arthroplasty, left Shoulder surgery for rotator cuff, broken ribs on Left side, left ankle Past Anesthesia/Blood Transfusion Reactions: No Reported Reaction Additional Past Anesthesia/Blood Transfusion Reaction / Comment(s): no blood products. Past Psychological History: No Psychological Hx Reported Additional Psychological History / Comment(s): , lives with his . 5 adult children. 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 Anabaptism. was in [employer] . No international travel since . No animals in the home Smoking Status: Former smoker Past Alcohol Use History: None Reported Past Drug Use History: None Reported Additional Drug Use History / Comment(s): Quit smoking 30 years ago. Over 40 years for drinking - Past Family History Father Family Medical History: COPD Additional Family Medical History / Comment(s): from Emphysema Brother(s) Family Medical History: Cancer Additional Family Medical History / Comment(s): from upper resp and heart issues Medications and Allergies Home Medications Medication Instructions Recorded Confirmed Type metFORMIN HCL [Glucophage] 1,000 mg PO DAILY 03/27/15 06/08/19 History HYDROcodone/APAP 5-325MG [[place] 1 tab PO Q6H PRN 03/13/19 06/08/19 History 5-325] Furosemide [Lasix] 40 mg PO DAILY #30 tab 03/18/19 06/08/19 Rx Aspirin EC [Ecotrin Low Dose] 81 mg PO DAILY 04/12/19 06/08/19 History Ipratropium Nebulized [Atrovent 0.5 mg INHALATION RT-QID 04/12/19 06/08/19 History Nebulized 0.2 MG/ML] Spironolactone [Aldactone] 25 mg PO DAILY #30 tab 04/19/19 06/08/19 Rx Lisinopril [Prinivil] 10 mg PO HS 06/08/19 06/08/19 History Metoprolol Succinate (ER) [Toprol 25 mg PO HS 06/08/19 06/08/19 History Xl] Nystatin-Triamcinolone Oint 1 applic TOPICAL TID PRN 06/08/19 06/08/19 History [Mycolog 100,000-0.1 Unit/gm-% Oint] Omeprazole 20 mg PO DAILY 06/08/19 06/08/19 History metFORMIN HCL [Glucophage] 500 mg PO HS 06/08/19 06/08/19 History Allergies Allergy/AdvReac Type Severity Reaction Status Date / Time No Known Allergies Allergy Verified 06/08/19 16:47 Physical Exam Vitals: Vital Signs Temp Pulse Pulse Resp BP BP BP 06/09/19 12:00 88 06/09/19 11:48 88 06/09/19 08:00 98.1 F 90 18 133/72 06/09/19 03:00 91 19 06/09/19 02:59 98.0 F 91 19 127/73 06/08/19 23:25 77 18 06/08/19 23:11 97.9 F 77 18 112/76 06/08/19 21:07 91 16 06/08/19 20:59 89 16 06/08/19 20:50 88 19 06/08/19 20:38 97.8 F 88 19 134/84 06/08/19 20:22 97.8 F 88 19 134/84 06/08/19 20:00 24 06/08/19 19:00 98.1 F 75 20 108/70 06/08/19 18:41 73 16 127/72 06/08/19 17:30 72 16 115/37 06/08/19 17:00 70 15 109/66 06/08/19 16:30 70 16 105/66 06/08/19 16:00 75 15 96/56 06/08/19 15:00 75 14 101/68 06/08/19 14:30 78 15 101/68 06/08/19 14:27 79 18 101/68 06/08/19 14:22 06/08/19 14:11 98.4 F 106 H 24 70/47 Pulse Ox 06/09/19 12:00 06/09/19 11:48 06/09/19 08:00 97 06/09/19 03:00 06/09/19 02:59 95 06/08/19 23:25 06/08/19 23:11 96 06/08/19 21:07 06/08/19 20:59 96 06/08/19 20:50 06/08/19 20:38 97 06/08/19 20:22 97 06/08/19 20:00 06/08/19 19:00 99 06/08/19 18:41 99 06/08/19 17:30 100 06/08/19 17:00 98 06/08/19 16:30 100 06/08/19 16:00 99 06/08/19 15:00 99 06/08/19 14:30 99 06/08/19 14:27 99 06/08/19 14:22 94 L 06/08/19 14:11 98 Intake and Output 06/08/19 06/09/19 06/09/19 22:59 06:59 14:59 Intake Total 75 240 Output Total 600 Balance 75 -600 240 Intake: Intake, IV Titration 75 Amount Sodium Chloride 0.9% 1, 75 000 ml @ 75 mls/hr IV . [id number] [facility] Rx#:[id number] Oral 240 Output: Urine 600 Other: Voiding Method Urinal Urinal Urinal # Voids 1 Weight 93.6 kg 88.4 kg 88.4 kg The patient appeared well nourished and normally developed. Vital signs as documented. Head exam is unremarkable. No scleral icterus or corneal arcus noted. Neck is without jugular venous distension, thyromegaly, or carotid bruits. Carotid upstrokes are brisk bilaterally. Lungs diminished breath sounds bilaterally with some few scattered external wheeze Cardiac exam reveals the PMI to be normally sized and situated. Rhythm is regular. First and second heart sounds normal. No murmurs, rubs or gallops. Abdominal exam reveals normal bowel sounds, no masses, no organomegaly and no aortic enlargement. Extremities are nonedematous and both femoral and pedal pulses are normal.Examination of the skin revealed no evidence of significant rashes, suspicious appearing nevi or other concerning lesions. Neurologically awake and alert and there is no focal neurology deficits. Results - Laboratory Findings CBC and BMP: 06/09/19 05:53 06/09/19 05:53 PT/INR, D-dimer PT 12.0 sec (9.0-12.0) 06/08/19 14:26 INR 1.2 (<1.2) H 06/08/19 14:26 Abnormal lab findings: Abnormal Labs 06/08/19 06/08/19 06/08/19 14:26 14:26 14:26 RBC 3.75 L Hgb 10.9 L Hct 32.3 L Neutrophils # 8.0 H Lymphocytes # INR 1.2 H Sodium 120 L Potassium 5.5 H Chloride 84 L Carbon Dioxide 20 L BUN 49 H Creatinine 2.27 H Glucose 119 H POC Glucose (mg/dL) Plasma Lactic Acid Toney Magnesium 1.3 L Troponin I 06/08/19 06/08/19 06/09/19 14:26 14:26 05:53 RBC 3.27 L Hgb 9.6 L Hct 28.4 L Neutrophils # Lymphocytes # 0.6 L INR Sodium Potassium Chloride Carbon Dioxide BUN Creatinine Glucose POC Glucose (mg/dL) Plasma Lactic Acid Toney 3.0 H* Magnesium Troponin I 0.048 H* 06/09/19 06/09/19 06/09/19 05:53 05:53 06:03 RBC Hgb Hct Neutrophils # Lymphocytes # INR Sodium 125 L Potassium 5.3 H Chloride 94 L Carbon Dioxide 21 L BUN 43 H Creatinine 1.82 H Glucose 101 H POC Glucose (mg/dL) 105 H Plasma Lactic Acid Toney Magnesium 1.4 L Troponin I 0.058 H* 06/09/19 12:16 RBC Hgb Hct Neutrophils # Lymphocytes # INR Sodium Potassium Chloride Carbon Dioxide BUN Creatinine Glucose POC Glucose (mg/dL) 122 H Plasma Lactic Acid Toney Magnesium Troponin I - Diagnostic Findings Chest x-ray: image reviewed Assessment and Plan Plan: 1 nausea and emesis with secondary dehydration, improved with fluid resuscitation 2 mild lactic acidosis, recovered 3 acute kidney injury, improving 4 dehydration, improving 5 hyponatremia secondary to above, improving 6 severe COPD with chronic hypoxic respiratory failure on oxygen at 4 L per minute nasal cannula 7 coronary artery disease with some limited troponin leak without any acute EKG changes. There is incomplete RBBB pattern 8 history of CHF 9 history of prostate cancer 10 hypertension 11 hyperlipidemia Plan Continue IV fluids, sodium level is improving, renal function is improving, patient is feeling better and he is able to tolerate his diet. Amylase and lipase and liver functions is overall within normal limits. Lactic acid levels are improving. He was able to tolerate his diet today and he ate a full meal. We'll continue to follow. His COPD is currently inactive and stable. Cardiology to comment on the troponin leak.
[2019-06-09] MEDS: MAGNESIUM SULFATE-D5W PMX 1 GM in DEXTROSE/WATER 1 100ML.BAG IVPB SCH ×3 (14:17→18:23)
--- NOTE | 2019-06-09 16:27 | P.PN ---
Subjective Progress Note Date: 06/09/19 Principal diagnosis: This is an 83-year-old male who was recently admitted with nausea and vomiting along with significant weakness and fatigue and is being closely monitored. Patient was recently evaluated in admitted for COPD acute exacerbation with right lower lobe pneumonia which was Pseudomonas in nature. During this admission patient was also found to have acute renal failure with hyponatremia and elevated lactic acid possibly secondary to dehydration. Currently no re ports of chest pain, worsening shortness of breath, or palpitations. And is afebrile. No reports of nausea or vomiting and patient is tolerating diet. Patient follows with Dr. Garcia in the outpatient setting. Cardiology and pulmonary are following. Patient's sodium continues to be low at 125 and is maintained on normal saline at 75 ML per hour. Creatinine is elevated at 1.82 although slightly improved from yesterday. Today's 5.3. Will repeat a.m. labs. Objective - Vital Signs Vital signs: Vital Signs Temp 98.0 F 06/09/19 12:00 Pulse 80 06/09/19 15:49 Resp 18 06/09/19 12:00 BP 97/54 06/09/19 12:00 Pulse Ox 98 06/09/19 12:00 Intake & Output 06/08/19 06/09/19 06/09/19 18:59 06:59 18:59 Intake Total 75 540 Output Total 600 900 Balance -525 -360 Weight 93.894 kg 88.4 kg 88.4 kg Intake: Intake, IV Titration 75 Amount Sodium Chloride 0.9% 1, 75 000 ml @ 75 mls/hr IV . [id number] [facility] Rx#:[id number] Oral 540 Output: Urine 600 900 Other: Voiding Method Urinal Urinal # Voids 1 - Exam Gen: This is a 83-year-old male sitting up in bed awake, well-developed, well-nourished. Temp is 98F, pulse is 76, respirations are 18, blood pressure is 97/54, oxygen saturation is 98% on 4 L via nasal cannula. HEENT: Head is atraumatic, normocephalic. Pupils equal, round. Sclerae is anicteric. NECK: Supple. No JVD. No lymphadenopathy. No thyromegaly. LUNGS: Breath sounds diminished with some rhonchi and scattered crackles noted. No intercostal retractions. HEART: S1, S2 are muffled. ABDOMEN: Soft. Bowel sounds are present. No masses. No tenderness. EXTREMITIES: No pedal edema. No calf tenderness. NEUROLOGICAL: Patient is awake, alert and oriented x3. Cranial nerves 2 through 12 are grossly intact. - Labs CBC & Chem 7: 06/09/19 05:53 06/09/19 05:53 Labs: Abnormal Lab Results - Last 24 Hours (Table) 06/09/19 06/09/19 06/09/19 Range/Units 05:53 05:53 05:53 RBC 3.27 L (4.30-5.90) m/uL Hgb 9.6 L (13.0-17.5) gm/dL Hct 28.4 L (39.0-53.0) % Lymphocytes # 0.6 L (1.0-4.8) k/uL Sodium 125 L (137-145) mmol/L Potassium 5.3 H (3.5-5.1) mmol/L Chloride 94 L (98-107) mmol/L Carbon Dioxide 21 L (22-30) mmol/L BUN 43 H (9-20) mg/dL Creatinine 1.82 H (0.66-1.25) mg/dL Glucose 101 H (74-99) mg/dL POC Glucose (mg/dL) (75-99) mg/dL Hemoglobin A1c 7.0 H (4.0-6.0) % Magnesium 1.4 L (1.6-2.3) mg/dL Troponin I (0.000-0.034) ng/mL 06/09/19 06/09/19 06/09/19 Range/Units 05:53 06:03 12:16 RBC (4.30-5.90) m/uL Hgb (13.0-17.5) gm/dL Hct (39.0-53.0) % Lymphocytes # (1.0-4.8) k/uL Sodium (137-145) mmol/L Potassium (3.5-5.1) mmol/L Chloride (98-107) mmol/L Carbon Dioxide (22-30) mmol/L BUN (9-20) mg/dL Creatinine (0.66-1.25) mg/dL Glucose (74-99) mg/dL POC Glucose (mg/dL) 105 H 122 H (75-99) mg/dL Hemoglobin A1c (4.0-6.0) % Magnesium (1.6-2.3) mg/dL Troponin I 0.058 H* (0.000-0.034) ng/mL Assessment and Plan Assessment: Acute renal failure, possibly acute tubular necrosis secondary to prerenal factors, multifactorial, medication induced Hyponatremia Hypomagnesemia history of congestive heart failure with chronic systolic dysfunction, ejection fraction 30-35% Hyperkalemia secondary to renal failure elevated lactic acid, possibly secondary to dehydration Troponin 0.048. Rule out acute coronary syndrome with chest pain Anemia, normocytic: Anemia of chronic disease history of recent chronic obstructive pulmonary disease exacerbation as well as Pseudomonas pneumonia, right History of coronary artery disease History of diabetes mellitus type 2 history of myocardial infarction history of prostate cancer in 1999 with seed implants and radiation History of degenerative joint disease Remote history of nicotine dependence [employer]onden[employer] Recommendations and discussion: Recommend continue current management, medications, and symptomatic treatment. Cardiology and pulmonary following. Will continue with IV hydration and monitor labs and vital signs closely. Patient's appetite has slightly improved and able to tolerate meals today. Sodium slightly improved today. Due to complex medical issues prognosis is guarded. Repeat chest x-ray today shows pulmonary hyperinflation suggesting COPD. Patient's magnesium today was 1.4 and will be replaced. Patient to continue with bronchodilators Further recommendations to aime merida.
[2019-06-09 16:37] LABS: Glucose,Whole Blood 186 mg/dL (75-99)
[2019-06-09 20:48] LABS: Glucose,Whole Blood 122 mg/dL (75-99)
[2019-06-09] MEDS: METOPROLOL SUCCINATE (ER) 25 MG TAB.ER.24H PO SCH (21:48)
[2019-06-10 05:53] LABS: Glucose,Whole Blood 129 mg/dL (75-99)
[2019-06-10] MEDS: SODIUM CHLORIDE 0.9% 1,000 ML IV SCH ×2 (06:46→17:47)
[2019-06-10] MEDS: INSULIN ASPART (NovoLOG) 100 UNIT/ML VIAL SQ SCH ×4 (06:47→23:55)
[2019-06-10 08:21] LABS: Basophils % (A) 0 %; Eosinophils # (A) 0.2 k/uL (0-0.7); Eosinophils % (A) 3 %; HCT 25.9 % (39.0-53.0); HGB 8.7 gm/dL (13.0-17.5); Lymphocytes # (A) 0.8 k/uL (1.0-4.8); Lymphocytes % (A) 11 %; MCH 29.4 pg (25.0-35.0); MCHC 33.6 g/dL (31.0-37.0); MCV 87.5 fL (80.0-100.0); Mean Platelet Volume 7.7; Monocytes # (A) 0.5 k/uL (0-1.0); Monocytes % (A) 7 %; Neutrophils % (A) 74 %; Platelet Count 263 k/uL (150-450); RBC 2.96 m/uL (4.30-5.90); RDW 14.9 % (11.5-15.5); WBC 6.8 k/uL (3.8-10.6)
[2019-06-10 08:31] LABS: Calcium 8.6 mg/dL (8.4-10.2); Magnesium 2.1 mg/dL (1.6-2.3)
[2019-06-10] MEDS: ATORVASTATIN 40 MG TAB PO SCH (09:15)
[2019-06-10] MEDS: PANTOPRAZOLE 40 MG/10 ML VIAL IVP SCH ×2 (09:15→21:42)
[2019-06-10] MEDS: ASPIRIN 81 MG PO SCH (09:15)
[2019-06-10] MEDS: HEPARIN SODIUM,PORCINE 5,000 UNIT/ML 1 ML VIAL SQ SCH ×2 (09:15→23:55)
[2019-06-10] MEDS: IPRATROPIUM 0.5 MG/2.5 ML NEBU INHALATION SCH ×4 (09:39→20:25)
[2019-06-10 12:12] LABS: Glucose,Whole Blood 139 mg/dL (75-99)
--- NOTE | 2019-06-10 14:12 | P.PN ---
Subjective Progress Note Date: 06/10/19 83-year-old male patient is with severe COPD oxygen dependent at 4 L per minute nasal cannula maintained on a combination of Advair and Spiriva on outpatient basis. The patient is also known to have diabetes mellitus, coronary artery disease, and hyperlipidemia and previous history of CHF. The patient came into the ED yesterday not feeling well, feeling dehydrated and weak with no appetite. He reports that he had lost weight. He reports that he was nauseated and he was having frequent emesis. He reports his groin increased 3-4 times and he was subsequently having dry heaves and he was unable to keep anything can. He was also taking diuretics at home. He came into the emergency department. He was afebrile. He was hemodynamically stable. His initial sodium level was 120 with the Emely 49 and a creatinine of 2.2. He had a proBNP level of 1470. Troponin was at 0.048. That hemoglobin was at 9.6 with a white cell count of 7.9. His lactic acid elevated at 3. The patient received IV fluids. Subsequent lactic acid level normalized. Sodium level is up 125 as the patient is receiving normal saline at the rate of 75 mL an hour. He is already feeling better. No chest pain. No cough sputum production chest that is so wheezing. His chest x- ray showed no evidence of any acute pneumonia. He did have some limited chest discomfort for which cardiology was consulted. His EKG showed a normal sinus rhythm. He had an incomplete right bundle-branch block pattern. No major swelling in lower extremities. Urine Analysis was negative for any acute infection. On today's evaluation of 06/10/2019 Parker is doing well and has no complaints. He is on IV fluids at 75 mL an hour. He is producing adequate amount of urine output. Sodium level is up to 128. Creatinine level is also improving. No nausea. No vomiting. No abdominal pain. No chest pain. No shortness of breath. Objective - Vital Signs Vital signs: Vital Signs Temp 97.4 F L 06/10/19 12:00 Pulse 82 06/10/19 13:18 Resp 18 06/10/19 12:00 BP 104/65 06/10/19 12:00 Pulse Ox 96 06/10/19 12:00 Intake & Output 06/09/19 06/10/19 06/10/19 18:59 06:59 18:59 Intake Total 540 540 Output Total 900 300 250 Balance -360 -300 290 Weight 88.4 kg 89.1 kg Intake: Oral 540 540 Output: Urine 900 300 250 Other: Voiding Method Bedside Commode Urinal Urinal Urinal # Voids 1 1 - Exam The patient appeared well nourished and normally developed. Vital signs as documented. Head exam is unremarkable. No scleral icterus or corneal arcus noted. Neck is without jugular venous distension, thyromegaly, or carotid bruits. Carotid upstrokes are brisk bilaterally. Lungs diminished breath sounds bilaterally with some few scattered external wheeze Cardiac exam reveals the PMI to be normally sized and situated. Rhythm is regular. First and second heart sounds normal. No murmurs, rubs or gallops. Abdominal exam reveals normal bowel sounds, no masses, no organomegaly and no aortic enlargement. Extremities are nonedematous and both femoral and pedal pulses are normal.Examination of the skin revealed no evidence of significant rashes, suspicious appearing nevi or other concerning lesions. Neurologically awake and alert and there is no focal neurology deficits. - Labs CBC & Chem 7: 06/10/19 07:06 06/10/19 07:06 Labs: Abnormal Lab Results - Last 24 Hours (Table) 06/09/19 06/09/19 06/09/19 Range/Units 05:53 16:36 20:47 RBC (4.30-5.90) m/uL Hgb (13.0-17.5) gm/dL Hct (39.0-53.0) % Lymphocytes # (1.0-4.8) k/uL Sodium (137-145) mmol/L BUN (9-20) mg/dL Glucose (74-99) mg/dL POC Glucose (mg/dL) 186 H 122 H (75-99) mg/dL Hemoglobin A1c 7.0 H (4.0-6.0) % 06/10/19 06/10/19 06/10/19 Range/Units 05:50 07:06 07:06 RBC 2.96 L (4.30-5.90) m/uL Hgb 8.7 L (13.0-17.5) gm/dL Hct 25.9 L (39.0-53.0) % Lymphocytes # 0.8 L (1.0-4.8) k/uL Sodium 128 L (137-145) mmol/L BUN 28 H (9-20) mg/dL Glucose 110 H (74-99) mg/dL POC Glucose (mg/dL) 129 H (75-99) mg/dL Hemoglobin A1c (4.0-6.0) % 06/10/19 Range/Units 12:07 RBC (4.30-5.90) m/uL Hgb (13.0-17.5) gm/dL Hct (39.0-53.0) % Lymphocytes # (1.0-4.8) k/uL Sodium (137-145) mmol/L BUN (9-20) mg/dL Glucose (74-99) mg/dL POC Glucose (mg/dL) 139 H (75-99) mg/dL Hemoglobin A1c (4.0-6.0) % Microbiology - Last 24 Hours (Table) 06/08/19 19:25 Blood Culture - Preliminary Blood No Growth after 24 hours Assessment and Plan Plan: 1 nausea and emesis with secondary dehydration, improved with fluid resuscitation 2 mild lactic acidosis, recovered 3 acute kidney injury, improving 4 dehydration, improving 5 hyponatremia secondary to above, improving 6 severe COPD with chronic hypoxic respiratory failure on oxygen at 4 L per minute nasal cannula 7 coronary artery disease with some limited troponin leak without any acute EKG changes. There is incomplete RBBB pattern 8 history of CHF 9 history of prostate cancer 10 hypertension 11 hyperlipidemia Plan Keep the lisinopril on hold. Keep Aldactone on hold. Continue metoprolol. Monitor the blood pressure Continue normal saline at rate of 75 mL an hour Repeat electrolytes tomorrow monitor the sodium and the creatinine Possible discharge home if things continue to remain stable.
--- NOTE | 2019-06-10 15:52 | PN ---
PROGRESS NOTE Mr. Nunez is an 83-year-old male who presented with symptoms of progressive dyspnea. He has a history of end-stage chronic obstructive pulmonary disease. He has been losing weight and not feeling well. He is feeling better at this time. His breathing is better. He feels better energy. He denies any nausea or vomiting. He continues to be on intravenous fluid. His nausea and vomiting have improved. He continues to be on aspirin once a day, Lipitor 40 mg daily, metoprolol succinate 25 mg daily. PHYSICAL EXAMINATION: Blood pressure 104/60 with a heart rate in the 80s. LUNGS: Clear. HEART: Regular rate and rhythm. S1 and S2. No S3. Systolic ejection murmur. No diastolic murmur. No rub. ABDOMEN: Soft, nontender. EXTREMITIES: No significant edema. LABORATORY DATA: Laboratory data revealed sodium up to 128 from 120 on admission. His BUN and creatinine are 28 and 1.19 and that has improved since admission. IMPRESSION: 1. Evidence of dehydration with nausea and vomiting and weight loss, improving. 2. Renal failure, improving. 3. Hyponatremia, improving. 4. History of severe ischemic cardiomyopathy. 5. Diabetes mellitus. 6. Hyperlipidemia. 7. Chronic obstructive pulmonary disease. 8. Anemia. RECOMMENDATIONS: Will continue on present therapy. Will continue to hold his diuretic. I will follow his renal function and depending on his progress, further recommendations will be made. MMODL / IJN: [id number] /
[2019-06-10 17:11] LABS: Glucose,Whole Blood 156 mg/dL (75-99)
[2019-06-10 20:32] LABS: Glucose,Whole Blood 137 mg/dL (75-99)
[2019-06-10] MEDS ORDERED: METOPROLOL SUCCINATE (ER) 25 MG TAB.ER.24H PO SCH (21:00)
[2019-06-11 06:15] LABS: Glucose,Whole Blood 133 mg/dL (75-99)
[2019-06-11 08:12] LABS: Calcium 8.6 mg/dL (8.4-10.2); Potassium 4.7 mmol/L (3.5-5.1)
--- NOTE | 2019-06-11 08:27 | P.PN ---
Subjective Progress Note Date: 06/10/19 Principal diagnosis: This is an 83-year-old male who was recently admitted with nausea and vomiting along with significant weakness and fatigue and is being closely monitored. Patient was recently evaluated in admitted for COPD acute exacerbation with right lower lobe pneumonia which was Pseudomonas in nature. During this admission patient was also found to have acute renal failure with hyponatremia and elevated lactic acid possibly secondary to dehydration. Currently no re ports of chest pain, worsening shortness of breath, or palpitations. And is afebrile. No reports of nausea or vomiting and patient is tolerating diet. Patient follows with Dr. Garcia in the outpatient setting. Cardiology and pulmonary are following. Patient's sodium continues to be low at 125 and is maintained on normal saline at 75 ML per hour. Creatinine is elevated at 1.82 although slightly improved from yesterday. Today's 5.3. Will repeat a.m. labs. 06/10/2019 Patient is seen and evaluated in follow-up today continues to have some weakness with slight improvement in fatigue. Patient is being closely monitored. Patient continues on bronchodilators at this time. Patient states that his nausea and vomiting and have resolved and he is tolerating some diet. Patient remains on gentle IV hydration of normal saline at 75 ML per hour. Patient continues to have low blood pressure readings. Pulmonary and cardiology are following. Labs are slowly improving and current creatinine is 1.19 and sodium is slightly up to 128. We'll continue with IV fluids at this time. Currently no reports of chest pain, palpitations, or worsening shortness of breath. Patient is afebrile. Patient's nausea and vomiting has resolved as mentioned previously and patient is tolerating diet. Objective - Vital Signs Vital signs: Vital Signs Temp 97.4 F L 06/10/19 12:00 Pulse 81 06/10/19 17:01 Resp 18 06/10/19 12:00 BP 104/65 06/10/19 12:00 Pulse Ox 96 06/10/19 12:00 Intake & Output 06/09/19 06/10/19 06/10/19 18:59 06:59 18:59 Intake Total 540 900 Output Total 900 300 600 Balance -360 -300 300 Weight 88.4 kg 89.1 kg Intake: Oral 540 900 Output: Urine 900 300 600 Other: Voiding Method Bedside Commode Urinal Urinal Urinal # Voids 1 1 - Exam Gen: This is a 83-year-old male lying in bed awake, well-developed, well- nourished. Temp is 98F, pulse is 74, respirations are 18, blood pressure is 90/55, oxygen saturation is 96% on 4 L via nasal cannula. HEENT: Head is atraumatic, normocephalic. Pupils equal, round. Sclerae is anicteric. NECK: Supple. No JVD. No lymphadenopathy. No thyromegaly. LUNGS: Breath sounds diminished with some rhonchi and scattered crackles noted. No intercostal retractions. HEART: S1, S2 are muffled. ABDOMEN: Soft. Bowel sounds are present. No masses. No tenderness. EXTREMITIES: No pedal edema. No calf tenderness. NEUROLOGICAL: Patient is awake, alert and oriented x3. Cranial nerves 2 through 12 are grossly intact. - Labs CBC & Chem 7: 06/10/19 07:06 06/11/19 07:36 Labs: Abnormal Lab Results - Last 24 Hours (Table) 06/09/19 06/10/19 06/10/19 Range/Units 20:47 05:50 07:06 RBC 2.96 L (4.30-5.90) m/uL Hgb 8.7 L (13.0-17.5) gm/dL Hct 25.9 L (39.0-53.0) % Lymphocytes # 0.8 L (1.0-4.8) k/uL Sodium (137-145) mmol/L BUN (9-20) mg/dL Glucose (74-99) mg/dL POC Glucose (mg/dL) 122 H 129 H (75-99) mg/dL 06/10/19 06/10/19 06/10/19 Range/Units 07:06 12:07 17:09 RBC (4.30-5.90) m/uL Hgb (13.0-17.5) gm/dL Hct (39.0-53.0) % Lymphocytes # (1.0-4.8) k/uL Sodium 128 L (137-145) mmol/L BUN 28 H (9-20) mg/dL Glucose 110 H (74-99) mg/dL POC Glucose (mg/dL) 139 H 156 H (75-99) mg/dL Microbiology - Last 24 Hours (Table) 06/08/19 19:25 Blood Culture - Preliminary Blood No Growth after 24 hours Assessment and Plan Assessment: Acute renal failure, possibly acute tubular necrosis secondary to prerenal factors, multifactorial, medication induced Hyponatremia Hypomagnesemia history of congestive heart failure with chronic systolic dysfunction, ejection fraction 30-35% Hyperkalemia secondary to renal failure elevated lactic acid, possibly secondary to dehydration Troponin 0.048. Rule out acute coronary syndrome with chest pain Anemia, normocytic: Anemia of chronic disease history of recent chronic obstructive pulmonary disease exacerbation as well as Pseudomonas pneumonia, right History of coronary artery disease History of diabetes mellitus type 2 history of myocardial infarction history of prostate cancer in 1999 with seed implants and radiation History of degenerative joint disease Remote history of nicotine dependence [employer] day Recommendations and discussion: Recommend continue current management, medications, and symptomatic treatment. Cardiology and pulmonary following. Will continue with IV hydration and monitor labs and vital signs closely. Creatinine is slightly improved and is currently 1.19 and sodium slowly increasing at 128 today. Repeat magnesium today is 2.1. Patient's appetite has improved and able to tolerate meals today with no reports of nausea or vomiting. Patient continues to be hypotensive and will continue to monitor vital signs and labs closely. Due to complex medical issues prognosis is guarded. Further recommendations to follow. Possible discharge in 24-48 hours.
[2019-06-11] MEDS: IPRATROPIUM 0.5 MG/2.5 ML NEBU INHALATION SCH ×2 (08:32→11:30)
[2019-06-11 08:46] LABS: Basophils % (A) 1 %; Eosinophils # (A) 0.4 k/uL (0-0.7); Eosinophils % (A) 6 %; HCT 25.3 % (39.0-53.0); HGB 8.5 gm/dL (13.0-17.5); Lymphocytes # (A) 0.9 k/uL (1.0-4.8); Lymphocytes % (A) 14 %; MCH 29.6 pg (25.0-35.0); MCHC 33.4 g/dL (31.0-37.0); MCV 88.5 fL (80.0-100.0); Mean Platelet Volume 7.4; Monocytes # (A) 0.4 k/uL (0-1.0); Monocytes % (A) 6 %; Neutrophils # (A) 4.4 k/uL (1.3-7.7); Neutrophils % (A) 69 %; Platelet Count 264 k/uL (150-450); RBC 2.86 m/uL (4.30-5.90); RDW 14.8 % (11.5-15.5); WBC 6.4 k/uL (3.8-10.6)
[2019-06-11] MEDS: HEPARIN SODIUM,PORCINE 5,000 UNIT/ML 1 ML VIAL SQ SCH (09:11)
[2019-06-11] MEDS: ATORVASTATIN 40 MG TAB PO SCH (09:13)
[2019-06-11] MEDS: ASPIRIN 81 MG PO SCH (09:16)
[2019-06-11] MEDS: INSULIN ASPART (NovoLOG) 100 UNIT/ML VIAL SQ SCH ×2 (09:16→12:49)
[2019-06-11] MEDS: PANTOPRAZOLE 40 MG/10 ML VIAL IVP SCH (09:16)
[2019-06-11] MEDS: SODIUM CHLORIDE 0.9% 1,000 ML IV SCH (09:17)
[2019-06-11 11:42] VITALS: PULSE 84
[2019-06-11 12:35] VITALS: BP 119/67; RESP 21; TEMP 97.6
[2019-06-11 12:48] LABS: Glucose,Whole Blood 127 mg/dL (75-99)
[2019-06-11 13:18] VITALS: BMI 28.9
--- NOTE | 2019-06-11 14:47 | P.PN ---
Subjective Progress Note Date: 06/11/19 83-year-old male patient is with severe COPD oxygen dependent at 4 L per minute nasal cannula maintained on a combination of Advair and Spiriva on outpatient basis. The patient is also known to have diabetes mellitus, coronary artery disease, and hyperlipidemia and previous history of CHF. The patient came into the ED yesterday not feeling well, feeling dehydrated and weak with no appetite. He reports that he had lost weight. He reports that he was nauseated and he was having frequent emesis. He reports his groin increased 3-4 times and he was subsequently having dry heaves and he was unable to keep anything can. He was also taking diuretics at home. He came into the emergency department. He was afebrile. He was hemodynamically stable. His initial sodium level was 120 with the Emely 49 and a creatinine of 2.2. He had a proBNP level of 1470. Troponin was at 0.048. That hemoglobin was at 9.6 with a white cell count of 7.9. His lactic acid elevated at 3. The patient received IV fluids. Subsequent lactic acid level normalized. Sodium level is up 125 as the patient is receiving normal saline at the rate of 75 mL an hour. He is already feeling better. No chest pain. No cough sputum production chest that is so wheezing. His chest x- ray showed no evidence of any acute pneumonia. He did have some limited chest discomfort for which cardiology was consulted. His EKG showed a normal sinus rhythm. He had an incomplete right bundle-branch block pattern. No major swelling in lower extremities. Urine Analysis was negative for any acute infection. On today's evaluation of 06/10/2019 Parker is doing well and has no complaints. He is on IV fluids at 75 mL an hour. He is producing adequate amount of urine output. Sodium level is up to 128. Creatinine level is also improving. No nausea. No vomiting. No abdominal pain. No chest pain. No shortness of breath. On 06/11/2019 Parker is doing very well. No complaints. The creatinine is normalized. Still receiving IV fluids the rate of 75 mL an hour. The sodium level is normalized is up to 133. Hemoglobin is at 8.5. Objective - Vital Signs Vital signs: Vital Signs Temp 97.6 F 06/11/19 12:00 Pulse 84 06/11/19 12:00 Resp 21 06/11/19 12:00 BP 119/67 06/11/19 12:00 Pulse Ox 97 06/11/19 12:00 Intake & Output 06/10/19 06/11/19 06/11/19 18:59 06:59 18:59 Intake Total 900 358 240 Output Total 600 400 Balance 300 -42 240 Weight 91.4 kg 91.4 kg Intake: Oral 900 358 240 Output: Urine 600 400 Other: Voiding Method Urinal Urinal Urinal # Voids 1 1 2 - Exam The patient appeared well nourished and normally developed. Vital signs as documented. Head exam is unremarkable. No scleral icterus or corneal arcus noted. Neck is without jugular venous distension, thyromegaly, or carotid bruits. Carotid upstrokes are brisk bilaterally. Lungs diminished breath sounds bilaterally with some few scattered external wheeze Cardiac exam reveals the PMI to be normally sized and situated. Rhythm is regular. First and second heart sounds normal. No murmurs, rubs or gallops. Abdominal exam reveals normal bowel sounds, no masses, no organomegaly and no aortic enlargement. Extremities are nonedematous and both femoral and pedal pulses are normal.Examination of the skin revealed no evidence of significant rashes, suspicious appearing nevi or other concerning lesions. Neurologically awake and alert and there is no focal neurology deficits. - Labs CBC & Chem 7: 06/11/19 07:36 06/11/19 07:36 Labs: Abnormal Lab Results - Last 24 Hours (Table) 06/10/19 06/10/19 06/11/19 Range/Units 17:09 20:31 06:14 RBC (4.30-5.90) m/uL Hgb (13.0-17.5) gm/dL Hct (39.0-53.0) % Lymphocytes # (1.0-4.8) k/uL Sodium (137-145) mmol/L Glucose (74-99) mg/dL POC Glucose (mg/dL) 156 H 137 H 133 H (75-99) mg/dL 06/11/19 06/11/19 06/11/19 Range/Units 07:36 07:36 12:47 RBC 2.86 L (4.30-5.90) m/uL Hgb 8.5 L (13.0-17.5) gm/dL Hct 25.3 L (39.0-53.0) % Lymphocytes # 0.9 L (1.0-4.8) k/uL Sodium 133 L (137-145) mmol/L Glucose 118 H (74-99) mg/dL POC Glucose (mg/dL) 127 H (75-99) mg/dL Microbiology - Last 24 Hours (Table) 06/08/19 19:25 Blood Culture - Preliminary Blood No Growth after 48 hours Assessment and Plan Plan: 1 nausea and emesis with secondary dehydration, improved with fluid resusci tation and the patient is currently asymptomatic. 2 mild lactic acidosis, recovered 3 acute kidney injury, improving 4 dehydration, improving 5 hyponatremia secondary to above, improving 6 severe COPD with chronic hypoxic respiratory failure on oxygen at 4 L per minute nasal cannula 7 coronary artery disease with some limited troponin leak without any acute EKG changes. There is incomplete RBBB pattern 8 history of CHF 9 history of prostate cancer 10 hypertension 11 hyperlipidemia Plan Condition is back to normal. Discharge this patient home today on his home medication to be followed up on outpatient basis.
--- NOTE | 2019-06-11 15:55 | P.PN ---
Subjective Progress Note Date: 06/11/19 This is a pleasant 83-year-old gentleman who presented with symptoms of progressive dyspnea. He has a history of end-stage COPD. He has been losing weight and not feeling well. Overall he feels his breathing is better he is overall feeling better with increased energy. He's had no complaints of nausea or vomiting at this point. He has no complaints of chest discomfort. He has no dizziness, lightheadedness or palpitations. Current medications include aspirin 81 mg by mouth daily, atorvastatin 40 mg by mouth daily, metoprolol succinate 12.5 mg by mouth daily at bedtime. Labs this morning showed a hemoglobin of 8.5, potassium 4.7, BUN 19 and creatinine 0.94. His vital signs are stable. Maintaining an oxygen saturation of 97% on 4 L nasal cannula. Objective - Vital Signs Vital signs: Vital Signs Temp 97.6 F 06/11/19 12:00 Pulse 84 06/11/19 12:00 Resp 21 06/11/19 12:00 BP 119/67 06/11/19 12:00 Pulse Ox 97 06/11/19 12:00 Intake & Output 06/10/19 06/11/19 06/11/19 18:59 06:59 18:59 Intake Total 900 358 240 Output Total 600 400 Balance 300 -42 240 Weight 91.4 kg 91.4 kg Intake: Oral 900 358 240 Output: Urine 600 400 Other: Voiding Method Urinal Urinal Urinal # Voids 1 1 2 - Exam PHYSICAL EXAMINATION: HEENT: Head is atraumatic, normocephalic. Pupils equal, round. Neck is supple. There is no elevated jugular venous pressure. HEART EXAMINATION: Heart sounds regular, S1 and S2 with a systolic murmur. CHEST EXAMINATION: Lungs are clear to auscultation. No chest wall tenderness is noted on palpation or with deep breathing. ABDOMEN: Soft, nontender. Bowel sounds are heard. No organomegaly noted. EXTREMITIES: No evidence of peripheral edema and no calf tenderness noted. NEUROLOGIC patient is awake, alert and oriented x3. . - Labs CBC & Chem 7: 06/11/19 07:36 06/11/19 07:36 Labs: Abnormal Lab Results - Last 24 Hours (Table) 06/10/19 06/10/19 06/11/19 Range/Units 17:09 20:31 06:14 RBC (4.30-5.90) m/uL Hgb (13.0-17.5) gm/dL Hct (39.0-53.0) % Lymphocytes # (1.0-4.8) k/uL Sodium (137-145) mmol/L Glucose (74-99) mg/dL POC Glucose (mg/dL) 156 H 137 H 133 H (75-99) mg/dL 06/11/19 06/11/19 06/11/19 Range/Units 07:36 07:36 12:47 RBC 2.86 L (4.30-5.90) m/uL Hgb 8.5 L (13.0-17.5) gm/dL Hct 25.3 L (39.0-53.0) % Lymphocytes # 0.9 L (1.0-4.8) k/uL Sodium 133 L (137-145) mmol/L Glucose 118 H (74-99) mg/dL POC Glucose (mg/dL) 127 H (75-99) mg/dL Microbiology - Last 24 Hours (Table) 06/08/19 19:25 Blood Culture - Preliminary Blood No Growth after 48 hours Assessment and Plan Assessment: #1 evidence of dehydration with nausea and vomiting and weight loss, improving #2 renal failure, improved #3 hyponatremia, improved #4 history of severe ischemic cardiomyopathy #5 diabetes mellitus #6 hyperlipidemia #7 COPD #8 anemia Plan: From telephone diaphragm assembler perspective, medication reviewed will resume Lasix at 20 mg by mouth daily. Renal function and electrolytes will need to be monitored. We'll continue to follow patient for further recommendations accordingly. AUTOMOBILE RENTAL AGENT note has been reviewed, I agree with a documented findings and plan of care. Patient was seen and examined.
--- NOTE | 2019-06-14 08:24 | P.DS ---
Providers Date of admission: 06/08/19 15:57 Expected date of discharge: 06/11/19 Attending physician: Kristyn Cote Consults: 06/08/19 18:41 Consult Physician Routine Consulting Provider: Fabien Garcia Consult Reason/Comments: copd Do you want consulting provider notified?: Yes 06/08/19 18:42 Consult Physician Routine Consulting Provider: Bernarda Cifuentes Consult Reason/Comments: high trops Do you want consulting provider notified?: Yes Primary care physician: Fabien Garcia Hospital Course: Final diagnosis Acute renal failure, possibly acute tubular necrosis secondary to prerenal factors, multifactorial, medication induced Hyponatremia Hypomagnesemia history of congestive heart failure with chronic systolic dysfunction, ejection fraction 30-35% Hyperkalemia secondary to renal failure elevated lactic acid, possibly secondary to dehydration Troponin 0.048. Ruled out acute coronary syndrome with chest pain Anemia, normocytic: Anemia of chronic disease history of recent chronic obstructive pulmonary disease exacerbation as well as Pseudomonas pneumonia, right History of coronary artery disease History of diabetes mellitus type 2 history of myocardial infarction history of prostate cancer in 1999 with seed implants and radiation History of degenerative joint disease Remote history of nicotine dependence [facility] Discharge disposition Patient is being discharged in a stable condition with guarded prognosis to home. Patient will follow-up with Dr. Garcia upon discharge. Patient will also be following up with Dr. Saxena cardiology in the outpatient setting. Total time taken is 35 minutes. History of present illness This is an 83-year-old male who was recently admitted with nausea and vomiting along with significant weakness and fatigue and was being closely monitored. Patient was also found to have acute renal failure with hyponatremia and elevated lactic acid most likely secondary to dehydration and was hydrated with gentle IV fluids. During hospitalization lisinopril and Aldactone were held and will continue to hold in the outpatient setting until follow-up with primary care provider. Patient continued to have some low blood pressure readings although improved after hydration and medication adjustments. Metoprolol was changed and patient will continue in outpatient setting with half the dose. Currently no reports of chest pain, shortness of breath, or palpitations. Patient is afebrile. No reports of nausea or vomiting and patient is tolerating diet. Guarded prognosis. On exam vital signs are stable. Temp is 97.6 F, pulse is 84, respirations are 21, blood pressure is 119/67, oxygen saturation is 97% on 4 L via nasal cannula. Cardio S1, S2 are muffled. Respiratory shows diminished breath sounds at the bases with a few scattered rhonchi noted. Abdomen is soft and nontender. Nervous system shows no focal deficits. Please refer to medication reconciliation sheet for a list of medications. Patient Condition at Discharge: Stable Plan - Discharge Summary Discharge Rx Participant: No New Discharge Prescriptions: Continue metFORMIN HCL [Glucophage] 1,000 mg PO DAILY HYDROcodone/APAP 5-325MG [[place] 5-325] 1 tab PO Q6H PRN PRN Reason: Pain Furosemide [Lasix] 40 mg PO DAILY #30 tab Ipratropium Nebulized [Atrovent Nebulized 0.2 MG/ML] 0.5 mg INHALATION RT-QID Aspirin EC [Ecotrin Low Dose] 81 mg PO DAILY metFORMIN HCL [Glucophage] 500 mg PO HS Metoprolol Succinate (ER) [Toprol XL] 25 mg PO HS Nystatin-Triamcinolone Oint [Mycolog 100,000-0.1 Unit/gm-% Oint] 1 applic TOPICAL TID PRN PRN Reason: Rash Omeprazole 20 mg PO DAILY Discontinued Spironolactone [Aldactone] 25 mg PO DAILY #30 tab Lisinopril [Prinivil] 10 mg PO HS Discharge Medication List metFORMIN HCL [Glucophage] 1,000 mg PO DAILY 03/27/15 [History] HYDROcodone/APAP 5-325MG [[place] 5-325] 1 tab PO Q6H PRN 03/13/19 [History] Furosemide [Lasix] 40 mg PO DAILY #30 tab 03/18/19 [Rx] Aspirin EC [Ecotrin Low Dose] 81 mg PO DAILY 04/12/19 [History] Ipratropium Nebulized [Atrovent Nebulized 0.2 MG/ML] 0.5 mg INHALATION RT-QID 04/12/19 [History] Metoprolol Succinate (ER) [Toprol XL] 25 mg PO HS 06/08/19 [History] Nystatin-Triamcinolone Oint [Mycolog 100,000-0.1 Unit/gm-% Oint] 1 applic TOPICAL TID PRN 06/08/19 [History] Omeprazole 20 mg PO DAILY 06/08/19 [History] metFORMIN HCL [Glucophage] 500 mg PO HS 06/08/19 [History] Follow up Appointment(s)/Referral(s): Lincoln Campos MD [Family Provider] - 06/22/19 2:45 pm (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 ) Ambulatory/Diagnostic Orders: Basic Metabolic Panel [LAB.AMB] Time Frame: 2 Days, Location: None Selected Complete Blood Count w/diff [LAB.AMB] Time Frame: 2 Days, Location: None Selected Patient Instructions/Handouts: Dehydration (DC), Acute Kidney Injury (DC), Chronic Lung Disease and Infection Prevention (DC) Activity/Diet/Wound Care/Special Instructions: Activity Until follow-up. Follow up with primary care provider upon discharge. Continue current diet. Continue to hold lisinopril and Aldactone. Repeat labs in 2-3 days. Discharge Disposition: HOME WITH HOME HEALTH SERVICES
--- NOTE | 2019-06-16 08:06 | CDI ---
Documentation Clarification Form Date: 06/16/19 From: Maryjane Arellano Phone: If you have a question about this query, please contact Anitra Anderson, Video Games Storywriter at [phone] between 8am and 5pm. Admit Date: 06/08/19 Discharge Date:06/11/19 Patient Name: Parker Nunez Visit Number: [id number] ATTENTION: The Clinical Documentation Specialists (CDI) and [facility] Coding Staff appreciate your assistance in clarifying documentation. Please respond to the clarification below the line at the bottom and electronically sign. The CDI & [facility] Coding staff will review the response and follow-up if needed. Please note: Queries are made part of the Legal Health Record. If you have any questions, please contact the author of this message via ITS. Dear Dr. Cote Acute Renal failure possibly acute tubular necrosis secondary to prerenal factors is documented in the H&P, discharge summary and your progress notes and this diagnosis may lack clinical support. History Risk factors/Other underlying illness: Hypotension Clinical Indicators: Elevated creatinine Labs: Patient presents with a BUN/CR and GFR of: 49/2.27/26 Patients baseline BUN/CR and GFR: 19/0.94/75 Urinalysis: Clear, light yellow, no casts, no abnormalities Treatment: 1 liter NS bolus then at 75 mls/hr In your professional opinion, can you please clarify if the condition can be further specified? Acute Renal Failure with Acute Tubular Necrosis Acute Renal Failure with Renal Cortical Necrosis Acute Renal Failure with other specified pathological cause, please specify Acute Renal Failure with other cause, please specify Unable to determine Other, please specify Acute Renal Failure with Acute Tubular Necrosis MTDD
== END 2019-06-11 15:22 | disposition home health service (06) | DRG 683 ==
LOC: EC 14:02 → 3SCARD 15:57
PROVIDERS: ADMIT Hospitalist; ATTEND Hospitalist
DX: N17.0 Acute kidney failure with tubular necrosis (principal); E87.1 Hypo-osmolality and hyponatremia; E87.2 Acidosis; I50.22 Chronic systolic (congestive) heart failure; J96.11 Chronic respiratory failure with hypoxia; D63.8 Anemia in other chronic diseases classified elsewhere; I11.0 Hypertensive heart disease with heart failure; E11.9 Type 2 diabetes mellitus without complications; T50.905A Adverse effect of unspecified drugs, medicaments and biological substances, initial encounter; E78.5 Hyperlipidemia, unspecified; E83.42 Hypomagnesemia; E86.0 Dehydration; E87.5 Hyperkalemia; I25.10 Atherosclerotic heart disease of native coronary artery without angina pectoris; I25.2 Old myocardial infarction; I25.5 Ischemic cardiomyopathy; I45.10 Unspecified right bundle-branch block; J44.9 Chronic obstructive pulmonary disease, unspecified; E66.9 Obesity, unspecified; M19.90 Unspecified osteoarthritis, unspecified site; R63.4 Abnormal weight loss; H54.7 Unspecified visual loss; H91.90 Unspecified hearing loss, unspecified ear; I49.3 Ventricular premature depolarization; R07.9 Chest pain, unspecified; R11.2 Nausea with vomiting, unspecified; Z79.51 Long term (current) use of inhaled steroids; Z79.82 Long term (current) use of aspirin; Z79.84 Long term (current) use of oral hypoglycemic drugs; Z79.899 Other long term (current) drug therapy; Z79.52 Long term (current) use of systemic steroids; Z99.81 Dependence on supplemental oxygen; Z96.652 Presence of left artificial knee joint; Z68.28 Body mass index [BMI] 28.0-28.9, adult; Z87.891 Personal history of nicotine dependence; Z87.01 Personal history of pneumonia (recurrent); Z85.46 Personal history of malignant neoplasm of prostate; Z92.3 Personal history of irradiation; Z82.5 Family history of asthma and other chronic lower respiratory diseases; Z80.9 Family history of malignant neoplasm, unspecified
CPT/HCPCS: 36415; 71045; 71046; 80048; 80053; 81003; 83036; 83605; 83690; 83735; 83880; 84484; 85025; 85610; 85730; 87040; 93005; 94640; 94760; 96360; 96361; 99285

== ENCOUNTER → 2020-09-26 | Outpatient (CLI) | payer MEDICARE | LOC: CPPFTMAIN 10:36 | PROVIDERS: ATTEND Internal Medicine | DX: J45.909 Unspecified asthma, uncomplicated (principal); Z87.891 Personal history of nicotine dependence | CPT/HCPCS: 94060; 94726; 94729 ==

== ENCOUNTER → 2020-10-11 | Outpatient (CLI) | payer MEDICARE ==
--- NOTE | 2020-10-11 13:57 | CT ---
EXAMINATION TYPE: CT sinus wo con DATE OF EXAM: 10/11/2020 COMPARISON: None HISTORY: sinusitis CT DLP: [address] of the paranasal sinuses was performed in the axial and coronal planes. Bone and soft tissue settings are submitted. The paranasal sinuses demonstrate normal aeration and development. No air-fluid level seen. Minimal mucosal thickening involving the ethmoid air cells and right maxilla ry sinus. The osteal meatal units are patent bilaterally. The nasal septum is deviated from left to right. No bony destructive changes are seen within the field of view. IMPRESSION: Nasal septal deviation from left to right. Mucosal thickening as discussed.
== END | disposition home or self-care (01) ==
LOC: RADCTMAIN 13:17
PROVIDERS: ATTEND Internal Medicine
DX: J34.89 Other specified disorders of nose and nasal sinuses (principal); J34.2 Deviated nasal septum
CPT/HCPCS: 70486

== ENCOUNTER → 2020-10-23 | Outpatient (CLI) | payer MEDICARE ==
[2020-10-23 14:06] LABS: ABG Base Excess 1.8 mmol/L; ABG HCO3 27 mmol/L (21-25); ABG Oxygen Saturation 91.1 % (94-97); ABG PCO2 43 mmHg (35-45); ABG PO2 61 mmHg (83-108); ABG TCO2 28 mmol/L (19-24); Allen Test Performed? Yes
== END | disposition home or self-care (01) ==
LOC: LABWHC1 13:35
PROVIDERS: ATTEND Internal Medicine
DX: J44.9 Chronic obstructive pulmonary disease, unspecified (principal)
CPT/HCPCS: 36600; 82805

== ENCOUNTER 2022-08-21 16:57 | Inpatient (IN) | payer MEDICARE ==
[2022-08-21] MEDS ORDERED: cefTRIAXone IN SWFI 1,000 MG/10 ML SYRINGE IVP STA (17:45)
--- NOTE | 2022-08-21 17:45 | ED ---
General Adult HPI - General Chief complaint: Shortness of Breath Stated complaint: Respiratory failure Time Seen by Provider: 08/21/22 17:00 Source: patient, EMS, RN notes reviewed, old records reviewed Mode of arrival: EMS Limitations: no limitations - History of Present Illness Initial comments: This is an 86-year-old male who presents to the emergency department from [facility]. Patient was sent her for congestive heart failure and COPD. Patient himself states he was told he has pneumonia as well. Patient states she's been in the hospital for quite a while and symptoms have not gotten better sinusitis him to our facility. At this time no further history is she still complains that he short of breath. On report from the other hospital he also mentioned that his troponin was elevated as well as a white count. Patient states he thinks they told he had pneumonia as well. Patient states currently doesn't feel the baby still short of breath. - Related Data Home Medications Medication Instructions Recorded Confirmed metFORMIN HCL [Glucophage] 1,000 mg PO DAILY 03/27/15 08/21/22 Aspirin EC [Ecotrin Low Dose] 81 mg PO DAILY 04/12/19 08/21/22 metFORMIN HCL [Glucophage] 500 mg PO HS 06/08/19 08/21/22 Albuterol Nebulized [Ventolin 2.5 mg INHALATION RT-QID PRN 08/21/22 08/21/22 Nebulized] Albuterol Sulfate [Albuterol 1 - 2 puff PO RT-Q6H PRN 08/21/22 08/21/22 Sulfate Hfa] Ferrous Sulfate [Feosol] 325 mg PO DAILY 08/21/22 08/21/22 Fluticasone Propion/Salmeterol 2 puff INHALATION RT-BID 08/21/22 08/21/22 [Advair Hfa 230-21 Mcg Inhaler] Furosemide [Lasix] 40 mg PO BID 08/21/22 08/21/22 Ibuprofen [Motrin] 600 mg PO TID PRN 08/21/22 08/21/22 Rosuvastatin [Crestor] 20 mg PO DAILY 08/21/22 08/21/22 Sacubitril/Valsartan [Entresto 24 1 tab PO BID 08/21/22 08/21/22 mg-26 mg Tablet] carvediloL [Coreg] 6.25 mg PO BID 08/21/22 08/21/22 predniSONE [Deltasone] 20 mg PO DAILY 08/21/22 08/21/22 Allergies Allergy/AdvReac Type Severity Reaction Status Date / Time No Known Allergies Allergy Verified 08/21/22 18:58 Review of Systems ROS Statement: Those systems with pertinent positive or pertinent negative responses have been documented in the HPI. ROS Other: All systems not noted in ROS Statement are negative. Past Medical History Past Medical History: Coronary Artery Disease (CAD), Cancer, COPD, Diabetes Me llitus, Hyperlipidemia, Hypertension, Myocardial Infarction (HI) Additional Past Medical History / Comment(s): Prostate CA in 1999, treated with seed implants and radiation Last Myocardial Infarction Date:: 1968 History of Any Multi-Drug Resistant Organisms: None Reported Past Surgical History: Orthopedic Surgery Additional Past Surgical History / Comment(s): Knee Surg X3 including a left knee arthroplasty, left Shoulder surgery for rotator cuff, broken ribs on Left side, left ankle Past Anesthesia/Blood Transfusion Reactions: No Reported Reaction Additional Past Anesthesia/Blood Transfusion Reaction / Comment(s): no blood products. Past Psychological History: No Psychological Hx Reported Past Alcohol Use History: None Reported Past Drug Use History: None Reported - Past Family History Father Family Medical History: COPD Additional Family Medical History / Comment(s): from Emphysema Brother(s) Family Medical History: Cancer Additional Family Medical History / Comment(s): from upper resp and heart issues General Exam - General Exam Comments Initial Comments: GENERAL: Patient is well-developed and well-nourished. Patient is nontoxic and well- hydrated and is in no acute distress. ENT: Neck is soft and supple. No significant lymphadenopathy is noted. Oropharynx is clear. Moist mucous membranes. Neck has full range of motion without eliciting any pain. EYES: The sclera were anicteric and conjunctiva were pink and moist. Extraocular movements were intact and pupils were equal round and reactive to light. Eyelids were unremarkable. PULMONARY: Unlabored respirations. Good breath sounds bilaterally. No audible rales rhonchi or wheezing was noted. CARDIOVASCULAR: There is a regular rate and rhythm without any murmurs gallops or rubs. ABDOMEN: Soft and nontender with normal bowel sounds. SKIN: Skin is clear with no lesions or rashes and otherwise unremarkable. NEUROLOGIC: Patient is alert and oriented x3. Cranial nerves II through XII are grossly intact. Motor and sensory are also intact. Normal speech, volume and content. Symmetrical smile. MUSCULOSKELETAL: Normal extremities with adequate strength and full range of motion. LYMPHATICS: No significant lymphadenopathy is noted PSYCHIATRIC: Normal psychiatric evaluation. Limitations: no limitations Course Vital Signs 08/21/22 08/21/22 08/21/22 16:59 17:05 18:04 Temperature 97 F L Pulse Rate 84 75 Respiratory 20 22 22 Rate Blood Pressure 145/81 150/79 O2 Sat by Pulse 96 95 Oximetry Medical Decision Making - Medical Decision Making EKG was interpreted by myself and shows a sinus rhythm with frequent PACs at 83 bpm WY interval 252 QRS is under 50 QT interval is 413 QTC is 453. Patient's EKG shows a right bundle branch block. Was pt. sent in by a medical professional or institution (, PA, ART CRITIC, urgent care, hospital, or penitentiary...) When possible be specific @ -[facility] patient in from their facility Did you speak to anyone other than the patient for history (EMS, parent, family, police, friend...)? What history was obtained from this source @ -Report was taken from the emergency physician from [facility] Did you review nursing and triage notes (agree or disagree)? Why? @ -I agree with all nursing in triage notes Were old charts reviewed (outside hosp., previous admission, EMS record, old EKG, old radiological studies, urgent care reports/EKG's, penitentiary records)? Report findings @ -I reviewed the charts labs and x-rays that were sent from [facility] Differential Diagnosis (chest pain, altered mental status, abdominal pain women, abdominal pain men, vaginal bleeding, weakness, fever, dyspnea, syncope, headache, dizziness, GI bleed, back pain, seizure, CVA, palpatations, mental health, musculoskeletal)? @ -not applicable EKG interpreted by me (3pts min.). @ -As above X-rays interpreted by me (1pt min.). @ -Chest x-ray was interpreted by myself I see no acute abnormality. CT interpreted by me (1pt min.). @ -None done U/S interpreted by me (1pt. min.). @ -None done What testing was considered but not performed or refused? (CT, X-rays, U/S, labs)? Why? @ -None What meds were considered but not given or refused? Why? @ -None Did you discuss the management of the patient with other professionals (professionals i.e. , PA, ART CRITIC, lab, RT, psych nurse, neonatal social worker, peoplesoft hcm developer, teacher, combatant diver officer, case making machine operator)? Give summary @ -[place] Dr. Dennison he agreed to admit the patient admitted the patient wrote admitting orders Was smoking cessation discussed for >3mins.? @ -No Was critical care preformed (if so, how long)? @ -No Were there social determinants of health that impacted care today? How? (Homelessness, low income, unemployed, alcoholism, drug addiction, transportation, low edu. Level, literacy, decrease access to med. care, longterm, rehab)? @ -No Was there de-escalation of care discussed even if they declined (Discuss DNR or withdrawal of care, Hospice)? DNR status @ -No What co-morbidities impacted this encounter? (DM, HTN, Smoking, COPD, CAD, Cance r, CVA, ARF, Chemo, Hep., AIDS, mental health diagnosis, sleep apnea, morbid obesity)? @ -None Was patient admitted / discharged? Hospital course, mention meds given and route, prescriptions, significant lab abnormalities, going to OR and other pertinent info. @ -Patient came in with elevated white count elevated troponin and some difficulty breathing I placed the patient on a COPD protocol repeated troponins started on antibiotic to spoke with Dr. Dennison he agreed to admit the patient I consulted pulmonology Undiagnosed new problem with uncertain prognosis? @ -No Drug Therapy requiring intensive monitoring for toxicity (Heparin, Nitro, Insulin, Cardizem)? @ -No Were any procedures done? @ -No Diagnosis/symptom? @ -COPD exacerbation Acute, or Chronic, or Acute on Chronic? @ -Acute on chronic Uncomplicated (without systemic symptoms) or Complicated (systemic symptoms)? @ -Complicated Side effects of treatment? @ -No Exacerbation, Progression, or Severe Exacerbation? @ -No Poses a threat to life or bodily function? How? (Chest pain, [place], HI, pneumonia, PE, COPD, DKA, ARF, appy, cholecystitis, CVA, Diverticulitis, Homicidal, Suicidal, threat to staff... and all critical care pts) @ -Yes this could lead to hypoxia which could then lead to end organ dysfunction Diagnosis/symptom? @ -Elevated troponin Acute, or Chronic, or Acute on Chronic? @ -Acute Uncomplicated (without systemic symptoms) or Complicated (systemic symptoms)? @ -Complicated Side effects of treatment? @ -none Exacerbation, Progression, or Severe Exacerbation] @ -no Poses a threat to life or bodily function? @ -no Diagnosis/symptom? @ -Leukocytosis Acute, or Chronic, or Acute on Chronic? @ -Acute Uncomplicated (without systemic symptoms) or Complicated (systemic symptoms)? @ -default Side effects of treatment? @ -none Exacerbation, Progression, or Severe Exacerbation] @ -no Poses a threat to life or bodily function? @ -no - Lab Data Result diagrams: 08/21/22 17:54 08/21/22 17:54 Lab Results 08/21/22 08/21/22 08/21/22 Range/Units 17:54 17:54 17:54 WBC 20.2 H (3.8-10.6) k/uL RBC 4.80 (4.30-5.90) m/uL Hgb 13.5 (13.0-17.5) gm/dL Hct 42.3 (39.0-53.0) % MCV 88.3 (80.0-100.0) fL MCH 28.1 (25.0-35.0) pg MCHC 31.8 (31.0-37.0) g/dL RDW 14.6 (11.5-15.5) % Plt Count 202 (150-450) k/uL MPV 9.8 Neutrophils % 95 % Lymphocytes % 2 % Monocytes % 3 % Eosinophils % 0 % Basophils % 0 % Neutrophils # 19.1 H (1.3-7.7) k/uL Lymphocytes # 0.3 L (1.0-4.8) k/uL Monocytes # 0.5 (0-1.0) k/uL Eosinophils # 0.0 (0-0.7) k/uL Basophils # 0.0 (0-0.2) k/uL PT 10.1 (9.0-12.0) sec INR 0.9 (<1.2) APTT 21.3 L (22.0-30.0) sec Sodium 138 (137-145) mmol/L Potassium 4.3 (3.5-5.1) mmol/L Chloride 94 L (98-107) mmol/L Carbon Dioxide 39 H (22-30) mmol/L Anion Gap 5 mmol/L BUN 74 H (9-20) mg/dL Creatinine 1.63 H (0.66-1.25) mg/dL Est GFR (CKD-EPI)AfAm 43 (>60 ml/min/1.73 sqM) Est GFR (CKD-EPI)NonAf 38 (>60 ml/min/1.73 sqM) Glucose 336 H (74-99) mg/dL Plasma Lactic Acid Toney (0.7-2.0) mmol/L Calcium 9.3 (8.4-10.2) mg/dL Magnesium 2.2 (1.6-2.3) mg/dL Total Bilirubin 0.5 (0.2-1.3) mg/dL AST 58 (17-59) U/L ALT 72 H (4-49) U/L Alkaline Phosphatase 111 (38-126) U/L Troponin I (0.000-0.034) ng/mL NT-Pro-B Natriuret Pep pg/mL Total Protein 6.3 (6.3-8.2) g/dL Albumin 3.7 (3.5-5.0) g/dL 08/21/22 08/21/22 08/21/22 Range/Units 17:54 17:54 17:54 WBC (3.8-10.6) k/uL RBC (4.30-5.90) m/uL Hgb (13.0-17.5) gm/dL Hct (39.0-53.0) % MCV (80.0-100.0) fL MCH (25.0-35.0) pg MCHC (31.0-37.0) g/dL RDW (11.5-15.5) % Plt Count (150-450) k/uL MPV Neutrophils % % Lymphocytes % % Monocytes % % Eosinophils % % Basophils % % Neutrophils # (1.3-7.7) k/uL Lymphocytes # (1.0-4.8) k/uL Monocytes # (0-1.0) k/uL Eosinophils # (0-0.7) k/uL Basophils # (0-0.2) k/uL PT (9.0-12.0) sec INR (<1.2) APTT (22.0-30.0) sec Sodium (137-145) mmol/L Potassium (3.5-5.1) mmol/L Chloride (98-107) mmol/L Carbon Dioxide (22-30) mmol/L Anion Gap mmol/L BUN (9-20) mg/dL Creatinine (0.66-1.25) mg/dL Est GFR (CKD-EPI)AfAm (>60 ml/min/1.73 sqM) Est GFR (CKD-EPI)NonAf (>60 ml/min/1.73 sqM) Glucose (74-99) mg/dL Plasma Lactic Acid Toney 1.3 (0.7-2.0) mmol/L Calcium (8.4-10.2) mg/dL Magnesium (1.6-2.3) mg/dL Total Bilirubin (0.2-1.3) mg/dL AST (17-59) U/L ALT (4-49) U/L Alkaline Phosphatase (38-126) U/L Troponin I 0.102 H* (0.000-0.034) ng/mL NT-Pro-B Natriuret Pep 2030 pg/mL Total Protein (6.3-8.2) g/dL Albumin (3.5-5.0) g/dL Disposition Clinical Impression: COPD with acute exacerbation, Elevated troponin, Leukocytosis Disposition: ADMITTED IP TO THIS [facility] Time of Disposition: 20:25
[2022-08-21 18:13] LABS: Basophils % (A) 0 %; Eosinophils % (A) 0 %; HCT 42.3 % (39.0-53.0); HGB 13.5 gm/dL (13.0-17.5); Lymphocytes # (A) 0.3 k/uL (1.0-4.8); Lymphocytes % (A) 2 %; MCH 28.1 pg (25.0-35.0); MCHC 31.8 g/dL (31.0-37.0); MCV 88.3 fL (80.0-100.0); Mean Platelet Volume 9.8; Monocytes # (A) 0.5 k/uL (0-1.0); Monocytes % (A) 3 %; Neutrophils # (A) 19.1 k/uL (1.3-7.7); Neutrophils % (A) 95 %; Platelet Count 202 k/uL (150-450); RDW 14.6 % (11.5-15.5); WBC 20.2 k/uL (3.8-10.6)
[2022-08-21 18:32] LABS: Albumin 3.7 g/dL (3.5-5.0); Calcium 9.3 mg/dL (8.4-10.2); Magnesium 2.2 mg/dL (1.6-2.3); Potassium 4.3 mmol/L (3.5-5.1); Total Bilirubin 0.5 mg/dL (0.2-1.3); Total Protein 6.3 g/dL (6.3-8.2)
--- NOTE | 2022-08-21 18:49 | XR ---
EXAMINATION TYPE: XR chest 2V DATE OF EXAM: 08/21/2022 COMPARISON: 06/09/2019 INDICATION: Chest pain respiratory distress TECHNIQUE: Frontal and lateral views of the chest are obtained. FINDINGS: The heart size is normal. The pulmonary vasculature is normal. The lungs are clear. IMPRESSION: 1. No acute pulmonary process.
[2022-08-21 18:51] LABS: INR 0.9 (<1.2); Partial Thromboplastin Time 21.3 sec (22.0-30.0)
[2022-08-21 19:25] LABS: Prothrombin Time 10.1 sec (9.0-12.0)
[2022-08-21] MEDS ORDERED: NALOXONE 0.4 MG/ML 1 ML VIAL IVP PRN (20:25)
[2022-08-21] MEDS ORDERED: IPRATROPIUM-ALBUTEROL 3 ML NEB INHALATION PRN (20:25)
[2022-08-21] MEDS ORDERED: DEXTROSE 50% SYRINGE 50 ML IVP PRN ×2 (20:35)
[2022-08-21] MEDS: carvediloL 6.25 MG TAB PO SCH (21:17)
[2022-08-21] MEDS: metFORMIN 500 MG TAB PO SCH (21:17)
[2022-08-21] MEDS: AMOXIC-POT CLAV 875-125MG 1 EACH TAB PO SCH (21:17)
[2022-08-21] MEDS: SACUBITRIL/VALSARTAN 24 MG-26 MG TABLET PO SCH (21:18)
[2022-08-21 21:20] LABS: Glucose,Whole Blood 314 mg/dL (70-110)
[2022-08-21] MEDS: INSULIN ASPART (NovoLOG) 100 UNIT/ML VIAL SQ SCH (21:22)
[2022-08-21] MEDS: methylPREDNISolone SOD SUCCI 125 MG/2 ML VIAL IV SCH (23:18)
--- NOTE | 2022-08-22 06:21 | P.CNPUL ---
History of Present Illness Consult date: 08/22/22 Requesting physician: Bakari Gambino Reason for consult: COPD Chief complaint: Shortness of breath History of present illness: I am seeing this patient in new consultation today 08/22/2022 in the emergency room for suspected COPD exacerbation. 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 Patient has been seen in the office by Dr. Garcia in the past for management of his very severe oxygen and steroid dependent COPD. Patient is normally maintained on a combination of Advair and albuterol on an outpatient basis. Patient was transferred to our emergency room from [facility] yesterday evening for a COPD exacerbation. Apparently, the patient has had multiple readmits at [facility], and was recently treated for COPD exacerbation, and discharged on doxycycline and steroids. Patient has been reporting progressively worsening shortness of breath for about 1 week. He denies any symptoms of fever, chills, cough, chest pain. He is currently lying in bed, in 6 L nasal cannula, fairly comfortable. Chest x-ray on arrival showed no cardiopulmonary process. CBC shows leukocytosis with a WBC count of 20.2, hemoglobin 13.5, hematocrit 42.3, platelets 202. BMP shows a sodium 138, potassium 4.3, chloride 94, serum CO2 39, BUN 74, creatinine 1.63, glucose 336. Troponins are elevated at 0.1, 0.12, and 0.14 respectively. EKG shows normal sinus rhythm with right bundle-branch block. Patient denies any chest pain. NT proBNP is elevated at 2030, however, the patient does have a component of acute kidney injury. Patient is currently receiving a combination of bronchodilators, Symbicort inhaler, and IV site Medrol. Patient is also empirically covered on Augmentin. Afebrile. Vital signs are stable. Review of Systems REVIEW OF SYSTEMS: CONSTITUTIONAL: Denies any recent significant weight loss or weight gain. EYES: Denies change in vision. EARS, NOSE, MOUTH, THROAT: Denies headaches, denies sore throat. CARDIOVASCULAR: Denies chest pain, palpitations or syncopal episodes. RESPIRATORY: See HPI GASTROINTESTINAL: Denies change in appetite, abdominal pain, nausea and vomiting, or diarrhea GENITOURINARY: Denies hematuria, denies infections. MUSKULOSKELETAL: Denies pain. admits some bilateral lower extremity swelling INTEGUMENTARY: Denies rash, denies eczema. NEUROLOGICAL: Denies recent memory loss, no recent seizure activity. PSYCHIATRIC: Denies anxiety, denies depression. HEMATOLOGIC/LYMPHATIC: Denies anemia, denies enlarged lymph node Past Medical History Past Medical History: Coronary Artery Disease (CAD), Cancer, COPD, Diabetes Mellitus, Hyperlipidemia, Hypertension, Myocardial Infarction ([place]) Additional Past Medical History / Comment(s): Prostate CA in 1999, treated with seed implants and radiation Last Myocardial Infarction Date:: 1968 History of Any Multi-Drug Resistant Organisms: None Reported Past Surgical History: Orthopedic Surgery Additional Past Surgical History / Comment(s): Knee Surg X3 including a left knee arthroplasty, left Shoulder surgery for rotator cuff, broken ribs on Left side, left ankle Past Anesthesia/Blood Transfusion Reactions: No Reported Reaction Additional Past Anesthesia/Blood Transfusion Reaction / Comment(s): no blood products. Past Psychological History: No Psychological Hx Reported Past Alcohol Use History: None Reported Past Drug Use History: None Reported - Past Family History Father Family Medical History: COPD Additional Family Medical History / Comment(s): from Emphysema Brother(s) Family Medical History: Cancer Additional Family Medical History / Comment(s): from upper resp and heart issues Medications and Allergies Home Medications Medication Instructions Recorded Confirmed Type metFORMIN HCL [Glucophage] 1,000 mg PO DAILY 03/27/15 08/21/22 History Aspirin EC [Ecotrin Low Dose] 81 mg PO DAILY 04/12/19 08/21/22 History metFORMIN HCL [Glucophage] 500 mg PO HS 06/08/19 08/21/22 History Albuterol Nebulized [Ventolin 2.5 mg INHALATION RT-QID PRN 08/21/22 08/21/22 History Nebulized] Albuterol Sulfate [Albuterol 1 - 2 puff PO RT-Q6H PRN 08/21/22 08/21/22 History Sulfate Hfa] Ferrous Sulfate [Feosol] 325 mg PO DAILY 08/21/22 08/21/22 History Fluticasone Propion/Salmeterol 2 puff INHALATION RT-BID 08/21/22 08/21/22 History [Advair Hfa 230-21 Mcg Inhaler] Furosemide [Lasix] 40 mg PO BID 08/21/22 08/21/22 History Ibuprofen [Motrin] 600 mg PO TID PRN 08/21/22 08/21/22 History Rosuvastatin [Crestor] 20 mg PO DAILY 08/21/22 08/21/22 History Sacubitril/Valsartan [Entresto 24 1 tab PO BID 08/21/22 08/21/22 History mg-26 mg Tablet] carvediloL [Coreg] 6.25 mg PO BID 08/21/22 08/21/22 History predniSONE [Deltasone] 20 mg PO DAILY 08/21/22 08/21/22 History Allergies Allergy/AdvReac Type Severity Reaction Status Date / Time No Known Allergies Allergy Verified 08/21/22 18:58 Physical Exam Vitals: Vital Signs Temp Pulse Resp BP Pulse Ox 08/22/22 01:44 75 20 126/89 08/21/22 23:21 97.7 F 79 20 118/78 95 08/21/22 22:00 87 24 149/84 95 08/21/22 21:23 97.6 F 77 22 131/78 95 08/21/22 18:04 75 22 150/79 95 08/21/22 17:05 22 08/21/22 16:59 97 F L 84 20 145/81 96 Intake and Output 08/21/22 08/21/22 08/22/22 14:59 22:59 06:59 Output Total 500 Balance -500 Output: Urine 500 Other: Weight 94.801 kg GENERAL EXAM: Alert, 86-year-old white male, comfortable in no apparent distress. HEAD: Normocephalic and atraumatic EYES: Normal reaction of pupils, equal size. NOSE: Clear with pink turbinates. THROAT: No erythema or exudates. NECK: No masses, no JVD. CHEST: No chest wall deformity. LUNGS: Equal air entry with expiratory wheezes throughout and scattered crackles. On 6 L nasal cannula. No conversational dyspnea or accessory muscle use.. CVS: S1 and S2 normal with no audible murmur, regular rhythm. No extra heart sounds ABDOMEN: No hepatosplenomegaly, active bowel sounds, no guarding or rigidity. SPINE: No scoliosis or deformity SKIN: No rashes CENTRAL NERVOUS SYSTEM: No focal deficits, tone is normal in all 4 extremities. EXTREMITIES: There is no peripheral edema, clubbing, or cyanosis. Peripheral pulses are intact. Results - Laboratory Findings CBC and BMP: 08/21/22 17:54 08/21/22 17:54 PT/INR, D-dimer PT 10.1 sec (9.0-12.0) 08/21/22 17:54 INR 0.9 (<1.2) 08/21/22 17:54 Abnormal lab findings: Abnormal Labs 08/21/22 08/21/22 08/21/22 17:54 17:54 17:54 WBC 20.2 H Neutrophils # 19.1 H Lymphocytes # 0.3 L APTT 21.3 L Chloride 94 L Carbon Dioxide 39 H BUN 74 H Creatinine 1.63 H Glucose 336 H POC Glucose (mg/dL) ALT 72 H Troponin I 08/21/22 08/21/22 08/21/22 17:54 21:16 21:23 WBC Neutrophils # Lymphocytes # APTT Chloride Carbon Dioxide BUN Creatinine Glucose POC Glucose (mg/dL) 314 H ALT Troponin I 0.102 H* 0.116 H* 08/22/22 04:06 WBC Neutrophils # Lymphocytes # APTT Chloride Carbon Dioxide BUN Creatinine Glucose POC Glucose (mg/dL) ALT Troponin I 0.137 H* - Diagnostic Findings Chest x-ray: image reviewed Assessment and Plan Assessment: Acute COPD exacerbation, apparently the patient has had multiple readmits to [facility] for COPD, and was recently discharged home on a steroid taper and doxycycline. The patient's symptoms have progressively worsened over the last week. chest x-ray shows no focal consolidation or evidence of pneumonia. Patient has baseline severe COPD with an FEV1 34% of predicted, normally oxygen and steroid-dependent. Acute on chronic hypoxemic and hypercapnic respiratory failure, requiring 6 L nasal cannula Elevated troponins Acute kidney injury, creatinine 1.63 Leukocytosis History of systolic congestive heart failure, without any evidence of exacerbation on chest x-ray Diabetes mellitus2, [id number] Coronary artery disease Essential hypertension Hyperlipidemia History of prostate cancer Plan: Patient's medications, labs, chest x-ray were reviewed Continue supplemental oxygen to maintain oxygen saturation 88 and 92% Start the patient on a combination of bronchodilators, Symbicort, IV Solu-Medrol Check procalcitonin level and manage empiric antibiotics accordingly Cardiology was consulted Blood glucose control per admitting Gentle IV hydration We will continue to follow I have personally seen and examined the patient, performed the documentation and the assessment and plan as written. Number of minutes spent on the visit:20 Time with Patient: Greater than 30
[2022-08-22] MEDS: methylPREDNISolone SOD SUCCI 125 MG/2 ML VIAL IV SCH ×3 (06:42→18:29)
[2022-08-22] MEDS: SODIUM CHLORIDE 0.9% 1,000 ML IV SCH (06:45)
[2022-08-22] MEDS ORDERED: HEPARIN SODIUM 1,000 UN/ML (10ML VL) IV ONE (07:37)
[2022-08-22] MEDS ORDERED: HEPARIN SODIUM 1,000 UN/ML (10ML VL) IV PRN (07:37)
[2022-08-22] MEDS ORDERED: SYMBICORT 160-4.5 MCG INHALER INHALATION SCH (08:00)
[2022-08-22] MEDS: IPRATROPIUM-ALBUTEROL 3 ML NEB INHALATION SCH ×5 (08:45→20:58)
--- NOTE | 2022-08-22 09:02 | P.CRDCN ---
History of Present Illness Consult date: 08/22/22 Reason for Consult (text): Elevated troponins History of present illness: History of present illness: This is an 86-year-old male patient of Dr. Clement with past medical history of end-stage COPD, chronic hypoxic respiratory failure on O2 at 6 L nasal cannula for the past 3 years, coronary artery disease with previous [place] many years ago, cardiomyopathy with previous EF of 35-40%, dyslipidemia, diabetes, obesity, chronic kidney disease stage IV. We have been asked to evaluate the patient for elevated troponins. Patient presented to [facility] was treated there for pneumonia and COPD due to elevated troponins, patient was transferred to [facility]. Patient states he has had cough with significant mucus production and difficulty in breathing. No fever no chest pain no lower extremity edema. Patient has been started on heparin drip and treatment for COPD exacerbation. Patient is seen today in the emergency center waiting for a bed on the cardiac stepdown unit. EKG sinus mechanism Chest x-ray: No acute process WBC 20, hemoglobin 13.5, platelet count 202. INR 0.9. Sodium 138, potassium 4.3, CO2 39, BUN 74 creatinine 1.63. Blood sugar 336. Lactic acid 1.3. AST 72 otherwise liver function tests are normal. Troponin 0.102, 0.116, 0.137. ProBNP 2030. Home cardiac medications: Aspirin 81 mg daily, Coreg 6.25 mg twice daily, Lasix 40 mg twice daily, Crestor 20 mg daily, Entresto 2426 milligrams twice daily Echocardiogram 05/2019 reveals EF of 35-40% with moderate LVH, moderate TR and mild MR. Review Of Systems: At the time of my evaluation: Constitutional: No fever, no chills. EENT: No headache. No dizziness. Lungs: Reports shortness of breath, Reports cough, Reports sputum production. No wheezing. Cardiovascular: No chest pain, no lower extremity edema. No palpitations. No paroxysmal nocturnal dyspnea. No orthopnea. No lightheadedness or dizziness. No syncopal episodes. Abdominal: No abdominal pain. No nausea, vomiting. No diarrhea. Musculoskeletal: No myalgias. No muscle weakness, no frequent falls. Neurologic: No aphasia. No facial droop. No change in mentation. No head injury. No headache. Physical examination: Gen: This is an 86-year-old male, resting on the ER stretcher and appears to be comfortable and in no acute distress. No respiratory distress noted. VS: reviewed HEENT: Head is atraumatic, normocephalic. Pupils equal, round. Sclerae is anicteric. NECK: Supple. No JVD. LUNGS: Mild expiratory wheezes. No intercostal retractions. HEART: Regular rate and rhythm. No murmur. ABDOMEN: Soft No tenderness. EXTREMITIES: No pedal edema. No calf tenderness. NEUROLOGICAL: Patient is awake, alert and oriented x3. Assessment: Elevated troponin, indicated myocardial injury without ischemia statin COPD exacerbation Chronic hypoxic respiratory failure on oxygen at home Cardiomyopathy with previous EF of 35-40% His lipidemia Diabetes Chronic kidney disease Plan: Continue patient's home cardiac medications Start patient on heparin drip Obtain 2-D echocardiogram and Doppler study to assess cardiac structure and function Further recommendations to follow based upon clinical course. Upon discharge, patient will follow-up with his primary windows software engineer, Dr. Clement. Thank you kindly for this consultation. Nurse practitioner note has been reviewed, I agree with documented findings and plan of care. Patient was seen and examined. Past Medical History Past Medical History: Coronary Artery Disease (CAD), Cancer, COPD, Diabetes Mellitus, Hyperlipidemia, Hypertension, Myocardial Infarction ([place]) Additional Past Medical History / Comment(s): Prostate CA in 1999, treated with seed implants and radiation Last Myocardial Infarction Date:: 1968 History of Any Multi-Drug Resistant Organisms: None Reported Past Surgical History: Orthopedic Surgery Additional Past Surgical History / Comment(s): Knee Surg X3 including a left knee arthroplasty, left Shoulder surgery for rotator cuff, broken ribs on Left side, left ankle Past Anesthesia/Blood Transfusion Reactions: No Reported Reaction Additional Past Anesthesia/Blood Transfusion Reaction / Comment(s): no blood products. Past Psychological History: No Psychological Hx Reported Past Alcohol Use History: None Reported Past Drug Use History: None Reported - Past Family History Father Family Medical History: COPD Additional Family Medical History / Comment(s): from Emphysema Brother(s) Family Medical History: Cancer Additional Family Medical History / Comment(s): from upper resp and heart issues Medications and Allergies Home Medications Medication Instructions Recorded Confirmed Type metFORMIN HCL [Glucophage] 1,000 mg PO DAILY 03/27/15 08/21/22 History Aspirin EC [Ecotrin Low Dose] 81 mg PO DAILY 04/12/19 08/21/22 History metFORMIN HCL [Glucophage] 500 mg PO HS 06/08/19 08/21/22 History Albuterol Nebulized [Ventolin 2.5 mg INHALATION RT-QID PRN 08/21/22 08/21/22 History Nebulized] Albuterol Sulfate [Albuterol 1 - 2 puff PO RT-Q6H PRN 08/21/22 08/21/22 History Sulfate Hfa] Ferrous Sulfate [Feosol] 325 mg PO DAILY 08/21/22 08/21/22 History Fluticasone Propion/Salmeterol 2 puff INHALATION RT-BID 08/21/22 08/21/22 History [Advair Hfa 230-21 Mcg Inhaler] Furosemide [Lasix] 40 mg PO BID 08/21/22 08/21/22 History Ibuprofen [Motrin] 600 mg PO TID PRN 08/21/22 08/21/22 History Rosuvastatin [Crestor] 20 mg PO DAILY 08/21/22 08/21/22 History Sacubitril/Valsartan [Entresto 24 1 tab PO BID 08/21/22 08/21/22 History mg-26 mg Tablet] carvediloL [Coreg] 6.25 mg PO BID 08/21/22 08/21/22 History predniSONE [Deltasone] 20 mg PO DAILY 08/21/22 08/21/22 History Allergies Allergy/AdvReac Type Severity Reaction Status Date / Time No Known Allergies Allergy Verified 08/21/22 18:58 Physical Exam Vitals: Vital Signs Temp Pulse Resp BP Pulse Ox 08/22/22 01:44 75 20 126/89 08/21/22 23:21 97.7 F 79 20 118/78 95 08/21/22 22:00 87 24 149/84 95 08/21/22 21:23 97.6 F 77 22 131/78 95 08/21/22 18:04 75 22 150/79 95 08/21/22 17:05 22 08/21/22 16:59 97 F L 84 20 145/81 96 Intake and Output 08/21/22 08/22/22 08/22/22 22:59 06:59 14:59 Output Total 500 Balance -500 Output: Urine 500 Other: Weight 94.801 kg Results 08/22/22 10:09 08/21/22 17:54 Cardiac Enzymes 08/21/22 08/21/22 08/21/22 Range/Units 17:54 17:54 21:23 AST 58 (17-59) U/L Troponin I 0.102 H* 0.116 H* (0.000-0.034) ng/mL 08/22/22 Range/Units 04:06 AST (17-59) U/L Troponin I 0.137 H* (0.000-0.034) ng/mL Coagulation 08/21/22 Range/Units 17:54 PT 10.1 (9.0-12.0) sec APTT 21.3 L (22.0-30.0) sec CBC 08/21/22 Range/Units 17:54 WBC 20.2 H (3.8-10.6) k/uL RBC 4.80 (4.30-5.90) m/uL Hgb 13.5 (13.0-17.5) gm/dL Hct 42.3 (39.0-53.0) % Plt Count 202 (150-450) k/uL Comprehensive Metabolic Panel 08/21/22 Range/Units 17:54 Sodium 138 (137-145) mmol/L Potassium 4.3 (3.5-5.1) mmol/L Chloride 94 L (98-107) mmol/L Carbon Dioxide 39 H (22-30) mmol/L BUN 74 H (9-20) mg/dL Creatinine 1.63 H (0.66-1.25) mg/dL Glucose 336 H (74-99) mg/dL Calcium 9.3 (8.4-10.2) mg/dL AST 58 (17-59) U/L ALT 72 H (4-49) U/L Alkaline Phosphatase 111 (38-126) U/L Total Protein 6.3 (6.3-8.2) g/dL Albumin 3.7 (3.5-5.0) g/dL Current Medications Generic Name Dose Route Start Last Admin Trade Name Freq PRN Reason Stop Dose Admin Albuterol/Ipratropium 3 ml 08/22/22 08:00 Ipratropium-Albuterol 3 Ml Neb INHALATION RT-QID ISRAEL Albuterol/Ipratropium 3 ml 08/21/22 20:25 Ipratropium-Albuterol 3 Ml Neb INHALATION RT-Q2H PRN Shortness Of Breath Or Wheezing Amoxicillin/Clavulanate Potassium 1 each 08/21/22 21:00 08/21/22 21:17 Amoxic-Pot Clav 875-125mg 1 Each Tab PO 08/26/22 09:01 1 each Q12HR [place] Administration Protocol Aspirin 81 mg 08/22/22 09:00 Aspirin 81 Mg PO DAILY IS[place]EL Atorvastatin Calcium 40 mg 08/22/22 09:00 Atorvastatin 40 Mg Tab PO DAILY [facility] Budesonide/Formoterol Fumarate 2 puff 08/22/22 08:00 Symbicort 160-4.5 Mcg Inhaler INHALATION RT-BID [place]EL Carvedilol 6.25 mg 08/21/22 21:00 08/21/22 21:17 Carvedilol 6.25 Mg Tab PO 6.25 mg AC-BID [place] Administration Dextrose/Water 25 ml 08/21/22 20:35 Dextrose 50% Syringe 50 Ml IVP PER PROTOCOL PRN Hypoglycemia Protocol Dextrose/Water 50 ml 08/21/22 20:35 Dextrose 50% Syringe 50 Ml IVP PER PROTOCOL PRN Hypoglycemia Protocol Ferrous Sulfate 325 mg 08/22/22 09:00 Ferrous Sulfate 325 Mg Tab PO DAILY [place] Sodium Chloride 1,000 mls @ 50 mls/hr 08/22/22 06:30 08/22/22 06:45 Saline 0.9% IV 50 mls/hr .Q20H [place] Administration Insulin Aspart 0 unit 08/21/22 20:35 08/21/22 21:22 Insulin Aspart (Novolog) 100 Unit/Ml Vial SQ 8 unit AC-TID [place] Administration Protocol Metformin HCl 500 mg 08/21/22 21:00 08/21/22 21:17 Metformin 500 Mg Tab PO 500 mg HS [place] Administration Metformin HCl 1,000 mg 08/22/22 09:00 Metformin 500 Mg Tab PO DAILY [place] Methylprednisolone Sodium Succinate 60 mg 08/22/22 00:00 08/22/22 06:42 Methylprednisolone Sod Succi 125 Mg/2 Ml Vial IV 60 mg Q6HR [place] Administration Naloxone HCl 0.2 mg 08/21/22 20:25 Naloxone 0.4 Mg/Ml 1 Ml Vial IVP Q2M PRN Opioid Reversal Sacubitril/Valsartan 1 each 08/21/22 21:00 08/21/22 21:18 Sacubitril/Valsartan 24 Mg-26 Mg Tablet PO 1 each BID [place] Administration Intake and Output 08/21/22 08/22/22 08/22/22 22:59 06:59 14:59 Output Total 500 Balance -500 Output: Urine 500 Other: Weight 94.801 kg 08/21/22 17:54 08/21/22 17:54
[2022-08-22] MEDS: AMOXIC-POT CLAV 875-125MG 1 EACH TAB PO SCH ×2 (09:15→21:25)
[2022-08-22] MEDS: carvediloL 6.25 MG TAB PO SCH ×2 (09:15→18:29)
[2022-08-22] MEDS: FERROUS SULFATE 325 MG TAB PO SCH (09:16)
[2022-08-22] MEDS: metFORMIN 500 MG TAB PO SCH ×2 (09:16→21:24)
[2022-08-22] MEDS: ASPIRIN 81 MG PO SCH (09:16)
[2022-08-22] MEDS: ATORVASTATIN 40 MG TAB PO SCH (09:16)
[2022-08-22] MEDS: SACUBITRIL/VALSARTAN 24 MG-26 MG TABLET PO SCH ×2 (09:16→21:25)
[2022-08-22 09:23] LABS: Glucose,Whole Blood 304 mg/dL (70-110)
[2022-08-22] MEDS: INSULIN ASPART (NovoLOG) 100 UNIT/ML VIAL SQ SCH ×3 (09:23→18:29)
[2022-08-22] MEDS: HEPARIN SOD,PORK IN 0.45% NACL 25,000 UNIT in 0.45% NACL 1 250ML.BAG IV SCH (10:20)
[2022-08-22 10:23] LABS: Basophils % (A) 0 %; Eosinophils % (A) 0 %; HCT 41.2 % (39.0-53.0); HGB 12.7 gm/dL (13.0-17.5); Hypochromasia Moderate; Lymphocytes # (A) 0.3 k/uL (1.0-4.8); Lymphocytes % (A) 1 %; MCH 28.3 pg (25.0-35.0); MCHC 30.8 g/dL (31.0-37.0); MCV 91.8 fL (80.0-100.0); Mean Platelet Volume 10.6; Monocytes # (A) 0.7 k/uL (0-1.0); Monocytes % (A) 3 %; Neutrophils # (A) 20.4 k/uL (1.3-7.7); Neutrophils % (A) 95 %; Platelet Count 163 k/uL (150-450); RBC 4.49 m/uL (4.30-5.90); RDW 14.5 % (11.5-15.5); WBC 21.6 k/uL (3.8-10.6)
[2022-08-22 10:36] LABS: Partial Thromboplastin Time 22.5 sec (22.0-30.0); Prothrombin Time 10.3 sec (9.0-12.0)
[2022-08-22 12:45] LABS: Glucose,Whole Blood 302 mg/dL (70-110)
[2022-08-22 16:18] LABS: Glucose,Whole Blood 242 mg/dL (70-110)
--- NOTE | 2022-08-22 16:45 | P.HPIM ---
History of Present Illness H&P Date: 08/22/22 Chief Complaint: Short of breath This is a pleasant 86-year-old patient, follows with Dr. Leal. Chronic stable medical conditions include CAD, COPD, diabetes, hypertension, hyperlipidemia, prostate cancer in 1999 treated with seed implants and radiation, on home oxygen 6 L. Patient presents with 2 days increasing shortness of breath. Cough with significant yellow sputum. No fever no chills. Appetite is fair. Having bowel movements. Patient does follow with the clerk entry level . Does use a walker to baseline. Review of systems: GEN.: Tired EYES: None HEENT: None NECK: None RESPIRATORY: [As above CARDIOVASCULAR: None GASTROINTESTINAL: None GENITOURINARY: None MUSCULOSKELETAL: Joint pains LYMPHATICS: None HEMATOLOGICAL: None PSYCHIATRY: None NEUROLOGICAL: Walker Past medical history to include: CAD, COPD, diabetes, hypertension, hyperlipidemia, IL, prostate cancer in 2019 treated with seed implants and radiation, Social history: Lives with his . 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 Stop smoking over 40 years ago. Physical examination: VITAL SIGNS: Afebrile, 70, 22, 138 with 74, 95% on 6 L GENERAL: BMI 30, reclining in bed awake short of breath. EYES: Pupils equal. Conjunctiva normal. HEENT: External appearance of nose and ears normal, oral cavity grossly normal. NECK: JVD not raised; masses not palpable. HEART: First and second heart sounds are normal; no edema. LUNGS: Respiratory rate increased; diminished breath sounds. ABDOMEN: Soft, nontender, liver spleen not palpable, no masses palpable. PSYCH: Alert and oriented x3; mood and affect normal. MUSCULOSKELETAL:No Clubbing/cyanosis;muscles-grossly intact. NEUROLOGICAL: Cranial nerves grossly intact; no facial asymmetry, power and sensation grossly intact. LYMPHATICS: No lymph nodes palpable in the axilla and neck INVESTIGATIONS, reviewed in the clinical context: White count 21.6, hemoglobin 12.7 platelets 163 sodium 138 potassium 4.3 BUN 34 creatinine 1.63 Troponin I 0.102, 0.116, 0.137 Procalcitonin 0.09 proBNP 2030 EKG tracing personally reviewed by me-normal sinus rhythm. Right bundle-branch block. Chest x-ray film personally reviewed by me-questionable right basilar infiltrate Assessment and plan: -Acute severe COPD exacerbation in a previous smoker DuoNeb every 4, IV Solu-Medrol, nebulized Pulmicort, pulmonary consulted -Acute tracheal bronchitis Augmentin -Diabetes mellitus type 2 on oral hypoglycemic Follow Accu-Cheks with sliding scale -Positive troponin in the setting of elevated creatinine. No obvious evidence of ACS. Consult cardiology -Acute versus chronic kidney disease. No baseline recent creatinine available. Review ultrasound. Check UA. Gentle hydration. Follow labs -Hyperlipidemia Crestor 20 mg -Essential hypertension Coreg -CAD with a prior IL Coreg -Chronic hypoxic respiratory failure from underlying COPD On home oxygen 6 L Past Medical History Past Medical History: Coronary Artery Disease (CAD), Cancer, COPD, Diabetes Mellitus, Hyperlipidemia, Hypertension, Myocardial Infarction (IL) Additional Past Medical History / Comment(s): Prostate CA in 1999, treated with seed implants and radiation Last Myocardial Infarction Date:: 1968 History of Any Multi-Drug Resistant Organisms: None Reported Past Surgical History: Orthopedic Surgery Additional Past Surgical History / Comment(s): Knee Surg X3 including a left knee arthroplasty, left Shoulder surgery for rotator cuff, broken ribs on Left side, left ankle Past Anesthesia/Blood Transfusion Reactions: No Reported Reaction Additional Past Anesthesia/Blood Transfusion Reaction / Comment(s): no blood products. Past Psychological History: No Psychological Hx Reported Past Alcohol Use History: None Reported Past Drug Use History: None Reported - Past Family History Father Family Medical History: COPD Additional Family Medical History / Comment(s): from Emphysema Brother(s) Family Medical History: Cancer Additional Family Medical History / Comment(s): from upper resp and heart issues Medications and Allergies Home Medications Medication Instructions Recorded Confirmed Type metFORMIN HCL [Glucophage] 1,000 mg PO DAILY 03/27/15 08/21/22 History Aspirin EC [Ecotrin Low Dose] 81 mg PO DAILY 04/12/19 08/21/22 History metFORMIN HCL [Glucophage] 500 mg PO HS 06/08/19 08/21/22 History Albuterol Nebulized [Ventolin 2.5 mg INHALATION RT-QID PRN 08/21/22 08/21/22 History Nebulized] Albuterol Sulfate [Albuterol 1 - 2 puff PO RT-Q6H PRN 08/21/22 08/21/22 History Sulfate Hfa] Ferrous Sulfate [Feosol] 325 mg PO DAILY 08/21/22 08/21/22 History Fluticasone Propion/Salmeterol 2 puff INHALATION RT-BID 08/21/22 08/21/22 History [Advair Hfa 230-21 Mcg Inhaler] Furosemide [Lasix] 40 mg PO BID 08/21/22 08/21/22 History Ibuprofen [Motrin] 600 mg PO TID PRN 08/21/22 08/21/22 History Rosuvastatin [Crestor] 20 mg PO DAILY 08/21/22 08/21/22 History Sacubitril/Valsartan [Entresto 24 1 tab PO BID 08/21/22 08/21/22 History mg-26 mg Tablet] carvediloL [Coreg] 6.25 mg PO BID 08/21/22 08/21/22 History predniSONE [Deltasone] 20 mg PO DAILY 08/21/22 08/21/22 History Allergies Allergy/AdvReac Type Severity Reaction Status Date / Time No Known Allergies Allergy Verified 08/21/22 18:58 Physical Exam Vitals: Vital Signs Temp Pulse Pulse Resp BP BP Pulse Ox 08/22/22 08:53 68 08/22/22 08:49 97 08/22/22 08:45 66 08/22/22 08:00 70 18 138/74 95 08/22/22 01:44 75 20 126/89 08/21/22 23:21 97.7 F 79 20 118/78 95 08/21/22 22:00 87 24 149/84 95 08/21/22 21:23 97.6 F 77 22 131/78 95 08/21/22 18:04 75 22 150/79 95 08/21/22 17:05 22 08/21/22 16:59 97 F L 84 20 145/81 96 Intake and Output 08/21/22 08/22/22 08/22/22 22:59 06:59 14:59 Output Total 500 Balance -500 Output: Urine 500 Other: Weight 94.801 kg Results CBC & Chem 7: 08/22/22 10:09 08/21/22 17:54 Labs: Abnormal Lab Results - Last 24 Hours (Table) 08/21/22 08/21/22 08/21/22 Range/Units 17:54 17:54 17:54 WBC 20.2 H (3.8-10.6) k/uL Neutrophils # 19.1 H (1.3-7.7) k/uL Lymphocytes # 0.3 L (1.0-4.8) k/uL APTT 21.3 L (22.0-30.0) sec Chloride 94 L (98-107) mmol/L Carbon Dioxide 39 H (22-30) mmol/L BUN 74 H (9-20) mg/dL Creatinine 1.63 H (0.66-1.25) mg/dL Glucose 336 H (74-99) mg/dL POC Glucose (mg/dL) (70-110) mg/dL ALT 72 H (4-49) U/L Troponin I (0.000-0.034) ng/mL 08/21/22 08/21/22 08/21/22 Range/Units 17:54 21:16 21:23 WBC (3.8-10.6) k/uL Neutrophils # (1.3-7.7) k/uL Lymphocytes # (1.0-4.8) k/uL APTT (22.0-30.0) sec Chloride (98-107) mmol/L Carbon Dioxide (22-30) mmol/L BUN (9-20) mg/dL Creatinine (0.66-1.25) mg/dL Glucose (74-99) mg/dL POC Glucose (mg/dL) 314 H (70-110) mg/dL ALT (4-49) U/L Troponin I 0.102 H* 0.116 H* (0.000-0.034) ng/mL 08/22/22 08/22/22 Range/Units 04:06 09:20 WBC (3.8-10.6) k/uL Neutrophils # (1.3-7.7) k/uL Lymphocytes # (1.0-4.8) k/uL APTT (22.0-30.0) sec Chloride (98-107) mmol/L Carbon Dioxide (22-30) mmol/L BUN (9-20) mg/dL Creatinine (0.66-1.25) mg/dL Glucose (74-99) mg/dL POC Glucose (mg/dL) 304 H (70-110) mg/dL ALT (4-49) U/L Troponin I 0.137 H* (0.000-0.034) ng/mL
[2022-08-22] MEDS: FUROSEMIDE 40 MG TAB PO SCH (18:29)
--- NOTE | 2022-08-22 18:52 | CA ---
Transthoracic Echo Report Name: Parker Nunez Age: 86 Gender: M : 1935 Exam Date: 08/22/2022 10:45 Exam Location: [place] [facility] Ht (in): 67 Wt (lb): 155 Ordering Physician: Nemo Parker Attending/Referring Phys: [id number], Keith Plug Making Operator Giorgio Dennis Procedure CPT: Indications: LVF Cardiac Hx: Technical Quality: Fair Contrast 1: Total Dose (mL): Contrast 2: Total Dose (mL): MEASUREMENTS (Male / Female) Normal Values 2D ECHO LV Diastolic Diameter PLAX 4.6 cm 4.2 - 5.9 / 3.9 - 5.3 cm LV Systolic Diameter PLAX 4.3 cm IVS Diastolic Thickness 1.8 cm 0.6 - 1.0 / 0.6 - 0.9 cm LVPW Diastolic Thickness 1.7 cm 0.6 - 1.0 / 0.6 - 0.9 cm LV Relative Wall Thickness 0.8 RV Internal Dim ED PLAX 2.5 cm LVOT Diameter 2.4 cm Aortic Root Diameter 3.4 cm LA Systolic Diameter LX 2.9 cm 3.0 - 4.0 / 2.7 - 3.8 cm LV Diastolic Volume MOD BP 84.4 cm??? 67 - 155 / 56 - 104 cm??? LV Systolic Volume MOD BP 49.3 cm??? 22 - 58 / 19 - 49 cm??? LV Ejection Fraction MOD BP 41.6 % >= 55 % LV Diastolic Volume MOD 4C 73.7 cm??? LV Systolic Volume MOD 4C 48.5 cm??? LV Ejection Fraction MOD 4C 34.3 % LV Diastolic Length 4C 6.8 cm LV Systolic Length 4C 6.2 cm LV Diastolic Volume MOD 2C 90.1 cm??? LV Systolic Volume MOD 2C 47.9 cm??? LV Ejection Fraction MOD 2C 46.8 % LV Diastolic Length 2C 7.4 cm LV Systolic Length 2C 6.5 cm LA Volume 46.1 cm??? 18 - 58 / 22 - 52 cm??? DOPPLER AV Peak Velocity 155.7 cm/s AV Peak Gradient 9.7 mmHg MV Peak Velocity 109.7 cm/s MV Peak Gradient 4.8 mmHg MV Mean Velocity 52.2 cm/s MV Mean Gradient 1.4 mmHg MV Velocity Time Integral 38.8 cm MR Peak Velocity 186.4 cm/s MR Peak Gradient 13.9 mmHg Mitral E Point Velocity 72.3 cm/s Mitral A Point Velocity 109.0 cm/s Mitral E to A Ratio 0.7 MV Deceleration Time 241.0 ms TR Peak Velocity 160.9 cm/s TR Peak Gradient 10.4 mmHg Right Ventricular Systolic Press 15.4 mmHg FINDINGS Left Ventricle Left ventricular ejection fraction is estimated at 35-40 %. Right Ventricle Right ventricle at upper limits of normal. Right Atrium Normal right atrial size. Left Atrium Normal left atrial size. Mitral Valve Structurally normal mitral valve. Trace MR. Aortic Valve Aortic valve not well visualized. No aortic valve stenosis or regurgitation. Tricuspid Valve Structurally normal tricuspid valve. Trace TR. Pulmonic Valve Pulmonic valve not well visualized. No pulmonic regurgitation. Pericardium Normal pericardium. Aorta Normal size aortic root and proximal ascending aorta. CONCLUSIONS Reduced LV systolic function ejection fraction 35% or less Septal hypokinesis, severe Previewed by: Dr. Ariel Negrete MD (Electronically Signed) Final Date: 22 Aug 2022 18:51
--- NOTE | 2022-08-22 19:53 | US ---
EXAMINATION TYPE: US kidneys/renal and bladder DATE OF EXAM: 08/22/2022 COMPARISON: NONE CLINICAL INDICATION: Male, 86 years old with history of Evaluate for CK D; Eval for CKD EXAM MEASUREMENTS: Right Kidney: 9.4 x 5.2 x 5.5 cm Left Kidney: 10.3 x 5.8 x 4.9 cm Right Kidney: Cystic structure seen mid pole measuring 1.9 x 1.4 x 1.6cm Left Kidney: No hydronephrosis or masses seen Bladder: Appears wnl. Partially limited due to bowel gas Bilateral Jets seen: No IMPRESSION: 1. Right renal cyst
[2022-08-22 20:10] LABS: Glucose,Whole Blood 253 mg/dL (70-110)
[2022-08-22] MEDS: FORMOTEROL FUMARATE 20 MCG/2 ML NEBU INHALATION SCH (20:58)
[2022-08-22] MEDS: BUDESONIDE 1 MG/2 ML NEBU INHALATION SCH (20:58)
[2022-08-22] MEDS: guaiFENesin 600 MG TABLET.ER PO SCH (21:25)
[2022-08-22 21:51] LABS: Appearance,Urine Clear (Clear); Bilirubin,Urine Negative (Negative); Blood,Urine Negative (Negative); Color,Urine Yellow; Glucose,Urine (UA) Trace (Negative); Ketones,Urine Negative (Negative); Leukocyte Esterase,Urine Negative (Negative); Nitrite,Urine Negative (Negative); PH, Urine 5.5 (5.0-8.0); Protein,Urine Trace (Negative); Urobilinogen,Urine <2.0 mg/dL (<2.0)
[2022-08-23] MEDS: methylPREDNISolone SOD SUCCI 125 MG/2 ML VIAL IV SCH ×2 (00:41→06:32)
[2022-08-23] MEDS: IPRATROPIUM-ALBUTEROL 3 ML NEB INHALATION SCH ×7 (00:58→23:57)
[2022-08-23 05:52] LABS: Glucose,Whole Blood 230 mg/dL (70-110)
[2022-08-23] MEDS: INSULIN ASPART (NovoLOG) 100 UNIT/ML VIAL SQ SCH ×3 (06:32→17:43)
[2022-08-23] MEDS: carvediloL 6.25 MG TAB PO SCH ×2 (06:33→17:45)
[2022-08-23] MEDS: BUDESONIDE 1 MG/2 ML NEBU INHALATION SCH ×2 (07:44→22:14)
[2022-08-23] MEDS: FORMOTEROL FUMARATE 20 MCG/2 ML NEBU INHALATION SCH ×2 (07:44→22:14)
[2022-08-23] MEDS: HEPARIN SOD,PORK IN 0.45% NACL 25,000 UNIT in 0.45% NACL 1 250ML.BAG IV SCH (08:03)
[2022-08-23] MEDS: SODIUM CHLORIDE 0.9% 1,000 ML IV SCH ×2 (08:03→23:56)
[2022-08-23] MEDS: SACUBITRIL/VALSARTAN 24 MG-26 MG TABLET PO SCH ×2 (08:22→21:22)
[2022-08-23] MEDS: ASPIRIN 81 MG PO SCH (08:22)
[2022-08-23] MEDS: FERROUS SULFATE 325 MG TAB PO SCH (08:22)
[2022-08-23] MEDS: ATORVASTATIN 40 MG TAB PO SCH (08:22)
[2022-08-23] MEDS: metFORMIN 500 MG TAB PO SCH ×2 (08:22→21:21)
[2022-08-23] MEDS: FUROSEMIDE 40 MG TAB PO SCH ×2 (08:22→17:45)
[2022-08-23] MEDS: AMOXIC-POT CLAV 875-125MG 1 EACH TAB PO SCH (08:22)
[2022-08-23] MEDS: guaiFENesin 600 MG TABLET.ER PO SCH ×2 (08:22→21:21)
--- NOTE | 2022-08-23 09:26 | P.PN ---
Subjective Progress Note Date: 08/23/22 History of present illness: This is an 86-year-old male patient of Dr. Clement with past medical history of end-stage COPD, chronic hypoxic respiratory failure on O2 at 6 L nasal cannula for the past 3 years, coronary artery disease with previous IL many years ago, cardiomyopathy with previous EF of 35-40%, dyslipidemia, diabetes, obesity, chronic kidney disease stage IV. We have been asked to evaluate the patient for elevated troponins. Patient presented to [facility] was treated there for pneumonia and COPD due to elevated troponins, patient was transferred to [facility]. Patient states he has had cough with significant mucus production and difficulty in breathing. No fever no chest pain no lower extremity edema. Patient has been started on heparin drip and treatment for CROSSBAR SWITCH ADJUSTER D exacerbation. Patient is seen today in the emergency center waiting for a bed on the cardiac stepdown unit. EKG sinus mechanism Chest x-ray: No acute process WBC 20, hemoglobin 13.5, platelet count 202. INR 0.9. Sodium 138, potassium 4.3, CO2 39, BUN 74 creatinine 1.63. Blood sugar 336. Lactic acid 1.3. AST 72 otherwise liver function tests are normal. Troponin 0.102, 0.116, 0.137. 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 Home cardiac medications: Aspirin 81 mg daily, Coreg 6.25 mg twice daily, Lasix 40 mg twice daily, Crestor 20 mg daily, Entresto 2426 milligrams twice daily Echocardiogram 05/2019 reveals EF of 35-40% with moderate LVH, moderate TR and mild MR. 08/23 Patient is seen in follow-up today on the cardiac stepdown unit. He states his breathing is better. He is on a heparin drip. He has no lower extremity extremities. Blood pressure 96/56, heart rate in the 60s and 70s. Echocardiogram reveals reduced LV function of 35% or less. Septal hypokinesia severe. Physical examination: Gen: This is an 86-year-old male, resting in bed and appears to be comfortable and in no acute distress. No respiratory distress noted. VS: reviewed HEENT: Head is atraumatic, normocephalic. Pupils equal, round. Sclerae is anicteric. NECK: Supple. No JVD. LUNGS: Mild expiratory wheezes and crackles. No intercostal retractions. HEART: Regular rate and rhythm. No murmur. ABDOMEN: Soft No tenderness. EXTREMITIES: No pedal edema. No calf tenderness. NEUROLOGICAL: Patient is awake, alert and oriented x3. Assessment: Elevated troponin, indicated myocardial injury without ischemia statin COPD exacerbation Chronic hypoxic respiratory failure on oxygen at home Cardiomyopathy with previous EF of 35-40% His lipidemia Diabetes Chronic kidney disease Plan: Continue patient's home cardiac medications Discontinue heparin drip Cardiology we'll sign off and follow on an as-needed basis. Patient may follow- up with his primary mason foreman/superintendant following discharge. Nurse practitioner note has been reviewed, I agree with documented findings and plan of care. Patient was seen and examined. Objective - Vital Signs Vital signs: Vital Signs Temp 97.5 F L 08/23/22 04:00 Pulse 66 08/23/22 07:45 Resp 20 08/23/22 04:00 BP 130/74 08/23/22 04:00 Pulse Ox 95 08/23/22 07:45 FiO2 Intake & Output 08/22/22 08/23/22 08/23/22 18:59 06:59 18:59 Intake Total 120 640 Output Total 700 Balance 120 -60 Weight 97 kg Intake: Oral 120 640 Output: Urine 700 Other: Voiding Method Urinal - Labs CBC & Chem 7: 08/22/22 10:09 08/21/22 17:54 Labs: Abnormal Lab Results - Last 24 Hours (Table) 08/22/22 08/22/22 08/22/22 Range/Units 09:20 10:09 12:39 WBC 21.6 H (3.8-10.6) k/uL Hgb 12.7 L (13.0-17.5) gm/dL MCHC 30.8 L (31.0-37.0) g/dL Neutrophils # 20.4 H (1.3-7.7) k/uL Lymphocytes # 0.3 L (1.0-4.8) k/uL APTT (22.0-30.0) sec POC Glucose (mg/dL) 304 H 302 H (70-110) mg/dL Urine Protein (Negative) Urine Glucose (UA) (Negative) 08/22/22 08/22/22 08/22/22 Range/Units 15:57 16:16 20:09 WBC (3.8-10.6) k/uL Hgb (13.0-17.5) gm/dL MCHC (31.0-37.0) g/dL Neutrophils # (1.3-7.7) k/uL Lymphocytes # (1.0-4.8) k/uL APTT 58.2 H (22.0-30.0) sec POC Glucose (mg/dL) 242 H 253 H (70-110) mg/dL Urine Protein (Negative) Urine Glucose (UA) (Negative) 08/22/22 08/23/22 Range/Units 21:41 05:41 WBC (3.8-10.6) k/uL Hgb (13.0-17.5) gm/dL MCHC (31.0-37.0) g/dL Neutrophils # (1.3-7.7) k/uL Lymphocytes # (1.0-4.8) k/uL APTT (22.0-30.0) sec POC Glucose (mg/dL) 230 H (70-110) mg/dL Urine Protein Trace H (Negative) Urine Glucose (UA) Trace H (Negative)
--- NOTE | 2022-08-23 11:36 | P.PN ---
Progress Note - Text Progress Note Date: 08/23/22 Chief Complaint: Short of breath This is a pleasant 86-year-old patient, follows with Dr. Leal. Chronic stable medical conditions include CAD, COPD, diabetes, hypertension, hyperlipidemia, prostate cancer in 1999 treated with seed implants and radiation, on home oxygen 6 L. Patient presents with 2 days increasing shortness of breath. Cough with significant yellow sputum. No fever no chills. Appetite is fair. Having bowel movements. Patient does follow with the photoengraving etcher apprentice . Does use a walker to baseline. Admitted with COPD exacerbation, acute tracheal bronchitis. On bronchodilators, IV Solu-Medrol, Augmentin. August 23: Remain short of breath. Sputum production. Slight improvement. Did eat some food. 6 L nasal cannula. Add incentive spirometer. Up in chair. Active Medications Albuterol/Ipratropium (Ipratropium-Albuterol 3 Ml Neb) 3 ml INHALATION RT-Q2H PRN PRN Reason: Shortness Of Breath Or Wheezing Albuterol/Ipratropium (Ipratropium-Albuterol 3 Ml Neb) 3 ml INHALATION RT-Q4H [facility] Last Admin: 08/23/22 10:58 Dose: 3 ml Amoxicillin/Clavulanate Potassium (Amoxic-Pot Clav 875-125mg 1 Each Tab) 1 each PO Q12HR [facility]; Protocol Stop: 08/26/22 09:01 Last Admin: 08/23/22 08:22 Dose: 1 each Aspirin (Aspirin 81 Mg) 81 mg PO DAILY [facility] Last Admin: 08/23/22 08:22 Dose: 81 mg Atorvastatin Calcium (Atorvastatin 40 Mg Tab) 40 mg PO DAILY [facility] Last Admin: 08/23/22 08:22 Dose: 40 mg Budesonide (Budesonide 1 Mg/2 Ml Nebu) 1 mg INHALATION RT-BID [facility] Last Admin: 08/23/22 07:44 Dose: 1 mg Carvedilol (Carvedilol 6.25 Mg Tab) 6.25 mg PO AC-BID [facility] Last Admin: 08/23/22 06:33 Dose: 6.25 mg Dextrose/Water (Dextrose 50% Syringe 50 Ml) 25 ml IVP PER PROTOCOL PRN; Protocol PRN Reason: Hypoglycemia Dextrose/Water (Dextrose 50% Syringe 50 Ml) 50 ml IVP PER PROTOCOL PRN; Protocol PRN Reason: Hypoglycemia Ferrous Sulfate (Ferrous Sulfate 325 Mg Tab) 325 mg PO DAILY [facility] Last Admin: 08/23/22 08:22 Dose: 325 mg Formoterol Fumarate (Formoterol Fumarate 20 Mcg/2 Ml Nebu) 20 mcg INHALATION RT-BID [facility] Last Admin: 08/23/22 07:44 Dose: 20 mcg Furosemide (Furosemide 40 Mg Tab) 40 mg PO BID@0900,1600 [facility] Last Admin: 08/23/22 08:22 Dose: 40 mg Guaifenesin (Guaifenesin 600 Mg Tablet.Er) 1,200 mg PO BID [facility] Last Admin: 08/23/22 08:22 Dose: 1,200 mg Sodium Chloride (Saline 0.9%) 1,000 mls @ 50 mls/hr IV .Q20H [facility] Last Admin: 08/23/22 08:03 Dose: Not Given Insulin Aspart (Insulin Aspart (Novolog) 100 Unit/Ml Vial) 0 unit SQ AC-TID [facility]; Protocol Last Admin: 08/23/22 06:32 Dose: 4 unit Metformin HCl (Metformin 500 Mg Tab) 500 mg PO HS [facility] Last Admin: 08/22/22 21:24 Dose: 500 mg Metformin HCl (Metformin 500 Mg Tab) 1,000 mg PO DAILY [facility] Last Admin: 08/23/22 08:22 Dose: 1,000 mg Methylprednisolone Sodium Succinate (Methylprednisolone Sod Succi 125 Mg/2 Ml Vial) 60 mg IV Q6HR [facility] Last Admin: 08/23/22 06:32 Dose: 60 mg Naloxone HCl (Naloxone 0.4 Mg/Ml 1 Ml Vial) 0.2 mg IVP Q2M PRN PRN Reason: Opioid Reversal Sacubitril/Valsartan (Sacubitril/Valsartan 24 Mg-26 Mg Tablet) 1 each PO BID [facility] Last Admin: 08/23/22 08:22 Dose: 1 each Past medical history to include: CAD, COPD, diabetes, hypertension, hyperlipidemia, CA, prostate cancer in 2020 treated with seed implants and radiation, Social history: Lives with his . 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 Stop smoking over 40 years ago. Physical examination: VITAL SIGNS: 7.8, 70, 18, 96 x 56, 93% on 6 L GENERAL: BMI 30, reclining in bed awake short of breath. EYES: Pupils equal. Conjunctiva normal. HEENT: External appearance of nose and ears normal, oral cavity grossly normal. NECK: JVD not raised; masses not palpable. HEART: First and second heart sounds are normal; no edema. LUNGS: Respiratory rate increased; diminished breath sounds. ABDOMEN: Soft, nontender, liver spleen not palpable, no masses palpable. PSYCH: Alert and oriented x3; mood and affect normal. MUSCULOSKELETAL:No Clubbing/cyanosis;muscles-grossly intact. INVESTIGATIONS, reviewed in the clinical context: 2-D echocardiogram: EF 35-40%. Ultrasound kidney: Right renal cyst. White count 21.6, hemoglobin 12.7 platelets 163 sodium 138 potassium 4.3 BUN 34 creatinine 1.63 Troponin I 0.102, 0.116, 0.137 Procalcitonin 0.09 proBNP 2030 EKG tracing personally reviewed by me-normal sinus rhythm. Right bundle-branch block. Chest x-ray film personally reviewed by me-questionable right basilar infiltrate Assessment and plan: -Acute severe COPD exacerbation in a previous smoker: Slow to respond DuoNeb every 4, IV Solu-Medrol, nebulized Pulmicort, pulmonary consulted -Acute tracheal bronchitis Augmentin -Diabetes mellitus type 2 on oral hypoglycemic, uncontrolled with hyperglycemia Follow Accu-Cheks with sliding scale -Positive troponin in the setting of elevated creatinine. No obvious evidence of ACS. Seen by matt Velazquez. No further intervention -Acute versus chronic kidney disease. No baseline recent creatinine available. Review ultrasound. Check UA. Gentle hydration. Follow labs -Hyperlipidemia Crestor 20 mg -Essential hypertension Coreg -CAD with a prior CA Coreg -Chronic hypoxic respiratory failure from underlying COPD On home oxygen 6 L
--- NOTE | 2022-08-23 11:42 | P.PN ---
Subjective Progress Note Date: 08/23/22 Principal diagnosis: Shortness of breath/chest pain. I am seeing this patient in new consultation today 08/22/2022 in the emergency room for suspected COPD exacerbation. 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 Patient has been seen in the office by Dr. Garcia in the past for management of his very severe oxygen and steroid dependent COPD. Patient is normally maintained on a combination of Advair and albuterol on an outpatient basis. Patient was transferred to our emergency room from [facility] yesterday evening for a COPD exacerbation. Apparently, the patient has had multiple readmits at [facility], and was recently treated for COPD exacerbation, and discharged on doxycycline and steroids. Patient has been reporting progressively worsening shortness of breath for about 1 week. He denies any symptoms of fever, chills, cough, chest pain. He is currently lying in bed, in 6 L nasal cannula, fairly comfortable. Chest x-ray on arrival showed no cardiopulmonary process. CBC shows leukocytosis with a WBC count of 20.2, hemoglobin 13.5, hematocrit 42.3, platelets 202. BMP shows a sodium 138, potassium 4.3, chloride 94, serum CO2 39, BUN 74, creatinine 1.63, glucose 336. Troponins are elevated at 0.1, 0.12, and 0.14 respectively. EKG shows normal sinus rhythm with right bundle-branch block. Patient denies any chest pain. NT proBNP is elevated at 2030, however, the patient does have a component of acute kidney injury. Patient is currently receiving a combination of bronchodilators, Symbicort inhaler, and IV site Medrol. Patient is also empirically covered on Augmentin. Afebrile. Vital signs are stable. Progress note dated 08/23/2022. Seen yesterday in consultation. He has severe/stage III almost stage IV COPD, with an FEV1 percent that is 33. He sees one of my partners in the office for his COPD. The patient is doing better today. He was seen by cardiology. They had him on a heparin drip thinking that he may have sustained a myocardial infa rction. Heparin has been discontinued. Advised to follow-up with his outpatient title lawyer. He's currently on 6 L of oxygen. He is not receiving any IV fluids. Feeling much better, but probably can be discharged until tomorrow. Labs include a PTT of 86. Glucose 2:30. Objective - Vital Signs Vital signs: Vital Signs Temp 97.8 F 08/23/22 08:00 Pulse 70 08/23/22 11:11 Resp 18 08/23/22 08:00 BP 96/56 08/23/22 08:00 Pulse Ox 93 L 08/23/22 08:00 FiO2 Intake & Output 08/22/22 08/23/22 08/23/22 18:59 06:59 18:59 Intake Total 120 640 660 Output Total 700 Balance 120 -60 660 Weight 97 kg Intake: Oral 120 640 660 Output: Urine 700 Other: Voiding Method Urinal - Exam No acute distress, oriented 3. Mild conversational dyspnea. Currently on 6 L. No use of accessory muscles. No audible wheezing. HEENT examination is grossly unremarkable. Neck supple. Full range of motion. No adenopathy thyromegaly or neck vein distention. Cardiovascular examination reveals regular rhythm rate. S1-S2 normal. No S3 or S4. No discernible murmur noted. Heart sounds are distant. Heart rate 70 bpm. Lungs reveal scattered expiratory rhonchi and wheezes. Mild to moderate in severity. No crackles. Breath sounds are equal. Breath sounds are diminished throughout. 6 L saturation is 93%. Abdomen soft bowel sounds are heard. No masses or tenderness. Extremities are intact. No cyanosis clubbing or edema. Skin is without rash or lesion. Neurologic examination is brief but nonfocal. - Labs CBC & Chem 7: 08/22/22 10:09 08/21/22 17:54 Labs: Abnormal Lab Results - Last 24 Hours (Table) 08/22/22 08/22/22 08/22/22 Range/Units 12:39 15:57 16:16 APTT 58.2 H (22.0-30.0) sec POC Glucose (mg/dL) 302 H 242 H (70-110) mg/dL Urine Protein (Negative) Urine Glucose (UA) (Negative) 08/22/22 08/22/22 08/23/22 Range/Units 20:09 21:41 05:41 APTT (22.0-30.0) sec POC Glucose (mg/dL) 253 H 230 H (70-110) mg/dL Urine Protein Trace H (Negative) Urine Glucose (UA) Trace H (Negative) 08/23/22 Range/Units 08:05 APTT 86.0 H (22.0-30.0) sec POC Glucose (mg/dL) (70-110) mg/dL Urine Protein (Negative) Urine Glucose (UA) (Negative) Microbiology - Last 24 Hours (Table) 08/23/22 06:00 Sputum Culture - Preliminary Sputum 08/21/22 18:00 Blood Culture - Preliminary Blood Assessment and Plan Assessment: Acute exacerbation of COPD, in a patient with severe/stage III COPD. Chronic hypoxemic respiratory failure. Severe COPD, with an FEV1 percent, that is 33% of predicted. Elevated troponins, which may relate to supply/demand mismatch. Acute kidney injury. History of systolic congestive heart failure. Type II, diabetes mellitus. History of CAD. Essential hypertension. History of hyperlipidemia. History prostate cancer. Plan: Plan dated 08/23/2022. The patient's lungs, or improved, on auscultation. He continues on appropriate medications. According to cardiology, and atrial fibrillation sustained any myocardial ischemia, so they recommend that we stop the heparin. The patient is also recommended to follow-up with his outside title lawyer. We will continue to follow make recommendations along the way. Prognosis is guarded. Clinically, he seems to be improved. The patient's pro-calcitonin level is quite low, so antibiotics will be discontinued. In addition, his Solu-Medrol will be converted to prednisone 30 mg a day. Time with Patient: Less than 30
[2022-08-23 11:46] LABS: Glucose,Whole Blood 252 mg/dL (70-110)
[2022-08-23] MEDS: INSULIN DETEMIR (LEVEMIR) 100 UNIT/ML SYR SQ SCH (12:03)
[2022-08-23 16:53] LABS: Glucose,Whole Blood 142 mg/dL (70-110)
[2022-08-23 20:15] LABS: Glucose,Whole Blood 167 mg/dL (70-110)
[2022-08-24] MEDS: IPRATROPIUM-ALBUTEROL 3 ML NEB INHALATION SCH ×5 (04:36→21:40)
[2022-08-24 06:12] LABS: Glucose,Whole Blood 102 mg/dL (70-110)
[2022-08-24] MEDS: INSULIN ASPART (NovoLOG) 100 UNIT/ML VIAL SQ SCH ×3 (06:15→17:46)
[2022-08-24] MEDS: INSULIN DETEMIR (LEVEMIR) 100 UNIT/ML SYR SQ SCH (06:20)
[2022-08-24] MEDS: carvediloL 6.25 MG TAB PO SCH ×2 (06:20→17:46)
[2022-08-24] MEDS: guaiFENesin 600 MG TABLET.ER PO SCH ×2 (08:05→20:45)
[2022-08-24] MEDS: ASPIRIN 81 MG PO SCH (08:05)
[2022-08-24] MEDS: predniSONE 10 MG TAB PO SCH (08:05)
[2022-08-24] MEDS: FUROSEMIDE 40 MG TAB PO SCH ×2 (08:05→15:38)
[2022-08-24] MEDS: ATORVASTATIN 40 MG TAB PO SCH (08:05)
[2022-08-24] MEDS: SACUBITRIL/VALSARTAN 24 MG-26 MG TABLET PO SCH ×2 (08:05→20:45)
[2022-08-24] MEDS: FERROUS SULFATE 325 MG TAB PO SCH (08:05)
[2022-08-24] MEDS: metFORMIN 500 MG TAB PO SCH ×2 (08:05→20:48)
[2022-08-24 08:22] LABS: Basophils % (A) 0 %; Eosinophils % (A) 0 %; HCT 42.4 % (39.0-53.0); HGB 13.3 gm/dL (13.0-17.5); Lymphocytes # (A) 0.7 k/uL (1.0-4.8); Lymphocytes % (A) 3 %; MCH 28.2 pg (25.0-35.0); MCHC 31.3 g/dL (31.0-37.0); MCV 89.9 fL (80.0-100.0); Mean Platelet Volume 9.5; Monocytes % (A) 4 %; Neutrophils # (A) 21.8 k/uL (1.3-7.7); Neutrophils % (A) 91 %; Platelet Count 191 k/uL (150-450); RBC 4.72 m/uL (4.30-5.90); RDW 14.3 % (11.5-15.5)
[2022-08-24 08:41] LABS: Calcium 8.8 mg/dL (8.4-10.2); Potassium 3.9 mmol/L (3.5-5.1)
[2022-08-24] MEDS: FORMOTEROL FUMARATE 20 MCG/2 ML NEBU INHALATION SCH ×2 (09:04→21:40)
[2022-08-24] MEDS: BUDESONIDE 1 MG/2 ML NEBU INHALATION SCH ×2 (09:05→21:40)
[2022-08-24 11:37] LABS: Glucose,Whole Blood 148 mg/dL (70-110)
--- NOTE | 2022-08-24 11:42 | P.PN ---
Subjective Progress Note Date: 08/24/22 Principal diagnosis: Shortness of breath/chest pain. I am seeing this patient in new consultation today 08/22/2022 in the emergency room for suspected COPD exacerbation. 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 Patient has been seen in the office by Dr. Garcia in the past for management of his very severe oxygen and steroid dependent COPD. Patient is normally maintained on a combination of Advair and albuterol on an outpatient basis. Patient was transferred to our emergency room from [facility] yesterday evening for a COPD exacerbation. Apparently, the patient has had multiple readmits at [facility], and was recently treated for COPD exacerbation, and discharged on doxycycline and steroids. Patient has been reporting progressively worsening shortness of breath for about 1 week. He denies any symptoms of fever, chills, cough, chest pain. He is currently lying in bed, in 6 L nasal cannula, fairly comfortable. Chest x-ray on arrival showed no cardiopulmonary process. CBC shows leukocytosis with a WBC count of 20.2, hemoglobin 13.5, hematocrit 42.3, platelets 202. BMP shows a sodium 138, potassium 4.3, chloride 94, serum CO2 39, BUN 74, creatinine 1.63, glucose 336. Troponins are elevated at 0.1, 0.12, and 0.14 respectively. EKG shows normal sinus rhythm with right bundle-branch block. Patient denies any chest pain. NT proBNP is elevated at 2030, however, the patient does have a component of acute kidney injury. Patient is currently receiving a combination of bronchodilators, Symbicort inhaler, and IV site Medrol. Patient is also empirically covered on Augmentin. Afebrile. Vital signs are stable. Progress note dated 08/23/2022. Seen yesterday in consultation. He has severe/stage III almost stage IV COPD, with an FEV1 percent that is 33. He sees one of my partners in the office for his COPD. The patient is doing better today. He was seen by cardiology. They had him on a heparin drip thinking that he may have sustained a myocardial infa rction. Heparin has been discontinued. Advised to follow-up with his outpatient washing machine striper. He's currently on 6 L of oxygen. He is not receiving any IV fluids. Feeling much better, but probably can be discharged until tomorrow. Labs include a PTT of 86. Glucose 2:30. Progress note dated 08/24/2022. 86-year-old male seen in consultation 2 days ago. The patient has severe COPD. His FEV1 percent is 33. The patient is doing a bit better today from the pulmonary standpoint, but is complaining of nausea. Remains on 6 L of oxygen. No IV fluids. He was seen by cardiology and they were concerned initially about the possibility of myocardial infarction. The heparin drip was discontinued, and he was asked to follow-up with his own washing machine striper. White count 24,000, with a normal hemoglobin, hematocrit, and platelet count. Sodium 139, potassium 3.9, chlorides 93, CO2 40, BUN 68, creatinine 1.50. Objective - Vital Signs Vital signs: Vital Signs Temp 98.1 F 08/24/22 08:00 Pulse 78 08/24/22 09:26 Resp 18 08/24/22 08:00 BP 132/92 08/24/22 08:00 Pulse Ox 89 L 08/24/22 08:00 FiO2 Intake & Output 08/23/22 08/24/22 08/24/22 18:59 06:59 18:59 Intake Total 1979 240 110 Output Total 350 300 225 Balance 1630 -60 -115 Weight 92.5 kg Intake: Oral 1979 240 110 Output: Urine 350 300 225 Other: Voiding Method Urinal Urinal # Voids 1 - Exam No acute distress, oriented 3. Mild conversational dyspnea. Currently on 6 L. No use of accessory muscles. No audible wheezing. HEENT examination is grossly unremarkable. Neck supple. Full range of motion. No adenopathy thyromegaly or neck vein distention. Cardiovascular examination reveals regular rhythm rate. S1-S2 normal. No S3 or S4. No discernible murmur noted. Heart sounds are distant. Heart rate 78 bpm. Lungs reveal scattered expiratory rhonchi and wheezes. Mild to moderate in severity. No crackles. Breath sounds are equal. Breath sounds are diminished throughout. 6 L saturation is 95%. Abdomen soft bowel sounds are heard. No masses or tenderness. Extremities are intact. No cyanosis clubbing or edema. Skin is without rash or lesion. Neurologic examination is brief but nonfocal. - Labs CBC & Chem 7: 08/24/22 06:58 08/24/22 06:58 Labs: Abnormal Lab Results - Last 24 Hours (Table) 08/23/22 08/23/22 08/23/22 Range/Units 11:44 16:51 20:13 WBC (3.8-10.6) k/uL Neutrophils # (1.3-7.7) k/uL Lymphocytes # (1.0-4.8) k/uL Chloride (98-107) mmol/L Carbon Dioxide (22-30) mmol/L BUN (9-20) mg/dL Creatinine (0.66-1.25) mg/dL POC Glucose (mg/dL) 252 H 142 H 167 H (70-110) mg/dL 08/24/22 08/24/22 08/24/22 Range/Units 06:58 06:58 11:35 WBC 24.0 H (3.8-10.6) k/uL Neutrophils # 21.8 H (1.3-7.7) k/uL Lymphocytes # 0.7 L (1.0-4.8) k/uL Chloride 93 L (98-107) mmol/L Carbon Dioxide 40 H (22-30) mmol/L BUN 68 H (9-20) mg/dL Creatinine 1.50 H (0.66-1.25) mg/dL POC Glucose (mg/dL) 148 H (70-110) mg/dL Microbiology - Last 24 Hours (Table) 08/21/22 18:00 Blood Culture - Preliminary Blood 08/23/22 06:00 Sputum Culture - Preliminary Sputum Assessment and Plan Assessment: Acute exacerbation of COPD, in a patient with severe/stage III COPD. Chronic hypoxemic respiratory failure. Severe COPD, with an FEV1 percent, that is 33% of predicted. Elevated troponins, which may relate to supply/demand mismatch. Acute kidney injury. History of systolic congestive heart failure. Type II, diabetes mellitus. History of CAD. Essential hypertension. History of hyperlipidemia. History prostate cancer. Plan: Plan dated 08/23/2022. The patient's lungs, or improved, on auscultation. He continues on appropriate medications. According to cardiology, and atrial fibrillation sustained any myocardial ischemia, so they recommend that we stop the heparin. The patient is also recommended to follow-up with his outside washing machine striper. We will continue to follow make recommendations along the way. Prognosis is guarded. Clinically, he seems to be improved. The patient's pro-calcitonin level is quite low, so antibiotics will be discontinued. In addition, his Solu-Medrol will be converted to prednisone 30 mg a day. Plan dated 08/24/2022. The patient remains on budesonide, formoterol, and updrafts with albuterol and ipratropium bromide. The patient's on prednisone 30 mg a day. Additional recommendations and suggestions are forthcoming. From the pulmonary standpoint, the patient stable. Cardiology also cleared the patient. We will continue to follow make recommendations along the way. Prognosis is guarded. Antibiotics were discontinued because the pro-calcitonin level was very low. Time with Patient: Less than 30
[2022-08-24 16:33] LABS: Glucose,Whole Blood 294 mg/dL (70-110)
--- NOTE | 2022-08-24 17:12 | P.PN ---
Subjective Progress Note Date: 08/24/22 86-year-old male with past medical history of very severe COPD with an FEV1 33% of predicted, chronic steroid and oxygen dependence on 6 L nasal cannula, CHF, diabetes mellitus type 2, prostate cancer. - Patient was transferred to our emergency room from [facility] yesterday evening for a COPD exacerbation. Apparently, the patient has had multiple readmits at [facility], and was recently treated for COPD exacerbation, and discharged on doxycycline and steroids. Patient has been repor ting progressively worsening shortness of breath for about 1 week. He denies any symptoms of fever, chills, cough, chest pain. He is currently lying in bed, in 6 L nasal cannula, fairly comfortable. Chest x-ray on arrival showed no cardiopulmonary process. CBC shows leukocytosis with a WBC count of 20.2, hemoglobin 13.5, hematocrit 42.3, platelets 202. BMP shows a sodium 138, potassium 4.3, chloride 94, serum CO2 39, BUN 74, creatinine 1.63, glucose 336. Troponins are elevated at 0.1, 0.12, and 0.14 respectively. EKG shows normal sinus rhythm with right bundle-branch block. Patient denies any chest pain. NT proBNP is elevated at 2030, however, the patient does have a component of acute kidney injury. Patient is currently receiving a combination of bronchodilators, Symbicort inhaler, and IV site Medrol. Patient is also empirically covered on Augmentin. Objective - Vital Signs Vital signs: Vital Signs Temp 98.1 F 08/24/22 08:00 Pulse 78 08/24/22 09:26 Resp 18 08/24/22 08:00 BP 132/92 08/24/22 08:00 Pulse Ox 89 L 08/24/22 08:00 FiO2 Intake & Output 08/23/22 08/24/22 08/24/22 18:59 06:59 18:59 Intake Total 1979 240 110 Output Total 350 300 225 Balance 1630 -60 -115 Weight 92.5 kg Intake: Oral 1979 240 110 Output: Urine 350 300 225 Other: Voiding Method Urinal Urinal # Voids 1 - Exam PHYSICAL EXAMINATION: GENERAL: The patient is alert and oriented x3, not in any acute distress. Well developed, well nourished. HEENT: Pupils are round and equally reacting to light. EOMI. No scleral icterus. No conjunctival pallor. Normocephalic, atraumatic. No pharyngeal erythema. No thyromegaly. CARDIOVASCULAR: S1 and S2 present. No murmurs, rubs, or gallops. PULMONARY: Chest is clear to auscultation, no wheezing or crackles. ABDOMEN: Soft, nontender, nondistended, normoactive bowel sounds. No palpable organomegaly. MUSCULOSKELETAL: No joint swelling or deformity. EXTREMITIES: No cyanosis, clubbing, or pedal edema. NEUROLOGICAL: Gross neurological examination did not reveal any focal deficits. SKIN: No rashes. - Labs CBC & Chem 7: 08/24/22 06:58 08/24/22 06:58 Labs: Abnormal Lab Results - Last 24 Hours (Table) 08/23/22 08/23/22 08/23/22 Range/Units 11:44 16:51 20:13 WBC (3.8-10.6) k/uL Neutrophils # (1.3-7.7) k/uL Lymphocytes # (1.0-4.8) k/uL Chloride (98-107) mmol/L Carbon Dioxide (22-30) mmol/L BUN (9-20) mg/dL Creatinine (0.66-1.25) mg/dL POC Glucose (mg/dL) 252 H 142 H 167 H (70-110) mg/dL 08/24/22 08/24/22 Range/Units 06:58 06:58 WBC 24.0 H (3.8-10.6) k/uL Neutrophils # 21.8 H (1.3-7.7) k/uL Lymphocytes # 0.7 L (1.0-4.8) k/uL Chloride 93 L (98-107) mmol/L Carbon Dioxide 40 H (22-30) mmol/L BUN 68 H (9-20) mg/dL Creatinine 1.50 H (0.66-1.25) mg/dL POC Glucose (mg/dL) (70-110) mg/dL Microbiology - Last 24 Hours (Table) 08/21/22 18:00 Blood Culture - Preliminary Blood 08/23/22 06:00 Sputum Culture - Preliminary Sputum Assessment and Plan Assessment: Acute exacerbation of COPD, in a patient with severe/stage III COPD. Chronic hypoxemic respiratory failure. Severe COPD, with an FEV1 percent, that is 33% of predicted. Elevated troponins, which may relate to supply/demand mismatch. Acute kidney injury. History of systolic congestive heart failure. Type II, diabetes mellitus. History of CAD. Essential hypertension. History of hyperlipidemia. History prostate cancer --- Solu-Medrol IV, DuoNeb nebulizer treatments every 4 hours, nebulized Pulmic ort -- Continue with current dose of Augmentin -- Monitor Accu-Cheks before meals and at bedtime with insulin sliding scale -- Elevated troponin; given elevated creatinine and no evidence of acute cor onary syndrome, no further testing is recommended - -Continue with home dose of Coreg and Crestor 20 mg daily
[2022-08-24] MEDS: SODIUM CHLORIDE 0.9% 1,000 ML IV SCH (17:45)
[2022-08-24 20:10] LABS: Glucose,Whole Blood 270 mg/dL (70-110)
[2022-08-25] MEDS: IPRATROPIUM-ALBUTEROL 3 ML NEB INHALATION SCH ×7 (00:23→21:42)
[2022-08-25 06:03] LABS: Glucose,Whole Blood 140 mg/dL (70-110)
[2022-08-25] MEDS: INSULIN ASPART (NovoLOG) 100 UNIT/ML VIAL SQ SCH ×3 (06:30→17:48)
[2022-08-25] MEDS: INSULIN DETEMIR (LEVEMIR) 100 UNIT/ML SYR SQ SCH (06:48)
[2022-08-25] MEDS: carvediloL 6.25 MG TAB PO SCH ×2 (06:48→17:48)
[2022-08-25 08:08] LABS: Basophils % (A) 0 %; Eosinophils % (A) 0 %; HCT 38.8 % (39.0-53.0); HGB 12.5 gm/dL (13.0-17.5); Hypochromasia Slight; Lymphocytes # (A) 0.7 k/uL (1.0-4.8); Lymphocytes % (A) 4 %; MCHC 32.1 g/dL (31.0-37.0); MCV 90.3 fL (80.0-100.0); Mean Platelet Volume 9.5; Monocytes # (A) 0.8 k/uL (0-1.0); Monocytes % (A) 4 %; Neutrophils # (A) 16.2 k/uL (1.3-7.7); Neutrophils % (A) 90 %; Platelet Count 148 k/uL (150-450); RDW 14.4 % (11.5-15.5)
[2022-08-25 08:21] LABS: Calcium 8.4 mg/dL (8.4-10.2)
[2022-08-25] MEDS: BUDESONIDE 1 MG/2 ML NEBU INHALATION SCH ×2 (09:00→21:42)
[2022-08-25] MEDS: FORMOTEROL FUMARATE 20 MCG/2 ML NEBU INHALATION SCH ×2 (09:00→21:42)
[2022-08-25] MEDS: SACUBITRIL/VALSARTAN 24 MG-26 MG TABLET PO SCH ×2 (09:45→21:21)
[2022-08-25] MEDS: FERROUS SULFATE 325 MG TAB PO SCH (09:58)
[2022-08-25] MEDS: metFORMIN 500 MG TAB PO SCH ×2 (09:58→21:26)
[2022-08-25] MEDS: predniSONE 10 MG TAB PO SCH (09:58)
[2022-08-25] MEDS: ASPIRIN 81 MG PO SCH (09:58)
[2022-08-25] MEDS: guaiFENesin 600 MG TABLET.ER PO SCH ×2 (09:58→21:26)
[2022-08-25] MEDS: ATORVASTATIN 40 MG TAB PO SCH (09:58)
[2022-08-25] MEDS ORDERED: SACUBITRIL/VALSARTAN 24 MG-26 MG TABLET PO STA (10:39)
--- NOTE | 2022-08-25 10:51 | P.PN ---
Subjective Progress Note Date: 08/25/22 Principal diagnosis: Shortness of breath/chest pain. I am seeing this patient in new consultation today 08/22/2022 in the emergency room for suspected COPD exacerbation. 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 Patient has been seen in the office by Dr. Garcia in the past for management of his very severe oxygen and steroid dependent COPD. Patient is normally maintained on a combination of Advair and albuterol on an outpatient basis. Patient was transferred to our emergency room from [facility] yesterday evening for a COPD exacerbation. Apparently, the patient has had multiple readmits at [facility], and was recently treated for COPD exacerbation, and discharged on doxycycline and steroids. Patient has been reporting progressively worsening shortness of breath for about 1 week. He denies any symptoms of fever, chills, cough, chest pain. He is currently lying in bed, in 6 L nasal cannula, fairly comfortable. Chest x-ray on arrival showed no cardiopulmonary process. CBC shows leukocytosis with a WBC count of 20.2, hemoglobin 13.5, hematocrit 42.3, platelets 202. BMP shows a sodium 138, potassium 4.3, chloride 94, serum CO2 39, BUN 74, creatinine 1.63, glucose 336. Troponins are elevated at 0.1, 0.12, and 0.14 respectively. EKG shows normal sinus rhythm with right bundle-branch block. Patient denies any chest pain. NT proBNP is elevated at 2030, however, the patient does have a component of acute kidney injury. Patient is currently receiving a combination of bronchodilators, Symbicort inhaler, and IV site Medrol. Patient is also empirically covered on Augmentin. Afebrile. Vital signs are stable. Progress note dated 08/23/2022. Seen yesterday in consultation. He has severe/stage III almost stage IV COPD, with an FEV1 percent that is 33. He sees one of my partners in the office for his COPD. The patient is doing better today. He was seen by cardiology. They had him on a heparin drip thinking that he may have sustained a myocardial infa rction. Heparin has been discontinued. Advised to follow-up with his outpatient hardness tester. He's currently on 6 L of oxygen. He is not receiving any IV fluids. Feeling much better, but probably can be discharged until tomorrow. Labs include a PTT of 86. Glucose 2:30. Progress note dated 08/24/2022. 86-year-old male seen in consultation 2 days ago. The patient has severe COPD. His FEV1 percent is 33. The patient is doing a bit better today from the pulmonary standpoint, but is complaining of nausea. Remains on 6 L of oxygen. No IV fluids. He was seen by cardiology and they were concerned initially about the possibility of myocardial infarction. The heparin drip was discontinued, and he was asked to follow-up with his own hardness tester. White count 24,000, with a normal hemoglobin, hematocrit, and platelet count. Sodium 139, potassium 3.9, chlorides 93, CO2 40, BUN 68, creatinine 1.50. Progress note dated 08/25/2022. 86-year-old male seen again in room 368. The patient was seen in consultation 3 days ago. He initially came in with chest pain. He has very severe COPD, with an FEV1 that is 33% of predicted. He also suffers from chronic hypoxemic respiratory failure, home oxygen, at 6 L, 21/10/64. He is currently on 6 L, and not receiving any IV fluids. His family is in the room. Yesterday, he was complaining of nausea. That is better today. White count 18, hemoglobin 12.5, hematocrit 38.8, and platelet count 148,000. Sodium 137, potassium 4, chlorides 92, CO2 38, BUN 79, and creatinine 1.78. Previous pro-calcitonin level was 0.09. Sputum from August 23 shows gram-negative bacilli. Objective - Vital Signs Vital signs: Vital Signs Temp 97.9 F 08/25/22 04:00 Pulse 68 08/25/22 09:26 Resp 20 08/25/22 08:00 BP 74/50 08/25/22 08:00 Pulse Ox 90 L 08/25/22 09:03 FiO2 60 08/25/22 00:21 Intake & Output 08/24/22 08/25/22 08/25/22 18:59 06:59 18:59 Intake Total 220 240 Output Total 425 600 Balance -205 -600 240 Intake: Oral 220 240 Output: Urine 425 600 Other: Voiding Method Urinal Urinal # Voids 1 1 # Bowel Movements 1 - Exam No acute distress, oriented 3. Mild conversational dyspnea. Currently on 6 L. No use of accessory muscles. No audible wheezing. HEENT examination is grossly unremarkable. Neck supple. Full range of motion. No adenopathy thyromegaly or neck vein distention. Cardiovascular examination reveals regular rhythm rate. S1-S2 normal. No S3 or S4. No discernible murmur noted. Heart sounds are distant. Heart rate 68 bpm. Lungs reveal scattered expiratory rhonchi and wheezes. Mild to moderate in severity. No crackles. Breath sounds are equal. Breath sounds are diminished throughout. 6 L saturation is 91 %. Abdomen soft bowel sounds are heard. No masses or tenderness. Extremities are intact. No cyanosis clubbing or edema. Skin is without rash or lesion. Neurologic examination is brief but nonfocal. - Labs CBC & Chem 7: 08/25/22 07:19 08/25/22 07:19 Labs: Abnormal Lab Results - Last 24 Hours (Table) 08/24/22 08/24/22 08/24/22 Range/Units 11:35 16:30 20:06 WBC (3.8-10.6) k/uL Hgb (13.0-17.5) gm/dL Hct (39.0-53.0) % Plt Count (150-450) k/uL Neutrophils # (1.3-7.7) k/uL Lymphocytes # (1.0-4.8) k/uL Chloride (98-107) mmol/L Carbon Dioxide (22-30) mmol/L BUN (9-20) mg/dL Creatinine (0.66-1.25) mg/dL Glucose (74-99) mg/dL POC Glucose (mg/dL) 148 H 294 H 270 H (70-110) mg/dL 08/25/22 08/25/22 08/25/22 Range/Units 06:01 07:19 07:19 WBC 18.0 H (3.8-10.6) k/uL Hgb 12.5 L (13.0-17.5) gm/dL Hct 38.8 L (39.0-53.0) % Plt Count 148 L (150-450) k/uL Neutrophils # 16.2 H (1.3-7.7) k/uL Lymphocytes # 0.7 L (1.0-4.8) k/uL Chloride 92 L (98-107) mmol/L Carbon Dioxide 38 H (22-30) mmol/L BUN 79 H (9-20) mg/dL Creatinine 1.78 H (0.66-1.25) mg/dL Glucose 128 H (74-99) mg/dL POC Glucose (mg/dL) 140 H (70-110) mg/dL Microbiology - Last 24 Hours (Table) 08/21/22 18:00 Blood Culture - Preliminary Blood 08/23/22 06:00 Gram Stain - Preliminary Sputum Sputum Culture - Preliminary Gram Neg Bacilli Assessment and Plan Assessment: Acute exacerbation of COPD, in a patient with severe/stage III COPD, possibly complicated by tracheobronchitis. Chronic hypoxemic respiratory failure. Severe COPD, with an FEV1 percent, that is 33% of predicted. Elevated troponins, which may relate to supply/demand mismatch. Acute kidney injury. History of systolic congestive heart failure. Type II, diabetes mellitus. History of CAD. Essential hypertension. History of hyperlipidemia. History prostate cancer. Plan: Plan dated 08/23/2022. The patient's lungs, or improved, on auscultation. He continues on appropriate medications. According to cardiology, and atrial fibrillation sustained any myocardial ischemia, so they recommend that we stop the heparin. The patient is also recommended to follow-up with his outside hardness tester. We will continue to follow make recommendations along the way. Prognosis is guarded. Clinically, he seems to be improved. The patient's pro-calcitonin level is quite low, so antibiotics will be discontinued. In addition, his Solu-Medrol will be converted to prednisone 30 mg a day. Plan dated 08/24/2022. The patient remains on budesonide, formoterol, and updrafts with albuterol and ipratropium bromide. The patient's on prednisone 30 mg a day. Additional recommendations and suggestions are forthcoming. From the pulmonary standpoint, the patient stable. Cardiology also cleared the patient. We will continue to follow make recommendations along the way. Prognosis is guarded. Antibiotics were discontinued because the pro-calcitonin level was very low. Plan dated 08/25/2022. The patient remains on appropriate medications including budesonide, formoterol, albuterol sulfate, ipratropium bromide, and prednisone. The patient's chest x-ray on admission showed only chronic changes, and changes of COPD. His most recent imaging showing gram-negative bacilli, and this likely represents a tracheobronchitis. We will add some antibiotics to his regimen, orally. I will probably add Augmentin. Additional recommendations and suggestions are forthcoming. Overall prognosis remains very guarded. The patient was cleared by cardiology. Time with Patient: Less than 30
[2022-08-25 11:28] LABS: Glucose,Whole Blood 232 mg/dL (70-110)
--- NOTE | 2022-08-25 12:01 | P.PN ---
Subjective Progress Note Date: 08/25/22 This is Dexter Groves NP, I'm dictating on behalf of Dr. Negrete's H&P and A&P. Patient was interviewed and examined. Patient is a pleasant 86-year-old male who initially presented to Hospital after being treated for pneumonia and COPD and having elevated troponins. We were asked to see the patient again today due to hypotension. Nursing reported a blood pressure of 74/50. Patient was on Lasix, carvedilol, and Entresto. This morning the patient reports that he is breathing better than admission. He does still report some labored breathing especially with movement. He does state that he slept okay last night, and reports some shortness of breath with ambulation. GENERAL: Well-appearing, well-nourished and in no acute distress. NECK: Supple without JVD or thyromegaly. LUNGS: Breath sounds clear to auscultation bilaterally. Respiration equal and unlabored. No wheezes, rales or rhonchi. HEART: Regular rate and rhythm without murmurs, rubs or gallops. S1 and S2 heard. EXTREMITIES: Normal range of motion, no edema. No clubbing or cyanosis. Peripheral pulses intact and strong. VITALS: Temp 97.9, pulse 66, respirations 20, blood pressure 74/50, O2 saturation 91% on 6 L TELEMETRY: Normal sinus rhythm LABS: White count 18.0, hemoglobin 12.5, platelets 148, sodium 137, potassium 4.0, B1 79, creatinine 1.78 IMPRESSION: 1. Hypotension, secondary to Lasix 2. Elevated troponin 3. COPD exacerbation 4. Chronic hypoxic respiratory failure on oxygen at home 5. Cardiomyopathy with previous EF of 35-40% 6. Dyslipidemia 7. Diabetes 8. Chronic kidney disease PLAN: Discontinue Lasix. Continue to give carvedilol and entresto unless blood pressure is less than 80 systolic. Patient's heart failure is more of an output issue than a congestive issue. Over diuresing the patient will lead to hypotension. We will consider restarting Lasix tomorrow if blood pressure improves. Further recommendations based on patient's clinical course. Objective - Vital Signs Vital signs: Vital Signs Temp 97.9 F 08/25/22 04:00 Pulse 68 08/25/22 09:26 Resp 20 08/25/22 08:00 BP 74/50 08/25/22 08:00 Pulse Ox 90 L 08/25/22 09:03 FiO2 60 08/25/22 00:21 Intake & Output 08/24/22 08/25/22 08/25/22 18:59 06:59 18:59 Intake Total 220 240 Output Total 425 600 Balance -205 -600 240 Intake: Oral 220 240 Output: Urine 425 600 Other: Voiding Method Urinal Urinal Urinal # Voids 1 1 # Bowel Movements 1 - Labs CBC & Chem 7: 08/25/22 07:19 08/25/22 07:19 Labs: Abnormal Lab Results - Last 24 Hours (Table) 08/24/22 08/24/22 08/25/22 Range/Units 16:30 20:06 06:01 WBC (3.8-10.6) k/uL Hgb (13.0-17.5) gm/dL Hct (39.0-53.0) % Plt Count (150-450) k/uL Neutrophils # (1.3-7.7) k/uL Lymphocytes # (1.0-4.8) k/uL Chloride (98-107) mmol/L Carbon Dioxide (22-30) mmol/L BUN (9-20) mg/dL Creatinine (0.66-1.25) mg/dL Glucose (74-99) mg/dL POC Glucose (mg/dL) 294 H 270 H 140 H (70-110) mg/dL 08/25/22 08/25/22 08/25/22 Range/Units 07:19 07:19 11:26 WBC 18.0 H (3.8-10.6) k/uL Hgb 12.5 L (13.0-17.5) gm/dL Hct 38.8 L (39.0-53.0) % Plt Count 148 L (150-450) k/uL Neutrophils # 16.2 H (1.3-7.7) k/uL Lymphocytes # 0.7 L (1.0-4.8) k/uL Chloride 92 L (98-107) mmol/L Carbon Dioxide 38 H (22-30) mmol/L BUN 79 H (9-20) mg/dL Creatinine 1.78 H (0.66-1.25) mg/dL Glucose 128 H (74-99) mg/dL POC Glucose (mg/dL) 232 H (70-110) mg/dL Microbiology - Last 24 Hours (Table) 08/21/22 18:00 Blood Culture - Preliminary Blood 08/23/22 06:00 Gram Stain - Preliminary Sputum Sputum Culture - Preliminary Gram Neg Bacilli
[2022-08-25] MEDS: FUROSEMIDE 40 MG TAB PO SCH (14:57)
[2022-08-25] MEDS: SODIUM CHLORIDE 0.9% 1,000 ML IV SCH (15:13)
[2022-08-25 16:39] LABS: Glucose,Whole Blood 208 mg/dL (70-110)
--- NOTE | 2022-08-25 16:39 | P.PN ---
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 - Patient was transferred to our emergency room from [facility] yesterday evening for a COPD exacerbation. Apparently, the patient has had multiple readmits at [facility], and was recently treated for COPD exacerbation, and discharged on doxycycline and steroids. Patient has been repor ting progressively worsening shortness of breath for about 1 week. He denies any symptoms of fever, chills, cough, chest pain. He is currently lying in bed, in 6 L nasal cannula, fairly comfortable. Chest x-ray on arrival showed no cardiopulmonary process. CBC shows leukocytosis with a WBC count of 20.2, hemoglobin 13.5, hematocrit 42.3, platelets 202. BMP shows a sodium 138, potassium 4.3, chloride 94, serum CO2 39, BUN 74, creatinine 1.63, glucose 336. Troponins are elevated at 0.1, 0.12, and 0.14 respectively. EKG shows normal sinus rhythm with right bundle-branch block. Patient denies any chest pain. NT proBNP is elevated at 2030, however, the patient does have a component of acute kidney injury. Patient is currently receiving a combination of bronchodilators, Symbicort inhaler, and IV site Medrol. Patient is also empirically covered on Augmentin. 24 hour interval change 08/25/2022 Patient is seen and evaluated in room at bedside; suffers from chronic hypoxemic respiratory failure, home oxygen, at 6 L, 21/10/64. He is currently on 6 L, and not receiving any IV fluids. His family is in the room. Yesterday, he was complaining of nausea. That is better today. White count 18, hemoglobin 12.5, hematocrit 38.8, and platelet count 148,000. Sodium 137, potassium 4, chlorides 92, CO2 38, BUN 79, and creatinine 1.78. Previous pro-calcitonin level was 0.09. Sputum from August 23 shows gram-negative bacilli. Cardiology on board; recommending to Discontinue Lasix. Continue to give carvedilol and entresto unless blood pressure is less than 80 systolic. Patient's heart failure is more of an output issue than a congestive issue. Over diuresing the patient will lead to hypotension. We will consider restarting Lasix tomorrow if blood pressure improves. Objective - Vital Signs Vital signs: Vital Signs Temp 97.9 F 08/25/22 04:00 Pulse 74 08/25/22 12:21 Resp 20 08/25/22 08:00 BP 74/50 08/25/22 08:00 Pulse Ox 90 L 08/25/22 09:03 FiO2 60 08/25/22 00:21 Intake & Output 08/24/22 08/25/22 08/25/22 18:59 06:59 18:59 Intake Total 220 240 Output Total 425 600 Balance -205 -600 240 Intake: Oral 220 240 Output: Urine 425 600 Other: Voiding Method Urinal Urinal Urinal # Voids 1 1 # Bowel Movements 1 - Exam PHYSICAL EXAMINATION: GENERAL: The patient is alert and oriented x3, not in any acute distress. Well developed, well nourished. HEENT: Pupils are round and equally reacting to light. EOMI. No scleral icterus. No conjunctival pallor. Normocephalic, atraumatic. No pharyngeal erythema. No thyromegaly. CARDIOVASCULAR: S1 and S2 present. No murmurs, rubs, or gallops. PULMONARY: Chest is clear to auscultation, no wheezing or crackles. ABDOMEN: Soft, nontender, nondistended, normoactive bowel sounds. No palpable organomegaly. MUSCULOSKELETAL: No joint swelling or deformity. EXTREMITIES: No cyanosis, clubbing, or pedal edema. NEUROLOGICAL: Gross neurological examination did not reveal any focal deficits. SKIN: No rashes. - Labs CBC & Chem 7: 08/25/22 07:19 08/25/22 07:19 Labs: Abnormal Lab Results - Last 24 Hours (Table) 08/24/22 08/24/22 08/25/22 Range/Units 16:30 20:06 06:01 WBC (3.8-10.6) k/uL Hgb (13.0-17.5) gm/dL Hct (39.0-53.0) % Plt Count (150-450) k/uL Neutrophils # (1.3-7.7) k/uL Lymphocytes # (1.0-4.8) k/uL Chloride (98-107) mmol/L Carbon Dioxide (22-30) mmol/L BUN (9-20) mg/dL Creatinine (0.66-1.25) mg/dL Glucose (74-99) mg/dL POC Glucose (mg/dL) 294 H 270 H 140 H (70-110) mg/dL 08/25/22 08/25/22 08/25/22 Range/Units 07:19 07:19 11:26 WBC 18.0 H (3.8-10.6) k/uL Hgb 12.5 L (13.0-17.5) gm/dL Hct 38.8 L (39.0-53.0) % Plt Count 148 L (150-450) k/uL Neutrophils # 16.2 H (1.3-7.7) k/uL Lymphocytes # 0.7 L (1.0-4.8) k/uL Chloride 92 L (98-107) mmol/L Carbon Dioxide 38 H (22-30) mmol/L BUN 79 H (9-20) mg/dL Creatinine 1.78 H (0.66-1.25) mg/dL Glucose 128 H (74-99) mg/dL POC Glucose (mg/dL) 232 H (70-110) mg/dL Microbiology - Last 24 Hours (Table) 08/21/22 18:00 Blood Culture - Preliminary Blood 08/23/22 06:00 Gram Stain - Preliminary Sputum Sputum Culture - Preliminary Gram Neg Bacilli Assessment and Plan Assessment: Acute exacerbation of COPD, in a patient with severe/stage III COPD. Chronic hypoxemic respiratory failure. Severe COPD, with an FEV1 percent, that is 33% of predicted. Elevated troponins, which may relate to supply/demand mismatch. Acute kidney injury. History of systolic congestive heart failure. Type II, diabetes mellitus. History of CAD. Essential hypertension. History of hyperlipidemia. History prostate cancer --- Solu-Medrol IV, DuoNeb nebulizer treatments every 4 hours, nebulized Pulmicort -- Continue with current dose of Augmentin -- Monitor Accu-Cheks before meals and at bedtime with insulin sliding scale -- Elevated troponin; given elevated creatinine and no evidence of acute coronary syndrome, no further testing is recommended - -Continue with home dose of Coreg and Crestor 20 mg daily
[2022-08-25 20:03] LABS: Glucose,Whole Blood 291 mg/dL (70-110)
[2022-08-25] MEDS: AMOXIC-POT CLAV 875-125MG 1 EACH TAB PO SCH (21:26)
[2022-08-26] MEDS: IPRATROPIUM-ALBUTEROL 3 ML NEB INHALATION SCH ×6 (00:30→21:05)
[2022-08-26 05:57] LABS: Glucose,Whole Blood 220 mg/dL (70-110)
[2022-08-26] MEDS: INSULIN ASPART (NovoLOG) 100 UNIT/ML VIAL SQ SCH ×5 (06:42→18:11)
[2022-08-26] MEDS: INSULIN DETEMIR (LEVEMIR) 100 UNIT/ML SYR SQ SCH (06:43)
[2022-08-26 08:00] LABS: Basophils % (A) 0 %; Eosinophils % (A) 0 %; HCT 39.3 % (39.0-53.0); HGB 12.3 gm/dL (13.0-17.5); Hypochromasia Slight; Lymphocytes # (A) 0.5 k/uL (1.0-4.8); Lymphocytes % (A) 3 %; MCH 28.5 pg (25.0-35.0); MCHC 31.3 g/dL (31.0-37.0); MCV 90.9 fL (80.0-100.0); Mean Platelet Volume 9.1; Monocytes % (A) 5 %; Neutrophils # (A) 15.7 k/uL (1.3-7.7); Neutrophils % (A) 89 %; Platelet Count 155 k/uL (150-450); RBC 4.32 m/uL (4.30-5.90); RDW 14.2 % (11.5-15.5); WBC 17.6 k/uL (3.8-10.6)
[2022-08-26] MEDS: FORMOTEROL FUMARATE 20 MCG/2 ML NEBU INHALATION SCH ×2 (08:08→21:05)
[2022-08-26] MEDS: BUDESONIDE 1 MG/2 ML NEBU INHALATION SCH ×2 (08:08→21:05)
[2022-08-26 08:16] LABS: Calcium 8.4 mg/dL (8.4-10.2); Potassium 4.6 mmol/L (3.5-5.1)
[2022-08-26] MEDS: predniSONE 10 MG TAB PO SCH (10:27)
[2022-08-26] MEDS: guaiFENesin 600 MG TABLET.ER PO SCH ×2 (10:27→21:53)
[2022-08-26] MEDS: ASPIRIN 81 MG PO SCH (10:28)
[2022-08-26] MEDS: SACUBITRIL/VALSARTAN 24 MG-26 MG TABLET PO SCH ×2 (10:28→21:53)
[2022-08-26] MEDS: metFORMIN 500 MG TAB PO SCH ×2 (10:28→21:53)
[2022-08-26] MEDS: FERROUS SULFATE 325 MG TAB PO SCH (10:28)
[2022-08-26] MEDS: AMOXIC-POT CLAV 875-125MG 1 EACH TAB PO SCH (10:29)
[2022-08-26] MEDS: ATORVASTATIN 40 MG TAB PO SCH (10:29)
--- NOTE | 2022-08-26 11:07 | P.PN ---
Subjective Progress Note Date: 08/26/22 This is Dexter Groves NP, I'm dictating on behalf of Dr. Negrete's H&P and A&P. Patient was interviewed and examined. Patient is a pleasant 86-year-old male who initially presented to Hospital after being treated for pneumonia and COPD and having elevated troponins. Patient reports that he's feeling okay today. He is denying chest pain, shortness of breath, heart palpitations. Blood pressure does appear to be improved today. Nursing does report that he had a dip in his blood pressure overnight to 64/46. He was given a 500 mL fluid bolus, with a increase in his blood pressure to 85/54. GENERAL: Well-appearing, well-nourished and in no acute distress. NECK: Supple without JVD or thyromegaly. LUNGS: Breath sounds clear to auscultation bilaterally. Respiration equal and unlabored. No wheezes, rales or rhonchi. HEART: Regular rate and rhythm without murmurs, rubs or gallops. S1 and S2 he yuliana. EXTREMITIES: Normal range of motion, no edema. No clubbing or cyanosis. Peripheral pulses intact and strong. VITALS: Temp 97.9, pulse 76, respirations 20, blood pressure 88/58, O2 saturation 90% on 6 L TELEMETRY: Normal sinus rhythm LABS: White count 17.6, hemoglobin 12.3, platelets 155, sodium 134, potassium 4.6, chloride 92, B1 89, creatinine 1.71, calcium 8.4 IMPRESSION: 1. Hypotension, secondary to Lasix 2. Elevated troponin 3. COPD exacerbation 4. Chronic hypoxic respiratory failure on oxygen at home 5. Cardiomyopathy with previous EF of 35-40% 6. Dyslipidemia 7. Diabetes 8. Chronic kidney disease PLAN: Continue to hold Lasix. Discontinue Coreg. Start metoprolol succinate 25 mg, give at noon every day. Midodrine is contraindicated for his blood pressure, do not give midodrine. Patient has an output blood flow issue, not a congestive issue. Midodrine will put further strain on his heart. Further recommendations based on patient's clinical course. Objective - Vital Signs Vital signs: Vital Signs Temp 97.9 F 08/26/22 08:00 Pulse 82 08/26/22 08:22 Resp 20 05/29/23 08:00 BP 88/58 08/26/22 08:00 Pulse Ox 90 L 08/26/22 08:00 FiO2 60 08/26/22 04:00 Intake & Output 08/25/22 08/26/22 08/26/22 18:59 06:59 18:59 Intake Total 1200 240 Output Total 225 225 Balance 975 -225 240 Intake: Oral 1200 240 Output: Urine 225 225 Other: Voiding Method Urinal Urinal Urinal # Voids 1 # Bowel Movements 2 - Labs CBC & Chem 7: 08/26/22 07:50 08/26/22 07:50 Labs: Abnormal Lab Results - Last 24 Hours (Table) 08/25/22 08/25/22 08/25/22 Range/Units 11:26 16:37 20:02 WBC (3.8-10.6) k/uL Hgb (13.0-17.5) gm/dL Neutrophils # (1.3-7.7) k/uL Lymphocytes # (1.0-4.8) k/uL Sodium (137-145) mmol/L Chloride (98-107) mmol/L Carbon Dioxide (22-30) mmol/L BUN (9-20) mg/dL Creatinine (0.66-1.25) mg/dL Glucose (74-99) mg/dL POC Glucose (mg/dL) 232 H 208 H 291 H (70-110) mg/dL 08/26/22 08/26/22 08/26/22 Range/Units 05:56 07:50 07:50 WBC 17.6 H (3.8-10.6) k/uL Hgb 12.3 L (13.0-17.5) gm/dL Neutrophils # 15.7 H (1.3-7.7) k/uL Lymphocytes # 0.5 L (1.0-4.8) k/uL Sodium 134 L (137-145) mmol/L Chloride 92 L (98-107) mmol/L Carbon Dioxide 39 H (22-30) mmol/L BUN 89 H (9-20) mg/dL Creatinine 1.71 H (0.66-1.25) mg/dL Glucose 209 H (74-99) mg/dL POC Glucose (mg/dL) 220 H (70-110) mg/dL Microbiology - Last 24 Hours (Table) 08/21/22 18:00 Blood Culture - Preliminary Blood 08/23/22 06:00 Gram Stain - Final Sputum Sputum Culture - Final Pseudomonas aeruginosa
[2022-08-26] MEDS: carvediloL 6.25 MG TAB PO SCH (11:30)
[2022-08-26] MEDS: SODIUM CHLORIDE 0.9% 1,000 ML IV SCH (11:30)
[2022-08-26 11:35] LABS: Glucose,Whole Blood 222 mg/dL (70-110)
[2022-08-26] MEDS ORDERED: LEVOFLOXACIN 500MG-D5W PMX 500 MG in DEXTROSE/WATER 1 100ML.BAG IVPB SCH (12:00)
[2022-08-26] MEDS ORDERED: PANTOPRAZOLE 40 MG TABLET PO SCH (12:00)
--- NOTE | 2022-08-26 12:08 | P.PN ---
Subjective Progress Note Date: 08/26/22 Principal diagnosis: Shortness of breath/chest pain. I am seeing this patient in new consultation today 08/22/2022 in the emergency room for suspected COPD exacerbation. 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 Patient has been seen in the office by Dr. Garcia in the past for management of his very severe oxygen and steroid dependent COPD. Patient is normally maintained on a combination of Advair and albuterol on an outpatient basis. Patient was transferred to our emergency room from [facility] yesterday evening for a COPD exacerbation. Apparently, the patient has had multiple readmits at [facility], and was recently treated for COPD exacerbation, and discharged on doxycycline and steroids. Patient has been reporting progressively worsening shortness of breath for about 1 week. He denies any symptoms of fever, chills, cough, chest pain. He is currently lying in bed, in 6 L nasal cannula, fairly comfortable. Chest x-ray on arrival showed no cardiopulmonary process. CBC shows leukocytosis with a WBC count of 20.2, hemoglobin 13.5, hematocrit 42.3, platelets 202. BMP shows a sodium 138, potassium 4.3, chloride 94, serum CO2 39, BUN 74, creatinine 1.63, glucose 336. Troponins are elevated at 0.1, 0.12, and 0.14 respectively. EKG shows normal sinus rhythm with right bundle-branch block. Patient denies any chest pain. NT proBNP is elevated at 2030, however, the patient does have a component of acute kidney injury. Patient is currently receiving a combination of bronchodilators, Symbicort inhaler, and IV site Medrol. Patient is also empirically covered on Augmentin. Afebrile. Vital signs are stable. Progress note dated 08/23/2022. Seen yesterday in consultation. He has severe/stage III almost stage IV COPD, with an FEV1 percent that is 33. He sees one of my partners in the office for his COPD. The patient is doing better today. He was seen by cardiology. They had him on a heparin drip thinking that he may have sustained a myocardial infa rction. Heparin has been discontinued. Advised to follow-up with his outpatient cylinder worker. He's currently on 6 L of oxygen. He is not receiving any IV fluids. Feeling much better, but probably can be discharged until tomorrow. Labs include a PTT of 86. Glucose 2:30. Progress note dated 08/24/2022. 86-year-old male seen in consultation 2 days ago. The patient has severe COPD. His FEV1 percent is 33. The patient is doing a bit better today from the pulmonary standpoint, but is complaining of nausea. Remains on 6 L of oxygen. No IV fluids. He was seen by cardiology and they were concerned initially about the possibility of myocardial infarction. The heparin drip was discontinued, and he was asked to follow-up with his own cylinder worker. White count 24,000, with a normal hemoglobin, hematocrit, and platelet count. Sodium 139, potassium 3.9, chlorides 93, CO2 40, BUN 68, creatinine 1.50. Progress note dated 08/25/2022. 86-year-old male seen again in room 368. The patient was seen in consultation 3 days ago. He initially came in with chest pain. He has very severe COPD, with an FEV1 that is 33% of predicted. He also suffers from chronic hypoxemic respiratory failure, home oxygen, at 6 L, 21/10/64. He is currently on 6 L, and not receiving any IV fluids. His family is in the room. Yesterday, he was complaining of nausea. That is better today. White count 18, hemoglobin 12.5, hematocrit 38.8, and platelet count 148,000. Sodium 137, potassium 4, chlorides 92, CO2 38, BUN 79, and creatinine 1.78. Previous pro-calcitonin level was 0.09. Sputum from August 23 shows gram-negative bacilli. Progress note dated 08/26/2022. 86-year-old male seen again in room 368. A number of family members are at the bedside. The patient continues on his usual home oxygen dose of 6 L. The sputum was positive for pseudomonas aeruginosa, which is sensitive to about ev erything. Augmentin will be discontinued, in favor of Levaquin. The patient wants to again, why his breathing is bad. I told him that he has FEV1 that is 33% of predicted. Today's labs include a white count of 17.6, hemoglobin 12.3, hematocrit 39.3, and a platelet count of 155,000. Sodium 134, potassium 4.6, chlorides 92, CO2 39, BUN 89, and creatinine 1.71. Calcium is 8.4 with a lactic acid of 1.4. Objective - Vital Signs Vital signs: Vital Signs Temp 97.9 F 08/26/22 08:00 Pulse 83 08/26/22 11:58 Resp 20 08/26/22 08:00 BP 88/58 08/26/22 08:00 Pulse Ox 90 L 08/26/22 08:00 FiO2 60 08/26/22 04:00 Intake & Output 08/25/22 08/26/22 08/26/22 18:59 06:59 18:59 Intake Total 1200 240 Output Total 225 225 Balance 975 -225 240 Intake: Oral 1200 240 Output: Urine 225 225 Other: Voiding Method Urinal Urinal Urinal # Voids 1 # Bowel Movements 2 - Exam No acute distress, oriented 3. Mild conversational dyspnea. Currently on 6 L. No use of accessory muscles. No audible wheezing. HEENT examination is grossly unremarkable. Neck supple. Full range of motion. No adenopathy thyromegaly or neck vein distention. Cardiovascular examination reveals regular rhythm rate. S1-S2 normal. No S3 or S4. No discernible murmur noted. Heart sounds are distant. Heart rate 83 bpm. Lungs reveal scattered expiratory rhonchi and wheezes. Mild to moderate in severity. No crackles. Breath sounds are equal. Breath sounds are diminished throughout. 6 L saturation is 90 %. Cough is wet and congested. Abdomen soft bowel sounds are heard. No masses or tenderness. Extremities are intact. No cyanosis clubbing or edema. Skin is without rash or lesion. Neurologic examination is brief but nonfocal. - Labs CBC & Chem 7: 08/26/22 07:50 08/26/22 07:50 Labs: Abnormal Lab Results - Last 24 Hours (Table) 08/25/22 08/25/22 08/26/22 Range/Units 16:37 20:02 05:56 WBC (3.8-10.6) k/uL Hgb (13.0-17.5) gm/dL Neutrophils # (1.3-7.7) k/uL Lymphocytes # (1.0-4.8) k/uL Sodium (137-145) mmol/L Chloride (98-107) mmol/L Carbon Dioxide (22-30) mmol/L BUN (9-20) mg/dL Creatinine (0.66-1.25) mg/dL Glucose (74-99) mg/dL POC Glucose (mg/dL) 208 H 291 H 220 H (70-110) mg/dL 08/26/22 08/26/22 08/26/22 Range/Units 07:50 07:50 11:32 WBC 17.6 H (3.8-10.6) k/uL Hgb 12.3 L (13.0-17.5) gm/dL Neutrophils # 15.7 H (1.3-7.7) k/uL Lymphocytes # 0.5 L (1.0-4.8) k/uL Sodium 134 L (137-145) mmol/L Chloride 92 L (98-107) mmol/L Carbon Dioxide 39 H (22-30) mmol/L BUN 89 H (9-20) mg/dL Creatinine 1.71 H (0.66-1.25) mg/dL Glucose 209 H (74-99) mg/dL POC Glucose (mg/dL) 222 H (70-110) mg/dL Microbiology - Last 24 Hours (Table) 08/21/22 18:00 Blood Culture - Preliminary Blood 08/23/22 06:00 Gram Stain - Final Sputum Sputum Culture - Final Pseudomonas aeruginosa Assessment and Plan Assessment: Acute exacerbation of COPD, in a patient with severe/stage III COPD, complicated by pseudomonas aeruginosa tracheobronchitis. Chronic hypoxemic respiratory failure. Severe COPD, with an FEV1 percent, that is 33% of predicted. Elevated troponins, which may relate to supply/demand mismatch. Acute kidney injury. History of systolic congestive heart failure. Type II, diabetes mellitus. History of CAD. Essential hypertension. History of hyperlipidemia. History prostate cancer. Plan: Plan dated 08/23/2022. The patient's lungs, or improved, on auscultation. He continues on appropriate medications. According to cardiology, and atrial fibrillation sustained any myocardial ischemia, so they recommend that we stop the heparin. The patient is also recommended to follow-up with his outside cylinder worker. We will continue to follow make recommendations along the way. Prognosis is guarded. Clinically , he seems to be improved. The patient's pro-calcitonin level is quite low, so antibiotics will be discontinued. In addition, his Solu-Medrol will be converted to prednisone 30 mg a day. Plan dated 08/24/2022. The patient remains on budesonide, formoterol, and updrafts with albuterol and ipratropium bromide. The patient's on prednisone 30 mg a day. Additional recommendations and suggestions are forthcoming. From the pulmonary standpoint, the patient stable. Cardiology also cleared the patient. We will continue to follow make recommendations along the way. Prognosis is guarded. Antibiotics were discontinued because the pro-calcitonin level was very low. Plan dated 08/25/2022. The patient remains on appropriate medications including budesonide, formoterol, albuterol sulfate, ipratropium bromide, and prednisone. The patient's chest x- ray on admission showed only chronic changes, and changes of COPD. His most recent imaging showing gram-negative bacilli, and this likely represents a tracheobronchitis. We will add some antibiotics to his regimen, orally. I will probably add Augmentin. Additional recommendations and suggestions are forthcoming. Overall prognosis remains very guarded. The patient was cleared by cardiology. Plan dated 08/26/2022. The patient's Augmentin was discontinued in favor of Levaquin. The patient's sputum was positive for very sensitive pseudomonas aeruginosa. Labs, x-rays, and medications are reviewed. We will continue to follow the patient make recommendations along the way. The family and the patient has a number of questions today. All these questions are answered. Prognosis is certainly guarded. Time with Patient: Less than 30
[2022-08-26] MEDS: PANTOPRAZOLE 40 MG TABLET PO SCH (12:37)
[2022-08-26] MEDS: METOPROLOL SUCCINATE (ER) 25 MG TAB.ER.24H PO SCH (12:37)
--- NOTE | 2022-08-26 14:54 | P.PN ---
Subjective Progress Note Date: 08/26/22 Principal diagnosis: Acute exacerbation of COPD, in a patient with severe/stage III COPD, complicated by pseudomonas aeruginosa tracheobronchitis. Chronic hypoxemic respiratory failure. Severe COPD, with an FEV1 percent, that is 33% of predicted. Elevated troponins, which may relate to supply/demand mismatch. Acute kidney injury 86-year-old male with past medical history of very severe COPD with an FEV1 33% of predicted, chronic steroid and oxygen dependence on 6 L nasal cannula, CHF, diabetes mellitus type 2, prostate cancer. - Patient was transferred to our emergency room from [facility] yesterday evening for a COPD exacerbation. Apparently, the patient has had multiple readmits at [facility], and was recently treated for COPD exacerbation, and discharged on doxycycline and steroids. Patient has been reporting progressively worsening shortness of breath for about 1 week. He denies any symptoms of fever, chills, cough, chest pain. He is currently lying in bed, in 6 L nasal cannula, fairly comfortable. Chest x-ray on arrival showed no cardiopulmonary process. CBC shows leukocytosis with a WBC count of 20.2, hemoglobin 13.5, hematocrit 42.3, platelets 202. BMP shows a sodium 138, potassium 4.3, chloride 94, serum CO2 39, BUN 74, creatinine 1.63, glucose 336. Troponins are elevated at 0.1, 0.12, and 0.14 respectively. EKG shows normal sinus rhythm with right bundle-branch block. Patient denies any chest pain. NT proBNP is elevated at 2030, however, the patient does have a component of acute kidney injury. Patient is currently receiving a combination of bronchodilators, Symbicort inhaler, and IV site Medrol. Patient is also empirically covered on Augmentin. 24 hour interval change 08/25/2022 Patient is seen and evaluated in room at bedside; suffers from chronic hypoxemic respiratory failure, home oxygen, at 6 L, 21/10/64. He is currently on 6 L, and not receiving any IV fluids. His family is in the room. Yesterday, he was complaining of nausea. That is better today. White count 18, hemoglobin 12.5, hematocrit 38.8, and platelet count 148,000. Sodium 137, potassium 4, chlorides 92, CO2 38, BUN 79, and creatinine 1.78. Previous pro-calcitonin level was 0.09. Sputum from August 23 shows gram-negative bacilli. Cardiology on board; recommending to Discontinue Lasix. Continue to give carvedilol and entresto unless blood pressure is less than 80 systolic. Patient's heart failure is more of an output issue than a congestive issue. Over diuresing the patient will lead to hypotension. We will consider restarting Lasix tomorrow if blood pressure improves. 08/26/2022 Patient is seen and evaluated in room at bedside; remains on O2 at 6 L per nasal cannula Vital signs are reviewed and temperature of 97.9, pulse 50, respiration 20 and blood pressure of 88/58 with O2 saturation of 90% The sputum was positive for pseudomonas aeruginosa, which is sensitive to about everything. Augmentin will be discontinued, in favor of Levaquin. Today's labs include a white count of 17.6, hemoglobin 12.3, hematocrit 39.3, and a platelet count of 155,000. Sodium 134, potassium 4.6, chlorides 92, CO2 39, BUN 89, and creatinine 1.71. Calcium is 8.4 with a lactic acid of 1.4. Plan to continue with current management; pulmonary's service on board; discharge when deemed stable by pulmonary service Objective - Vital Signs Vital signs: Vital Signs Temp 97.9 F 08/26/22 08:00 Pulse 85 08/26/22 12:08 Resp 18 08/26/22 12:00 BP 85/52 08/26/22 12:00 Pulse Ox 91 L 08/26/22 12:00 FiO2 60 08/26/22 04:00 Intake & Output 08/25/22 08/26/22 08/26/22 18:59 06:59 18:59 Intake Total 1200 240 Output Total 225 225 Balance 975 -225 240 Intake: Oral 1200 240 Output: Urine 225 225 Other: Voiding Method Urinal Urinal Urinal # Voids 1 # Bowel Movements 2 - Exam PHYSICAL EXAMINATION: GENERAL: The patient is alert and oriented x3, not in any acute distress. Well developed, well nourished. HEENT: Pupils are round and equally reacting to light. EOMI. No scleral icterus. No conjunctival pallor. Normocephalic, atraumatic. No pharyngeal erythema. No thyromegaly. CARDIOVASCULAR: S1 and S2 present. No murmurs, rubs, or gallops. PULMONARY: Chest is clear to auscultation, no wheezing or crackles. ABDOMEN: Soft, nontender, nondistended, normoactive bowel sounds. No palpable organomegaly. MUSCULOSKELETAL: No joint swelling or deformity. EXTREMITIES: No cyanosis, clubbing, or pedal edema. NEUROLOGICAL: Gross neurological examination did not reveal any focal deficits. SKIN: No rashes. - Labs CBC & Chem 7: 08/26/22 07:50 08/26/22 07:50 Labs: Abnormal Lab Results - Last 24 Hours (Table) 08/25/22 08/25/22 08/26/22 Range/Units 16:37 20:02 05:56 WBC (3.8-10.6) k/uL Hgb (13.0-17.5) gm/dL Neutrophils # (1.3-7.7) k/uL Lymphocytes # (1.0-4.8) k/uL Sodium (137-145) mmol/L Chloride (98-107) mmol/L Carbon Dioxide (22-30) mmol/L BUN (9-20) mg/dL Creatinine (0.66-1.25) mg/dL Glucose (74-99) mg/dL POC Glucose (mg/dL) 208 H 291 H 220 H (70-110) mg/dL 08/26/22 08/26/22 08/26/22 Range/Units 07:50 07:50 11:32 WBC 17.6 H (3.8-10.6) k/uL Hgb 12.3 L (13.0-17.5) gm/dL Neutrophils # 15.7 H (1.3-7.7) k/uL Lymphocytes # 0.5 L (1.0-4.8) k/uL Sodium 134 L (137-145) mmol/L Chloride 92 L (98-107) mmol/L Carbon Dioxide 39 H (22-30) mmol/L BUN 89 H (9-20) mg/dL Creatinine 1.71 H (0.66-1.25) mg/dL Glucose 209 H (74-99) mg/dL POC Glucose (mg/dL) 222 H (70-110) mg/dL Microbiology - Last 24 Hours (Table) 08/21/22 18:00 Blood Culture - Preliminary Blood 08/23/22 06:00 Gram Stain - Final Sputum Sputum Culture - Final Pseudomonas aeruginosa Assessment and Plan Assessment: Acute exacerbation of COPD, in a patient with severe/stage III COPD. Chronic hypoxemic respiratory failure. Severe COPD, with an FEV1 percent, that is 33% of predicted. Elevated troponins, which may relate to supply/demand mismatch. Acute kidney injury. History of systolic congestive heart failure. Type II, diabetes mellitus. History of CAD. Essential hypertension. History of hyperlipidemia. History prostate cancer --- Solu-Medrol IV, DuoNeb nebulizer treatments every 4 hours, nebulized Pulmicort -- Continue with current dose of Augmentin -- Monitor Accu-Cheks before meals and at bedtime with insulin sliding scale -- Elevated troponin; given elevated creatinine and no evidence of acute coronary syndrome, no further testing is recommended - -Continue with home dose of Coreg and Crestor 20 mg daily
[2022-08-26 16:20] LABS: Glucose,Whole Blood 56 mg/dL (70-110)
[2022-08-26 16:37] LABS: Glucose,Whole Blood 64 mg/dL (70-110)
[2022-08-26 17:11] LABS: Glucose,Whole Blood 113 mg/dL (70-110)
[2022-08-26 20:06] LABS: Glucose,Whole Blood 124 mg/dL (70-110)
[2022-08-27 00:33] VITALS: TEMP 97.8
[2022-08-27] MEDS: IPRATROPIUM-ALBUTEROL 3 ML NEB INHALATION SCH ×5 (03:06→15:27)
[2022-08-27 05:35] LABS: Glucose,Whole Blood 99 mg/dL (70-110)
[2022-08-27] MEDS: SODIUM CHLORIDE 0.9% 1,000 ML IV SCH (06:08)
[2022-08-27] MEDS: INSULIN ASPART (NovoLOG) 100 UNIT/ML VIAL SQ SCH ×6 (06:08→16:40)
[2022-08-27] MEDS: PANTOPRAZOLE 40 MG TABLET PO SCH (06:09)
[2022-08-27] MEDS: BUDESONIDE 1 MG/2 ML NEBU INHALATION SCH (08:35)
[2022-08-27] MEDS: FORMOTEROL FUMARATE 20 MCG/2 ML NEBU INHALATION SCH (08:35)
[2022-08-27] MEDS: predniSONE 10 MG TAB PO SCH (08:39)
[2022-08-27] MEDS: SACUBITRIL/VALSARTAN 24 MG-26 MG TABLET PO SCH (08:39)
[2022-08-27] MEDS: guaiFENesin 600 MG TABLET.ER PO SCH (08:39)
[2022-08-27] MEDS: ATORVASTATIN 40 MG TAB PO SCH (08:39)
[2022-08-27] MEDS: ASPIRIN 81 MG PO SCH (08:40)
[2022-08-27] MEDS: FERROUS SULFATE 325 MG TAB PO SCH (08:40)
[2022-08-27] MEDS: metFORMIN 500 MG TAB PO SCH (08:40)
[2022-08-27 08:46] VITALS: RESP 16
[2022-08-27] MEDS ORDERED: LEVOFLOXACIN 250 MG TAB PO SCH (09:00)
[2022-08-27 09:42] LABS: Basophils % (A) 0 %; Eosinophils % (A) 0 %; HCT 40.6 % (39.0-53.0); HGB 12.7 gm/dL (13.0-17.5); Hypochromasia Moderate; Lymphocytes # (A) 0.5 k/uL (1.0-4.8); Lymphocytes % (A) 3 %; MCH 28.5 pg (25.0-35.0); MCHC 31.2 g/dL (31.0-37.0); MCV 91.5 fL (80.0-100.0); Mean Platelet Volume 9.2; Monocytes # (A) 0.5 k/uL (0-1.0); Monocytes % (A) 3 %; Neutrophils # (A) 14.7 k/uL (1.3-7.7); Neutrophils % (A) 92 %; Platelet Count 174 k/uL (150-450); RBC 4.44 m/uL (4.30-5.90); RDW 14.1 % (11.5-15.5); WBC 16.1 k/uL (3.8-10.6)
[2022-08-27 09:55] LABS: Calcium 8.2 mg/dL (8.4-10.2); Magnesium 2.6 mg/dL (1.6-2.3); Potassium 4.6 mmol/L (3.5-5.1)
[2022-08-27 11:36] LABS: Glucose,Whole Blood 174 mg/dL (70-110)
--- NOTE | 2022-08-27 12:06 | P.PN ---
Subjective Progress Note Date: 08/27/22 I am seeing this patient in new consultation today 08/22/2022 in the emergency room for suspected COPD exacerbation. 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 Patient has been seen in the office by Dr. Garcia in the past for management of his very severe oxygen and steroid dependent COPD. Patient is normally maintained on a combination of Advair and albuterol on an outpatient basis. Patient was transferred to our emergency room from [facility] yesterday evening for a COPD exacerbation. Apparently, the patient has had multiple readmits at [facility], and was recently treated for COPD exacerbation, and discharged on doxycycline and steroids. Patient has been reporting progressively worsening shortness of breath for about 1 week. He denies any symptoms of fever, chills, cough, chest pain. He is currently lying in bed, in 6 L nasal cannula, fairly comfortable. Chest x-ray on arrival showed no cardiopulmonary process. CBC shows leukocytosis with a WBC count of 20.2, hemoglobin 13.5, hematocrit 42.3, platelets 202. BMP shows a sodium 138, potassium 4.3, chloride 94, serum CO2 39, BUN 74, creatinine 1.63, glucose 336. Troponins are elevated at 0.1, 0.12, and 0.14 respectively. EKG shows normal sinus rhythm with right bundle-branch block. Patient denies any chest pain. NT proBNP is elevated at 2030, however, the patient does have a component of acute kidney injury. Patient is currently receiving a combination of bronchodilators, Symbicort inhaler, and IV site Medrol. Patient is also empirically covered on Augmentin. Afebrile. Vital signs are stable. Progress note dated 08/23/2022. Seen yesterday in consultation. He has severe/stage III almost stage IV COPD, with an FEV1 percent that is 33. He sees one of my partners in the office for his COPD. The patient is doing better today. He was seen by cardiology. They had him on a heparin drip thinking that he may have sustained a myocardial infarction. Heparin has been discontinued. Advised to follow-up with his outpatient conservation science officer. He's currently on 6 L of oxygen. He is not receiving any IV fluids. Feeling much better, but probably can be discharged until tomorrow. Labs include a PTT of 86. Glucose 2:30. Progress note dated 08/24/2022. 86-year-old male seen in consultation 2 days ago. The patient has severe COPD. His FEV1 percent is 33. The patient is doing a bit better today from the pulmonary standpoint, but is complaining of nausea. Remains on 6 L of oxygen. No IV fluids. He was seen by cardiology and they were concerned initially about the possibility of myocardial infarction. The heparin drip was discontinued, and he was asked to follow-up with his own conservation science officer. White count 24,000, with a normal hemoglobin, hematocrit, and platelet count. Sodium 139, potassium 3.9, chlorides 93, CO2 40, BUN 68, creatinine 1.50. Progress note dated 08/25/2022. 86-year-old male seen again in room 368. The patient was seen in consultation 3 days ago. He initially came in with chest pain. He has very severe COPD, with an FEV1 that is 33% of predicted. He also suffers from chronic hypoxemic respiratory failure, home oxygen, at 6 L, 21/10/64. He is currently on 6 L, and not receiving any IV fluids. His family is in the room. Yesterday, he was complaining of nausea. That is better today. White count 18, hemoglobin 12.5, hematocrit 38.8, and platelet count 148,000. Sodium 137, potassium 4, chlorides 92, CO2 38, BUN 79, and creatinine 1.78. Previous pro-calcitonin level was 0 .09. Sputum from August 23 shows gram-negative bacilli. Progress note dated 08/26/2022. 86-year-old male seen again in room 368. A number of family members are at the bedside. The patient continues on his usual home oxygen dose of 6 L. The sputum was positive for pseudomonas aeruginosa, which is sensitive to about everything. Augmentin will be discontinued, in favor of Levaquin. The patient wants to again, why his breathing is bad. I told him that he has FEV1 that is 33% of predicted. Today's labs include a white count of 17.6, hemoglobin 12.3, hematocrit 39.3, and a platelet count of 155,000. Sodium 134, potassium 4.6, chlorides 92, CO2 39, BUN 89, and creatinine 1.71. Calcium is 8.4 with a lactic acid of 1.4. On today's evaluation of 08/27/2022, the patient is feeling well. The patient was found to have Pseudomonas in his lungs along with COPD exacerbation. Based on that, the patient was started on Levaquin. The patient is still on oxygen and the patient is currently on oxygen at 6 L/m nasal cannula. He has a congested cough. No sinus tachycardia sputum production. Unable to produce a whole lot of sputum. No fever. No chills. No chest pain. Mobility is limited . The results of 16.1 with a hemoglobin 12.7 and a platelet count of 174. BNP is 83 with a creatinine of 52 and this is at 134. Serum bicarb is at 36. Otherwise, no other significant events otherwise over the past 24 hours and the patient's condition is essentially stable for now. The patient is currently on Levemir insulin for blood sugar control 10 units along with NovoLog 5 units 3 times a day with meals. The patient is on Mucinex for cough and congestion. The patient is completing a prednisone burst taper currently on 30 mg. His CHF seems to be optimized for the time being. He is known to have advanced COPD severe with an FEV1 of 33% of predicted. Is also known to have underlying cardiomyopathy. Objective - Vital Signs Vital signs: Vital Signs Temp 97.8 F 08/27/22 00:00 Pulse 80 08/27/22 08:52 Resp 16 08/27/22 08:00 BP 89/51 08/27/22 08:00 Pulse Ox 90 L 08/27/22 08:00 FiO2 60 08/26/22 04:00 Intake & Output 08/26/22 08/27/22 08/27/22 18:59 06:59 18:59 Intake Total 240 Output Total 125 600 Balance 115 -600 Intake: Oral 240 Output: Urine 125 600 Other: Voiding Method Urinal Urinal - Exam No acute distress, oriented 3. Mild conversational dyspnea. Currently on 6 L. No use of accessory muscles. No audible wheezing. HEENT examination is grossly unremarkable. Neck supple. Full range of motion. No adenopathy thyromegaly or neck vein distention. Cardiovascular examination reveals regular rhythm rate. S1-S2 normal. No S3 or S4. No discernible murmur noted. Heart sounds are distant. Heart rate 83 bpm. Lungs reveal scattered expiratory rhonchi and wheezes. Mild to moderate in severity. No crackles. Breath sounds are equal. Breath sounds are diminished throughout. 6 L saturation is 90 %. Cough is wet and congested. Abdomen soft bowel sounds are heard. No masses or tenderness. Extremities are intact. No cyanosis clubbing or edema. Skin is without rash or lesion. Neurologic examination is brief but nonfocal. - Labs CBC & Chem 7: 08/27/22 09:04 08/27/22 09:04 Labs: Abnormal Lab Results - Last 24 Hours (Table) 08/26/22 08/26/22 08/26/22 Range/Units 11:32 16:18 16:36 WBC (3.8-10.6) k/uL Hgb (13.0-17.5) gm/dL Neutrophils # (1.3-7.7) k/uL Lymphocytes # (1.0-4.8) k/uL Sodium (137-145) mmol/L Chloride (98-107) mmol/L Carbon Dioxide (22-30) mmol/L BUN (9-20) mg/dL Creatinine (0.66-1.25) mg/dL Glucose (74-99) mg/dL POC Glucose (mg/dL) 222 H 56 L 64 L (70-110) mg/dL Calcium (8.4-10.2) mg/dL Magnesium (1.6-2.3) mg/dL 08/26/22 08/26/22 08/27/22 Range/Units 17:09 19:52 09:04 WBC (3.8-10.6) k/uL Hgb (13.0-17.5) gm/dL Neutrophils # (1.3-7.7) k/uL Lymphocytes # (1.0-4.8) k/uL Sodium 134 L (137-145) mmol/L Chloride 92 L (98-107) mmol/L Carbon Dioxide 36 H (22-30) mmol/L BUN 83 H (9-20) mg/dL Creatinine 1.52 H (0.66-1.25) mg/dL Glucose 160 H (74-99) mg/dL POC Glucose (mg/dL) 113 H 124 H (70-110) mg/dL Calcium 8.2 L (8.4-10.2) mg/dL Magnesium 2.6 H (1.6-2.3) mg/dL 08/27/22 Range/Units 09:04 WBC 16.1 H (3.8-10.6) k/uL Hgb 12.7 L (13.0-17.5) gm/dL Neutrophils # 14.7 H (1.3-7.7) k/uL Lymphocytes # 0.5 L (1.0-4.8) k/uL Sodium (137-145) mmol/L Chloride (98-107) mmol/L Carbon Dioxide (22-30) mmol/L BUN (9-20) mg/dL Creatinine (0.66-1.25) mg/dL Glucose (74-99) mg/dL POC Glucose (mg/dL) (70-110) mg/dL Calcium (8.4-10.2) mg/dL Magnesium (1.6-2.3) mg/dL Microbiology - Last 24 Hours (Table) 08/21/22 18:00 Blood Culture - Final Blood 08/23/22 06:00 Gram Stain - Final Sputum Sputum Culture - Final Pseudomonas aeruginosa Assessment and Plan Plan: Acute exacerbation of COPD, in a patient with severe COPD, complicated by pseudomonas aeruginosa tracheobronchitis. Chronic hypoxemic respiratory failure. Severe COPD, with an FEV1 percent, that is 33% of predicted. Elevated troponins, which may relate to supply/demand mismatch. Acute kidney injury. History of systolic congestive heart failure. Type II, diabetes mellitus. History of CAD. Essential hypertension. History of hyperlipidemia. History prostate cancer. 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 Continue DuoNeb nebulized treatments [id number] Continue the combination performance on Pulmicort updrafts and the patient has been taken and an outpatient basis Prednisone burst taper Continue cardiac medications Aggressive pulmonary toileting Incentive spirometer We'll continue to follow Long-term prognosis poor based above-mentioned comorbidities.
[2022-08-27] MEDS: METOPROLOL SUCCINATE (ER) 25 MG TAB.ER.24H PO SCH (12:23)
[2022-08-27] MEDS: INSULIN DETEMIR (LEVEMIR) 100 UNIT/ML SYR SQ SCH (12:23)
--- NOTE | 2022-08-27 13:23 | P.PN ---
Subjective Progress Note Date: 08/27/22 HISTORY OF PRESENT ILLNESS: Patient examined this morning at the bedside. Patient denies chest pain or pressure. He reports improvement in his shortness of breath. He is being foll owed by pulmonary medicine as well. Vital signs are stable this morning. PHYSICAL EXAM: VITAL SIGNS: Reviewed. GENERAL: Well-developed in no acute distress. NECK: Supple. No JVD or thyromegaly LUNGS: Respirations even and unlabored. Lungs with rhonchi bilaterally HEART: Regular rate and rhythm. S1 and S2 heard. EXTREMITIES: Normal range of motion. No clubbing or cyanosis. Peripheral pulses intact. No lower extremity edema ASSESSMENT: Acute COPD exacerbation Chronic hypoxic respiratory failure on home O2 Hypotension secondary to diuresis, improved Abnormal troponins, acute coronary syndrome ruled out Hyperlipidemia Diabetes Chronic kidney disease PLAN: Continue current cardiac medications Continue to hold antihypertensive medication secondary to recent hypotension. Need to monitor blood pressure Patient is stable from a cardiac exam point We will sign off. Please reconsult if needed. Nurse practitioner note has been reviewed by physician. Signing provider agrees with the documented findings, assessment, and plan of care. Objective - Vital Signs Vital signs: Vital Signs Temp 97.8 F 08/27/22 00:00 Pulse 79 08/27/22 12:00 Resp 16 08/27/22 12:00 BP 106/67 08/27/22 12:00 Pulse Ox 92 L 08/27/22 12:00 FiO2 60 08/26/22 04:00 Intake & Output 08/26/22 08/27/22 08/27/22 18:59 06:59 18:59 Intake Total 240 Output Total 125 600 Balance 115 -600 Intake: Oral 240 Output: Urine 125 600 Other: Voiding Method Urinal Urinal Urinal - Labs CBC & Chem 7: 08/27/22 09:04 08/27/22 09:04 Labs: Abnormal Lab Results - Last 24 Hours (Table) 08/26/22 08/26/22 08/26/22 Range/Units 16:18 16:36 17:09 WBC (3.8-10.6) k/uL Hgb (13.0-17.5) gm/dL Neutrophils # (1.3-7.7) k/uL Lymphocytes # (1.0-4.8) k/uL Sodium (137-145) mmol/L Chloride (98-107) mmol/L Carbon Dioxide (22-30) mmol/L BUN (9-20) mg/dL Creatinine (0.66-1.25) mg/dL Glucose (74-99) mg/dL POC Glucose (mg/dL) 56 L 64 L 113 H (70-110) mg/dL Calcium (8.4-10.2) mg/dL Magnesium (1.6-2.3) mg/dL 08/26/22 08/27/22 08/27/22 Range/Units 19:52 09:04 09:04 WBC 16.1 H (3.8-10.6) k/uL Hgb 12.7 L (13.0-17.5) gm/dL Neutrophils # 14.7 H (1.3-7.7) k/uL Lymphocytes # 0.5 L (1.0-4.8) k/uL Sodium 134 L (137-145) mmol/L Chloride 92 L (98-107) mmol/L Carbon Dioxide 36 H (22-30) mmol/L BUN 83 H (9-20) mg/dL Creatinine 1.52 H (0.66-1.25) mg/dL Glucose 160 H (74-99) mg/dL POC Glucose (mg/dL) 124 H (70-110) mg/dL Calcium 8.2 L (8.4-10.2) mg/dL Magnesium 2.6 H (1.6-2.3) mg/dL 08/27/22 Range/Units 11:34 WBC (3.8-10.6) k/uL Hgb (13.0-17.5) gm/dL Neutrophils # (1.3-7.7) k/uL Lymphocytes # (1.0-4.8) k/uL Sodium (137-145) mmol/L Chloride (98-107) mmol/L Carbon Dioxide (22-30) mmol/L BUN (9-20) mg/dL Creatinine (0.66-1.25) mg/dL Glucose (74-99) mg/dL POC Glucose (mg/dL) 174 H (70-110) mg/dL Calcium (8.4-10.2) mg/dL Magnesium (1.6-2.3) mg/dL Microbiology - Last 24 Hours (Table) 08/21/22 18:00 Blood Culture - Final Blood 08/23/22 06:00 Gram Stain - Final Sputum Sputum Culture - Final Pseudomonas aeruginosa
[2022-08-27 14:06] VITALS: BMI 29.2
--- NOTE | 2022-08-27 15:11 | P.DS ---
Providers Date of admission: 08/21/22 20:25 Attending physician: Praveen Dennison Consults: 08/21/22 20:26 Consult Physician Urgent Consulting Provider: Wicho Guzmán Consult Reason/Comments: COPD exacerbation Do you want consulting provider notified?: Yes 08/21/22 22:28 Consult Physician Stat Consulting Provider: John Caraballo Consult Reason/Comments: Troponin elevated Do you want consulting provider notified?: Yes 08/25/22 15:15 Consult to Palliative Care Routine Consulting Provider: Modesta Knox Consult Reason/Comments: Near end stage COPD, cardiomyopathy Do you want consulting provider notified?: Yes, Notify in am Primary care physician: [facility] Course: Diagnoses: Acute exacerbation of COPD, in a patient with severe/stage III COPD. Chronic hypoxemic respiratory failure. Acute tracheobronchitis secondary to Pseudomonas, resolving Elevated troponins, which may relate to supply/demand mismatch. Acute kidney injury. Borderline low normal blood pressure History of systolic congestive heart failure. Type II, diabetes mellitus. History of CAD. history of Essential hypertension. History of hyperlipidemia. History prostate cancer Hospital course: 86-year-old male with past medical history of very severe COPD with an FEV1 33% of predicted, chronic steroid and oxygen dependence on 6 L nasal cannula, CHF, diabetes mellitus type 2, prostate cancer. Patient was transferred to our emergency room from [facility] for a COPD exacerbation. Apparently, the patient has had multiple readmits at [facility], and was recently treated for COPD exacerbation, and discharged on doxycycline and steroids. Patient has been reporting progressively worsening shortness of breath for about 1 week. Patient was found to have acute COPD exacerbation and acute tracheobronchitisbrief sputum culture growing Pseudomonas. Patient placed on oral Levaquin, renal dose 5 days upon discharge. Patient's development by clinical services professional and pulmonary services. Patient with evidence of cardiomyopathy with ejection fraction of 35-55% on echocardiogram , Also his creatinine was elevated on admission 1.6-1.7, patient creatinine has been stable over the last 5 days, today is improved down to 1.5.urine analysis is benign. Renal ultrasound showed no hydronephrosis. Bladder scan showing a residual urine of 74 mL Patient was treated with oral prednisone 30 mg and normal saline. Patient showed interval improvement and is back close to his baseline, his breathing is quiet. He denies chest pain or dyspnea. He still has mild tachypnea. However patient feels generally weak and he'll benefit from rehab, initially patient refused to go to rehab but then he agreed after his family talked to him. Patient metformin was held because of elevated creatinine. His elevated creatinine is thought secondary to Lasix, which was discontinued by clinical services professional, cardiology team recommend to continue with the same dose of entresto Patient will need close monitoring of renal function upon discharge Also patient glucose was on the low side this morning, discontinue metformin. He was placed on Levemir 10 units as well as NovoLog 5 units with meals instead which is new medication for him but patient is agreeable Patient will be discharged on tapering prednisone. He takes prednisone 20 mg daily at home which will keep, will give extra prednisone 10 mg 3 days. I discussed the case with 2 daughters at bedside and they continue with the plan. The of discharge patient denies chest pain, no worsening dyspnea, no new GI or urinary symptoms. Patient was cleared for discharge by cardiology and pulmonary team's Problems and management plan were discussed with the patient and he verbalized understanding and acceptance Patient was found stable and [facility] however he needs follow-up as an outpatient. Patient was instructed to follow up with PCP Dr. Jc an within one week and patient agrees Patient was instructed to follow up with clinical services professional Dr. Zavaleta in one week and director paid media Dr. Guzmán in 1-2 weeks Physical exam -Gen: patient is a AAOx3, no distress. Obese. Generally weak CVS: S1-S2, RRR, no murmur Lungs: B/L CTA, no wheezing Abdomen: soft, no distention, no tenderness, positive bowel sounds Extremity: no leg edema or induration Time spent more than 35 minutes Plan - Discharge Summary Discharge Rx Participant: Yes New Discharge Prescriptions: New hydrALAZINE HCL [Apresoline] 25 mg PO TID PRN #90 tab PRN Reason: Heart Rate - High Levofloxacin [Levaquin] 250 mg PO DAILY #5 tab INSULIN ASPART (NovoLOG) [NovoLOG (formulary)] 5 unit SQ AC-TID #10 mgofpheneq INSULIN ASPART (NovoLOG) [NovoLOG (formulary)] 0 unit SQ AC-TID #10 mgofpheneq predniSONE 10 mg PO DAILY 3 Days #3 tab Pantoprazole [Protonix] 40 mg PO AC-BRKFST #30 tab Insulin Detemir (Levemir) [Levemir] 10 unit SQ DAILY@0700 #10 mgofpheneq Atorvastatin [Lipitor] 40 mg PO DAILY tab Metoprolol Succinate (ER) [Toprol XL] 25 mg PO DAILY #30 tab Continue Aspirin EC [Ecotrin Low Dose] 81 mg PO DAILY predniSONE [Deltasone] 20 mg PO DAILY Albuterol Sulfate [Albuterol Sulfate Hfa] 1 - 2 puff PO RT-Q6H PRN #1 each PRN Reason: Shortness Of Breath Albuterol Nebulized [Ventolin Nebulized] 2.5 mg INHALATION RT-QID PRN #10 ml PRN Reason: Shortness Of Breath Ferrous Sulfate [Iron (65 MG Elemental)] 325 mg PO DAILY Furosemide [Lasix] 40 mg PO BID Fluticasone Propion/Salmeterol [Advair Hfa 230-21 Mcg Inhaler] 2 puff INHALATION RT-BID Discontinued metFORMIN HCL [Glucophage] 1,000 mg PO DAILY metFORMIN HCL [Glucophage] 500 mg PO HS Sacubitril/Valsartan [Entresto 24 mg-26 mg Tablet] 1 tab PO BID Rosuvastatin [Crestor] 20 mg PO DAILY Ibuprofen [Motrin] 600 mg PO TID PRN PRN Reason: Pain carvediloL [Coreg] 6.25 mg PO BID Discharge Medication List Aspirin EC [Ecotrin Low Dose] 81 mg PO DAILY 04/12/19 [History] Ferrous Sulfate [Iron (65 MG Elemental)] 325 mg PO DAILY 08/21/22 [History] Fluticasone Propion/Salmeterol [Advair Hfa 230-21 Mcg Inhaler] 2 puff INHALATION RT-BID 08/21/22 [History] Furosemide [Lasix] 40 mg PO BID 08/21/22 [History] predniSONE [Deltasone] 20 mg PO DAILY 08/21/22 [History] Albuterol Nebulized [Ventolin Nebulized] 2.5 mg INHALATION RT-QID PRN #10 ml 08/27/22 [Rx] Albuterol Sulfate [Albuterol Sulfate Hfa] 1 - 2 puff PO RT-Q6H PRN #1 each 08/27/22 [Rx] Atorvastatin [Lipitor] 40 mg PO DAILY tab 08/27/22 [Rx] INSULIN ASPART (NovoLOG) [NovoLOG (formulary)] 0 unit SQ AC-TID #10 mgofpheneq 08/27/22 [Rx] INSULIN ASPART (NovoLOG) [NovoLOG (formulary)] 5 unit SQ AC-TID #10 mgofpheneq 08/27/22 [Rx] Insulin Detemir (Levemir) [Levemir] 10 unit SQ DAILY@0700 #10 mgofpheneq 08/27/22 [Rx] Levofloxacin [Levaquin] 250 mg PO DAILY #5 tab 08/27/22 [Rx] Metoprolol Succinate (ER) [Toprol XL] 25 mg PO DAILY #30 tab 08/27/22 [Rx] Pantoprazole [Protonix] 40 mg PO AC-BRKFST #30 tab 08/27/22 [Rx] hydrALAZINE HCL [Apresoline] 25 mg PO TID PRN #90 tab 08/27/22 [Rx] predniSONE 10 mg PO DAILY 3 Days #3 tab 08/27/22 [Rx] Follow up Appointment(s)/Referral(s): Lety Riggs MD [STAFF PHYSICIAN] - 1 Week (kidney doctor ) Jc An MD [Primary Care Provider] - 1-2 days Wicho Guzmán DO [Doctor of Osteopathic Medicine] - 10 Days [facility], [NON-STAFF] - 1 Week Gallo Zavaleta MD [STAFF PHYSICIAN] - 1 Week Activity/Diet/Wound Care/Special Instructions: Heart healthy diet, low carbohydrate 1800 kcal per day Activity as tolerated We recommend to check his sugar, glucose 4 times a day, before each meal and at bedtime. If his glucose less than 70 or more than 400 then called 911 on come to emergency room
[2022-08-27 16:34] LABS: Glucose,Whole Blood 177 mg/dL (70-110)
[2022-08-27 17:05] VITALS: BP 114/71; PULSE 80
--- NOTE | 2022-08-30 08:29 | CDI ---
Documentation Clarification Form Date: 08/30/2022 07:42:00 AM From: Ernestina Griffiths RN, CCDS 6 Admit Date: 08/21/2022 08:25:00 PM Patient Name: Parker Nunez Visit Number: [id number] Discharge Date: 08/27/2022 05:40:00 PM ATTENTION: The Clinical Documentation Specialists (CDI) and [facility] Coding Staff appreciate your assistance in clarifying documentation. Please respond to the clarification below the line at the bottom and electronically sign. The CDI & [facility] Coding staff will review the response and follow-up if needed. Please note: Queries are made part of the Legal Health Record. If you have any questions, please contact the author of this message via ITS. Dr. Lenny Adam Hypotension is documented in the cardiology progress note starting on 08/25/22. Additional clarification regarding this diagnosis is requested. 08/27 Discharge summary: Borderline low normal blood pressure. 08/25/22 Cardiology progress note (Dr. Barrios) we were asked to see the patient again today due to hypotension. Nursing reported a blood pressure of 74/50. Patient was on Lasix, Cavedilol, and Entresto. 1) Hypotension, secondary to Lasix. Plan Discontinue Lasix. 08/26 Cardiology progress note: Nursing does report that he had a dip in his blood pressure overnight to 64/46. He was given a 500 ml fluid bolus, with increase in blood pressure to 85/54. History/Risk Factors: COPD, CKD Stage III, Chronic hypoxic respiratory failure Diabetes Mellitus, Hypertension, Hyperlipidemia Coronary artery disease, Congestive Heart Failure Clinical Indicators: 86-year-old male present with progressive worsening shortness of breath. He was found to have acute COPD exacerbation and tracheobronchitis. Echocardiogram: reduced LV function of 35% or less. Septal hypokinesia severe. Treatment: Telemetry/monitory .9 NS 500 ML Bolus 08/26 Discontinue Lasix Metoprolol Succinate 25 MG PO 08/26-08/27 Monitor blood Pressure Can the hypotension be further specified? [ ] Borderline low normal blood pressure [ ] Hypotension, secondary to Lasix [ ] Other Condition, please specify [ ] Unable to determine (Template Last Revised: May 2020) Borderline low normal blood pressure MTDD
== END 2022-08-27 17:40 | DRG 190 ==
LOC: EC 16:57 → 3SCARD 20:25
PROVIDERS: ADMIT Hospitalist; ATTEND Hospitalist
DX: J44.1 Chronic obstructive pulmonary disease with (acute) exacerbation (principal); J96.21 Acute and chronic respiratory failure with hypoxia; J96.22 Acute and chronic respiratory failure with hypercapnia; I13.0 Hypertensive heart and chronic kidney disease with heart failure and stage 1 through stage 4 chronic kidney disease, or unspecified chronic kidney disease; I50.22 Chronic systolic (congestive) heart failure; N17.9 Acute kidney failure, unspecified; N18.4 Chronic kidney disease, stage 4 (severe); I42.9 Cardiomyopathy, unspecified; I5A Non-ischemic myocardial injury (non-traumatic); E78.5 Hyperlipidemia, unspecified; E11.22 Type 2 diabetes mellitus with diabetic chronic kidney disease; I95.9 Hypotension, unspecified; Z66 Do not resuscitate; Z96.652 Presence of left artificial knee joint; I25.10 Atherosclerotic heart disease of native coronary artery without angina pectoris; I45.10 Unspecified right bundle-branch block; I25.2 Old myocardial infarction; Z79.4 Long term (current) use of insulin; Z79.52 Long term (current) use of systemic steroids; Z79.82 Long term (current) use of aspirin; Z79.84 Long term (current) use of oral hypoglycemic drugs; Z79.899 Other long term (current) drug therapy; Z85.46 Personal history of malignant neoplasm of prostate; Z99.81 Dependence on supplemental oxygen; B96.5 Pseudomonas (aeruginosa) (mallei) (pseudomallei) as the cause of diseases classified elsewhere; J20.8 Acute bronchitis due to other specified organisms
CPT/HCPCS: 36415; 71046; 76770; 80048; 80053; 81003; 83605; 83735; 83880; 84145; 84484; 85025; 85610; 85730; 87040; 87070; 87077; 87186; 87205; 93005; 93306; 94640; 94660; 94760; 96365; 96375; 96376; 99285

== ENCOUNTER 2022-08-27 22:32 | Inpatient (IN) | payer MEDICARE ==
[2022-08-27 22:44] VITALS: BP 112/65; RESP 12; TEMP 98.9
[2022-08-27 23:01] LABS: ABG Base Excess 7.9 mmol/L; ABG HCO3 36 mmol/L (21-25); ABG Oxygen Saturation 96.3 % (94-97); ABG PH 7.23 (7.35-7.45); ABG PO2 87 mmHg (83-108); ABG TCO2 38 mmol/L (19-24); Allen Test Performed? Yes
[2022-08-27 23:02] LABS: Glucose,Whole Blood 290 mg/dL (70-110)
[2022-08-27 23:14] LABS: ABG PCO2 86 mmHg (35-45)
--- NOTE | 2022-08-27 23:16 | ED ---
SOB HPI - General Chief Complaint: Shortness of Breath Stated Complaint: GUILHERME Time Seen by Provider: 08/27/22 22:34 Source: patient, EMS, RN notes reviewed Mode of arrival: EMS - History of Present Illness Initial Comments: Patient is 86-year-old man presenting to the emergency room via EMS from [facility] on the leg which he was taken to around 3:30 this afternoon after whit escobar discharged from this facility for end-stage COPD, end-stage CHF he was discharged on a prednisone taper and 6 L nasal cannula. According to EMS he was having desaturation to 70s/80s on his 6 L nasal cannula at [facility] consequently they contact EMS for his return to the hospital. Upon arrival to the hospital patient with coarse rattling breath sounds and bilateral lower extremity discoloration consistent with lower extremity mottling. Patient is alert and oriented in continues to have desaturation on a nonrebreather. His records indicate that he is a DO NOT RESUSCITATE; this information was discussed with him advising him that his respiratory status is severe and without intervention of a breathing tube he is likely to go into respiratory arrest soon. He declined any intervention with the exception of temporary BiPAP usage at this time. In addition to his end-stage COPD and ischemic cardiomyopathy with CHF he has a past medical history significant for prostate cancer hypertension and hyperlipidemia. - Related Data Home Medications Medication Instructions Recorded Confirmed Aspirin EC [Ecotrin Low Dose] 81 mg PO DAILY 04/12/19 08/21/22 Ferrous Sulfate [Iron (65 MG 325 mg PO DAILY 08/21/22 08/21/22 Elemental)] Fluticasone Propion/Salmeterol 2 puff INHALATION RT-BID 08/21/22 08/21/22 [Advair Hfa 230-21 Mcg Inhaler] predniSONE [Deltasone] 20 mg PO DAILY 08/21/22 08/21/22 Previous Rx's Medication Instructions Recorded Albuterol Nebulized [Ventolin 2.5 mg INHALATION RT-QID PRN #10 ml 08/27/22 Nebulized] Albuterol Sulfate [Albuterol 1 - 2 puff PO RT-Q6H PRN #1 each 08/27/22 Sulfate Hfa] Atorvastatin [Lipitor] 40 mg PO DAILY tab 08/27/22 INSULIN ASPART (NovoLOG) [NovoLOG 0 unit SQ AC-TID #10 mgofpheneq 08/27/22 (formulary)] INSULIN ASPART (NovoLOG) [NovoLOG 5 unit SQ AC-TID #10 mgofpheneq 08/27/22 (formulary)] Insulin Detemir (Levemir) [Levemir] 10 unit SQ DAILY@0700 #10 08/27/22 mgofpheneq Levofloxacin [Levaquin] 250 mg PO DAILY #5 tab 08/27/22 Metoprolol Succinate (ER) [Toprol 25 mg PO DAILY #30 tab 08/27/22 XL] Pantoprazole [Protonix] 40 mg PO AC-BRKFST #30 tab 08/27/22 Sacubitril/Valsartan [Entresto 24 1 each PO BID #60 tablet 08/27/22 mg-26 mg Tablet] predniSONE 10 mg PO DAILY 3 Days #3 tab 08/27/22 Allergies Allergy/AdvReac Type Severity Reaction Status Date / Time No Known Allergies Allergy Verified 08/21/22 18:58 Review of Systems ROS Statement: Those systems with pertinent positive or pertinent negative responses have been documented in the HPI. ROS Other: All systems not noted in ROS Statement are negative. Past Medical History Past Medical History: Coronary Artery Disease (CAD), Cancer, COPD, Diabetes Mellitus, Hyperlipidemia, Hypertension, Myocardial Infarction ([place]) Additional Past Medical History / Comment(s): Prostate CA in 1999, treated with seed implants and radiation Last Myocardial Infarction Date:: 1968 History of Any Multi-Drug Resistant Organisms: None Reported Past Surgical History: Orthopedic Surgery Additional Past Surgical History / Comment(s): Knee Surg X3 including a left knee arthroplasty, left Shoulder surgery for rotator cuff, broken ribs on Left side, left ankle Past Anesthesia/Blood Transfusion Reactions: No Reported Reaction Additional Past Anesthesia/Blood Transfusion Reaction / Comment(s): no blood products. Past Psychological History: No Psychological Hx Reported Smoking Status: Former smoker Past Alcohol Use History: None Reported Past Drug Use History: None Reported - Past Family History Father Family Medical History: COPD Additional Family Medical History / Comment(s): from Emphysema Brother(s) History Unknown: Yes Family Medical History: Cancer Additional Family Medical History / Comment(s): from upper resp and heart issues General Exam General appearance: alert, in no apparent distress Head exam: Present: atraumatic, normocephalic, normal inspection Eye exam: Present: normal appearance, PERRL. Absent: scleral icterus, conjunctival injection, periorbital swelling, periorbital tenderness ENT exam: Present: normal exam, mucous membranes dry Neck exam: Present: normal inspection, full ROM Respiratory exam: Present: respiratory distress (Purse lipped breathing and desaturation on nonrebreather), rales, rhonchi. Absent: stridor, chest wall tenderness Cardiovascular Exam: Present: regular rate, normal rhythm, normal heart sounds, systolic murmur. Absent: diastolic murmur, rubs, gallop, clicks GI/Abdominal exam: Present: soft, normal bowel sounds. Absent: distended, tenderness, guarding, rebound, rigid Extremities exam: Present: pedal edema, other (Mottling to mid thigh) Neurological exam: Present: alert, oriented X3, CN II-XII intact Psychiatric exam: Present: normal affect, normal mood Skin exam: Present: pallor, mottled Course Vital Signs 08/27/22 22:36 Temperature 98.9 F Pulse Rate 87 Respiratory 12 Rate Blood Pressure 112/65 O2 Sat by Pulse 86 L Oximetry Medical Decision Making - Medical Decision Making Was pt. sent in by a medical professional or institution (, PA, [employer], urgent care, hospital, or halfway...) When possible be specific @ -No Did you speak to anyone other than the patient for history (EMS, parent, family, police, friend...)? What history was obtained from this source @ -Yes, spoke with EMS regarding patient read presentation to the emergency room from [facility] after discharge today. Did you review nursing and triage notes (agree or disagree)? Why? @ -I reviewed and agree with nursing and triage notes Were old charts reviewed (outside hosp., previous admission, EMS record, old EKG, old radiological studies, urgent care reports/EKG's, halfway records)? Report findings @ -Yes, most recent hospitalization records including discharge summary, pulmonary consult, echocardiogram and laboratory results from earlier today. Differential Diagnosis (chest pain, altered mental status, abdominal pain women, abdominal pain men, vaginal bleeding, weakness, fever, dyspnea, syncope, headache, dizziness, GI bleed, back pain, seizure, CVA, palpatations, mental health, musculoskeletal)? @ -Differential Dyspnea: Coronary syndrome, arrhythmia, tamponade, asthma, COPD, pulmonary embolism, pneumonia, pneumothorax, pulmonary effusion, anaphylaxis, diabetic ketoacidosis, flailed chest, pulmonary contusion, diaphragmatic rupture, anemia, neuromuscular, this is not meant to be an all-inclusive list. EKG interpreted by me (3pts min.). @ -None done X-rays interpreted by me (1pt min.). @ -Chest x-ray one view: pending CT interpreted by me (1pt min.). @ -None done U/S interpreted by me (1pt. min.). @ -None done What testing was considered but not performed or refused? (CT, X-rays, U/S, labs)? Why? @ -None What meds were considered but not given or refused? Why? @ -None Did you discuss the management of the patient with other professionals (professionals i.e. , PA, [employer], lab, RT, psych nurse, social and human services assistant, forensic photographer, teacher, patrol officer, dependency case manager)? Give summary @ -Yes, spoke with Dr. toscano on-call for [facility] regarding patient's repeat presentation to the emergency room with concerns for end-stage respiratory failure with course audible radials and lower extremity leg mottling. Advise recommend readmission and application of BiPAP this time until family is able to consent to comfort care. Patient does not wish any other further extremity measurements. He denies any further orders at this time. Was smoking cessation discussed for >3mins.? @ -No Was critical care preformed (if so, how long)? @ -No Were there social determinants of health that impacted care today? How? (Homelessness, low income, unemployed, alcoholism, drug addiction, transportation, low edu. Level, literacy, decrease access to med. care, group home, rehab)? @ -No Was there de-escalation of care discussed even if they declined (Discuss DNR or withdrawal of care, Hospice)? DNR status @ -No What co-morbidities impacted this encounter? (DM, HTN, Smoking, COPD, CAD, Cancer, CVA, ARF, Chemo, Hep., AIDS, mental health diagnosis, sleep apnea, morbid obesity)? @ -COPD, CHF Was patient admitted / discharged? Hospital course, mention meds given and route, prescriptions, significant lab abnormalities, going to OR and other pertinent info. @ -86-year-old male presenting to the emergency room via EMS for worsening hypoxia despite supplemental oxygenation due to COPD and CHF. He was discharged from the hospital earlier this afternoon on prednisone taper and 6 L nasal cannula. He was having desaturation on 6 L nasal cannula at the facility consequently called EMS for his return. Upon examination patient with course rails consistent with end-stage lung sounds and mottling of the bilateral lower extremities to mid thigh. He had laboratory studies completed prior to his discharge today which revealed a BUN of 82 and a creatinine of 1.53 consequently tolerance of Lasix will be poor and will hold Lasix at this time. Will obtain ABGs along with a 1 view portable chest x-ray for workup. Patient does not wish to have extreme measures done but is agreeable to BiPAP at this time. Will place on BiPAP. Nursing staff has contacted family in regards to patient's poor status/prognosis and advised recommend coming to the hospital. Blood gases reveal pH is 7.226 pCO2 85.5 pO2 87.4 on a nonrebreather. Will defer any further treatment at this time. Spoke with Dr. toscano regarding patient's repeat presentation. He asked for glucose level to be checked which was stable in 200s. No further orders received at this time. Will admit patient in poor/terminal condition to medical surgical unit under [facility] for end-stage COPD and CHF. Undiagnosed new problem with uncertain prognosis? @ -No Drug Therapy requiring intensive monitoring for toxicity (Heparin, Nitro, Insulin, Cardizem)? @ -No Were any procedures done? @ -No Diagnosis/symptom? @ -Respiratory failure Acute, or Chronic, or Acute on Chronic? @ -Acute on chronic Uncomplicated (without systemic symptoms) or Complicated (systemic symptoms)? @ -Complicated Side effects of treatment? @ -No Exacerbation, Progression, or Severe Exacerbation? @ -Severe exacerbation Poses a threat to life or bodily function? How? (Chest pain, [place], [place], pneumonia, PE, COPD, DKA, ARF, appy, cholecystitis, CVA, Diverticulitis, Homicidal, Suicida l, threat to staff... and all critical care pts) @ -Yes, severe hypoxemia with high probability of advancement to respiratory arrest; CODE STATUS of DO NOT RESUSCITATE verified. Case discussed with Dr. Burroughs. Disposition Clinical Impression: Acute respiratory failure with hypoxemia Disposition: ADMITTED IP TO THIS HOSP Condition: Poor Is patient prescribed a controlled substance at d/c from ED?: No Referrals: Jc Leal MD [Primary Care Provider] - 1-2 days Time of Disposition: 23:21
[2022-08-27] MEDS ORDERED: NALOXONE 0.4 MG/ML 1 ML VIAL IV PRN (23:21)
--- NOTE | 2022-08-27 23:30 | XR ---
EXAMINATION TYPE: XR chest 1V DATE OF EXAM: 08/27/2022 COMPARISON: 08/21/2022 INDICATION: Short of breath TECHNIQUE: Single frontal view of the chest is obtained. FINDINGS: The heart size is normal. The pulmonary vasculature is normal. Lower lobe infiltrate is present. Correlate for pneumonia. IMPRESSION: 1. Right lower lobe infiltrate. Correlate for pneumonia. Follow-up is recommended.
[2022-08-28] MEDS ORDERED: CEFEPIME 2 GM in SODIUM CHLORIDE 0.9% 100 ML IVPB SCH (00:15)
[2022-08-28] MEDS ORDERED: IPRATROPIUM-ALBUTEROL 3 ML NEB INHALATION PRN (00:16)
[2022-08-28] MEDS ORDERED: IPRATROPIUM-ALBUTEROL 3 ML NEB INHALATION STA (00:16)
[2022-08-28] MEDS ORDERED: DEXTROSE 50% SYRINGE 50 ML IVP PRN ×2 (00:17)
[2022-08-28] MEDS ORDERED: methylPREDNISolone SOD SUCCI 125 MG/2 ML VIAL IV SCH (00:30)
[2022-08-28 00:54] VITALS: PULSE 85
[2022-08-28] MEDS ORDERED: MORPHINE SULFATE (100 MG/2 ML) 100 MG in SODIUM CHLORIDE 0.9% 100 ML IV SCH (02:15)
[2022-08-28] MEDS ORDERED: SCOPOLAMINE 1 MG/72 HR PATCH TRANSDERM SCH (02:15)
[2022-08-28] MEDS ORDERED: ATROPINE OPHTH SOLN 1% 5ML BTL SUBLINGUAL PRN (02:38)
[2022-08-28] MEDS ORDERED: MORPHINE SULFATE 4 MG/ML SYRINGE IVP ONE (02:38)
--- NOTE | 2022-08-28 02:38 | P.CNPUL ---
History of Present Illness Consult date: 08/28/22 Requesting physician: Lenny Adam Reason for consult: COPD, pneumonia Chief complaint: Shortness of breath and hypoxia History of present illness: I am seeing this patient in new consultation today 08/28/2022 in the emergency room after the patient was recently discharged to [facility] yesterday afternoon and returned last night. Patient is a 86-year-old male with past medical history significant for severe COPD with an FEV1 33% of predicted, congestive heart failure, diabetes mellitus type 2, coronary artery disease, hypertension, hyperlipidemia, prostate cancer. The patient's recent admission was for COPD exacerbation and acute tracheobronchitis. He was found to be colonized with pseudomonas and treated with Levaquin. The patient was discharged yesterday afternoon on 6 L nasal cannula and a prednisone taper. Apparently while at [facility], the patient was found to be in some respiratory distress and hypoxic. Chest x-ray on arrival showed a new right lower lobe infiltrate, concerning for pneumonia. The patient is a DO NOT RESUSCITATE/DO NOT INTUBATE. ABGs on admission show a pO2 of 87, pCO2 of 86, pH of 7.23. Patient is currently on a BiPAP with settings 12/5 and FiO2 of 65%. Patient's family is at bedside, they want to withdraw care, and make him comfortable. I did have a lengthy decision with family in this regard. The patient has multiple comorbidities, contributi ng to his progressive decline, and I agree with the family's decision. The case was discussed with Dr. Garcia, and we will proceed with comfort care measures. Review of Systems ROS unobtainable: due to mental status Past Medical History Past Medical History: Coronary Artery Disease (CAD), Cancer, COPD, Diabetes Roseline litus, Hyperlipidemia, Hypertension, Myocardial Infarction ([place]) Additional Past Medical History / Comment(s): Prostate CA in 1999, treated with seed implants and radiation Last Myocardial Infarction Date:: 1968 History of Any Multi-Drug Resistant Organisms: None Reported Past Surgical History: Orthopedic Surgery Additional Past Surgical History / Comment(s): Knee Surg X3 including a left knee arthroplasty, left Shoulder surgery for rotator cuff, broken ribs on Left side, left ankle Past Anesthesia/Blood Transfusion Reactions: No Reported Reaction Additional Past Anesthesia/Blood Transfusion Reaction / Comment(s): no blood products. Past Psychological History: No Psychological Hx Reported Smoking Status: Former smoker Past Alcohol Use History: None Reported Past Drug Use History: None Reported - Past Family History Father Family Medical History: COPD Additional Family Medical History / Comment(s): from Emphysema Brother(s) History Unknown: Yes Family Medical History: Cancer Additional Family Medical History / Comment(s): from upper resp and heart issues Medications and Allergies Home Medications Medication Instructions Recorded Confirmed Type Aspirin EC [Ecotrin Low Dose] 81 mg PO DAILY 04/12/19 08/21/22 History Ferrous Sulfate [Iron (65 MG 325 mg PO DAILY 08/21/22 08/21/22 History Elemental)] Fluticasone Propion/Salmeterol 2 puff INHALATION RT-BID 08/21/22 08/21/22 History [Advair Hfa 230-21 Mcg Inhaler] predniSONE [Deltasone] 20 mg PO DAILY 08/21/22 08/21/22 History Albuterol Nebulized [Ventolin 2.5 mg INHALATION RT-QID PRN #10 ml 08/27/22 Rx Nebulized] Albuterol Sulfate [Albuterol 1 - 2 puff PO RT-Q6H PRN #1 each 08/27/22 Rx Sulfate Hfa] Atorvastatin [Lipitor] 40 mg PO DAILY tab 08/27/22 Rx INSULIN ASPART (NovoLOG) [NovoLOG 0 unit SQ AC-TID #10 mgofpheneq 08/27/22 Rx (formulary)] INSULIN ASPART (NovoLOG) [NovoLOG 5 unit SQ AC-TID #10 mgofpheneq 08/27/22 Rx (formulary)] Insulin Detemir (Levemir) [Levemir] 10 unit SQ DAILY@0700 #10 08/27/22 Rx mgofpheneq Levofloxacin [Levaquin] 250 mg PO DAILY #5 tab 08/27/22 Rx Metoprolol Succinate (ER) [Toprol 25 mg PO DAILY #30 tab 08/27/22 Rx XL] Pantoprazole [Protonix] 40 mg PO AC-BRKFST #30 tab 08/27/22 Rx Sacubitril/Valsartan [Entresto 24 1 each PO BID #60 tablet 08/27/22 Rx mg-26 mg Tablet] predniSONE 10 mg PO DAILY 3 Days #3 tab 08/27/22 Rx Allergies Allergy/AdvReac Type Severity Reaction Status Date / Time No Known Allergies Allergy Verified 08/21/22 18:58 Physical Exam Vitals: Vital Signs Temp Pulse Resp BP Pulse Ox FiO2 08/28/22 00:54 85 08/28/22 00:41 86 65 08/27/22 23:11 65 08/27/22 22:36 98.9 F 87 12 112/65 86 L Intake and Output 08/27/22 08/27/22 08/28/22 14:59 22:59 06:59 Other: Weight 90.718 kg GENERAL EXAM: Minimally responsive and restless, on BiPAP HEAD: Normocephalic and atraumatic EYES: Normal reaction of pupils, equal size. NOSE: Clear with pink turbinates. THROAT: No erythema or exudates. NECK: No masses, no JVD. CHEST: No chest wall deformity. LUNGS: Equal air entry with rhonchi and wheezing bilaterally and throughout. On BiPAP with settings 12/5 and FiO2 65% CVS: S1 and S2 normal with no audible murmur, regular rhythm. No extra heart sounds ABDOMEN: No hepatosplenomegaly, active bowel sounds, no guarding or rigidity. SPINE: No scoliosis or deformity SKIN: No rashes CENTRAL NERVOUS SYSTEM: No focal deficits, tone is normal in all 4 extremities. EXTREMITIES: There is no peripheral edema, clubbing, or cyanosis. Peripheral pulses are intact. Results - Laboratory Findings ABG ABG pH 7.23 (7.35-7.45) L 08/27/22 22:51 ABG pCO2 86 mmHg (35-45) H* 08/27/22 22:51 ABG pO2 87 mmHg (83-108) 08/27/22 22:51 ABG O2 Saturation 96.3 % (94-97) 08/27/22 22:51 Abnormal lab findings: Abnormal Labs 08/27/22 08/27/22 22:51 23:00 ABG pH 7.23 L ABG pCO2 86 H* ABG HCO3 36 H ABG Total CO2 38 H POC Glucose (mg/dL) 290 H - Diagnostic Findings Chest x-ray: image reviewed Assessment and Plan Assessment: Acute COPD exacerbation secondary to right lower lobe pneumonia. Patient did have a positive sputum culture for pseudomonas aeruginosa on most recent hospital admission, and this was treated with a course of Levaquin. Patient has severe COPD at baseline with an FEV1 33% of predicted. He is normally oxygen and steroid dependent on an outpatient basis. Acute on chronic hypoxemic and hypercapnic respiratory failure secondary to above, currently on the BiPAP with settings 12/5 and FiO2 65% Acute kidney injury, creatinine 1.52 Leukocytosis History of systolic congestive heart failure, without any evidence of exacerbation on chest x-ray Diabetes mellitus 2, [id number] Coronary artery disease Essential hypertension Hyperlipidemia History of prostate cancer Plan: Patient's medications, labs, chest x-ray were reviewed Unfortunately, the patient's condition had deteriorated on discharge, and the patient was readmitted. On my evaluation, the patient is on BiPAP with settings 12/5 and an FiO2 of 65%. He is quite restless, and in some respiratory distress. The patient is a DO NOT RESUSCITATE/DO NOT INTUBATE. The patient's family is at bedside, and have elected to withdraw care. After lengthy discussion with family, they are requesting to make the patient Comfort Care. Due to the patient's overall poor prognosis and multiple comorbidities, I agree with this plan. The patient's case was discussed with Dr. Garcia, and we will proceed with comfort care measures. Residual joint evaluation that was done along with the nurse practitioner. The patient was readmitted within 24-48 hours following his discharge. The patient is having worsening shortness of breath. The patient was placed on BiPAP. Family was at the bedside and the patient and the family wanted to proceed with comfort care measures and end-of-life care. I'm normotensive for many years. Is an elderly gentleman with advanced COPD and he has had issues with COPD exacerbation pseudomonal infections the past and his condition is a progress ively declining in addition to his health and his overall performance of functional status. I was agreeable with end-of-life care with this patient. Appropriate orders were placed and we'll going to sign off the case. This evaluation was done in joint evaluation with the nurse practitioner in more than 30 minutes. Time with Patient: Greater than 30
[2022-08-28] MEDS ORDERED: LORazepam 2 MG/ML INJ IV STA (03:00)
[2022-08-28] MEDS ORDERED: INSULIN ASPART (NovoLOG) 100 UNIT/ML VIAL SQ SCH (07:30)
[2022-08-28] MEDS ORDERED: FORMOTEROL FUMARATE 20 MCG/2 ML NEBU INHALATION SCH (08:00)
[2022-08-28] MEDS ORDERED: BUDESONIDE 1 MG/2 ML NEBU INHALATION SCH (08:00)
[2022-08-28] MEDS ORDERED: ASPIRIN 81 MG PO SCH (09:00)
[2022-08-28] MEDS ORDERED: HEPARIN SODIUM,PORCINE/PF 5,000 UNIT/0.5 ML SYRINGE SQ SCH (09:00)
[2022-08-28] MEDS ORDERED: PANTOPRAZOLE 40 MG/10 ML VIAL IVP SCH (09:00)
[2022-08-28] MEDS ORDERED: ATORVASTATIN 40 MG TAB PO SCH (09:00)
--- NOTE | 2022-08-29 00:19 | P.HPIM ---
History of Present Illness Please consider this combined H&P and discharge summary Diagnoses: Acute right lower lobe pneumonia secondary to Pseudomonas Acute exacerbation of COPD, in a patient with severe/stage III COPD. Acute on Chronic hypoxemic respiratory failure. Acute tracheobronchitis secondary to Pseudomonas Elevated troponins, which may relate to supply/demand mismatch. Acute kidney injury. Borderline low normal blood pressure History of systolic congestive heart failure. Type II, diabetes mellitus. History of CAD. history of Essential hypertension. History of hyperlipidemia. History prostate cancer Hospital course: 86-year-old male with past medical history of very severe COPD with an FEV1 33% of predicted, chronic steroid and oxygen dependence on 6 L nasal cannula, CHF, diabetes mellitus type 2, prostate cancer. Patient was discharge history from a hospital for acute COPD exacerbation acute tracheobronchitis and elevated troponin secondary to supply demand mismatch. Patient has been followed and evaluated by cardiology and pulmonary service. He has been stable for the last 2-3 days and he was on prednisone 30 mg, aspirin 81 mg and oral Levaquin renal dose 250 mg, and patient was cleared for discharge by cardiology and pulmonary service, the patient was discharge to half-way to restart rehab however at half-way he desaturated and he was sent back to the emergency room, repeat chest x-ray showing right lower lobe infiltrate suspicious for pneumonia and he was oxygen saturation was 86% with debridement of bleeding therefore patient started on some IV Solu-Medrol 60 mg, and cefepime antibiotics for his pneumonia and placed on BiPAP machine as patient has DO NOT RESUSCITATE order as well. Pulmonary consult was requested. Family then came to see the patient and discussed the case with the pulmonary team and given his severe illness including but not limited to end stage COPD as well as recurrent hospitalization and significant infection they decided to place the patient on comfort care measure, please refer to pulmonary node. This also was confirmed to me by ER attending Physical exam -Gen: patient is a AAOx3, Obese. Generally weak CVS: S1-S2, RRR, no murmur -Lungs: B/L CTA, no wheezing. on oxygen therapy Abdomen: soft, no distention, no tenderness, positive bowel sounds Extremity: no leg edema or induration Past Medical History Past Medical History: Coronary Artery Disease (CAD), Cancer, COPD, Diabetes Mellitus, Hyperlipidemia, Hypertension, Myocardial Infarction (HI) Additional Past Medical History / Comment(s): Prostate CA in 1999, treated with seed implants and radiation Last Myocardial Infarction Date:: 1968 History of Any Multi-Drug Resistant Organisms: None Reported Past Surgical History: Orthopedic Surgery Additional Past Surgical History / Comment(s): Knee Surg X3 including a left knee arthroplasty, left Shoulder surgery for rotator cuff, broken ribs on Left side, left ankle Past Anesthesia/Blood Transfusion Reactions: No Reported Reaction Additional Past Anesthesia/Blood Transfusion Reaction / Comment(s): no blood products. Past Psychological History: No Psychological Hx Reported Smoking Status: Former smoker Past Alcohol Use History: None Reported Past Drug Use History: None Reported - Past Family History Father Family Medical History: COPD Additional Family Medical History / Comment(s): from Emphysema Brother(s) History Unknown: Yes Family Medical History: Cancer Additional Family Medical History / Comment(s): from upper resp and heart issues Medications and Allergies Home Medications Medication Instructions Recorded Confirmed Type Aspirin EC [Ecotrin Low Dose] 81 mg PO DAILY 04/12/19 08/21/22 History Ferrous Sulfate [Iron (65 MG 325 mg PO DAILY 08/21/22 08/21/22 History Elemental)] Fluticasone Propion/Salmeterol 2 puff INHALATION RT-BID 08/21/22 08/21/22 History [Advair Hfa 230-21 Mcg Inhaler] predniSONE [Deltasone] 20 mg PO DAILY 08/21/22 08/21/22 History Albuterol Nebulized [Ventolin 2.5 mg INHALATION RT-QID PRN #10 ml 08/27/22 Rx Nebulized] Albuterol Sulfate [Albuterol 1 - 2 puff PO RT-Q6H PRN #1 each 08/27/22 Rx Sulfate Hfa] Atorvastatin [Lipitor] 40 mg PO DAILY tab 08/27/22 Rx INSULIN ASPART (NovoLOG) [NovoLOG 0 unit SQ AC-TID #10 mgofpheneq 08/27/22 Rx (formulary)] INSULIN ASPART (NovoLOG) [NovoLOG 5 unit SQ AC-TID #10 mgofpheneq 08/27/22 Rx (formulary)] Insulin Detemir (Levemir) [Levemir] 10 unit SQ DAILY@0700 #10 08/27/22 Rx mgofpheneq Levofloxacin [Levaquin] 250 mg PO DAILY #5 tab 08/27/22 Rx Metoprolol Succinate (ER) [Toprol 25 mg PO DAILY #30 tab 08/27/22 Rx XL] Pantoprazole [Protonix] 40 mg PO AC-BRKFST #30 tab 08/27/22 Rx Sacubitril/Valsartan [Entresto 24 1 each PO BID #60 tablet 08/27/22 Rx mg-26 mg Tablet] predniSONE 10 mg PO DAILY 3 Days #3 tab 08/27/22 Rx Allergies Allergy/AdvReac Type Severity Reaction Status Date / Time No Known Allergies Allergy Verified 08/21/22 18:58 Physical Exam Vitals: Vital Signs Temp Pulse Resp BP Pulse Ox FiO2 08/28/22 00:54 85 08/28/22 00:41 86 65 08/27/22 23:11 65 08/27/22 22:36 98.9 F 87 12 112/65 86 L Intake and Output 08/27/22 08/27/22 08/28/22 14:59 22:59 06:59 Intake Total 13.872 Balance 13.872 Intake: Intake, IV Titration 13.872 Amount Morphine Sulfate (100 mg/ 13.872 2 ml) 100 mg In Sodium Chloride 0.9% 100 ml @ 1 MG/HR 1.02 mls/hr IV . Q24H [facility] Rx#:[id number] Other: Weight 90.718 kg Results Labs: Abnormal Lab Results - Last 24 Hours (Table) 08/27/22 08/27/22 Range/Units 22:51 23:00 ABG pH 7.23 L (7.35-7.45) ABG pCO2 86 H* (35-45) mmHg ABG HCO3 36 H (21-25) mmol/L ABG Total CO2 38 H (19-24) mmol/L POC Glucose (mg/dL) 290 H (70-110) mg/dL
== END 2022-08-28 04:00 | disposition expired | DRG 177 ==
LOC: EC 22:32 → 3SCARD 23:22
PROVIDERS: ADMIT Internal Medicine; ATTEND Internal Medicine
PROC: 5A09357 Assistance with Respiratory Ventilation, Less than 24 Consecutive Hours, Continuous Positive Airway Pressure (ICD-10-PCS; principal; 2022-08-27)
DX: J15.1 Pneumonia due to Pseudomonas (principal); J96.21 Acute and chronic respiratory failure with hypoxia; J96.22 Acute and chronic respiratory failure with hypercapnia; I50.22 Chronic systolic (congestive) heart failure; I24.8 Other forms of acute ischemic heart disease; J44.0 Chronic obstructive pulmonary disease with (acute) lower respiratory infection; J44.1 Chronic obstructive pulmonary disease with (acute) exacerbation; N17.9 Acute kidney failure, unspecified; I11.0 Hypertensive heart disease with heart failure; I25.10 Atherosclerotic heart disease of native coronary artery without angina pectoris; I25.5 Ischemic cardiomyopathy; I50.84 End stage heart failure; E78.5 Hyperlipidemia, unspecified; J20.8 Acute bronchitis due to other specified organisms; Z51.5 Encounter for palliative care; Z66 Do not resuscitate; I25.2 Old myocardial infarction; Z79.4 Long term (current) use of insulin; Z79.52 Long term (current) use of systemic steroids; Z79.82 Long term (current) use of aspirin; Z79.899 Other long term (current) drug therapy; Z85.46 Personal history of malignant neoplasm of prostate; Z96.652 Presence of left artificial knee joint; Z99.81 Dependence on supplemental oxygen; Z82.5 Family history of asthma and other chronic lower respiratory diseases; Z87.891 Personal history of nicotine dependence
CPT/HCPCS: 36415; 36600; 71045; 82805; 94660; 96365; 96366; 96375; 99285